=== PATIENT | female | born 1940 | race Caucasian/White ===

== ENCOUNTER 2016-12-25 12:00 | Inpatient (IN) ==
--- NOTE | 2016-12-25 12:47 | Emergency Department Note ---
Disposition Clinical Impression: Atrial flutter with rapid ventricular response, Pneumonitis Disposition: Admitted As Inpatient Condition: Good Referrals: Tisha Celeste MD [Primary Care Provider] - Forms: ED Satisfaction Letter Time of Disposition: 15:04 General Adult HPI - General Chief complaint: ED Dizziness Stated complaint: Tachycardia Sent by Kathy Time Seen by Provider: 12/25/16 12:12 Source: patient Limitations: no limitations Nursing Notes Reviewed: Yes Vital Signs Reviewed: Yes - History of Present Illness HPI Narrative: 76 year old female presnt to the ED from Dr. turner office and states that she was being fitted for a holter monitor due to incresed feeligns of lightheadedness. She has chronic atrial fibrillation and is rate controlled with cardizem and is currently on coumadin therapy for anticoagulation. Patient also states that she was most recenty treated for a UTI and is still having symptoms becase she stopped taking the mediation due to inerference with her coumadin and thinks that maybe this is the resason for her elevater HR. Patient denies fevers, but she has been nauseated PAtinet is currently in afib with a rate of 150s. Dnies chest pain at this time. Pain Scale: 0 - Related Data Home Medications Medication Instructions Recorded Confirmed Cholecalciferol (D-3) [Vitamin D] 1,000 unit PO DAILY 10/24/15 12/25/16 Cyanocobalamin (Vitamin B-12) 100 mcg PO DAILY 10/24/15 12/25/16 [Vitamin B12] Vitamin E Acid Succinate [Vitamin 100 unit PO DAILY 10/24/15 12/25/16 E] Vitamins A and D [Vitamin A and D] 1 cap PO DAILY 10/24/15 12/25/16 Potassium Chloride [K-Tab ER] 20 meq PO DAILY 11/12/16 12/25/16 Warfarin [Coumadin] 6 mg PO MOWEFR 11/12/16 12/25/16 Warfarin [Coumadin] 9 mg PO SUTUTHSA 11/12/16 12/25/16 Previous Rx's Medication Instructions Recorded Diltiazem CD (24hr) [Cardizem CD] 120 mg PO DAILY #60 cap.er.24h 10/25/15 Allergies Allergy/AdvReac Type Severity Reaction Status Date / Time codeine Allergy Shakiness Verified 11/24/16 09:50 Constitutional: Reports: weakness. Denies: fever, chills, weight change Eyes: Denies: eye pain, eye discharge, vision change ENT ED: Denies: ear pain, throat pain, dental pain, hearing loss, epistaxis, congestion, dysphagia Cardiovascular: Reports: palpitations. Denies: chest pain, dyspnea on exertion , edema, syncope Respiratory: Denies: cough, dyspnea, wheezes, hemoptysis, stridor Gastrointestinal: Denies: abdominal pain, nausea, vomiting, diarrhea, constipation, hematemesis, melena, hematochezia Genitourinary: Denies: dysuria, frequency, hematuria, discharge Musculoskeletal: Denies: back pain, neck pain, arthralgia, myalgia Integumentary: Denies: rash, abrasion, lesions Neurological: Reports: other (lightheaded). Denies: headache, weakness, numbness, paresthesias, confusion, abnormal gait, vertigo Psychiatric: Denies: anxiety, depression, suicidal thoughts, homicidal thoughts , auditory hallucinations, visual hallucinations Endocrine: Denies: fatigue Hematological/Lymphatic: Denies: easy bleeding, easy bruising Allergic/Immunologic: Denies: facial swelling, urticaria Past Medical History - Past Medical History Medical history: Reports: arthritis, atrial fibrillation, hyperlipidemia, hypertension Surgical history: Reports: appendectomy, cholecystectomy, orthopedic, other Psychiatric history: Reports: no psych history 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: bilateral tubal ligation - Social History Smoking Status: Current every day smoker Smokeless Tobacco Status: No Alcohol use: Reports: none Drug use: Reports: none Physical Exam - General Limitations: no limitations General appearance: alert - Head Head exam: atraumatic, normocephalic, normal inspection - Eye Eye exam: Present: normal appearance, PERRL, EOMI - Expanded Eye Exam Pupils: Left: reactive - ENT ENT exam: normal exam, normal oropharynx, mucous membranes moist - Expanded ENT Exam External ear exam: Present: normal external inspection Mouth exam: Present: normal external inspection Teeth exam: Present: normal inspection Throat exam: Present: normal inspection - Neck Neck exam: Present: normal inspection, full ROM, trachea midline - Chest Chest inspection: Present: normal inspection, symmetric chest wall rise - Respiratory Respiratory exam: Present: normal lung sounds bilaterally - Cardiovascular Cardiovascular exam: Present: tachycardia, irregular rhythm, normal heart sounds - Abdominal Exam Abdominal exam: Present: soft, Non-Tender. Absent: tenderness, distention, guarding, rebound, rigidity - Extremities Exam Extremities exam: Present: normal inspection, full ROM. Absent: tenderness, pedal edema - Expanded Upper Extremity Exam Shoulder exam: Present: normal inspection, full ROM Arm exam: Present: normal inspection, full ROM Elbow exam: Present: normal inspection, full ROM Forearm/Wrist exam: Present: normal inspection, full ROM Hand exam: Present: normal inspection, full ROM Vascular exam: Normal: capillary refill, radial pulse - Expanded Lower Extremity Exam Hip/Pelvis exam: Present: normal inspection, full ROM Upper leg exam: Present: normal inspection, full ROM Knee exam: Present: normal inspection, full ROM Lower leg exam: Present: normal inspection, full ROM Ankle exam: Present: normal inspection, full ROM Foot/toe exam: Present: normal inspection, full ROM Neurovascular/Tendon exam: Absent: motor deficit, sensory deficit, tendon deficit - Back Exam Back exam: Present: normal inspection, full ROM. Absent: tenderness - Neurological Exam Neurological exam: Present: alert, oriented X3 - Expanded Neurological Exam Patient oriented to: Present: person, place, time Coma Scale Eye Opening: Spontaneous Coma Scale Motor Response: Obeys Commands Coma Scale Verbal Response: Oriented Coma Scale Total: 15 - Psychiatric Psychiatric exam: Present: normal affect, normal mood - Skin Skin exam: Present: warm, dry, intact, normal color Course Course Narrative: we will stat cardizem with drip and cardiopulmonary workup with CTA to rule out infectious source. ADMIt to medicine after evaluation. - Consultations Consultation #1: discussed case with Dr Ray and he accepts iraj to his service. Ryan has been updated and is agreeable to plan Time: 15:03 Vital Signs Temperature 98.3 F 12/25/16 12:06 Pulse Rate 153 12/25/16 12:06 Respiratory Rate 22 12/25/16 12:06 Blood Pressure 124/85 12/25/16 12:06 O2 Sat by Pulse Oximetry 94 12/25/16 12:06 Temperature 98.3 F 12/25/16 12:06 Pulse Rate 76 12/25/16 14:32 Respiratory Rate 18 12/25/16 14:32 Blood Pressure 135/91 12/25/16 14:32 O2 Sat by Pulse Oximetry 94 12/25/16 14:32 Oxygen Delivery Oxygen Delivery Room Air Medical Decision Making - Medical Records Medical records reviewed: Yes I reviewed the patient's medical records. - Lab Data Lab results reviewed: Yes I reviewed the patient's lab results. Result diagrams: 12/25/16 12:47 12/25/16 12:47 Lab Results 12/25/16 12/25/16 12/25/16 Range/Units 12:47 12:47 12:47 WBC 9.3 (4.3-11.1) K/mcL RBC 5.10 H (3.82-4.97) M/mcL Hgb 13.1 (11.5-15.4) g/dL Hct 41.6 (35.3-44.9) % MCV 81.6 L (83.0-100.0) fL MCH 25.7 L (28.0-33.3) pg MCHC 31.5 L (31.6-35.5) g/dL RDW 15.9 H (11.5-14.5) % Plt Count 340 (140-400) K/mcL MPV 9.8 (9.4-12.4) fL Immature Gran % 0.6 (0-4) % Seg Neutrophils % 66.0 % Lymphocytes % 24.8 % Monocytes % 5.5 % Eosinophils % 2.5 % Basophils % 0.6 % Neutrophils # 6.1 (1.6-8.9) K/mcL Lymphocytes # 2.3 (0.6-4.6) K/mcL Monocytes # 0.5 (0.0-1.3) K/mcL Eosinophils # 0.2 (0.0-0.6) K/mcL Basophils # 0.1 (0.0-0.2) K/mcL PT (9.4-12.1) Seconds INR APTT (26.0-36.0) Seconds Sodium 138 (136-145) mEq/L Potassium 4.1 (3.5-4.5) mEq/L Chloride 107 (98-109) mEq/L Carbon Dioxide 22 (19-29) mEq/L BUN 13 (7-20) mg/dL Creatinine 0.73 (0.57-1.11) mg/dL Est GFR ( Amer) > 60 (> 60) Est GFR (Non-Af Amer) > 60 (> 60) BUN/Creatinine Ratio 18 (6-26) Glucose 137 H (70-99) mg/dL Calculated Osmolality 288 (280-300) Lactic Acid (0.5-2.2) mmol/L Calcium 8.7 (8.6-10.8) mg/dL Total Bilirubin 0.3 (0.2-1.2) mg/dL Direct Bilirubin 0.1 (0.0-0.5) mg/dL Indirect Bilirubin 0.2 (0.0-1.2) mg/dL AST 35 H (5-34) Units/L ALT 36 (0-55) Units/L Alkaline Phosphatase 101 (38-126) Units/L Troponin I (0-0.03) ng/mL B-Natriuretic Peptide 256 H (0-100) pg/mL Serum Total Protein 7.2 (6.0-8.3) g/dL Albumin 3.2 L (3.5-5.0) g/dL Globulin 4.0 H (2.4-3.5) g/dL Albumin/Globulin Ratio 0.8 L (1.1-2.2) Lipase 39 (8-78) Units/L Urine Color (Yellow) Urine Clarity (Clear) Urine pH (5.0-8.0) pH Units Ur Specific Bly (1.010-1.025) Urine Protein (Neg-Trace) mg/dL Urine Glucose (UA) (Normal) mg/dL Urine Ketones (Negative) mg/dL Urine Blood (Negative) Urine Nitrite (Negative) Urine Bilirubin (Negative) Urine Urobilinogen (Normal) mg/dL Ur Leukocyte Esterase (Negative) Urine Microscopic RBC (0-3) per hpf Urine Microscopic WBC (0-3) per hpf Ur Squamous Epith Cells (None-Few) per lpf Urine Bacteria (None-Few) per hpf Hyaline Casts (None-Few) per lpf Ur Culture Indicated? (NO) 12/25/16 12/25/16 12/25/16 Range/Units 12:47 12:47 13:20 WBC (4.3-11.1) K/mcL RBC (3.82-4.97) M/mcL Hgb (11.5-15.4) g/dL Hct (35.3-44.9) % MCV (83.0-100.0) fL MCH (28.0-33.3) pg MCHC (31.6-35.5) g/dL RDW (11.5-14.5) % Plt Count (140-400) K/mcL MPV (9.4-12.4) fL Immature Gran % (0-4) % Seg Neutrophils % % Lymphocytes % % Monocytes % % Eosinophils % % Basophils % % Neutrophils # (1.6-8.9) K/mcL Lymphocytes # (0.6-4.6) K/mcL Monocytes # (0.0-1.3) K/mcL Eosinophils # (0.0-0.6) K/mcL Basophils # (0.0-0.2) K/mcL PT 25.5 H (9.4-12.1) Seconds INR 2.3 APTT 42.9 H (26.0-36.0) Seconds Sodium (136-145) mEq/L Potassium (3.5-4.5) mEq/L Chloride (98-109) mEq/L Carbon Dioxide (19-29) mEq/L BUN (7-20) mg/dL Creatinine (0.57-1.11) mg/dL Est GFR ( Amer) (> 60) Est GFR (Non-Af Amer) (> 60) BUN/Creatinine Ratio (6-26) Glucose (70-99) mg/dL Calculated Osmolality (280-300) Lactic Acid 1.8 (0.5-2.2) mmol/L Calcium (8.6-10.8) mg/dL Total Bilirubin (0.2-1.2) mg/dL Direct Bilirubin (0.0-0.5) mg/dL Indirect Bilirubin (0.0-1.2) mg/dL AST (5-34) Units/L ALT (0-55) Units/L Alkaline Phosphatase (38-126) Units/L Troponin I 0.00 (0-0.03) ng/mL B-Natriuretic Peptide (0-100) pg/mL Serum Total Protein (6.0-8.3) g/dL Albumin (3.5-5.0) g/dL Globulin (2.4-3.5) g/dL Albumin/Globulin Ratio (1.1-2.2) Lipase (8-78) Units/L Urine Color (Yellow) Urine Clarity (Clear) Urine pH (5.0-8.0) pH Units Ur Specific Bly (1.010-1.025) Urine Protein (Neg-Trace) mg/dL Urine Glucose (UA) (Normal) mg/dL Urine Ketones (Negative) mg/dL Urine Blood (Negative) Urine Nitrite (Negative) Urine Bilirubin (Negative) Urine Urobilinogen (Normal) mg/dL Ur Leukocyte Esterase (Negative) Urine Microscopic RBC (0-3) per hpf Urine Microscopic WBC (0-3) per hpf Ur Squamous Epith Cells (None-Few) per lpf Urine Bacteria (None-Few) per hpf Hyaline Casts (None-Few) per lpf Ur Culture Indicated? (NO) 12/25/16 Range/Units 14:03 WBC (4.3-11.1) K/mcL RBC (3.82-4.97) M/mcL Hgb (11.5-15.4) g/dL Hct (35.3-44.9) % MCV (83.0-100.0) fL MCH (28.0-33.3) pg MCHC (31.6-35.5) g/dL RDW (11.5-14.5) % Plt Count (140-400) K/mcL MPV (9.4-12.4) fL Immature Gran % (0-4) % Seg Neutrophils % % Lymphocytes % % Monocytes % % Eosinophils % % Basophils % % Neutrophils # (1.6-8.9) K/mcL Lymphocytes # (0.6-4.6) K/mcL Monocytes # (0.0-1.3) K/mcL Eosinophils # (0.0-0.6) K/mcL Basophils # (0.0-0.2) K/mcL PT (9.4-12.1) Seconds INR APTT (26.0-36.0) Seconds Sodium (136-145) mEq/L Potassium (3.5-4.5) mEq/L Chloride (98-109) mEq/L Carbon Dioxide (19-29) mEq/L BUN (7-20) mg/dL Creatinine (0.57-1.11) mg/dL Est GFR ( Amer) (> 60) Est GFR (Non-Af Amer) (> 60) BUN/Creatinine Ratio (6-26) Glucose (70-99) mg/dL Calculated Osmolality (280-300) Lactic Acid (0.5-2.2) mmol/L Calcium (8.6-10.8) mg/dL Total Bilirubin (0.2-1.2) mg/dL Direct Bilirubin (0.0-0.5) mg/dL Indirect Bilirubin (0.0-1.2) mg/dL AST (5-34) Units/L ALT (0-55) Units/L Alkaline Phosphatase (38-126) Units/L Troponin I (0-0.03) ng/mL B-Natriuretic Peptide (0-100) pg/mL Serum Total Protein (6.0-8.3) g/dL Albumin (3.5-5.0) g/dL Globulin (2.4-3.5) g/dL Albumin/Globulin Ratio (1.1-2.2) Lipase (8-78) Units/L Urine Color Yellow (Yellow) Urine Clarity Clear (Clear) Urine pH 6.5 (5.0-8.0) pH Units Ur Specific Bly 1.012 (1.010-1.025) Urine Protein Negative (Neg-Trace) mg/dL Urine Glucose (UA) Normal (Normal) mg/dL Urine Ketones Negative (Negative) mg/dL Urine Blood Negative (Negative) Urine Nitrite Negative (Negative) Urine Bilirubin Negative (Negative) Urine Urobilinogen Normal (Normal) mg/dL Ur Leukocyte Esterase Small H (Negative) Urine Microscopic RBC 0-3 (0-3) per hpf Urine Microscopic WBC 15-30 H (0-3) per hpf Ur Squamous Epith Cells Moderate H (None-Few) per lpf Urine Bacteria Moderate H (None-Few) per hpf Hyaline Casts None Seen (None-Few) per lpf Ur Culture Indicated? YES A (NO) - Radiology Data Radiology results reviewed: Yes I reviewed the patient's radiology results. - EKG Data EKG #1 EKG attestation: Yes I reviewed and interpreted this EKG. EKG results narrative: atrial flutter with rate of 149. NO STEMI. change from 11/24/16 (afib rate controlled). LAD 1218
[2016-12-25 13:03] LABS: Basophils # 0.1 K/mcL (0.0-0.2); Basophils % 0.6 %; Eosinophils # 0.2 K/mcL (0.0-0.6); Eosinophils % 2.5 %; Hematocrit 41.6 % (35.3-44.9); Hemoglobin 13.1 g/dL (11.5-15.4); Immature Granulocytes % 0.6 % (0-4); Lymphocytes # 2.3 K/mcL (0.6-4.6); Lymphocytes % 24.8 %; Mean Corpuscular HGB Conc 31.5 g/dL (31.6-35.5); Mean Corpuscular Hemoglobin 25.7 pg (28.0-33.3); Mean Corpuscular Volume 81.6 fL (83.0-100.0); Mean Platelet Volume 9.8 fL (9.4-12.4); Monocytes # 0.5 K/mcL (0.0-1.3); Monocytes % 5.5 %; Neutrophils # 6.1 K/mcL (1.6-8.9); Platelet Count 340 K/mcL (140-400); Red Cell Distribution Width 15.9 % (11.5-14.5)
[2016-12-25 13:11] LABS: Alanine Aminotransferase 36 Units/L (0-55); Albumin 3.2 g/dL (3.5-5.0); Albumin/Globulin Ratio 0.8 (1.1-2.2); Alkaline Phosphatase 101 Units/L (38-126); Aspartate Amino Transferase 35 Units/L (5-34); BUN/Creatinine Ratio 18 (6-26); Bilirubin,Direct 0.1 mg/dL (0.0-0.5); Bilirubin,Indirect 0.2 mg/dL (0.0-1.2); Bilirubin,Total 0.3 mg/dL (0.2-1.2); Blood Urea Nitrogen 13 mg/dL (7-20); Calcium 8.7 mg/dL (8.6-10.8); Carbon Dioxide 22 mEq/L (19-29); Chloride 107 mEq/L (98-109); Glucose 137 mg/dL (70-99); Lipase 39 Units/L (8-78); Osmolality,Calculated 288 (280-300); Potassium 4.1 mEq/L (3.5-4.5); Sodium 138 mEq/L (136-145); Total Protein 7.2 g/dL (6.0-8.3); eGFR For African Americans > 60 (> 60); eGFR For Non-African Americans > 60 (> 60)
[2016-12-25 13:34] LABS: INR 2.3; Prothrombin Time 25.5 Seconds (9.4-12.1)
[2016-12-25 13:37] LABS: Activated Partial Thrombo Time 42.9 Seconds (26.0-36.0)
[2016-12-25 14:24] LABS: Bilirubin,Urine Negative (Negative); Blood,Urine Negative (Negative); Clarity,Urine Clear (Clear); Color,Urine Yellow (Yellow); Glucose,Urine (UA) Normal (Normal); Ketones,Urine Negative (Negative); Leukocyte Esterase,Urine Small (Negative); Nitrite,Urine Negative (Negative); PH,Urine 6.5 pH Units (5.0-8.0); Protein,Urine Negative (Neg-Trace); Specific Gravity,Urine 1.012 (1.010-1.025); Urobilinogen,Urine Normal (Normal)
[2016-12-25 14:28] LABS: Bacteria,Urine Moderate per hpf (None-Few); Hyaline Casts,Urine None Seen per lpf (None-Few); RBC,Urine 0-3 per hpf (0-3); Squamous Epithelial Cell,Urine Moderate per lpf (None-Few); WBC,Urine 15-30 per hpf (0-3)
[2016-12-25] MEDS ORDERED: Levofloxacin 750 MG/150 ML 750 MG/150 ML BAG IVPB ONE (14:43)
[2016-12-25] MEDS: dilTIAZem HCl 100 MG in D5% in Water 50 ML IVC SCH (14:55)
[2016-12-25] MEDS ORDERED: Acetaminophen 325 MG TABLET PO PRN (16:07)
[2016-12-25] MEDS ORDERED: Naloxone 0.4 MG/ML INJ IVP PRN (16:07)
[2016-12-25] MEDS ORDERED: *HR* Morphine 2 MG/ML SYRINGE IVP PRN (16:07)
[2016-12-25] MEDS ORDERED: *HR* Warfarin 3 MG TABLET PO SCH (16:15)
--- NOTE | 2016-12-25 16:25 | Internal Med History&Physical ---
Date of Encounter: 12/25/16 Time of Encounter: 14:30 Assessment and Plan (1) Atrial flutter with rapid ventricular response Current visit: Yes Status: Acute 1. Patient converted to NSR by the time I saw her in ER. 2. Will check Magnesium level, TSH, and trend troponins. 3. Will order ECHO. 4. Consult Cardiology for further guidance and/or medication adjustmetns. 5. Continue home meds for now. (2) Pneumonitis Current visit: Yes Status: Acute 1. Other than dyspnea, patient asymptomatic. 2. Blood cultures ordered per ER. 3. She received Levaquin in ER. 4. I ordered Rocephin and Zithromax to start tomorrow. 5. Monitor clinically. (3) DVT prophylaxis Current visit: No Status: Acute 1. Patient on Coumadin. 2. Continue home dose and monitor daily PT/INR. Internal Medicine - H&P: HPI Chief complaint: palpitations, dyspnea Admitted From: Emergency Dept Plans for Post Hospital Care: Home History of present illness: Ms. Frye is a 76 year old female who presents with a several hour history of feeling lightheaded, dizzy, and short of breath. She was in the urgent care off site today having a Holter monitor placed as ordered by cardiology. However , the field evidence technician noticed that her heart rate was elevated at the time with a heart rate of about 150 bpm. She was sent to the ER where she was found to have atrial flutter with rapid ventricular response. She received a dose of IV Cardizem with heart rate control. I was then contacted to admit patient. Upon my assessment of the patient, she feels much better and is symptom-free. I noticed that she appears to be in sinus rhythm on bus driver/monitor during my assessment. She and her daughter state that she did take her oral Cardizem this morning after she was having her monitoring manager placed at the urgent care. I suspect with her oral Cardizem and the IV Cardizem in the ER, she converted to sinus rhythm. She and her state she has a history of paroxysmal atrial fibrillation and her tool marker has been making some medication changes recently. Cardiology recommended patient be admitted with continued observation and possible further medication changes. In addition to her work-up, she underwent CT angiogram of the chest which showed some pneumonitis type findings. She denies any cough, fever, but she complains of increasing shortness of breath the last 3-4 days. She denies any myalgias, headache, nausea, or vomiting. Past Med Surg Social Fam HX - Past Medical History Attestation: Yes The following information was validated with the patient. Source: patient, old records reviewed Medical history: arthritis, atrial fibrillation, hyperlipidemia, hypertension Psychiatric history: no psych history - Past Surgical History Surgical History: appendectomy, cholecystectomy, orthopedic, other - Social History Smoking Status: Current every day smoker Smokeless Tobacco Status: No Alcohol use: none Drug use: none Current living situation: Home, With Family Activity Level: Independent ambulation Recent Out of Country Travel Within the Last 8 Weeks: No - Family History Mother Living Status: Hx Family Cardiac Disorders: No Father Living Status: Hx Family Cardiac Disorders: No Hx Family Respiratory Disorders: No Internal Medicine - H&P: Meds Cholecalciferol (D-3) [Vitamin D] 1,000 unit PO DAILY 10/24/15 [History] Cyanocobalamin (Vitamin B-12) [Vitamin B12] 100 mcg PO DAILY 10/24/15 [History] Vitamin E Acid Succinate [Vitamin E] 100 unit PO DAILY 10/24/15 [History] Vitamins A and D [Vitamin A and D] 1 cap PO DAILY 10/24/15 [History] Diltiazem CD (24hr) [Cardizem CD] 120 mg PO DAILY #60 cap.er.24h 10/25/15 [Rx] Potassium Chloride [K-Tab ER] 20 meq PO DAILY 11/12/16 [History] Warfarin [Coumadin] 6 mg PO MOWEFR 11/12/16 [History] Warfarin [Coumadin] 9 mg PO SUTUTHSA 11/12/16 [History] 3 Allergy/AdvReac Type Severity Reaction Status Date / Time codeine Allergy Shakiness Verified 11/24/16 09:50 - Constitutional Constitutional: no chills, no fever(s) - EENT Eyes: no blurry vision, no change in vision Ears: no ear pain, no tinnitus Nose, mouth and throat: no nasal congestion, no nasal discharge, no sinus pressure, no sore throat - Cardiovascular Cardiovascular ROS IM: diaphoresis, dyspnea, dyspnea on exertion, irregular heart rhythm, lightheadedness, palpitations, no chest pain, no edema, no orthopnea, no paroxysmal nocturnal dyspnea, no syncope - Respiratory Respiratory: dyspnea, dyspnea on exertion, no cough, no hemoptysis, no wheezing , no chest congestion, no excessive phlegm production, no change in phlegm color - Gastrointestinal Gastrointestinal: no abdominal pain, no diarrhea, no nausea, no vomiting - Genitourinary Genitourinary: no dysuria, no flank pain, no hematuria - Musculoskeletal Musculoskeletal ROS IM: no back pain, no joint swelling - Integumentary Integumentary IM: no rash, no jaundice - Neurological Neurological ROS: dizziness, no focal weakness, no frequent falls, no headache(s ), no vertigo - Psychiatric Psychiatric: no anxiety, no depression - Endocrine Endocrine IM: no cold intolerance, no heat intolerance, no polydipsia, no polyuria - Hematologic/Lymphatic Hematologic/Lymphatic: no easy bruising, no lymphadenopathy - Allergic/Immunologic Allergic/Immunologic: no GI upset with certain foods - Constitutional Vitals: Temp Pulse Resp BP Pulse Ox 98.3 F 80 16 131/72 93 12/25/16 12:06 12/25/16 16:17 12/25/16 16:17 12/25/16 16:17 12/25/16 16:17 General appearance: Present: cooperative, A&O X 3, pleasant, no acute distress - Head Head exam: Present: atraumatic, normal inspection - Eye Eye exam: Present: EOMI, normal appearance, PERRL. Absent: scleral icterus Pupils: Present: normal accommodation - ENT ENT exam: Present: mucous membranes dry, normal exam - Neck Neck exam general surgery: Present: full ROM, normal inspection, supple. Absent : tenderness, thyromegaly - Respiratory Respiratory exam: Present: rhonchi (rare/scattered). Absent: accessory muscle use, chest wall tenderness, prolonged expiratory phase, rales, respiratory distress, wheezes, tachypnea - Cardiovascular Cardiovascular exam: Present: RRR, +S1, +S2. Absent: diastolic murmur, irregular rhythm, JVD, systolic murmur - GI/Abdominal GI/Abdominal exam: Present: normal bowel sounds, soft. Absent: hepatomegaly, mass, splenomegaly, tenderness - Extremities Exam Extremities exam: Present: full ROM, normal capillary refill, warm, radial pulses palpable and symmetrical. Absent: calf tenderness, joint swelling, tenderness - Back Exam Back exam: Absent: CVA tenderness (L), CVA tenderness (R) - Neurological Exam Neurological exam: Present: alert, CN II-XII intact, oriented X3, no focal deficits - Psychiatric Psychiatric exam: Present: normal affect, normal mood - Skin Skin exam: Present: dry, warm. Absent: rash Internal Med - H&P Results - Labs CBC & Chem 7: 12/25/16 12:47 12/25/16 12:47 - EKG Data -: EKG Interpreted by Myself - EKG Data Prior EKG available for review: yes When compared to previous EKG: there are significant changes EKG comments: 12/25/16 16:37 atrial flutter with RVR - VTE Reasons for not Prescribing Prophylaxis: Not indicated-Anticoagulated or INR therapeutic
--- NOTE | 2016-12-25 18:57 | Electrocardiograph Report ---
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
[2016-12-25] MEDS ORDERED: Perflutren Lipid Microsphere 1.3 ML in 0.9 % Sodium Chloride 8.7 ML IVP ONE (22:25)
[2016-12-26 01:03] LABS: Basophils % 0.5 %; Eosinophils # 0.3 K/mcL (0.0-0.6); Eosinophils % 3.7 %; Hematocrit 35.8 % (35.3-44.9); Immature Platelets 2.6 % (1.1-6.1); Lymphocytes # 2.6 K/mcL (0.6-4.6); Lymphocytes % 29.6 %; Mean Corpuscular HGB Conc 31.3 g/dL (31.6-35.5); Mean Corpuscular Hemoglobin 25.8 pg (28.0-33.3); Mean Corpuscular Volume 82.5 fL (83.0-100.0); Mean Platelet Volume 9.5 fL (9.4-12.4); Monocytes # 0.7 K/mcL (0.0-1.3); Monocytes % 7.7 %; Platelet Count 310 K/mcL (140-400); Red Blood Count 4.34 M/mcL (3.82-4.97); Red Cell Distribution Width 15.9 % (11.5-14.5); Segmented Neutrophils % 57.5 %
[2016-12-26 01:08] LABS: INR 2.6; Prothrombin Time 28.8 Seconds (9.4-12.1)
[2016-12-26 01:12] LABS: Hemoglobin 11.2 g/dL (11.5-15.4)
[2016-12-26 01:21] LABS: Alanine Aminotransferase 30 Units/L (0-55); Albumin 2.8 g/dL (3.5-5.0); Albumin/Globulin Ratio 0.8 (1.1-2.2); Alkaline Phosphatase 89 Units/L (38-126); Aspartate Amino Transferase 29 Units/L (5-34); BUN/Creatinine Ratio 20 (6-26); Bilirubin,Total 0.3 mg/dL (0.2-1.2); Blood Urea Nitrogen 17 mg/dL (7-20); Calcium 8.3 mg/dL (8.6-10.8); Carbon Dioxide 22 mEq/L (19-29); Chloride 107 mEq/L (98-109); Cholesterol 154 mg/dL (< 200); Globulin 3.6 g/dL (2.4-3.5); Glucose 136 mg/dL (70-99); HDL Cholesterol 31 mg/dL (40-59); LDL Cholesterol,Calculated 78 mg/dL (0-99); Magnesium 1.9 mg/dL (1.6-2.6); Osmolality,Calculated 288 (280-300); Potassium 3.9 mEq/L (3.5-4.5); Sodium 137 mEq/L (136-145); Total Protein 6.4 g/dL (6.0-8.3); Triglycerides 223 mg/dL (< 150); eGFR For African Americans > 60 (> 60); eGFR For Non-African Americans > 60 (> 60)
[2016-12-26] MEDS: dilTIAZem HCl 100 MG in D5% in Water 50 ML IVC SCH (07:38)
[2016-12-26] MEDS: Cholecalciferol (D-3) 1,000 UNIT TABLET PO SCH (08:03)
[2016-12-26] MEDS: cefTRIAXone 1,000 MG in Water for inj. (sterile) 10 ML IVP SCH (08:04)
[2016-12-26] MEDS ORDERED: VITAMINS A AND D PO SCH (09:00)
[2016-12-26] MEDS ORDERED: Azithromycin 250 MG in D5% in Water 250 ML IVPB SCH (09:00)
[2016-12-26] MEDS ORDERED: Diltiazem CD (24hr) 120 MG CAPSULE PO SCH (09:00)
[2016-12-26] MEDS: Vitamin B Complex/Vit C/Vit E 1 EACH TABLET PO SCH (09:51)
--- NOTE | 2016-12-26 10:50 | Cardiology Consult Note ---
<Marixa Wagoner - Last Filed: 12/26/16 11:33> Date of Encounter: 12/26/16 Time of Encounter: 09:00 Assessment and Plan (1) Pneumonitis Current Visit: Yes Status: Acute Per cardiology: -Being treated for pneumonitis by primary service. -ON IV ATB. -Management per primary service. (2) Atrial flutter with rapid ventricular response Current Visit: Yes Status: Chronic Per cardiology: -Known atrial fibrillation. Symptomatic with lightheadedness/dizziness when in a.fib. -A.fib RVR on admission, HR 149. -ECG 12/2016 1534 with SR, HR 74. QRS 77ms. -takes cardizem CD 180mg BID at home. -Per review of primary auto wash buffer outpatient note, atniarrhythmic therapy was being considered. -Stress 11/2015 negative for ischemia. No previous history of CAD. -TTE this admission with LVEF 60-65%, mild diastolic dysfunction, no significant valvular dysfunction, all bonner with normal motion. -Discussed and reviewed with , will start rhythmol 150mg Q8 hours. -ECG daily. -Will stop cardizem. -Will check overnight trending pulse ox. -COntinue coumadin. Discussion w patient/family: The assessment and plan as outlined above was discussed with the patient who expressed understanding and agreement. All questions were answered. Thank you for involving us in the care of your patient. Please call with any questions. Discussed and reviewed with . History of Present Illness Consult date: 12/25/16 Requesting physician: Jeremie Ray Consult reason: a.fib RVR Chief complaint: lightheadedness History of present illness: Ms. Frye is a 76 year old female with a relevant past medical history of atrial fibrillation, HTN, stomach ulcers, and per patient has had recurrent UTIs. Patient states she was being fitted for holter monitor when she felt lightheaded, so she presented to ER. Patient has known history of PAF and states she feels lightheaded and dizzy while in a.fib. Patient denies chest pain or increased shortness of breath. Patient denies current dizziness or lightheadedness. Past Med Surg Social Fam HX - Past Medical History Attestation: Yes The following information was validated with the patient. Source: patient, old records reviewed Medical history: arthritis, atrial fibrillation, hypertension Psychiatric history: no psych history - Past Surgical History Surgical History: appendectomy, cholecystectomy, orthopedic, other - Social History Smoking Status: Current every day smoker Packs per day: 1 Smokeless Tobacco Status: No Alcohol use: none Drug use: none - Family History Mother Living Status: Hx Family Cardiac Disorders: No Father Living Status: Hx Family Cardiac Disorders: No Hx Family Respiratory Disorders: No Medications and Allergies Cholecalciferol (D-3) [Vitamin D] 1,000 unit PO DAILY 10/24/15 [History] Cyanocobalamin (Vitamin B-12) [Vitamin B12] 100 mcg PO DAILY 10/24/15 [History] Vitamin E Acid Succinate [Vitamin E] 100 unit PO DAILY 10/24/15 [History] Vitamins A and D [Vitamin A and D] 1 cap PO DAILY 10/24/15 [History] Diltiazem CD (24hr) [Cardizem CD] 120 mg PO DAILY #60 cap.er.24h 10/25/15 [Rx] Potassium Chloride [K-Tab ER] 20 meq PO DAILY 11/12/16 [History] Warfarin [Coumadin] 6 mg PO MOWEFR 11/12/16 [History] Warfarin [Coumadin] 9 mg PO SUTUTHSA 11/12/16 [History] 3 Allergy/AdvReac Type Severity Reaction Status Date / Time codeine Allergy Shakiness Verified 11/24/16 09:50 All Systems Review: A 10-system review of systems was performed and is negative for pertinent findings except as documented above in the HPI. - Cardiovascular Cardiovascular: as per HPI, lightheadedness - Neurological Neurological: dizziness Physical Examination Vital Signs Temperature 98.3 F 12/25/16 12:06 Pulse Rate 153 12/25/16 12:06 Respiratory Rate 22 12/25/16 12:06 Blood Pressure 124/85 12/25/16 12:06 O2 Sat by Pulse Oximetry 94 12/25/16 12:06 Temperature 98.2 F 12/26/16 07:00 Pulse Rate 75 12/26/16 07:00 Respiratory Rate 18 12/26/16 07:00 Blood Pressure 128/69 12/26/16 07:00 O2 Sat by Pulse Oximetry 92 12/26/16 08:17 Oxygen Delivery Oxygen Delivery Room Air General: Conversant, No Apparent Distress HEENT: Atraumatic, Normocephaly, Mucus Membranes Moist Neck: No JVD, Normal carotid pulses Cardiac: Reg Rate and Rhythm, Normal S1 and S2, No Murmur Lungs: Normal Breath Sounds, No Wheeze, Rales, Rhonchi Neuro: Alert and responsive, No focal deficits noted Abdomen: Soft, Non-Tender Skin: No rashes noted on visualized skin Musculoskeletal: No Chest Wall Tenderness Extremities: No Clubbing, No Cyanosis, No Edema, Normal Pulses Results 12/26/16 00:29 12/26/16 00:29 Impressions Chest X-Ray 12/25/16 12:12 IMPRESSION: No acute process. D/ / Roland Fernandes MD / Roland Fernandes MD Interpreting Provider: Roland Fernandes MD Chest CTA 12/25/16 12:13 IMPRESSION: No evidence of pulmonary embolism or acute pulmonary abnormality. Questionable subtle centrilobular ground-glass nodularity, upper lobe predominant. This may be seen with respiratory bronchiolitis (is this patient a smoker?) and hypersensitivity pneumonitis. D/ / 12/25/2016 14:41:48 Jerrod Hedrick / carson Interpreting Provider: Jerrod Hedrick Echocardiogram 12/25/16 16:07 Impressions: LVEF 60-65%. Normal LV chamber size, wall thickness and function. Mild left ventricular diastolic dysfunction. Right ventricle was not well visualized. Grossly, it is normal in function. No evidence of pulmonary hypertension. No obvious significant valvular dysfunction. Left Ventricular Wall Motion: Rest Echo Findings All wall segments showed normal motion. Findings: Study Quality * Technically sub-optimal due to poor echocardiographic windows. ECG Findings * Normal sinus rhythm. Left Ventricle * LVEF 60-65%. * Normal LV chamber size, wall thickness and function. * Mild left ventricular diastolic dysfunction. Right Ventricle * Right ventricle was not well visualized. Grossly, it is normal in function. Left Atrium * Mildly dilated left atrium. Right Atrium * Right atrium is not well visualized. Interatrial Septum * Interatrial septum not well evaluated. Aortic Valve * Aortic valve not well visualized. * No aortic regurgitation. * No aortic stenosis. Mitral Valve * Normal mitral valve structure and function. * No mitral regurgitation. * No mitral stenosis. Tricuspid Valve * Normal tricuspid valve structure and function. * Trace tricuspid regurgitation. * No evidence of pulmonary hypertension. Pulmonic Valve * Pulmonic valve not well visualized. Aorta * Normally sized aortic root. Pericardium * The pericardium appears normal. IVC * Normal IVC dimensions and inspiratory collapse. Pulmonary Artery * Pulmonary artery not well visualized. Active Medications Acetaminophen (Tylenol) 650 mg PO Q6HR PRN PRN Reason: Fever Stop: 06/26/17 16:08 Azithromycin (Zithromax) 250 mg PO Q24H [facility] Stop: 06/28/17 09:01 Diltiazem HCl (Cardizem Cd) 120 mg PO DAILY [facility] Stop: 06/27/17 09:01 Last Admin: 12/26/16 08:04 Dose: 120 mg Docusate Sodium (Colace) 100 mg PO BID PRN PRN Reason: Constipation Stop: 06/26/17 16:08 Diltiazem HCl 100 mg/ Dextrose 50 mls @ 2.5 mls/hr IVC .Q20H DARREN; 5 MG/HR PRN Reason: Protocol Stop: 06/26/17 12:31 Last Admin: 12/26/16 07:38 Dose: Not Given Azithromycin 250 mg/ Dextrose 250 mls @ 252 mls/hr IVPB Q24H [facility] Stop: 12/26/16 11:00 Last Admin: 12/26/16 09:52 Dose: 252 mls/hr Ceftriaxone Sodium 1,000 mg/ (Sterile Water) 10 mls @ 300 mls/hr IVP DAILY [facility] Stop: 06/27/17 09:01 Last Admin: 12/26/16 08:04 Dose: 300 mls/hr Morphine Sulfate (Morphine Sulfate) 2 mg IVP Q4HR PRN PRN Reason: Chest Pain Stop: 06/26/17 16:08 Naloxone HCl (Narcan) 0.4 mg IVP Q2MIN PRN PRN Reason: Opioid Reversal Stop: 06/26/17 16:08 Potassium Chloride (Potassium Chloride) 20 meq PO DAILY [facility] Stop: 06/27/17 09:01 Last Admin: 12/26/16 08:03 Dose: 20 meq Vitamin B Complex/Vit C/Vit E (Stresstab) 1 each PO DAILY [facility] Stop: 06/27/17 09:01 Last Admin: 12/26/16 09:51 Dose: 1 each Vitamin D (Vitamin D) 1,000 unit PO DAILY [facility] Stop: 06/27/17 09:01 Last Admin: 12/26/16 08:03 Dose: 1,000 unit Warfarin Sodium (Coumadin) 6 mg PO MOWEFR [facility] Stop: 06/26/17 16:16 Last Admin: 12/25/16 17:46 Dose: 6 mg Warfarin Sodium (Coumadin) 9 mg PO SUTUTHSA [facility] Stop: 06/27/17 16:13 Laboratory Tests 12/25/16 12/25/16 12/25/16 12:47 12:47 18:24 Hgb 13.1 INR Potassium Creatinine Magnesium Troponin I 0.00 TSH 3.669 12/25/16 12/26/16 12/26/16 18:24 00:29 00:29 Hgb 11.2 L D INR Potassium Creatinine Magnesium Troponin I 0.01 0.00 TSH 12/26/16 12/26/16 00:29 00:29 Hgb INR 2.6 Potassium 3.9 Creatinine 0.84 Magnesium 1.9 Troponin I TSH - Imaging and Cardiology Chest Xray: report reviewed Stress Test: report reviewed Echo: report reviewed - EKG Interpretation EKG results cardiology: personally reviewed (ECG on admission with atrial fibrillation with RVR, HR 149.), other (Telemetry reviewed with average HR previous 12 hours noted to be 78, sinus rhythm.) Consult Discharge Plan - Plan Referrals: Tisha Celeste MD [Primary Care Provider] - <Yovani Singh - Last Filed: 12/26/16 22:03> Date of Encounter: 12/26/16 - Attending Attestation I have personally performed a face to face evaluation on this patient. I have reviewed and agree with the care plan. History and Exam by me shows: PT presented to ER with complaint of two week history of productive cough, weakness and shortness of breath. She was found to have pnuemonitis and started on IV antibiotics with some improvement in shortness of breath since admission. She also complained of palpitations, feeling her heart race and skip , associated with dizziness and lightheadedness with activity. She has been more symptomatic over the last month, following with Dr. Shoemaker, with recent increase in diltalizem dose to Cardiozem CD 180 mg bid, and is currently undergoing outpatient heart rate/rhythm monitoring with holter monitoring. She reports palpitations and symptomatic dizziness with changes in position have improved, but not resolved. IMP/Plan: 1. Chronic A fib with rapid ventricular response, initial improvement with increased diltiazem, but still symptomatic with recorded heart rates into the low 150s. She experiences dizziness and lightheadedness at rapid heat rates, with recent fracture right shoulder from fall due to dizziness. Will dc cardiozem, start low dose propafenone at 150 mg q 8, monitor heart rate and blood pressure response. 2. Pneumonitis: Less SOB on IV ab and resp tx. 3. Fx right shoulder, post surgical repair, in shoulder immobilzer, in rehab 4. Hypertension, controlled on current meds. 5. Systemic anticoagulation with warfarin for primary stroke risk reduction Assessment and Plan Discussion w patient/family: The assessment and plan as outlined above was discussed with the patient and/or family members who expressed understanding and agreement. All questions were answered. Thank you for involving us in the care of your patient. Please call with any questions. History of Present Illness History of present illness: Ms. Frye is a 76 year old female All Systems Review: A 10-system review of systems was performed and is negative for pertinent findings except as documented above in the HPI. Physical Examination Vital Signs, Last 4 Hours Pulse Resp BP Pulse Ox 12/26/16 19:31 79 18 137/75 95 Results 12/26/16 00:29 12/26/16 00:29
--- NOTE | 2016-12-26 14:46 | Electrocardiograph Report ---
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
[2016-12-26] MEDS ORDERED: *HR* Warfarin 3 MG TABLET PO SCH (16:12)
[2016-12-26] MEDS ORDERED: *HR* Warfarin 3 MG TABLET PO ONE (18:00)
[2016-12-26] MEDS ORDERED: Warfarin perPT PO PRN (18:00)
--- NOTE | 2016-12-26 23:00 | Internal Med Progress Note ---
Date of Encounter: 12/26/16 Time of Encounter: 13:58 - Assessment and plan (1) Atrial flutter with rapid ventricular response Current Visit: Yes Status: Chronic Assessment and plan: Cardiology following, recommendations appreciated. Patient will be started on Rhythmol and monitored. Continue coumadin. Cardizem held. (2) Hypertension Current Visit: No Status: Chronic Qualifiers: Hypertension type: essential hypertension Qualified Code(s): I10 - Essential (primary) hypertension (3) DVT prophylaxis Current Visit: No Status: Acute (4) Pneumonitis Current Visit: Yes Status: Acute - Subjective Interval history: No acute events. Does note she has SOB but is chronic for her. Denies cp, fevers/chills, n/v. - Constitutional Vitals: Temp Pulse Resp BP Pulse Ox 98.2 F 79 18 137/75 95 12/26/16 15:15 12/26/16 19:31 12/26/16 19:31 12/26/16 19:31 12/26/16 19:31 General appearance: Present: cooperative, A&O X 3, pleasant, no acute distress Exam: - Head Head exam: Present: atraumatic, normal inspection - Eye Eye exam: Present: EOMI, normal appearance, PERRL. Absent: scleral icterus Pupils: Present: normal accommodation - ENT ENT exam: Present: mucous membranes dry, normal exam - Neck Neck exam general surgery: Present: full ROM, normal inspection, supple. Absent : tenderness, thyromegaly - Respiratory Respiratory exam: Present: rhonchi (rare/scattered). Absent: accessory muscle use, chest wall tenderness, prolonged expiratory phase, rales, respiratory distress, wheezes, tachypnea - Cardiovascular Cardiovascular exam: Present: RRR, +S1, +S2. Absent: diastolic murmur, irregular rhythm, JVD, systolic murmur - GI/Abdominal GI/Abdominal exam: Present: normal bowel sounds, soft. Absent: hepatomegaly, mass, splenomegaly, tenderness - Extremities Exam Extremities exam: Present: full ROM, normal capillary refill, warm, radial pulses palpable and symmetrical. Absent: calf tenderness, joint swelling, tenderness - Back Exam Back exam: Absent: CVA tenderness (L), CVA tenderness (R) - Neurological Exam Neurological exam: Present: alert, CN II-XII intact, oriented X3, no focal deficits - Psychiatric Psychiatric exam: Present: normal affect, normal mood - Skin Skin exam: Present: dry, warm. Absent: rash Internal Medicine: Result - Labs CBC & Chem 7: 12/26/16 00:29 12/26/16 00:29 - ABG Interpretation ABG results: PT/INR, D-dimer PT 28.8 Seconds (9.4-12.1) H 12/26/16 00:29 - VTE Reasons for not Prescribing Prophylaxis: Not indicated-Anticoagulated or INR therapeutic Consult Discharge Plan - Plan Referrals: Tisha Celeste MD [Primary Care Provider] -
[2016-12-27 05:15] LABS: INR 2.6; Prothrombin Time 28.3 Seconds (9.4-12.1)
[2016-12-27 05:16] LABS: Basophils # 0.1 K/mcL (0.0-0.2); Basophils % 0.8 %; Eosinophils # 0.4 K/mcL (0.0-0.6); Eosinophils % 4.4 %; Hematocrit 37.8 % (35.3-44.9); Hemoglobin 11.5 g/dL (11.5-15.4); Immature Granulocytes % 0.4 % (0-4); Lymphocytes # 2.6 K/mcL (0.6-4.6); Lymphocytes % 30.8 %; Mean Corpuscular HGB Conc 30.4 g/dL (31.6-35.5); Mean Corpuscular Hemoglobin 25.3 pg (28.0-33.3); Mean Corpuscular Volume 83.1 fL (83.0-100.0); Mean Platelet Volume 9.8 fL (9.4-12.4); Monocytes # 0.7 K/mcL (0.0-1.3); Monocytes % 7.7 %; Neutrophils # 4.7 K/mcL (1.6-8.9); Platelet Count 324 K/mcL (140-400); Red Blood Count 4.55 M/mcL (3.82-4.97); Red Cell Distribution Width 15.9 % (11.5-14.5); Segmented Neutrophils % 55.9 %
[2016-12-27 05:23] LABS: BUN/Creatinine Ratio 22 (6-26); Blood Urea Nitrogen 16 mg/dL (7-20); Calcium 8.6 mg/dL (8.6-10.8); Carbon Dioxide 22 mEq/L (19-29); Chloride 108 mEq/L (98-109); Glucose 113 mg/dL (70-99); Osmolality,Calculated 292 (280-300); Potassium 4.4 mEq/L (3.5-4.5); Sodium 140 mEq/L (136-145); eGFR For African Americans > 60 (> 60); eGFR For Non-African Americans > 60 (> 60)
--- NOTE | 2016-12-27 09:37 | Cardiology Progress Note ---
Date of Encounter: 12/27/16 Time of Encounter: 09:00 Assessment and Plan (1) Pneumonitis Current Visit: Yes Status: Acute Per cardiology: -Being treated for pneumonitis by primary service. -ON IV ATB. -Management per primary service. (2) Atrial flutter with rapid ventricular response Current Visit: Yes Status: Chronic Per cardiology: -Known atrial fibrillation. Symptomatic with lightheadedness/dizziness when in a.fib. -A.fib RVR on admission, HR 149. -ECG 12/25/2016 1534 with SR, HR 74. QRS 77ms. -ECG 12/27/2016 with SR, HR 71. QRS 77ms. -Started on rhythmol 150mg Q8 hours. S/p 3 total doses. -Stress 11/2015 negative for ischemia. No previous history of CAD. -TTE this admission with LVEF 60-65%, mild diastolic dysfunction, no significant valvular dysfunction, all bonner with normal motion. -On coumadin. INR therapeutic. -Discussed at length with patient, will need to stay for a total of 6 doses of rhythmol. Possible sign off tomorrow. Patient upset regarding staying another day inpatient. After lengthy discussion, patient agreeable to stay. -Continue rhythmol. -ECG daily. -Continue coumadin. Discussion w patient/family: The assessment and plan as outlined above was discussed with the patient who expressed understanding and agreement. All questions were answered. Thank you for involving us in the care of your patient. Please call with any questions. Discussed and reviewed with . Subjective Principal diagnosis: pneumonitis Interval history: Patient states she feels well this morning. Denies complaints. Objective Vital Signs, Last 4 Hours Temp Pulse Resp BP Pulse Ox 12/27/16 06:48 97.5 F L 72 18 146/47 90 General: Conversant, No Apparent Distress HEENT: Atraumatic, Normocephaly, Mucus Membranes Moist Neck: No JVD, Normal carotid pulses Cardiac: Reg Rate and Rhythm, Normal S1 and S2, No Murmur Lungs: Normal Breath Sounds, No Wheeze, Rales, Rhonchi Neuro: Alert and responsive, No focal deficits noted Abdomen: Soft, Non-Tender Skin: No rashes noted on visualized skin Musculoskeletal: No Chest Wall Tenderness Extremities: No Clubbing, No Cyanosis, No Edema, Normal Pulses Results 12/27/16 04:01 12/27/16 04:01 Lab Results Active Medications Acetaminophen (Tylenol) 650 mg PO Q6HR PRN PRN Reason: Fever Stop: 06/26/17 16:08 Azithromycin (Zithromax) 250 mg PO Q24H [facility] Stop: 06/28/17 09:01 Docusate Sodium (Colace) 100 mg PO BID PRN PRN Reason: Constipation Stop: 06/26/17 16:08 Ceftriaxone Sodium 1,000 mg/ (Sterile Water) 10 mls @ 300 mls/hr IVP DAILY [facility] Stop: 06/27/17 09:01 Last Admin: 12/26/16 08:04 Dose: 300 mls/hr Naloxone HCl (Narcan) 0.4 mg IVP Q2MIN PRN PRN Reason: Opioid Reversal Stop: 06/26/17 16:08 Potassium Chloride (Potassium Chloride) 20 meq PO DAILY [facility] Stop: 06/27/17 09:01 Last Admin: 12/26/16 08:03 Dose: 20 meq Propafenone HCl (Rhythmol) 150 mg PO Q8HR [facility] Stop: 06/27/17 16:01 Last Admin: 12/26/16 23:53 Dose: 150 mg Vitamin B Complex/Vit C/Vit E (Stresstab) 1 each PO DAILY [facility] Stop: 06/27/17 09:01 Last Admin: 12/26/16 09:51 Dose: 1 each Vitamin D (Vitamin D) 1,000 unit PO DAILY [facility] Stop: 06/27/17 09:01 Last Admin: 12/26/16 08:03 Dose: 1,000 unit Warfarin Sodium (Coumadin Perpt) 1 each PO DAILY@1800 PRN PRN Reason: SEE COMMENTS Stop: 06/27/17 18:01 Laboratory Tests 12/27/16 12/27/16 12/27/16 04:01 04:01 04:01 Hgb 11.5 INR 2.6 Potassium 4.4 Creatinine 0.74 - Imaging and Cardiology Chest Xray: report reviewed Stress Test: report reviewed Echo: report reviewed - EKG Interpretation EKG results cardiology: personally reviewed (ECG today with SR, HR 71. QRS 77ms. ), other (Telemetry reviewed with average HR previous 12 hours noted to be 79, sinus rhythm. PVCs and PACs noted.) - VTE Reasons for not Prescribing Prophylaxis: Not indicated-Anticoagulated or INR therapeutic Consult Discharge Plan - Plan Referrals: Tisha Celeste MD [Primary Care Provider] -
[2016-12-27] MEDS: cefTRIAXone 1,000 MG in Water for inj. (sterile) 10 ML IVP SCH (10:06)
[2016-12-27] MEDS: Azithromycin 250 MG TABLET PO SCH (10:09)
[2016-12-27] MEDS: Cholecalciferol (D-3) 1,000 UNIT TABLET PO SCH (10:09)
[2016-12-27] MEDS: Vitamin B Complex/Vit C/Vit E 1 EACH TABLET PO SCH (10:09)
[2016-12-27] MEDS ORDERED: *HR* Warfarin 3 MG TABLET PO ONE (18:00)
--- NOTE | 2016-12-27 20:19 | Electrocardiograph Report ---
[place] [id number] Test Date: 2016-12-27 Pat Name: Cathleen Frye Department: 112 Room: 2A Gender: F Marker Hand: [facility] [place] : 1940 Requested By: Marixa Wagoner Order Number: [id number] Reading MD: Gallito Morfin MD Measurements Intervals [place] Rate: 71 P: 73 MI: 156 QRS: -7 QRSD: 77 T: 30 QT: 391 QTc: 413 Interpretive Statements SINUS RHYTHM LOW QRS VOLTAGE IN PRECORDIAL LEADS Poor R wave progression Electronically Signed On 12-27-2016 20:17:39 EST by Gallito Morfin MD
--- NOTE | 2016-12-27 23:21 | Internal Med Progress Note ---
Date of Encounter: 12/27/16 Time of Encounter: 11:19 - Assessment and plan (1) Atrial flutter with rapid ventricular response Current Visit: Yes Status: Chronic Assessment and plan: Cardiology following, recommendations appreciated. 12/26: Started on Rhythmol and monitored. Cardizem held Continue coumadin. Home after 6th dose of Rhythmol if cleared by Cardiology. (2) Hypertension Current Visit: No Status: Chronic Qualifiers: Hypertension type: essential hypertension Qualified Code(s): I10 - Essential (primary) hypertension (3) DVT prophylaxis Current Visit: No Status: Acute (4) Pneumonitis Current Visit: Yes Status: Acute - Subjective Interval history: No acute events. No acute events. Denies cp/sob, fevers/chills, n/v. - Constitutional Vitals: Temp Pulse Resp BP Pulse Ox 98.4 F 79 18 145/70 92 12/27/16 20:26 12/27/16 20:26 12/27/16 20:26 12/27/16 20:26 12/27/16 20:26 General appearance: Present: cooperative, A&O X 3, pleasant, no acute distress Exam: - Head Head exam: Present: atraumatic, normal inspection - Eye Eye exam: Present: EOMI, normal appearance, PERRL. Absent: scleral icterus Pupils: Present: normal accommodation - ENT ENT exam: Present: mucous membranes dry, normal exam - Neck Neck exam general surgery: Present: full ROM, normal inspection, supple. Absent : tenderness, thyromegaly - Respiratory Respiratory exam: Present: rhonchi (rare/scattered). Absent: accessory muscle use, chest wall tenderness, prolonged expiratory phase, rales, respiratory distress, wheezes, tachypnea - Cardiovascular Cardiovascular exam: Present: RRR, +S1, +S2. Absent: diastolic murmur, irregular rhythm, JVD, systolic murmur - GI/Abdominal GI/Abdominal exam: Present: normal bowel sounds, soft. Absent: hepatomegaly, mass, splenomegaly, tenderness - Extremities Exam Extremities exam: Present: full ROM, normal capillary refill, warm, radial pulses palpable and symmetrical. Absent: calf tenderness, joint swelling, tenderness - Back Exam Back exam: Absent: CVA tenderness (L), CVA tenderness (R) - Neurological Exam Neurological exam: Present: alert, CN II-XII intact, oriented X3, no focal deficits - Psychiatric Psychiatric exam: Present: normal affect, normal mood - Skin Skin exam: Present: dry, warm. Absent: rash Internal Medicine: Result - Labs CBC & Chem 7: 12/27/16 04:01 12/27/16 04:01 Labs: Short CBC 12/27/16 Range/Units 04:01 WBC 8.5 (4.3-11.1) K/mcL Hgb 11.5 (11.5-15.4) g/dL Hct 37.8 (35.3-44.9) % Plt Count 324 (140-400) K/mcL Neutrophils # 4.7 (1.6-8.9) K/mcL BMP 12/27/16 04:01 Sodium 140 Potassium 4.4 Chloride 108 Carbon Dioxide 22 BUN 16 Creatinine 0.74 Glucose 113 H Calcium 8.6 - ABG Interpretation ABG results: PT/INR, D-dimer PT 28.3 Seconds (9.4-12.1) H 12/27/16 04:01 - VTE Reasons for not Prescribing Prophylaxis: Not indicated-Anticoagulated or INR therapeutic Consult Discharge Plan - Plan Referrals: Tisha Celeste MD [Primary Care Provider] -
[2016-12-28 04:38] LABS: INR 2.4
[2016-12-28 04:41] LABS: Basophils # 0.1 K/mcL (0.0-0.2); Basophils % 0.7 %; Eosinophils # 0.3 K/mcL (0.0-0.6); Eosinophils % 4.4 %; Hematocrit 36.6 % (35.3-44.9); Hemoglobin 11.5 g/dL (11.5-15.4); Immature Granulocytes % 0.4 % (0-4); Lymphocytes # 2.4 K/mcL (0.6-4.6); Lymphocytes % 31.7 %; Mean Corpuscular HGB Conc 31.4 g/dL (31.6-35.5); Mean Corpuscular Volume 82.8 fL (83.0-100.0); Mean Platelet Volume 9.8 fL (9.4-12.4); Monocytes # 0.6 K/mcL (0.0-1.3); Monocytes % 8.5 %; Neutrophils # 4.1 K/mcL (1.6-8.9); Platelet Count 284 K/mcL (140-400); Red Blood Count 4.42 M/mcL (3.82-4.97); Red Cell Distribution Width 15.8 % (11.5-14.5); Segmented Neutrophils % 54.3 %
[2016-12-28 04:47] LABS: BUN/Creatinine Ratio 24 (6-26); Blood Urea Nitrogen 18 mg/dL (7-20); Calcium 8.9 mg/dL (8.6-10.8); Carbon Dioxide 24 mEq/L (19-29); Chloride 108 mEq/L (98-109); Glucose 113 mg/dL (70-99); Osmolality,Calculated 293 (280-300); Potassium 4.2 mEq/L (3.5-4.5); Sodium 140 mEq/L (136-145); eGFR For African Americans > 60 (> 60); eGFR For Non-African Americans > 60 (> 60)
--- NOTE | 2016-12-28 08:48 | Cardiology Progress Note ---
Date of Encounter: 12/28/16 Time of Encounter: 07:30 Assessment and Plan (1) Pneumonitis Current Visit: Yes Status: Acute Per cardiology: -Being treated for pneumonitis by primary service. -ON ATB. -Management per primary service. (2) Atrial flutter with rapid ventricular response Current Visit: Yes Status: Chronic Per cardiology: -Known atrial fibrillation. Symptomatic with lightheadedness/dizziness when in a.fib. -A.fib RVR on admission, HR 149. -ECG 12/25/2016 1534 with SR, HR 74. QRS 77ms. -ECG 12/27/2016 with SR, HR 71. QRS 77ms. -ECG 12/28/2016 with Sr, HR 73. QRS 86ms. -Started on rhythmol 150mg Q8 hours. S/p 6 total doses. -Stress 11/2015 negative for ischemia. No previous history of CAD. -TTE this admission with LVEF 60-65%, mild diastolic dysfunction, no significant valvular dysfunction, all bonner with normal motion. -On coumadin. INR therapeutic. -Cardiology will sign off and will follow in outpatient setting. Follow up set. Discussion w patient/family: The assessment and plan as outlined above was discussed with the patient who expressed understanding and agreement. All questions were answered. Thank you for involving us in the care of your patient. Please call with any questions. Discussed and reviewed with . Subjective Principal diagnosis: pneumonitis Interval history: Patient states she feels well this morning. Denies complaints. Patient states she is ready to go home. Objective Vital Signs, Last 4 Hours Temp Pulse Resp BP Pulse Ox 12/28/16 07:09 97.7 F 79 15 129/57 93 General: Conversant, No Apparent Distress HEENT: Atraumatic, Normocephaly, Mucus Membranes Moist Neck: No JVD, Normal carotid pulses Cardiac: Reg Rate and Rhythm, Normal S1 and S2, No Murmur Lungs: Normal Breath Sounds, No Wheeze, Rales, Rhonchi Neuro: Alert and responsive, No focal deficits noted Abdomen: Soft, Non-Tender Skin: No rashes noted on visualized skin Musculoskeletal: No Chest Wall Tenderness Extremities: No Clubbing, No Cyanosis, No Edema, Normal Pulses Results 12/28/16 03:54 12/28/16 03:54 Lab Results Active Medications Acetaminophen (Tylenol) 650 mg PO Q6HR PRN PRN Reason: Fever Stop: 06/26/17 16:08 Azithromycin (Zithromax) 250 mg PO Q24H DARREN Stop: 06/28/17 09:01 Last Admin: 12/27/16 10:09 Dose: 250 mg Docusate Sodium (Colace) 100 mg PO BID PRN PRN Reason: Constipation Stop: 06/26/17 16:08 Ceftriaxone Sodium 1,000 mg/ (Sterile Water) 10 mls @ 300 mls/hr IVP DAILY DARREN Stop: 06/27/17 09:01 Last Admin: 12/27/16 10:06 Dose: 300 mls/hr Naloxone HCl (Narcan) 0.4 mg IVP Q2MIN PRN PRN Reason: Opioid Reversal Stop: 06/26/17 16:08 Propafenone HCl (Rhythmol) 150 mg PO Q8HR [facility] Stop: 06/27/17 16:01 Last Admin: 12/28/16 00:41 Dose: 150 mg Vitamin B Complex/Vit C/Vit E (Stresstab) 1 each PO DAILY [facility] Stop: 06/27/17 09:01 Last Admin: 12/27/16 10:09 Dose: 1 each Vitamin D (Vitamin D) 1,000 unit PO DAILY DARREN Stop: 06/27/17 09:01 Last Admin: 12/27/16 10:09 Dose: 1,000 unit Warfarin Sodium (Coumadin Perpt) 1 each PO DAILY@1800 PRN PRN Reason: SEE COMMENTS Stop: 06/27/17 18:01 Laboratory Tests 12/28/16 12/28/16 12/28/16 03:54 03:54 03:54 Hgb 11.5 INR 2.4 Potassium 4.2 Creatinine 0.75 - Imaging and Cardiology Chest Xray: report reviewed Stress Test: report reviewed Echo: report reviewed - EKG Interpretation EKG results cardiology: personally reviewed (ECG today with SR, HR 73. QRS 86ms. ), other (Telemetry reviewed with average HR previous 12 hours noted to be 78, SR. PVCs and PACs noted.) - VTE Reasons for not Prescribing Prophylaxis: Not indicated-Anticoagulated or INR therapeutic Consult Discharge Plan - Plan Referrals: Tisha Celeste MD [Primary Care Provider] -
[2016-12-28] MEDS: Vitamin B Complex/Vit C/Vit E 1 EACH TABLET PO SCH (09:41)
[2016-12-28] MEDS: cefTRIAXone 1,000 MG in Water for inj. (sterile) 10 ML IVP SCH (09:41)
[2016-12-28] MEDS: Azithromycin 250 MG TABLET PO SCH (09:41)
[2016-12-28] MEDS: Cholecalciferol (D-3) 1,000 UNIT TABLET PO SCH (09:42)
[2016-12-28 10:30] VITALS: BP 153/76
--- NOTE | 2016-12-28 10:31 | Discharge Summary ---
Date of Encounter: 12/28/16 Time of Encounter: 10:22 - Discharge Diagnosis (1) Atrial flutter with rapid ventricular response Priority: Primary Status: Chronic (2) Pneumonitis Priority: Secondary Status: Acute (3) Hypertension Priority: Secondary Status: Chronic Qualifiers: Hypertension type: essential hypertension Qualified Code(s): I10 - Essential (primary) hypertension (4) DVT prophylaxis Priority: Secondary Status: Acute - Discharge Medications Prescriptions: Propafenone [Rhythmol] 150 mg PO Q8HR #90 tablet Home Medications: Cholecalciferol (D-3) [Vitamin D] 1,000 unit PO DAILY 10/24/15 [History] Cyanocobalamin (Vitamin B-12) [Vitamin B12] 100 mcg PO DAILY 10/24/15 [History] Vitamin E Acid Succinate [Vitamin E] 100 unit PO DAILY 10/24/15 [History] Vitamins A and D [Vitamin A and D] 1 cap PO DAILY 10/24/15 [History] Potassium Chloride [K-Tab ER] 20 meq PO DAILY 11/12/16 [History] Warfarin [Coumadin] 6 mg PO MOWEFR 11/12/16 [History] Warfarin [Coumadin] 9 mg PO SUTUTHSA 11/12/16 [History] Propafenone [Rhythmol] 150 mg PO Q8HR #90 tablet 12/28/16 [Rx] Allergies/Adverse Reactions: 3 Allergy/AdvReac Type Severity Reaction Status Date / Time codeine Allergy Shakiness Verified 11/24/16 09:50 Procedures/tests Complete & Pending: Procedures Performed prior 72 hours Category Date Time Status ECG 12 lead ECG [ECG] AM 0600 Y 12/27/16 06:00 Completed ECG 12 lead ECG [ECG] AM 0600 Y 12/28/16 06:00 Ordered ECG 12 lead ECG [ECG] AM 0600 Y 12/29/16 06:00 Ordered Date of admission: 12/26/16 09:20 Primary care physician: Tisha Celeste Consults: 12/26/16 11:37 Consult to Respiratory Therapy [CONS] Routine Reason for Consult: overnight trending pulse ox. Call Completed: No Discharging clinician: Cata Bucio - Patient Status Disposition: Home, Self-Care Condition: Good Functional capacity at discharge: independent ambulation Overall status at discharge: patient is progressing back to baseline - Discharge Instructions Follow Up With: Tisha Celeste MD [Primary Care Provider] - - Diet and Activity Activity: increase activity as tolerated Diet: advance to your usual diet Hospital course: Ms. Frye is a 76 year old female with remote history of paroxysmal atrial fibrillation sent to a several hour history of feeling lightheaded, dizzy, and short of breath. She was seen in urgent care off site on day of admission having a Holter monitor placed as ordered by cardiology. However, the cable splicing technician noticed that her heart rate was elevated at the time at about 50 bpm. She was sent to the ER where she was found to have atrial flutter with rapid ventricular response. She received a dose of IV Cardizem with heart rate control. And so she was admitted for further monitoring. She was symptom-free after assessment. Place on IV Cardizem and converted to sinus rhythm. Had a CT angiogram of the chest that showed pneumonitis-type findings. She denied any cough fever but she did complain of increasing shortness of breath for the past month. Urology was consulted and patient had an echocardiogram done started on Rocephin and Zithromax. She had no signs of sepsis. He also noted that patient had a stress test on 11/2015 which was negative for ischemia and she has no previous history of coronary artery disease. A TTE was done that showed LVEF of 60-65% with mild diastolic dysfunction, no significant valvular dysfunction and all bonner with normal motion. Patient was started on Rythmol 150 mg every 8 hours. Cardizem was discontinued. And she was monitored after 6 doses. She tolerated without any issue during her observation. She was continued on warfarin with goal of 2-3 INR. The patient remained symptom-free she was discharged home in stable condition to continue Rythmol, Omnicef, and azithromycin to complete course. - Time Spent with Patient Total time spent providing and/or coordinating discharge services: - Constitutional Vitals: Temp Pulse Resp BP Pulse Ox 97.7 F 79 15 129/57 93 12/28/16 07:09 12/28/16 07:09 12/28/16 07:09 12/28/16 07:09 12/28/16 07:09 General appearance: Present: cooperative, A&O X 3, pleasant, no acute distress Exam: - Head Head exam: Present: atraumatic, normal inspection - Eye Eye exam: Present: EOMI, normal appearance, PERRL. Absent: scleral icterus Pupils: Present: normal accommodation - ENT ENT exam: Present: mucous membranes dry, normal exam - Neck Neck exam general surgery: Present: full ROM, normal inspection, supple. Absent : tenderness, thyromegaly - Respiratory Respiratory exam: Present: rhonchi (rare/scattered). Absent: accessory muscle use, chest wall tenderness, prolonged expiratory phase, rales, respiratory distress, wheezes, tachypnea - Cardiovascular Cardiovascular exam: Present: RRR, +S1, +S2. Absent: diastolic murmur, irregular rhythm, JVD, systolic murmur - GI/Abdominal GI/Abdominal exam: Present: normal bowel sounds, soft. Absent: hepatomegaly, mass, splenomegaly, tenderness - Extremities Exam Extremities exam: Present: full ROM, normal capillary refill, warm, radial pulses palpable and symmetrical. Absent: calf tenderness, joint swelling, tenderness - Back Exam Back exam: Absent: CVA tenderness (L), CVA tenderness (R) - Neurological Exam Neurological exam: Present: alert, CN II-XII intact, oriented X3, no focal deficits - Psychiatric Psychiatric exam: Present: normal affect, normal mood - Skin Skin exam: Present: dry, warm. Absent: rash - VTE Reasons for not Prescribing Prophylaxis: Not indicated-Anticoagulated or INR therapeutic
[2016-12-28] MEDS ORDERED: *HR* Warfarin 3 MG TABLET PO ONE (18:00)
--- NOTE | 2017-01-01 09:14 | Electrocardiograph Report ---
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
== END 2016-12-28 11:37 | disposition home or self-care (01) | DRG 194 ==
LOC: EMEROO 12:00 → 2ANU 12:00
PROVIDERS: ADMIT Pediatrics; ATTEND Family Medicine

== ENCOUNTER 2017-02-21 12:43 | Inpatient (IN) ==
[2017-02-21 14:21] LABS: Hematocrit 39.7 % (35.3-44.9); Hemoglobin 12.3 g/dL (11.5-15.4); Immature Granulocytes % 0.2 % (0-4); Mean Corpuscular Hemoglobin 24.4 pg (28.0-33.3); Mean Corpuscular Volume 78.8 fL (83.0-100.0); Platelet Count 300 K/mcL (140-400); Red Blood Count 5.04 M/mcL (3.82-4.97); Red Cell Distribution Width 15.4 % (11.5-14.5); Segmented Neutrophils % 62.9 %
[2017-02-21 14:22] LABS: Basophils % 0.4 %; Eosinophils # 0.1 K/mcL (0.0-0.6); Eosinophils % 1.1 %; Lymphocytes # 2.3 K/mcL (0.6-4.6); Lymphocytes % 27.5 %; Monocytes # 0.7 K/mcL (0.0-1.3); Monocytes % 7.9 %; Neutrophils # 5.2 K/mcL (1.6-8.9)
--- NOTE | 2017-02-21 14:23 | Emergency Department Note ---
Disposition Clinical Impression: Atrial flutter with rapid ventricular response Dyspnea Qualifiers: Dyspnea type: unspecified Qualified Code(s): R06.00 - Dyspnea, unspecified Disposition: Admitted As Inpatient Condition: Good Time of Disposition: 20:44 General Adult HPI - General Chief complaint: ED Shortness of Breath/Dyspnea Stated complaint: Shortness of breath Time Seen by Provider: 02/21/17 13:55 Source: patient Limitations: no limitations Nursing Notes Reviewed: Yes Vital Signs Reviewed: Yes - History of Present Illness HPI Narrative: Patient is 76-year-old female that since emergency Department for cough and shortness of breath. States this is been ongoing for the past month that has been significantly worse over the past couple of weeks. She states that it is worse when she lays flat and feels like she is smothering. States that is better when she sits up. States that she has never had anything like this before. States that she has had a heaviness to her chest and has been ongoing for the past month as well. Patient states that she has had a productive cough but denies coughing up any blood. Pain Scale: 8 - Related Data Home Medications Medication Instructions Recorded Confirmed Cholecalciferol (D-3) [Vitamin D] 1,000 unit PO DAILY 10/24/15 02/21/17 Vitamin E Acid Succinate [Vitamin 100 unit PO DAILY 10/24/15 02/21/17 E] Warfarin [Coumadin] 6 mg PO MOWEFR 11/12/16 02/21/17 Warfarin [Coumadin] 9 mg PO SUTUTHSA 11/12/16 02/21/17 Ascorbic Acid [Vitamin C] 500 mg PO DAILY 02/21/17 02/21/17 Diltiazem CD (24hr) [Cardizem CD] 120 mg PO BID 02/21/17 02/21/17 Echinacea 500 mg PO DAILY 02/21/17 02/21/17 Naproxen Sodium [Aleve] 220 mg PO HS PRN 02/21/17 02/21/17 Potassium 99 mg PO DAILY 02/21/17 02/21/17 Vitamin A 10,000 unit PO DAILY 02/21/17 02/21/17 Previous Rx's Medication Instructions Recorded Propafenone [Rhythmol] 150 mg PO Q8HR #90 tablet 12/28/16 Allergies Allergy/AdvReac Type Severity Reaction Status Date / Time codeine Allergy Shakiness Verified 02/21/17 12:49 All systems ED: reviewed and negative except as stated. Cardiovascular: Reports: dyspnea on exertion, other (Chest heaviness denies any chest pain) Respiratory: Reports: cough, dyspnea. 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 Absent: respiratory distress, wheezes - Cardiovascular Cardiovascular exam: Present: normal rhythm, tachycardia, normal heart sounds, + S1, +S2 - Abdominal Exam Abdominal exam: Present: soft, Non-Tender, normal bowel sounds - Neurological Exam Neurological exam: Present: alert, oriented X3 - Psychiatric Psychiatric exam: Present: normal affect, normal mood - Skin Skin exam: Present: warm, dry, intact Course Vital Signs Temperature 97.5 F L 02/21/17 12:46 Pulse Rate 114 02/21/17 12:46 Respiratory Rate 20 02/21/17 12:46 Blood Pressure 151/95 02/21/17 12:46 O2 Sat by Pulse Oximetry 92 02/21/17 12:46 Temperature 97.8 F 02/21/17 20:54 Pulse Rate 118 02/21/17 20:15 Respiratory Rate 18 02/21/17 20:54 Blood Pressure 138/94 02/21/17 20:54 O2 Sat by Pulse Oximetry 94 02/21/17 20:15 Oxygen Delivery Oxygen Delivery Nasal Cannula Medical Decision Making - [facility] Narrative Medical decision making narrative: The patient having shortness of breath and heaviness was ordered CBC, BMP, troponin, chest x-ray EKG, PT PTT and will give the patient a dose of metoprolol due to the patient being tachycardic. Her shortness of breath could be related to a rate control issue. Chest x-ray showed no acute cardiopulmonary process. Patient had an elevated BNP of 107 and a EKG that showed atrial flutter with rapid ventricular response. Due to patient having a history of atrial flutter and shortness of breath this is likely due to a rate control issue. The patient will need to be admitted to the hospital for further evaluation and management. Patient's troponin was negative. Patient has an INR of 2.5 which be therapeutic since she is on warfarin. I called spoke to the hospitalist and they have accepted the patient to the service patient will be admitted to the hospital for further evaluation and management. - Lab Data Lab results reviewed: Yes I reviewed the patient's lab results. Result diagrams: 02/21/17 14:10 02/21/17 14:10 Lab Results 02/21/17 02/21/17 02/21/17 Range/Units 14:10 14:10 14:10 WBC 8.2 (4.3-11.1) K/mcL RBC 5.04 H (3.82-4.97) M/mcL Hgb 12.3 (11.5-15.4) g/dL Hct 39.7 (35.3-44.9) % MCV 78.8 L (83.0-100.0) fL MCH 24.4 L (28.0-33.3) pg MCHC 31.0 L (31.6-35.5) g/dL RDW 15.4 H (11.5-14.5) % Plt Count 300 (140-400) K/mcL MPV 10.0 (9.4-12.4) fL Immature Gran % 0.2 (0-4) % Seg Neutrophils % 62.9 % Lymphocytes % 27.5 % Monocytes % 7.9 % Eosinophils % 1.1 % Basophils % 0.4 % Neutrophils # 5.2 (1.6-8.9) K/mcL Lymphocytes # 2.3 (0.6-4.6) K/mcL Monocytes # 0.7 (0.0-1.3) K/mcL Eosinophils # 0.1 (0.0-0.6) K/mcL Basophils # 0.0 (0.0-0.2) K/mcL PT (9.4-12.1) Seconds INR APTT (26.0-36.0) Seconds Sodium 137 (136-145) mEq/L Potassium 4.2 (3.5-5.1) mEq/L Chloride 105 (98-107) mEq/L Carbon Dioxide 27 (23-29) mEq/L BUN 12 (8-23) mg/dL Creatinine 0.66 (0.60-1.20) mg/dL Est GFR ( Amer) > 60 (> 60) Est GFR (Non-Af Amer) > 60 (> 60) BUN/Creatinine Ratio 18 (6-26) Glucose 102 (70-105) mg/dL Calculated Osmolality 284 (280-300) Lactic Acid 1.0 (0.5-2.2) mmol/L Calcium 8.8 (8.6-10.3) mg/dL Troponin I (< 0.04) ng/mL B-Natriuretic Peptide (Less than 100) pg/mL 02/21/17 02/21/17 02/21/17 Range/Units 14:10 14:10 14:10 WBC (4.3-11.1) K/mcL RBC (3.82-4.97) M/mcL Hgb (11.5-15.4) g/dL Hct (35.3-44.9) % MCV (83.0-100.0) fL MCH (28.0-33.3) pg MCHC (31.6-35.5) g/dL RDW (11.5-14.5) % Plt Count (140-400) K/mcL MPV (9.4-12.4) fL Immature Gran % (0-4) % Seg Neutrophils % % Lymphocytes % % Monocytes % % Eosinophils % % Basophils % % Neutrophils # (1.6-8.9) K/mcL Lymphocytes # (0.6-4.6) K/mcL Monocytes # (0.0-1.3) K/mcL Eosinophils # (0.0-0.6) K/mcL Basophils # (0.0-0.2) K/mcL PT 27.1 H (9.4-12.1) Seconds INR 2.5 APTT 43.8 H (26.0-36.0) Seconds Sodium (136-145) mEq/L Potassium (3.5-5.1) mEq/L Chloride (98-107) mEq/L Carbon Dioxide (23-29) mEq/L BUN (8-23) mg/dL Creatinine (0.60-1.20) mg/dL Est GFR ( Amer) (> 60) Est GFR (Non-Af Amer) (> 60) BUN/Creatinine Ratio (6-26) Glucose (70-105) mg/dL Calculated Osmolality (280-300) Lactic Acid (0.5-2.2) mmol/L Calcium (8.6-10.3) mg/dL Troponin I < 0.03 (< 0.04) ng/mL B-Natriuretic Peptide 107 H (Less than 100) pg/mL - Radiology Data Radiology results reviewed: Yes I reviewed the patient's radiology results. Chest X-Ray 02/21/17 12:55 IMPRESSION: No acute cardiopulmonary process. D/ / Marlo Ogden MD / Marlo Ogden MD Interpreting Provider: Marlo Ogden MD - EKG Data EKG #1 EKG attestation: Yes I reviewed and interpreted this EKG. EKG results narrative: EKG showed atrial flutter at a rate of 111 bpm, QS duration of 87, QTC of 384. There is no previous EKG for comparison. No STEMI is noted on this EKG. Attestation Statement - Attestation Attestation: I examined this patient and my medical decision-making was reviewed with the Resident Physician. I agree with the documented findings, disposition and treatment plan as described except to the extent set forth below. Findings consistent with orthopnea, dyspnea on exertion. She does have atrial fibrillation and is on Coumadin. She was sent in for further evaluation and for rate control. We did give some metoprolol with improvement of heart rate. I would plan on admission for further evaluation of Mj. fib in the setting of orthopnea and dyspnea on exertion as well as nonspecific chest pain. EKG shows atrial fibrillation with a variable rate of 120 bpm. There was some improvement of her rate with metoprolol. Discussed case with attending hospitalist. They have accepted the patient for admission.
[2017-02-21] MEDS ORDERED: *HR* Metoprolol 5 MG/5 ML VIAL IVP ONE (14:26)
[2017-02-21 14:30] LABS: Calcium 8.8 mg/dL (8.6-10.3); Carbon Dioxide 27 mEq/L (23-29); Chloride 105 mEq/L (98-107); Potassium 4.2 mEq/L (3.5-5.1); Sodium 137 mEq/L (136-145)
[2017-02-21 14:36] LABS: BUN/Creatinine Ratio 18 (6-26); Blood Urea Nitrogen 12 mg/dL (8-23); Glucose 102 mg/dL (70-105); Osmolality,Calculated 284 (280-300); eGFR For African Americans > 60 (> 60); eGFR For Non-African Americans > 60 (> 60)
[2017-02-21 14:46] LABS: INR 2.5; Prothrombin Time 27.1 Seconds (9.4-12.1)
[2017-02-21 14:48] LABS: Activated Partial Thrombo Time 43.8 Seconds (26.0-36.0)
[2017-02-21] MEDS ORDERED: Naloxone 0.4 MG/ML INJ IVP PRN (23:30)
[2017-02-21] MEDS ORDERED: Acetaminophen 325 MG TABLET PO PRN (23:30)
[2017-02-21] MEDS ORDERED: Ipratropium/Albuterol Neb 3 ML IH PRN (23:35)
--- NOTE | 2017-02-21 23:46 | Internal Med History&Physical ---
Date of Encounter: 02/21/17 Time of Encounter: 21:00 Assessment and Plan (1) CHF exacerbation Current visit: Yes Status: Acute Pt has increased SOB with increased swelling and BW. Consider CHF exacerbation clinically, considering pt has A Fib RVR. Echo on Dec 2016 reviewed, LVEF 60-65% . - Cardiac and fluid restriction diet. - Strict I/O - Lasix 20mg iv bid - Repeat Echo Qualifiers: Congestive heart failure type: diastolic Qualified Code(s): I50.33 - Acute on chronic diastolic (congestive) heart failure (2) Atrial flutter with rapid ventricular response Current visit: Yes Status: Chronic Place pt on cardizem drip, may switch to po when HR get down. Cont home med rhythmal and coumadin. (3) DVT prophylaxis Current visit: No Status: Acute Pt is on coumadin, INR is therapeutic (4) Hypertension Current visit: No Status: Chronic Closely monitor BP. BP is not high now. Qualifiers: Hypertension type: essential hypertension Qualified Code(s): I10 - Essential (primary) hypertension Internal Medicine - H&P: HPI Chief complaint: SOB Admitted From: Home Plans for Post Hospital Care: Home History of present illness: Ms. Frye is a 76 year old female with Hx of A Fib on coumadin present to ER for SOB x 3-4 days. Pt said symptoms progressively getting worse. She cannot tolerate exertion. She cannot lay flat for sleep. She has increased BW and leg swelling. Pt denies chest pain but feels congestion. Pt denies fever, has mild dry cough. She denies nausea. In ER, She was found A Fib RVR. Pt was admitted for further management. Past Med Surg Social Fam HX - Past Medical History Medical history: arthritis, atrial fibrillation, hypertension Psychiatric history: no psych history - Past Surgical History Surgical History: appendectomy, cholecystectomy, orthopedic, other - Social History Smoking Status: Current every day smoker Packs per day: 1/2 Smokeless Tobacco Status: No Alcohol use: none Drug use: none - Family History Mother Living Status: Hx Family Cardiac Disorders: No Father Living Status: Hx Family Cardiac Disorders: No Hx Family Respiratory Disorders: No Internal Medicine - H&P: Meds Cholecalciferol (D-3) [Vitamin D] 1,000 unit PO DAILY 10/24/15 [History] Vitamin E Acid Succinate [Vitamin E] 100 unit PO DAILY 10/24/15 [History] Warfarin [Coumadin] 6 mg PO MOWEFR 11/12/16 [History] Warfarin [Coumadin] 9 mg PO SUTUTHSA 11/12/16 [History] Propafenone [Rhythmol] 150 mg PO Q8HR #90 tablet 12/28/16 [Rx] Ascorbic Acid [Vitamin C] 500 mg PO DAILY 02/21/17 [History] Diltiazem CD (24hr) [Cardizem CD] 120 mg PO BID 02/21/17 [History] Echinacea 500 mg PO DAILY 02/21/17 [History] Naproxen Sodium [Aleve] 220 mg PO HS PRN 02/21/17 [History] Potassium 99 mg PO DAILY 02/21/17 [History] Vitamin A 10,000 unit PO DAILY 02/21/17 [History] 3 Allergy/AdvReac Type Severity Reaction Status Date / Time codeine Allergy Shakiness Verified 02/21/17 12:49 All Systems PM: A 10-system review of systems was performed and is negative for pertinent findings except as documented above in the HPI. - Constitutional Vitals: Temp Pulse Resp BP Pulse Ox 97.9 F 110 16 127/89 93 02/21/17 21:40 02/21/17 21:40 02/21/17 21:40 02/21/17 21:40 02/21/17 21:40 General appearance: Present: mild distress, A&O X 3, answers questions appropriately - Head Head exam: Present: atraumatic, normocephalic - Eye Eye exam: Present: PERRL, conjuntiva pink, sclera anicteric Pupils: Present: PERRL - Neck Neck exam general surgery: Present: supple, trachea midline. Absent: lymphadenopathy - Respiratory Respiratory exam: Present: CTAB, wheezes (scattered wheezes b/l). Absent: accessory muscle use, rales, rhonchi - Cardiovascular Cardiovascular exam: Present: irregular rhythm, +S1, +S2, tachycardia. Absent: diastolic murmur, gallop, rubs, systolic murmur Additional comments: HR 120-130 - GI/Abdominal GI/Abdominal exam: Present: normal bowel sounds, soft, no peritoneal signs. Absent: distended, tenderness - Extremities Exam Extremities exam: Present: pedal edema (B/L pitting pedal edema up to knees.), warm, radial pulses palpable and symmetrical. Absent: calf tenderness, cyanotic - Neurological Exam Neurological exam: Present: CN II-XII intact, oriented X3, no focal deficits. Absent: pronater drift, facial droop, speech deficit - Skin Skin exam: Present: dry, intact Internal Med - H&P Results - Labs CBC & Chem 7: 02/21/17 14:10 02/21/17 14:10 - EKG Data -: EKG Interpreted by Myself Rate: tachycardia (A Fib RVR)
[2017-02-22] MEDS: Furosemide 20 MG/2 ML VIAL IVP SCH ×3 (02:00→18:28)
[2017-02-22] MEDS: Ipratropium/Albuterol Neb 3 ML IH SCH ×4 (03:45→21:26)
[2017-02-22 04:45] LABS: Basophils % 0.5 %; Eosinophils # 0.2 K/mcL (0.0-0.6); Eosinophils % 1.9 %; Hematocrit 36.1 % (35.3-44.9); Immature Granulocytes % 0.4 % (0-4); Lymphocytes # 2.5 K/mcL (0.6-4.6); Lymphocytes % 29.6 %; Mean Corpuscular HGB Conc 30.5 g/dL (31.6-35.5); Mean Corpuscular Hemoglobin 24.2 pg (28.0-33.3); Mean Corpuscular Volume 79.3 fL (83.0-100.0); Mean Platelet Volume 9.8 fL (9.4-12.4); Monocytes # 0.8 K/mcL (0.0-1.3); Monocytes % 9.7 %; Neutrophils # 4.9 K/mcL (1.6-8.9); Platelet Count 269 K/mcL (140-400); Red Blood Count 4.55 M/mcL (3.82-4.97); Red Cell Distribution Width 15.4 % (11.5-14.5); Segmented Neutrophils % 57.9 %
[2017-02-22 04:59] LABS: INR 2.4
[2017-02-22 05:12] LABS: BUN/Creatinine Ratio 21 (6-26); Blood Urea Nitrogen 15 mg/dL (8-23); Calcium 8.3 mg/dL (8.6-10.3); Carbon Dioxide 27 mEq/L (23-29); Chloride 106 mEq/L (98-107); Glucose 123 mg/dL (70-105); Magnesium 1.9 mg/dL (1.6-2.6); Osmolality,Calculated 288 (280-300); Potassium 4.1 mEq/L (3.5-5.1); Sodium 138 mEq/L (136-145); eGFR For African Americans > 60 (> 60); eGFR For Non-African Americans > 60 (> 60)
[2017-02-22] MEDS: Ascorbic Acid 500 MG TABLET PO SCH (08:58)
[2017-02-22] MEDS: Cholecalciferol (D-3) 1,000 UNIT TABLET PO SCH (08:58)
[2017-02-22] MEDS ORDERED: Patient Taking Own Medication 1 EACH PO SCH (09:00)
[2017-02-22] MEDS ORDERED: (Potassium [Potassium] 99 MG) PO SCH (09:00)
[2017-02-22] MEDS ORDERED: VITAMIN E PO SCH (09:00)
--- NOTE | 2017-02-22 10:46 | Internal Med Progress Note ---
<Gonzalo Lawrence - Last Filed: 02/22/17 11:25> Date of Encounter: 02/22/17 Time of Encounter: 10:39 - Assessment and plan (1) Atrial flutter with rapid ventricular response Current Visit: Yes Status: Chronic Assessment and plan: Patient has known hx of paroxsymal A-fib/flutter. Home meds include rythmol 150 mg TID and coumadin. Patient missed 2 doses yesterday. INR 2.4 within therapeutic range. EKG in ED, and repeat EKG read by myself - Eyad w/ RVR. - continue cardizem gtt - cardiology consulted - continue Coumadin - closely monitor HR (2) CHF exacerbation Current Visit: Yes Status: Acute Assessment and plan: last echo 12/2016 LVEF 60-65%. last stress 11/20 negative for ischemia. 4 day hx of PND, Orthopnea, SOB on exertion and leg swelling. Was started on Lasix 20 mg IV BID and symptomatically has improved. - Continue Lasix 20 IV BID - serial evaluation of fluid overload/exam - strict I/O - low sodium diet/water restricted 2L - morning labs Qualifiers: Congestive heart failure type: diastolic Qualified Code(s): I50.33 - Acute on chronic diastolic (congestive) heart failure (3) Hypertension Current Visit: Yes Status: Chronic Assessment and plan: currently stable. Will continue to closely monitor BP. Qualifiers: Hypertension type: essential hypertension Qualified Code(s): I10 - Essential (primary) hypertension (4) DVT prophylaxis Current Visit: Yes Status: Acute Assessment and plan: Pt is on coumadin, INR is therapeutic - Subjective Interval history: Ms Frye is a 76 yo F w/ PMHx of Afib on coumadin, and possible history of CHF and COPD. Patient presented to [place] ED with 3-4 day hx of progressively worsening SOB, PND, orthopnea, and bilateral pedal edema. Upon admission patient was given lasix due to suspected CHF exacerbation. Patient today reports feeling much better than she did yesterday and that she continues to have slight amount of SOB, but her swelling in her legs has gone away. - Constitutional Vitals: Temp Pulse Resp BP Pulse Ox 97.9 F 128 18 121/89 94 02/22/17 07:05 02/22/17 07:05 02/22/17 07:05 02/22/17 07:05 02/22/17 09:21 General appearance: Present: mild distress, A&O X 3, answers questions appropriately - Respiratory Respiratory exam: Present: CTAB. Absent: accessory muscle use, rales, rhonchi, wheezes - Cardiovascular Cardiovascular exam: Present: irregular rhythm, +S1, +S2, tachycardia. Absent: diastolic murmur, gallop, rubs, systolic murmur - GI/Abdominal GI/Abdominal exam: Present: normal bowel sounds, soft, no peritoneal signs. Absent: distended, tenderness - Psychiatric Psychiatric exam: Present: normal affect, normal mood Internal Medicine: Result - Labs CBC & Chem 7: 02/22/17 04:22 02/22/17 04:22 Labs: Short CBC 02/22/17 Range/Units 04:22 WBC 8.5 (4.3-11.1) K/mcL Hgb 11.0 L (11.5-15.4) g/dL Hct 36.1 (35.3-44.9) % Plt Count 269 (140-400) K/mcL Neutrophils # 4.9 (1.6-8.9) K/mcL BMP 02/22/17 04:22 Sodium 138 Potassium 4.1 Chloride 106 Carbon Dioxide 27 BUN 15 Creatinine 0.71 Glucose 123 H Calcium 8.3 L - ABG Interpretation ABG results: PT/INR, D-dimer PT 26.0 Seconds (9.4-12.1) H 02/22/17 04:22 Consult Discharge Plan - Plan Referrals: Tisha Celeste MD [Primary Care Provider] - <Mc Cerna - Last Filed: 02/22/17 18:21> Date of Encounter: 02/22/17 - Assessment and plan (1) Respiratory failure Current Visit: Yes Status: Acute Assessment and plan: Related to CHF. Qualifiers: Chronicity: acute Respiratory failure complication: hypoxia Qualified Code(s): J96.01 - Acute respiratory failure with hypoxia (2) CHF exacerbation Current Visit: Yes Status: Acute Qualifiers: Congestive heart failure type: diastolic Qualified Code(s): I50.33 - Acute on chronic diastolic (congestive) heart failure (3) Atrial fibrillation Current Visit: Yes Status: Acute Assessment and plan: Currently on cardizem drip and Rhythmol. Anticipate cardioversion tomorrow. Qualifiers: Atrial fibrillation type: persistent Qualified Code(s): I48.1 - Persistent atrial fibrillation (4) Hypertension Current Visit: Yes Status: Chronic Qualifiers: Hypertension type: essential hypertension Qualified Code(s): I10 - Essential (primary) hypertension - Constitutional Vitals: Temp Pulse Resp BP Pulse Ox 98.1 F 127 18 121/81 95 02/22/17 16:00 02/22/17 16:00 02/22/17 16:00 02/22/17 16:00 02/22/17 16:00 Internal Medicine: Result - Labs CBC & Chem 7: 02/22/17 04:22 02/22/17 04:22 Labs: Short CBC 02/22/17 Range/Units 04:22 WBC 8.5 (4.3-11.1) K/mcL Hgb 11.0 L (11.5-15.4) g/dL Hct 36.1 (35.3-44.9) % Plt Count 269 (140-400) K/mcL Neutrophils # 4.9 (1.6-8.9) K/mcL BMP 02/22/17 04:22 Sodium 138 Potassium 4.1 Chloride 106 Carbon Dioxide 27 BUN 15 Creatinine 0.71 Glucose 123 H Calcium 8.3 L - ABG Interpretation ABG results: PT/INR, D-dimer PT 26.0 Seconds (9.4-12.1) H 02/22/17 04:22 - Attending Attestation I examined this patient and my medical decision-making was reviewed with the Resident Physician on 02/22/17. I agree with the documented findings, disposition and treatment plan as described except to the extent set forth below. Ms Frye is currently admitted for acute exac CHF and rapid atrial fib. She remains moderate to high risk due to potential for worsening clinical status. Ms Frye is resting comfortably at this time. Her heart rate is still elevated and she remains on card drip. Rhythmol has been increased today as well. No fever or chills. No cough. Exam Alert. Comfortable at this time. Mucus membranes dry Heart irreg and tachy Lungs with some rhonchi Abd soft I/P 1. Acute exac CHF 2. Atrial fib/flutter Further diagnoses and plan as above.
--- NOTE | 2017-02-22 11:01 | Cardiology Consult Note ---
Date of Encounter: 02/22/17 Time of Encounter: 10:58 Assessment and Plan Discussion w patient/family: The assessment and plan as outlined above was discussed with the patient and/or family members who expressed understanding and agreement. All questions were answered. Thank you for involving us in the care of your patient. Please call with any questions. History of Present Illness Consult date: 02/22/17 Requesting physician: Alexa Worley Consult reason: A-Flutter RVR Chief complaint: chest heaviness, dyspnea, LE edema History of present illness: Ms. Frye is a 76 year old female with PMH of paroxysmal A-Fib/Flutter on Rythmol and anticoagulated on coumadin that presented to ER for worsening dyspnea and LE edema over the past 3-4 days. Pt said symptoms have progressively gotten worse. She cannot tolerate exertion. She cannot lay flat for sleep. Pt denies fever, has mild dry cough. Reports chest heaviness intermittently over the past 3-4 days. In ER, She was found A Fib RVR. Pt was admitted for further management. Upon questioning, she admits to missing two Rythmol doses yesterday. Prior CV testing: Holter monitor 12/25/2016: Paroxysmal atrial flutter, sometimes with RVR (11%). Sinus rhythm with PACs. TTE102/25/2016: LVEF 60-65%. Mild diastolic dysfunction. RV grossly normal in function. No pHTN. No VHD. TTE 10/24/2015: EF 60%. Normal LV, RV size and function. No obvious significant valvular dysfunction. RVSP was not well obtained. Lexiscan nuclear stress test 11/30/2015: Negative for ischemia or prior infarct. Breast attenuation artifact noted. Gated EF 67%. Abdominal aortic ultrasound 10/29/2015: No aneurysm identified. Past Med Surg Social Fam HX - Past Medical History Medical history: arthritis, atrial fibrillation, hypertension Psychiatric history: no psych history - Past Surgical History Surgical History: appendectomy, cholecystectomy, orthopedic, other - Social History Smoking Status: Current every day smoker Packs per day: 1/2 Smokeless Tobacco Status: No Alcohol use: none Drug use: none - Family History Mother Living Status: Hx Family Cardiac Disorders: No Father Living Status: Hx Family Cardiac Disorders: No Hx Family Respiratory Disorders: No Medications and Allergies Cholecalciferol (D-3) [Vitamin D] 1,000 unit PO DAILY 10/24/15 [History] Vitamin E Acid Succinate [Vitamin E] 100 unit PO DAILY 10/24/15 [History] Warfarin [Coumadin] 6 mg PO MOWEFR 11/12/16 [History] Warfarin [Coumadin] 9 mg PO SUTUTHSA 11/12/16 [History] Propafenone [Rhythmol] 150 mg PO Q8HR #90 tablet 12/28/16 [Rx] Ascorbic Acid [Vitamin C] 500 mg PO DAILY 02/21/17 [History] Diltiazem CD (24hr) [Cardizem CD] 120 mg PO BID 02/21/17 [History] Echinacea 500 mg PO DAILY 02/21/17 [History] Naproxen Sodium [Aleve] 220 mg PO HS PRN 02/21/17 [History] Potassium 99 mg PO DAILY 02/21/17 [History] Vitamin A 10,000 unit PO DAILY 02/21/17 [History] 3 Allergy/AdvReac Type Severity Reaction Status Date / Time codeine Allergy Shakiness Verified 02/21/17 12:49 All Systems Review: A 10-system review of systems was performed and is negative for pertinent findings except as documented above in the HPI. Physical Examination Vital Signs, Last 4 Hours Temp Pulse Resp BP Pulse Ox 02/22/17 09:21 94 02/22/17 07:05 97.9 F 128 18 121/89 93 Results 02/22/17 04:22 02/22/17 04:22 Lab Results 02/22/17 02/22/17 02/22/17 04:22 04:22 04:22 WBC 8.5 Hgb 11.0 L Hct 36.1 Plt Count 269 INR 2.4 Sodium 138 Potassium 4.1 Chloride 106 Carbon Dioxide 27 BUN 15 Creatinine 0.71 Glucose 123 H Calcium 8.3 L Magnesium 1.9 Consult Discharge Plan - Plan Referrals: Tisha Celeste MD [Primary Care Provider] -
--- NOTE | 2017-02-22 11:04 | Electrophysiology Consult Note ---
<Chris Leach R - Last Filed: 02/22/17 13:09> Date of Encounter: 02/22/17 Time of Encounter: 11:02 Assessment and Plan (1) Atrial fib/flutter, transient Current Visit: Yes Status: Acute Known hx of paroxysmal A-Fib/Flutter. On rythmol 150mg TID. Reports 2 missed doses yesterday. Presented with progressive worsening of dyspnea and LE edema over the past 3-4 days with intermittent chest heaviness. Found to be in A-Flutter RVR, currently on Cardizem gtt for rate. K 4.1, Mag 1.9. Discussed with Dr. Carlos Alberto Diaz, recommends increasing Rythmol to 225mg [id number]. Will need monitored x 5 doses to monitor QRS. If does not convert to SR, will need DCCV. Would likely need BEN given that INRs are only checked every 6 weeks. Baseline EKG 02/22/17 A-Flutter RVR, rate 111, QRS 87ms. Echo 12/2016 EF preserved. Stress test 11/2015 negative for ischemia. Anticoagulated on Coumadin, INR 2.4--INRs managed [facility], checked every 6 weeks. Continue to follow. NPO after midnight for possible BEN/DCCV tomorrow. (2) CHF exacerbation Current Visit: Yes Status: Acute Symptoms of worsening dyspnea, LE edema, intermittent chest heaviness. Diastolic, echo 12/2016 EF preserved. Agree with IV Lasix 20mg BID. BNP 107, CXR without acute findings. Recommend daily weights, strict I/Os, Na and fluid restriction. Qualifiers: Congestive heart failure type: diastolic Qualified Code(s): I50.33 - Acute on chronic diastolic (congestive) heart failure Discussion w patient/family: The assessment and plan as outlined above was discussed with the patient and/or family members who expressed understanding and agreement. All questions were answered. Thank you for involving us in the care of your patient. Please call with any questions. I will discuss all the above with Dr. Carlos Alberto Diaz and make changes as necessary. History of Present Illness Consult date: 02/22/17 Requesting physician: Alexa Worley Consult reason: A-Flutter RVR Chief complaint: Dyspnea, LE edema, chest heaviness History of present illness: Ms. Frye is a 76 year old female with PMH of paroxysmal A-Fib/Flutter on Rythmol and anticoagulated on coumadin that presented to ER for worsening dyspnea and LE edema over the past 3-4 days. Pt said symptoms have progressively gotten worse. She cannot tolerate exertion. She cannot lay flat for sleep. Pt denies fever, has mild dry cough. Reports chest heaviness intermittently over the past 3-4 days. In ER, She was found A Fib RVR. Pt was admitted for further management. Upon questioning, she admits to missing two Rythmol doses yesterday. BNP 107, CXR negative. Prior CV testing: Holter monitor 12/25/2016: Paroxysmal atrial flutter, sometimes with RVR (11%). Sinus rhythm with PACs. TTE102/25/2016: LVEF 60-65%. Mild diastolic dysfunction. RV grossly normal in function. No pHTN. No VHD. TTE 10/24/2015: EF 60%. Normal LV, RV size and function. No obvious significant valvular dysfunction. RVSP was not well obtained. Lexiscan nuclear stress test 11/30/2015: Negative for ischemia or prior infarct. Breast attenuation artifact noted. Gated EF 67%. Abdominal aortic ultrasound 10/29/2015: No aneurysm identified. Past Med Surg Social Fam HX - Past Medical History Medical history: arthritis, atrial fibrillation, hypertension Psychiatric history: no psych history - Past Surgical History Surgical History: appendectomy, cholecystectomy, orthopedic, other - Social History Smoking Status: Current every day smoker Packs per day: 1/2 Smokeless Tobacco Status: No Alcohol use: none Drug use: none - Family History Mother Living Status: Hx Family Cardiac Disorders: No Father Living Status: Hx Family Cardiac Disorders: No Hx Family Respiratory Disorders: No Medications and Allergies Cholecalciferol (D-3) [Vitamin D] 1,000 unit PO DAILY 10/24/15 [History] Vitamin E Acid Succinate [Vitamin E] 100 unit PO DAILY 10/24/15 [History] Warfarin [Coumadin] 6 mg PO MOWEFR 11/12/16 [History] Warfarin [Coumadin] 9 mg PO SUTUTHSA 11/12/16 [History] Propafenone [Rhythmol] 150 mg PO Q8HR #90 tablet 12/28/16 [Rx] Ascorbic Acid [Vitamin C] 500 mg PO DAILY 02/21/17 [History] Diltiazem CD (24hr) [Cardizem CD] 120 mg PO BID 02/21/17 [History] Echinacea 500 mg PO DAILY 02/21/17 [History] Naproxen Sodium [Aleve] 220 mg PO HS PRN 02/21/17 [History] Potassium 99 mg PO DAILY 02/21/17 [History] Vitamin A 10,000 unit PO DAILY 02/21/17 [History] 3 Allergy/AdvReac Type Severity Reaction Status Date / Time codeine Allergy Shakiness Verified 02/21/17 12:49 All Systems Review: A 10-system review of systems was performed and is negative for pertinent findings except as documented above in the HPI. - Constitutional Constitutional: fatigue - Cardiovascular Cardiovascular: as per HPI, chest pain at rest, dyspnea at rest, dyspnea on exertion, orthopnea - Respiratory Respiratory: cough, dyspnea Physical Examination Vital Signs, Last 4 Hours Temp Pulse Resp BP Pulse Ox 02/22/17 10:59 97.7 F 134 18 120/71 94 02/22/17 09:21 94 02/22/17 07:05 97.9 F 128 18 121/89 93 Vital Signs Temp Pulse Resp BP Pulse Ox 02/22/17 10:59 97.7 F 134 18 120/71 94 02/22/17 09:21 94 02/22/17 07:05 97.9 F 128 18 121/89 93 02/22/17 04:00 97.7 F 139 17 96/65 94 02/22/17 03:46 20 92 02/21/17 21:40 97.9 F 110 16 127/89 93 02/21/17 20:54 97.8 F 18 138/94 02/21/17 20:15 118 18 140/96 94 02/21/17 18:07 122 18 100/76 92 02/21/17 15:42 124 18 137/90 93 02/21/17 14:27 119 18 139/91 93 02/21/17 12:46 97.5 F L 114 20 151/95 92 Intake and Output 02/21/17 02/22/17 02/22/17 23:59 07:59 15:59 Intake Total 0 / 0 120 / 120 393.3 / 393.3 Output Total 1300 / 1300 1150 / 1150 Balance 0 / 0 -1180 / -1180 -756.7 / -756.7 Intake: IV Fluids 33.3 / 33.3 Cardizem 125 MG In 0.9 % Sodium 33.3 / 33.3 Chloride 100 ML @ 5 MG/HR 5 mls/hr IVC .Q24H [facility] Rx#: [id number] Oral 0 / 0 120 / 120 360 / 360 Output: Urine 1300 / 1300 1150 / 1150 Other: Meal Breakfast Percent of Meal Consumed 100% # Voids 1 1 Weight 90.4 kg General: Conversant, No Apparent Distress HEENT: Atraumatic, Normocephaly, Mucus Membranes Moist Neck: Normal carotid pulses Cardiac: Other (irregularly irregular) Lungs: Other (diminished) Neuro: Alert and responsive, No focal deficits noted Abdomen: Soft, Non-Tender Skin: No rashes noted on visualized skin Musculoskeletal: No Chest Wall Tenderness Extremities: No Clubbing, No Cyanosis, No Edema, Normal Pulses Results 02/22/17 04:22 02/22/17 04:22 Lab Results 02/22/17 02/22/17 02/22/17 04:22 04:22 04:22 WBC 8.5 Hgb 11.0 L Hct 36.1 Plt Count 269 INR 2.4 Sodium 138 Potassium 4.1 Chloride 106 Carbon Dioxide 27 BUN 15 Creatinine 0.71 Glucose 123 H Calcium 8.3 L Magnesium 1.9 Short CBC 02/22/17 02/21/17 Range/Units 04:22 14:10 WBC 8.5 8.2 (4.3-11.1) K/mcL Hgb 11.0 L 12.3 (11.5-15.4) g/dL Hct 36.1 39.7 (35.3-44.9) % Plt Count 269 300 (140-400) K/mcL Neutrophils # 4.9 5.2 (1.6-8.9) K/mcL BMP 02/22/17 02/21/17 Range/Units 04:22 14:10 Sodium 138 137 (136-145) mEq/L Potassium 4.1 4.2 (3.5-5.1) mEq/L Chloride 106 105 (98-107) mEq/L Carbon Dioxide 27 27 (23-29) mEq/L BUN 15 12 (8-23) mg/dL Creatinine 0.71 0.66 (0.60-1.20) mg/dL Glucose 123 H 102 (70-105) mg/dL Calcium 8.3 L 8.8 (8.6-10.3) mg/dL Cardiac Enzymes 02/21/17 Range/Units 14:10 Troponin I < 0.03 (< 0.04) ng/mL Impressions Chest X-Ray 02/21/17 12:55 IMPRESSION: No acute cardiopulmonary process. D/ / Marlo Ogden MD / Marlo Ogden MD Interpreting Provider: Marlo Ogden MD Active Medications Acetaminophen (Tylenol) 650 mg PO Q6HR PRN PRN Reason: Mild Pain (1-3) Stop: 08/23/17 23:31 Albuterol/Ipratropium (Duoneb) 3 ml IH [id number] PRN PRN Reason: Shortness Of Breath/Wheezing Stop: 08/23/17 23:36 Albuterol/Ipratropium (Duoneb) 3 ml IH [id number] DARREN Stop: 08/24/17 04:01 Last Admin: 02/22/17 10:27 Dose: 3 ml Ascorbic Acid (Vitamin C) 500 mg PO DAILY DARREN Stop: 08/24/17 09:01 Last Admin: 02/22/17 08:58 Dose: 500 mg Furosemide (Lasix) 20 mg IVP BID DARREN Stop: 08/23/17 23:46 Last Admin: 02/22/17 08:58 Dose: 20 mg Diltiazem HCl 125 mg/ Sodium (Chloride) 125 mls @ 5 mls/hr IVC .Q24H DARREN; 5 MG/ HR PRN Reason: Protocol Stop: 08/23/17 23:31 Last Titration: 02/22/17 08:49 Dose: 7.5 mg/hr, 7.5 mls/hr Naloxone HCl (Narcan) 0.4 mg IVP Q2MIN PRN PRN Reason: Opioid Reversal Stop: 08/23/17 23:31 Naproxen (Naprosyn) 250 mg PO HS PRN PRN Reason: RLS/Sleep Pharmacy Profile Note (Patient Taking Own Medication) 0 each PO DAILY DARREN Stop: 08/24/17 09:01 Last Admin: 02/22/17 08:59 Dose: Not Given Pharmacy Profile Note (Patient Taking Own Medication) 0 each PO DAILY DARREN Stop: 08/24/17 09:01 Last Admin: 02/22/17 08:58 Dose: Not Given Pharmacy Profile Note (Patient Taking Own Medication) 0 each PO DAILY [facility] Stop: 08/24/17 09:01 Last Admin: 02/22/17 08:59 Dose: Not Given Propafenone HCl (Rhythmol) 150 mg PO Q8H [facility] Stop: 08/24/17 00:01 Vitamin D (Vitamin D) 1,000 unit PO DAILY DARREN Stop: 08/24/17 09:01 Last Admin: 02/22/17 08:58 Dose: 1,000 unit Warfarin Sodium (Coumadin Perpt) 1 each PO DAILY@1800 PRN PRN Reason: SEE COMMENTS Stop: 08/24/17 18:01 Warfarin Sodium (Coumadin) 9 mg PO ONCE ONE Stop: 02/22/17 18:01 - Imaging and Cardiology Stress Test: report reviewed Echo: report reviewed - EKG Interpretation EKG results cardiology: personally reviewed (A-Flutter RVR rate 111) Consult Discharge Plan - Plan Referrals: Tisha Celeste MD [Primary Care Provider] - <Carlos Alberto Diaz Nir - Last Filed: 02/22/17 14:00> Date of Encounter: 02/22/17 - Attending Attestation I have personally performed a face to face evaluation on this patient. I have reviewed and agree with the care plan. History and Exam by me shows: Recurrent AF/ AFL. Did miss some rythmol doses. Would recommend increasing rythmol and cardioversion if needed. Assessment and Plan Discussion w patient/family: The assessment and plan as outlined above was discussed with the patient and/or family members who expressed understanding and agreement. All questions were answered. Thank you for involving us in the care of your patient. Please call with any questions. History of Present Illness History of present illness: Ms. Frye is a 76 year old female All Systems Review: A 10-system review of systems was performed and is negative for pertinent findings except as documented above in the HPI. Physical Examination Vital Signs, Last 4 Hours Temp Pulse Resp BP Pulse Ox 02/22/17 12:10 132 108/74 02/22/17 12:08 136 141/83 02/22/17 10:59 97.7 F 134 18 120/71 94 02/22/17 10:58 128 120/71 02/22/17 10:27 18 97 Results 02/22/17 04:22 02/22/17 04:22 Lab Results 02/22/17 02/22/17 02/22/17 04:22 04:22 04:22 WBC 8.5 Hgb 11.0 L Hct 36.1 Plt Count 269 INR 2.4 Sodium 138 Potassium 4.1 Chloride 106 Carbon Dioxide 27 BUN 15 Creatinine 0.71 Glucose 123 H Calcium 8.3 L Magnesium 1.9
[2017-02-22] MEDS ORDERED: Warfarin perPT PO PRN (18:00)
[2017-02-22] MEDS ORDERED: *HR* Warfarin 3 MG TABLET PO ONE (18:00)
[2017-02-23] MEDS: Ipratropium/Albuterol Neb 3 ML IH SCH ×4 (03:11→22:25)
[2017-02-23 03:48] LABS: Basophils % 0.4 %; Eosinophils # 0.1 K/mcL (0.0-0.6); Eosinophils % 1.7 %; Hematocrit 36.6 % (35.3-44.9); Hemoglobin 10.9 g/dL (11.5-15.4); Immature Granulocytes % 0.4 % (0-4); Lymphocytes # 2.4 K/mcL (0.6-4.6); Lymphocytes % 30.4 %; Mean Corpuscular HGB Conc 29.8 g/dL (31.6-35.5); Mean Corpuscular Hemoglobin 23.8 pg (28.0-33.3); Mean Corpuscular Volume 79.9 fL (83.0-100.0); Mean Platelet Volume 9.8 fL (9.4-12.4); Monocytes # 0.8 K/mcL (0.0-1.3); Monocytes % 9.8 %; Neutrophils # 4.5 K/mcL (1.6-8.9); Platelet Count 274 K/mcL (140-400); Red Blood Count 4.58 M/mcL (3.82-4.97); Red Cell Distribution Width 15.4 % (11.5-14.5); Segmented Neutrophils % 57.3 %
[2017-02-23 03:53] LABS: INR 1.8; Prothrombin Time 20.1 Seconds (9.4-12.1)
[2017-02-23 04:06] LABS: Alanine Aminotransferase 24 Units/L (7-52); Albumin 3.7 g/dL (3.5-5.7); Albumin/Globulin Ratio 1.3 (1.1-2.2); Alkaline Phosphatase 82 Units/L (34-104); Aspartate Amino Transferase 23 Units/L (13-39); BUN/Creatinine Ratio 26 (6-26); Bilirubin,Total 0.6 mg/dL (0.3-1.0); Blood Urea Nitrogen 21 mg/dL (8-23); Calcium 8.5 mg/dL (8.6-10.3); Carbon Dioxide 29 mEq/L (23-29); Chloride 103 mEq/L (98-107); Globulin 2.9 g/dL (2.4-3.5); Glucose 116 mg/dL (70-105); Osmolality,Calculated 290 (280-300); Sodium 138 mEq/L (136-145); Total Protein 6.6 g/dL (6.4-8.9); eGFR For African Americans > 60 (> 60); eGFR For Non-African Americans > 60 (> 60)
[2017-02-23] MEDS: Cholecalciferol (D-3) 1,000 UNIT TABLET PO SCH (08:47)
[2017-02-23] MEDS: Ascorbic Acid 500 MG TABLET PO SCH (08:47)
[2017-02-23] MEDS: Furosemide 20 MG/2 ML VIAL IVP SCH (08:48)
--- NOTE | 2017-02-23 08:51 | Internal Med Progress Note ---
<Gonzalo Lawrence - Last Filed: 02/23/17 14:34> Date of Encounter: 02/23/17 Time of Encounter: 08:43 - Assessment and plan (1) Atrial flutter with rapid ventricular response Current Visit: Yes Status: Chronic Assessment and plan: Patient has known hx of paroxsymal A-fib/flutter. Home meds include rythmol 150 mg TID and coumadin. Patient missed 2 doses prior to admission. INR 2.4 within therapeutic range. EKG in ED, and repeat EKG read by myself - Aflutter w / RVR. Patient received an increased dose of rhythmol to 225 Q8hr. Patient remains irregular and tachycardic. per recommendations of cardiology. - cardiology cardioverted today, converted after 1st attempt. currently in sinus rhythm. - per cards d/c cardizem - per card, patient will need to stay until receives all rhythmol doses ( received dose 3/5); expected discharge tomorrow with new prescription for rhythmol - closely monitor HR (2) CHF exacerbation Current Visit: Yes Status: Acute Assessment and plan: last echo 12/2016 LVEF 60-65%. last stress 11/20 negative for ischemia. 4 day hx of PND, Orthopnea, SOB on exertion and leg swelling. Was started on Lasix 20 mg IV BID and symptomatically has improved. - Continue Lasix 20 IV BID - serial evaluation of fluid overload/exam - strict I/O - low sodium diet/water restricted 2L - morning labs - patient does not have signs of fluid overload; D/C lasix Qualifiers: Congestive heart failure type: diastolic Qualified Code(s): I50.33 - Acute on chronic diastolic (congestive) heart failure (3) Hypertension Current Visit: Yes Status: Chronic Assessment and plan: currently stable. Will continue to closely monitor BP. Qualifiers: Hypertension type: essential hypertension Qualified Code(s): I10 - Essential (primary) hypertension (4) DVT prophylaxis Current Visit: Yes Status: Acute Assessment and plan: Pt is on coumadin, INR is therapeutic - Subjective Interval history: Ms Frye is a 76 yo F w/ PMHx of Afib on coumadin, and possible history of CHF and COPD. Patient presented to [facility] ED with 3-4 day hx of progressively worsening SOB, PND, orthopnea, and bilateral pedal edema. patient reports feeling fine today. she does not feel when she's in aflutter, but occassionally will have heavy feeling in her chest. She does not report having that feeling today - Constitutional Vitals: Temp Pulse Resp BP Pulse Ox 98 F 113 14 109/94 91 02/23/17 06:25 02/23/17 06:25 02/23/17 06:25 02/23/17 06:25 02/23/17 06:25 General appearance: Present: mild distress, A&O X 3, answers questions appropriately - Respiratory Respiratory exam: Present: CTAB. Absent: accessory muscle use, rales, rhonchi, wheezes - Cardiovascular Cardiovascular exam: Present: irregular rhythm, tachycardia. Absent: JVD, RRR - GI/Abdominal GI/Abdominal exam: Present: normal bowel sounds, soft, no peritoneal signs. Absent: distended, tenderness - Extremities Exam Extremities exam: Present: warm. Absent: calf tenderness, cyanotic, pedal edema Additional comments: radial pulses irregular bilaterally - Psychiatric Psychiatric exam: Present: normal affect, normal mood Internal Medicine: Result - Labs CBC & Chem 7: 02/23/17 03:27 02/23/17 03:27 Labs: Short CBC 02/23/17 Range/Units 03:27 WBC 7.9 (4.3-11.1) K/mcL Hgb 10.9 L (11.5-15.4) g/dL Hct 36.6 (35.3-44.9) % Plt Count 274 (140-400) K/mcL Neutrophils # 4.5 (1.6-8.9) K/mcL BMP 02/23/17 03:27 Sodium 138 Potassium 4.0 Chloride 103 Carbon Dioxide 29 BUN 21 Creatinine 0.81 Glucose 116 H Calcium 8.5 L Liver Function 02/23/17 Range/Units 03:27 Total Bilirubin 0.6 (0.3-1.0) mg/dL AST 23 (13-39) Units/L ALT 24 (7-52) Units/L Alkaline Phosphatase 82 (34-104) Units/L Albumin 3.7 (3.5-5.7) g/dL - ABG Interpretation ABG results: PT/INR, D-dimer PT 20.1 Seconds (9.4-12.1) H 02/23/17 03:27 Consult Discharge Plan - Plan Referrals: Tisha Celeste MD [Primary Care Provider] - <Mc Cerna - Last Filed: 02/23/17 16:53> Date of Encounter: 02/23/17 - Assessment and plan (1) Respiratory failure Current Visit: Yes Status: Acute Qualifiers: Chronicity: acute Respiratory failure complication: hypoxia Qualified Code(s): J96.01 - Acute respiratory failure with hypoxia (2) CHF exacerbation Current Visit: Yes Status: Acute Qualifiers: Congestive heart failure type: diastolic Qualified Code(s): I50.33 - Acute on chronic diastolic (congestive) heart failure (3) Atrial fibrillation Current Visit: Yes Status: Acute Qualifiers: Atrial fibrillation type: persistent Qualified Code(s): I48.1 - Persistent atrial fibrillation (4) Hypertension Current Visit: Yes Status: Chronic Qualifiers: Hypertension type: essential hypertension Qualified Code(s): I10 - Essential (primary) hypertension - Constitutional Vitals: Temp Pulse Resp BP Pulse Ox 97.8 F 77 16 122/68 98 02/23/17 15:45 02/23/17 15:45 02/23/17 15:45 02/23/17 15:45 02/23/17 15:45 Internal Medicine: Result - Labs CBC & Chem 7: 02/23/17 03:27 02/23/17 03:27 Labs: Short CBC 02/23/17 Range/Units 03:27 WBC 7.9 (4.3-11.1) K/mcL Hgb 10.9 L (11.5-15.4) g/dL Hct 36.6 (35.3-44.9) % Plt Count 274 (140-400) K/mcL Neutrophils # 4.5 (1.6-8.9) K/mcL BMP 02/23/17 03:27 Sodium 138 Potassium 4.0 Chloride 103 Carbon Dioxide 29 BUN 21 Creatinine 0.81 Glucose 116 H Calcium 8.5 L Liver Function 02/23/17 Range/Units 03:27 Total Bilirubin 0.6 (0.3-1.0) mg/dL AST 23 (13-39) Units/L ALT 24 (7-52) Units/L Alkaline Phosphatase 82 (34-104) Units/L Albumin 3.7 (3.5-5.7) g/dL - ABG Interpretation ABG results: PT/INR, D-dimer PT 20.1 Seconds (9.4-12.1) H 02/23/17 03:27 - Impressions Impressions Transesophageal w/Cardioversion 02/23/17 09:02 Impressions: LVEF 55%. Normal LV size and function. The right ventricle was normal in size and systolic function. LA appendage is normal in appearance. No thrombus. No pulmonary hypertension identified. Successful cardioversion to NSR using 250 Joules. No neurological deficits after the procedure. Patient did exhibit signs of obstructive sleep apnea. Recommend an outpatient sleep study. Left Ventricular Wall Motion: Transesophageal Echo Findings All wall segments showed normal motion. Medication Given: Time Medication Dose Units Route 10:25 Versed 2 mg IV 10:25 Fentanyl 25 mcg IV 10:40 Versed 1 mg IV 10:40 Fentanyl 25 mcg IV Findings: Study Quality * Technically adequate exam. ECG Findings * Atrial flutter. Left Ventricle * LVEF 55%. * Normal LV size and function. Right Ventricle * The right ventricle was normal in size and systolic function. Left Atrium * Mildly dilated. * LA appendage is normal in appearance. No thrombus. Right Atrium * RA is Mildly dilated. Interatrial Septum * No evidence of patent foramen ovale. Aortic Valve * The aortic valve is tricuspid. * Normal structure and function. * No aortic regurgitation. * No aortic stenosis. Mitral Valve * Normal structure and function * Trace/trivial mitral regurgitation. * No mitral stenosis. Tricuspid Valve * Normal structure and function. * trivial/trace tricuspid regurgitation. * No pulmonary hypertension identified. Pulmonic Valve * Normal structure. Aorta * The aortic root is not dilated. Mild plaque formation in the descending thoracic aorta. Pericardium * No pericardial effusion. Pulmonary Artery * Normal pulmonary artery. IVC * Normal size and inspiratory collapse. - Attending Attestation I examined this patient and my medical decision-making was reviewed with the Resident Physician on 02/23/17. I agree with the documented findings, disposition and treatment plan as described except to the extent set forth below. Ms Frye is currently admitted for acute CHF and rapid a fib. She is to have BEN/cardioversion today. She remains moderate to high risk due to potential for worsening cardiac status. Ms Frye is anxious about procedure. No CP or worsening dyspnea. No fever or chills. Had successful cardioversion this AM. Exam Alert. Comfortable Mucus membranes dry Heart irreg. Not tachy Lungs diminished Abd soft I/P 1. Parox afib- successfully cardioverted today 2. CHF Further diagnoses and plan as above EKG in AM. If QT is OK anticipate d/c home on increased Rhythmol dose.
--- NOTE | 2017-02-23 08:51 | Event Note ---
Date of Encounter: 02/23/17 Time of Encounter: 08:47 - Cardiology Event Note Pt remains in A-Flutter RVR. Has received 4 doses of increased Rythmol 225mg. QRS remains stable. EKG 02/21/17 QRS 87, EKG 02/23/17 s/p 4 increased doses QRS 85ms. BEN/DCCV today in attempt to restore SR. R/B/A discussed. Pt agrees to proceed.
[2017-02-23] MEDS ORDERED: Lidocaine Viscous Oral Soln 15 ML SOLUTION MM PRN (09:20)
[2017-02-23] MEDS ORDERED: 0.9 % Sodium Chloride 500 ML IVC ONE (09:21)
[2017-02-23] MEDS ORDERED: Tetracaine/Benzocaine/Butamben 200MG/SPRAY (100SPY/BOT) MM ONE (09:21)
[2017-02-23] MEDS: *HR* Midazolam HCl 5 MG/5 ML VIAL IVP PRN ×2 (10:25→10:40)
[2017-02-23] MEDS: *HR* FentaNYL (PF) 100 MCG/2 ML VIAL IVP PRN ×2 (10:25→10:40)
[2017-02-23] MEDS: Diltiazem CD (24hr) 120 MG CAPSULE PO SCH ×2 (14:30→19:59)
--- NOTE | 2017-02-23 15:08 | Event Note ---
Date of Encounter: 02/23/17 Time of Encounter: 15:06 - Cardiology Event Note Underwent successful BEN/DCCV today. Now in SR. EKG reviewed--SR, rate 72, QRS 87ms. 5th dose of Rythmol will be this afternoon. As long as QRS tomorrow AM remains stable, okay to be discharged from cardiac standpoint. Please make sure pt has Rx for increased Rythmol dose 225mg Q8Hrs. Cardizem gtt stopped--resumed home dose of Cardizem CD 120mg BID. Follow-up in 2 weeks as outpt with cardiology as planned. Cardiology signing off. Reconsult PRN.
[2017-02-23] MEDS: *HR* Warfarin 3 MG TABLET PO SCH (17:43)
[2017-02-24] MEDS: Ipratropium/Albuterol Neb 3 ML IH SCH ×4 (04:47→22:40)
[2017-02-24 05:10] LABS: Basophils % 0.3 %; Eosinophils # 0.1 K/mcL (0.0-0.6); Eosinophils % 1.6 %; Hemoglobin 10.5 g/dL (11.5-15.4); Immature Granulocytes % 0.3 % (0-4); Lymphocytes # 2.1 K/mcL (0.6-4.6); Lymphocytes % 24.4 %; Mean Corpuscular Hemoglobin 23.9 pg (28.0-33.3); Mean Corpuscular Volume 79.7 fL (83.0-100.0); Mean Platelet Volume 9.9 fL (9.4-12.4); Monocytes # 0.7 K/mcL (0.0-1.3); Monocytes % 8.3 %; Neutrophils # 5.7 K/mcL (1.6-8.9); Platelet Count 256 K/mcL (140-400); Red Blood Count 4.39 M/mcL (3.82-4.97); Red Cell Distribution Width 15.4 % (11.5-14.5); Segmented Neutrophils % 65.1 %
[2017-02-24 05:12] LABS: Prothrombin Time 21.4 Seconds (9.4-12.1)
--- NOTE | 2017-02-24 06:38 | Electrocardiograph Report ---
[address] [place], [place] [address] Test Date: 2017-02-21 Pat Name: Cathleen Frye Department: 104 Room: 2NE17 Gender: F Field Contractor: LAURIE : 1940 Requested By: Carissa See Order Number: [id number] Reading MD: Gallito Morfin MD Measurements Intervals [place] Rate: 111 P: [place]: 0 QRS: -36 QRSD: 87 T: 46 QT: 319 QTc: 384 Interpretive Statements POSSIBLE ATRIAL FIBRILLATION WITH RVR MARKED LEFT AXIS DEVIATION LOW QRS VOLTAGE IN PRECORDIAL LEADS Poor R wave progression BASELINE ARTIFACT COMPLICATES ACCURATE INTERPRETATION BASELINE ARTIFACT, REPEAT EKG Electronically Signed On 02-24-2017 6:37:08 EST by Gallito Morfin MD
--- NOTE | 2017-02-24 07:22 | Electrocardiograph Report ---
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
[2017-02-24] MEDS: Diltiazem CD (24hr) 120 MG CAPSULE PO SCH ×2 (08:57→21:04)
[2017-02-24] MEDS: Ascorbic Acid 500 MG TABLET PO SCH (08:58)
[2017-02-24] MEDS: Cholecalciferol (D-3) 1,000 UNIT TABLET PO SCH (08:59)
[2017-02-24] MEDS ORDERED: Furosemide 40 MG/4 ML VIAL IVP ONE (09:48)
--- NOTE | 2017-02-24 09:55 | Internal Med Progress Note ---
Date of Encounter: 02/24/17 Time of Encounter: 09:55 - Assessment and plan (1) Respiratory failure Current Visit: Yes Status: Acute Assessment and plan: Having more respiratory distress and increased oxygen requirements this AM Will give Lasix IV this AM Chest CXR Wean oxygen as able. Qualifiers: Chronicity: acute Respiratory failure complication: hypoxia Qualified Code(s): J96.01 - Acute respiratory failure with hypoxia (2) CHF exacerbation Current Visit: Yes Status: Acute Assessment and plan: last echo 12/2016 LVEF 60-65%. last stress 11/20 negative for ischemia. 4 day hx of PND, Orthopnea, SOB on exertion and leg swelling. More dyspneic today. Lasix stopped yesterday Given additional dose today and will restart lower dose. Supportive care for now. Qualifiers: Congestive heart failure type: diastolic Qualified Code(s): I50.33 - Acute on chronic diastolic (congestive) heart failure (3) Atrial fibrillation Current Visit: Yes Status: Acute Assessment and plan: Successful BEN/cardioversion yesterday. On Rhythmol. Qualifiers: Atrial fibrillation type: paroxysmal Qualified Code(s): I48.0 - Paroxysmal atrial fibrillation (4) Hypertension Current Visit: Yes Status: Chronic Assessment and plan: Controlled at this time. Qualifiers: Hypertension type: essential hypertension Qualified Code(s): I10 - Essential (primary) hypertension - Subjective Interval history: Ms Frye is currently admitted for rapid atrial fibrillation and acute respiratory failure. She is s/p BEN/cardioversion. She remains moderate to high risk due to potential for worsening clinical status. Ms Frye is having a lot more dyspnea today. She says she can't seem to take a deep breath. No fever or chills. No cough of significance. No GI issues. Heart rate has been controlled in NSR and EKG looks OK today (QTc is 419). - Constitutional Vitals: Temp Pulse Resp BP Pulse Ox 98.1 F 83 24 133/70 91 02/24/17 06:48 02/24/17 09:04 02/24/17 09:51 02/24/17 09:04 02/24/17 09:51 General appearance: Present: mild distress, A&O X 3, answers questions appropriately - Head Head exam: Present: normocephalic - Eye Eye exam: Present: EOMI, conjuntiva pink - ENT ENT exam: Present: mucous membranes moist - Respiratory Respiratory exam: Present: decreased breath sounds, CTAB. Absent: rales, rhonchi, wheezes - Cardiovascular Cardiovascular exam: Present: RRR. Absent: tachycardia - GI/Abdominal GI/Abdominal exam: Present: soft. Absent: tenderness - Extremities Exam Extremities exam: Present: warm. Absent: tenderness - Neurological Exam Neurological exam: Present: alert, oriented X3, no focal deficits - Skin Skin exam: Present: dry, warm. Absent: rash Internal Medicine: Result - Labs CBC & Chem 7: 02/24/17 04:46 02/23/17 03:27 Labs: Short CBC 02/24/17 Range/Units 04:46 WBC 8.7 (4.3-11.1) K/mcL Hgb 10.5 L (11.5-15.4) g/dL Hct 35.0 L (35.3-44.9) % Plt Count 256 (140-400) K/mcL Neutrophils # 5.7 (1.6-8.9) K/mcL - ABG Interpretation ABG results: PT/INR, D-dimer PT 21.4 Seconds (9.4-12.1) H 02/24/17 04:46 - Impressions Impressions Transesophageal w/Cardioversion 02/23/17 09:02 Impressions: LVEF 55%. Normal LV size and function. The right ventricle was normal in size and systolic function. LA appendage is normal in appearance. No thrombus. No pulmonary hypertension identified. Successful cardioversion to NSR using 250 Joules. No neurological deficits after the procedure. Patient did exhibit signs of obstructive sleep apnea. Recommend an outpatient sleep study. Left Ventricular Wall Motion: Transesophageal Echo Findings All wall segments showed normal motion. Medication Given: Time Medication Dose Units Route 10:25 Versed 2 mg IV 10:25 Fentanyl 25 mcg IV 10:40 Versed 1 mg IV 10:40 Fentanyl 25 mcg IV Findings: Study Quality * Technically adequate exam. ECG Findings * Atrial flutter. Left Ventricle * LVEF 55%. * Normal LV size and function. Right Ventricle * The right ventricle was normal in size and systolic function. Left Atrium * Mildly dilated. * LA appendage is normal in appearance. No thrombus. Right Atrium * RA is Mildly dilated. Interatrial Septum * No evidence of patent foramen ovale. Aortic Valve * The aortic valve is tricuspid. * Normal structure and function. * No aortic regurgitation. * No aortic stenosis. Mitral Valve * Normal structure and function * Trace/trivial mitral regurgitation. * No mitral stenosis. Tricuspid Valve * Normal structure and function. * trivial/trace tricuspid regurgitation. * No pulmonary hypertension identified. Pulmonic Valve * Normal structure. Aorta * The aortic root is not dilated. Mild plaque formation in the descending thoracic aorta. Pericardium * No pericardial effusion. Pulmonary Artery * Normal pulmonary artery. IVC * Normal size and inspiratory collapse. Consult Discharge Plan - Plan Referrals: Tisha Celeste MD [Primary Care Provider] -
--- NOTE | 2017-02-24 10:23 | Electrocardiograph Report ---
[place] [address] Test Date: 2017-02-23 Pat Name: Cathleen Frye Department: 101 Room: 2NE17 Gender: F Diet Supervisor: RICK : 1940 Requested By: Papito Chavez Order Number: [id number] Reading MD: Papito Chavez DO Measurements Intervals [place] Rate: 72 P: 66 [place]: 182 QRS: -11 QRSD: 87 T: 35 QT: 394 QTc: 419 Interpretive Statements SINUS RHYTHM LOW QRS VOLTAGE IN PRECORDIAL LEADS Electronically Signed On 02-24-2017 10:22:01 EST by Papito Chavez DO
--- NOTE | 2017-02-24 10:23 | Electrocardiograph Report ---
[place] [address] Test Date: 2017-02-23 Pat Name: Cathleen Frye Department: 111 Room: 2NE17 Gender: F Batchmaker: ELIAS : 1940 Requested By: Chris Leach Order Number: [id number] Reading MD: Papito Cahvez DO Measurements Intervals [place] Rate: 114 P: [place]: 0 QRS: -19 QRSD: 85 T: 66 QT: 309 QTc: 377 Interpretive Statements ATRIAL FLUTTER/TACHYCARDIA WITH RAPID VENTRICULAR RESPONSE LOW QRS VOLTAGE Electronically Signed On 02-24-2017 10:21:10 EST by Papito Chavez DO
[2017-02-24] MEDS ORDERED: Furosemide 20 MG/2 ML VIAL IVP SCH (17:00)
[2017-02-24] MEDS: *HR* Warfarin 3 MG TABLET PO SCH (17:20)
[2017-02-25] MEDS: Ipratropium/Albuterol Neb 3 ML IH SCH ×4 (03:51→22:32)
[2017-02-25 06:28] LABS: INR 2.4
[2017-02-25 06:49] LABS: BUN/Creatinine Ratio 28 (6-26); Blood Urea Nitrogen 22 mg/dL (8-23); Calcium 8.3 mg/dL (8.6-10.3); Carbon Dioxide 30 mEq/L (23-29); Chloride 101 mEq/L (98-107); Glucose 121 mg/dL (70-105); Osmolality,Calculated 287 (280-300); Potassium 3.7 mEq/L (3.5-5.1); Sodium 136 mEq/L (136-145); eGFR For African Americans > 60 (> 60); eGFR For Non-African Americans > 60 (> 60)
[2017-02-25 06:59] LABS: Basophils % 0.5 %; Eosinophils # 0.1 K/mcL (0.0-0.6); Eosinophils % 1.4 %; Hematocrit 34.6 % (35.3-44.9); Hemoglobin 10.2 g/dL (11.5-15.4); Immature Granulocytes % 0.3 % (0-4); Lymphocytes # 2.1 K/mcL (0.6-4.6); Lymphocytes % 23.5 %; Mean Corpuscular HGB Conc 29.5 g/dL (31.6-35.5); Mean Corpuscular Hemoglobin 23.7 pg (28.0-33.3); Mean Corpuscular Volume 80.3 fL (83.0-100.0); Mean Platelet Volume 10.1 fL (9.4-12.4); Monocytes # 0.8 K/mcL (0.0-1.3); Monocytes % 9.3 %; Neutrophils # 5.7 K/mcL (1.6-8.9); Platelet Count 263 K/mcL (140-400); Red Blood Count 4.31 M/mcL (3.82-4.97); Red Cell Distribution Width 15.2 % (11.5-14.5)
[2017-02-25] MEDS: Diltiazem CD (24hr) 120 MG CAPSULE PO SCH ×2 (08:32→21:22)
[2017-02-25] MEDS: Cholecalciferol (D-3) 1,000 UNIT TABLET PO SCH (08:32)
[2017-02-25] MEDS: Ascorbic Acid 500 MG TABLET PO SCH (08:32)
--- NOTE | 2017-02-25 14:45 | Internal Med Progress Note ---
Date of Encounter: 02/25/17 Time of Encounter: 10:00 - Assessment and plan (1) Respiratory failure Current Visit: Yes Status: Acute Assessment and plan: Responded to Lasix yesterday but had recurrent issue during the night. Now is back in a fib Continue diuresis and weaning oxygen as able. Qualifiers: Chronicity: acute Respiratory failure complication: hypoxia Qualified Code(s): J96.01 - Acute respiratory failure with hypoxia (2) CHF exacerbation Current Visit: Yes Status: Acute Assessment and plan: last echo 12/2016 LVEF 60-65%. last stress 11/20 negative for ischemia. 4 day hx of PND, Orthopnea, SOB on exertion and leg swelling. Had recurrent dyspnea during the night. Receiving furosemide. Back in a fib this AM. Rate varying 90-120 Continue supportive care and diuresis tonight. Qualifiers: Congestive heart failure type: diastolic Qualified Code(s): I50.33 - Acute on chronic diastolic (congestive) heart failure (3) Atrial fibrillation Current Visit: Yes Status: Acute Assessment and plan: Continues on Rhythmol. Back in a fib this AM Will make NPO at midnight and have cardiology reassess in AM. Qualifiers: Atrial fibrillation type: paroxysmal Qualified Code(s): I48.0 - Paroxysmal atrial fibrillation (4) Hypertension Current Visit: Yes Status: Chronic Assessment and plan: Controlled at this time. Qualifiers: Hypertension type: essential hypertension Qualified Code(s): I10 - Essential (primary) hypertension - Subjective Interval history: Ms Frye is currently admitted for rapid atrial fibrillation and acute respiratory failure. She is s/p BEN/cardioversion. She remains moderate to high risk due to potential for worsening clinical status. Ms Frye had dyspnea last night. She remains on oxygen. She is back in atrial fibrillation this AM. No CP. Breathing soewhat better at this time. Family at bedside. - Constitutional Vitals: Temp Pulse Resp BP Pulse Ox 98.1 F 109 16 127/62 91 02/25/17 11:19 02/25/17 11:19 02/25/17 11:19 02/25/17 11:19 02/25/17 11:19 General appearance: Present: A&O X 3, answers questions appropriately - Head Head exam: Present: atraumatic, normocephalic - Eye Eye exam: Present: EOMI, conjuntiva pink - ENT ENT exam: Present: mucous membranes dry - Respiratory Respiratory exam: Present: decreased breath sounds, rales - Cardiovascular Cardiovascular exam: Present: irregular rhythm, tachycardia - GI/Abdominal GI/Abdominal exam: Present: soft. Absent: tenderness - Extremities Exam Extremities exam: Present: warm. Absent: tenderness - Neurological Exam Neurological exam: Present: alert, oriented X3, no focal deficits - Skin Skin exam: Present: dry, warm. Absent: rash Internal Medicine: Result - Labs CBC & Chem 7: 02/25/17 06:04 02/25/17 06:04 Labs: Short CBC 02/25/17 Range/Units 06:04 WBC 8.7 (4.3-11.1) K/mcL Hgb 10.2 L (11.5-15.4) g/dL Hct 34.6 L (35.3-44.9) % Plt Count 263 (140-400) K/mcL Neutrophils # 5.7 (1.6-8.9) K/mcL BMP 02/25/17 06:04 Sodium 136 Potassium 3.7 Chloride 101 Carbon Dioxide 30 H BUN 22 Creatinine 0.80 Glucose 121 H Calcium 8.3 L - ABG Interpretation ABG results: PT/INR, D-dimer PT 26.0 Seconds (9.4-12.1) H 02/25/17 06:04 Consult Discharge Plan - Plan Referrals: Tisha Celeste MD [Primary Care Provider] -
[2017-02-25] MEDS: Furosemide 20 MG TABLET PO SCH (17:44)
[2017-02-25] MEDS: *HR* Warfarin 3 MG TABLET PO SCH (17:44)
[2017-02-26] MEDS: Ipratropium/Albuterol Neb 3 ML IH SCH ×4 (03:52→21:57)
[2017-02-26 04:43] LABS: Basophils % 0.5 %; Eosinophils # 0.1 K/mcL (0.0-0.6); Eosinophils % 1.3 %; Hematocrit 35.1 % (35.3-44.9); Hemoglobin 10.7 g/dL (11.5-15.4); Immature Granulocytes % 0.4 % (0-4); Lymphocytes # 2.3 K/mcL (0.6-4.6); Lymphocytes % 28.4 %; Mean Corpuscular HGB Conc 30.5 g/dL (31.6-35.5); Mean Corpuscular Hemoglobin 24.2 pg (28.0-33.3); Mean Corpuscular Volume 79.4 fL (83.0-100.0); Mean Platelet Volume 10.2 fL (9.4-12.4); Monocytes # 0.8 K/mcL (0.0-1.3); Neutrophils # 4.9 K/mcL (1.6-8.9); Platelet Count 269 K/mcL (140-400); Red Blood Count 4.42 M/mcL (3.82-4.97); Red Cell Distribution Width 15.4 % (11.5-14.5); Segmented Neutrophils % 59.4 %
[2017-02-26 04:46] LABS: INR 2.3; Prothrombin Time 25.7 Seconds (9.4-12.1)
[2017-02-26 05:02] LABS: BUN/Creatinine Ratio 29 (6-26); Blood Urea Nitrogen 21 mg/dL (8-23); Calcium 8.6 mg/dL (8.6-10.3); Carbon Dioxide 28 mEq/L (23-29); Chloride 103 mEq/L (98-107); Glucose 122 mg/dL (70-105); Osmolality,Calculated 290 (280-300); Sodium 138 mEq/L (136-145); eGFR For African Americans > 60 (> 60); eGFR For Non-African Americans > 60 (> 60)
[2017-02-26] MEDS: Diltiazem CD (24hr) 120 MG CAPSULE PO SCH ×2 (10:33→21:15)
[2017-02-26] MEDS: Cholecalciferol (D-3) 1,000 UNIT TABLET PO SCH (10:33)
[2017-02-26] MEDS: Furosemide 20 MG TABLET PO SCH ×2 (10:33→16:10)
[2017-02-26] MEDS: Ascorbic Acid 500 MG TABLET PO SCH (10:33)
--- NOTE | 2017-02-26 11:56 | Electrophysiology ProgressNote ---
Date of Encounter: 02/26/17 Time of Encounter: 11:00 Assessment and Plan (1) Atrial fib/flutter, transient Current Visit: Yes Status: Acute Per EP: -Known hx of paroxysmal A-Fib/Flutter. -On rythmol 225mg TID and cardizem CD 120 BID. S/p BEN and DCCV on 02/23/17. -Patient was SR post cardioversion, however is now back in atrial fibrillation with RVR. -K, MG within normal limits. TSH 12/2016 within normal limits. -Echo 12/2016 EF preserved. -Stress test 11/2015 negative for ischemia. -Anticoagulated on Coumadin, INR 2.3--INRs managed by [facility], checked every 6 weeks. of note, has been subtherapeutic during this admission. -ECG today with atrial fibrillation, RVR, HR 114. QT 346/QTc 413ms. -Disucussed and reviewed with Dr.John Diaz, will stop rhythmol. Will plan to started sotalol on Sunday. -Patient educated on need to be inpatient possibly until Sunday/Sunday. Patient states understanding and agreeable to proceed with sotalol. -Will continue to monitor. Can consider cardizem drip for rate control. (2) CHF exacerbation Current Visit: Yes Status: Acute Per EP: -Symptoms of worsening dyspnea, LE edema, intermittent chest heaviness. -Diastolic, echo 12/2016 EF preserved. -Agree with po Lasix 20mg BID. -BNP 107, CXR without acute findings. -Recommend daily weights, strict I/Os, Na and fluid restriction. -CHF education reinforced with patient and daughter. Qualifiers: Congestive heart failure type: diastolic Qualified Code(s): I50.33 - Acute on chronic diastolic (congestive) heart failure Discussion w patient/family: The assessment and plan as outlined above was discussed with the patient and/or family members who expressed understanding and agreement. All questions were answered. Thank you for involving us in the care of your patient. Please call with any questions. Discussed and reviewed with Dr.John Diaz. Subjective Principal diagnosis: CHF, atrial fibrillation Interval history: Patient states she feels "ok" today. States breathing has improved. Objective Vital Signs, Last 4 Hours Temp Pulse Resp BP Pulse Ox 02/26/17 11:16 18 93 02/26/17 11:03 97.9 F 106 18 173/80 93 General: Conversant, No Apparent Distress HEENT: Atraumatic, Normocephaly, Mucus Membranes Moist Neck: No JVD, Normal carotid pulses Cardiac: Other (Irregularly irregular) Lungs: Other (Lung sounds diminished throughout) Neuro: Alert and responsive, No focal deficits noted Abdomen: Soft, Non-Tender Skin: No rashes noted on visualized skin Musculoskeletal: No Chest Wall Tenderness Extremities: No Clubbing, No Cyanosis, No Edema, Normal Pulses Results 02/26/17 03:44 02/26/17 03:44 Lab Results Active Medications Acetaminophen (Tylenol) 650 mg PO Q6HR PRN PRN Reason: Mild Pain (1-3) Stop: 08/23/17 23:31 Albuterol/Ipratropium (Duoneb) 3 ml IH [id number] PRN PRN Reason: Shortness Of Breath/Wheezing Stop: 08/23/17 23:36 Albuterol/Ipratropium (Duoneb) 3 ml IH [id number] [facility] Stop: 08/24/17 04:01 Last Admin: 02/26/17 11:14 Dose: 3 ml Ascorbic Acid (Vitamin C) 500 mg PO DAILY [facility] Stop: 08/24/17 09:01 Last Admin: 02/26/17 10:33 Dose: 500 mg Diltiazem HCl (Cardizem Cd) 120 mg PO BID [facility] Stop: 08/25/17 13:01 Last Admin: 02/26/17 10:33 Dose: 120 mg Furosemide (Lasix) 20 mg PO BIDDIURETIC DARREN Stop: 08/27/17 17:01 Last Admin: 02/26/17 10:33 Dose: 20 mg Naloxone HCl (Narcan) 0.4 mg IVP Q2MIN PRN PRN Reason: Opioid Reversal Stop: 08/23/17 23:31 Vitamin D (Vitamin D) 1,000 unit PO DAILY [facility] Stop: 08/24/17 09:01 Last Admin: 02/26/17 10:33 Dose: 1,000 unit Warfarin Sodium (Coumadin Perpt) 1 each PO DAILY@1800 PRN PRN Reason: SEE COMMENTS Stop: 08/24/17 18:01 Warfarin Sodium (Coumadin) 6 mg PO MoWeFr@1800 [facility] Stop: 08/25/17 18:01 Last Admin: 02/23/17 17:43 Dose: 6 mg Warfarin Sodium (Coumadin) 9 mg PO Shirley@1800 [facility] Stop: 08/26/17 18:01 Last Admin: 02/25/17 17:44 Dose: 9 mg Laboratory Tests 12/25/16 02/25/17 02/26/17 18:24 06:04 03:44 Hgb 10.7 L INR Potassium Creatinine Magnesium 2.0 TSH 3.669 02/26/17 02/26/17 03:44 03:44 Hgb INR 2.3 Potassium 4.0 Creatinine 0.72 Magnesium TSH - Imaging and Cardiology Chest Xray: report reviewed Echo: report reviewed - EKG Interpretation EKG results cardiology: personally reviewed (ECG today with atrial fibrillation with RVR, HR 114. QT 346, QTc 413ms.), other (Telemetry reviewed with average HR previous 12 hours noted to be 108, atrial fibrillation. PVCs noted.) Consult Discharge Plan - Plan Referrals: Tisha Celeste MD [Primary Care Provider] -
--- NOTE | 2017-02-26 15:31 | Internal Med Progress Note ---
<Gonzalo Lawrence - Last Filed: 02/26/17 15:29> Date of Encounter: 02/26/17 Time of Encounter: 15:29 - Assessment and plan (1) Atrial flutter with rapid ventricular response Current Visit: Yes Status: Chronic Assessment and plan: Patient has known hx of paroxsymal A-fib/flutter. Home meds include rythmol 150 mg TID and coumadin. Patient missed 2 doses prior to admission. INR 2.4 within therapeutic range. EKG in ED, and repeat EKG read by myself - [place] w / RVR. Patient received an increased dose of rhythmol to 225 Q8hr. Patient was then cardioverted on 02/23/17. Patient went back into afib/aflutter on . per cardiology, patient's rythmol will be DC/ed, and washed out prior to starting Sotalol BID. Will need 5 doses prior to discharge. Earliest DC sunday. - DC rythmol - closely monitor HR - cardizem drip for rate control - appreciate cardiology's recommendations (2) CHF exacerbation Current Visit: Yes Status: Acute Assessment and plan: last echo 12/2016 LVEF 60-65%. last stress 11/20 negative for ischemia. 4 day hx of PND, Orthopnea, SOB on exertion and leg swelling. BNP 107, CXR without acute findings. - Receiving furosemide 20 mg BID. - Back in a fib this AM. Rate varying 90-120 - Continue supportive care and diuresis tonight. - strict I/O - Na and 1.5L fluid restriction - daily weights Qualifiers: Congestive heart failure type: diastolic Qualified Code(s): I50.33 - Acute on chronic diastolic (congestive) heart failure (3) Hypertension Current Visit: Yes Status: Chronic Assessment and plan: Controlled at this time. Qualifiers: Hypertension type: essential hypertension Qualified Code(s): I10 - Essential (primary) hypertension (4) DVT prophylaxis Current Visit: Yes Status: Acute Assessment and plan: Pt is on coumadin, INR is therapeutic - Subjective Interval history: Ms Frye is a 76 yo F w/ PMHx of Afib on coumadin, and possible history of CHF and COPD. Patient presented to [facility] with 3-4 day hx of progressively worsening SOB, PND, orthopnea, and bilateral pedal edema. Patient went back into afib/aflutter last night. Patient continues to report asymptomatic besides the occassional chest "heaviness". Patient denies fluttering in her chest, nausea, vomiting, lightheadness, dizziness. - Constitutional Vitals: Temp Pulse Resp BP Pulse Ox 97.9 F 112 16 113/89 94 02/26/17 15:00 02/26/17 15:00 02/26/17 15:00 02/26/17 15:00 02/26/17 15:00 General appearance: Present: A&O X 3, answers questions appropriately - Respiratory Respiratory exam: Present: CTAB. Absent: accessory muscle use, rales, rhonchi, wheezes - Cardiovascular Cardiovascular exam: Present: irregular rhythm. Absent: JVD - Expanded Cardiovascular Exam Peripheral pulses: 2+: Carotid (L) PM (irregular), Carotid (R) PM (irregular), Radial (L) (irregular), Radial (R) (irregular), Femoral (L) PM (irregular), Femoral (R) PM (irregular) - GI/Abdominal GI/Abdominal exam: Present: normal bowel sounds, soft, no peritoneal signs. Absent: distended, tenderness - Extremities Exam Extremities exam: Present: warm. Absent: calf tenderness, cyanotic, pedal edema - Psychiatric Psychiatric exam: Present: normal affect, normal mood Internal Medicine: Result - Labs CBC & Chem 7: 02/26/17 03:44 02/26/17 03:44 Labs: Short CBC 02/26/17 Range/Units 03:44 WBC 8.2 (4.3-11.1) K/mcL Hgb 10.7 L (11.5-15.4) g/dL Hct 35.1 L (35.3-44.9) % Plt Count 269 (140-400) K/mcL Neutrophils # 4.9 (1.6-8.9) K/mcL BMP 02/26/17 03:44 Sodium 138 Potassium 4.0 Chloride 103 Carbon Dioxide 28 BUN 21 Creatinine 0.72 Glucose 122 H Calcium 8.6 - ABG Interpretation ABG results: PT/INR, D-dimer PT 25.7 Seconds (9.4-12.1) H 02/26/17 03:44 Consult Discharge Plan - Plan Referrals: Tisha Celeste MD [Primary Care Provider] - <Nehemiah,Mc A - Last Filed: 02/26/17 17:58> Date of Encounter: 02/26/17 - Assessment and plan (1) Respiratory failure Current Visit: Yes Status: Acute Qualifiers: Chronicity: acute Respiratory failure complication: hypoxia Qualified Code(s): J96.01 - Acute respiratory failure with hypoxia (2) CHF exacerbation Current Visit: Yes Status: Acute Qualifiers: Congestive heart failure type: diastolic Qualified Code(s): I50.33 - Acute on chronic diastolic (congestive) heart failure (3) Atrial fibrillation Current Visit: Yes Status: Acute Qualifiers: Atrial fibrillation type: paroxysmal Qualified Code(s): I48.0 - Paroxysmal atrial fibrillation (4) Hypertension Current Visit: Yes Status: Chronic Qualifiers: Hypertension type: essential hypertension Qualified Code(s): I10 - Essential (primary) hypertension - Constitutional Vitals: Temp Pulse Resp BP Pulse Ox 97.9 F 112 20 113/89 95 02/26/17 15:00 02/26/17 15:00 02/26/17 15:59 02/26/17 15:00 02/26/17 15:59 Internal Medicine: Result - Labs CBC & Chem 7: 02/26/17 03:44 02/26/17 03:44 Labs: Short CBC 02/26/17 Range/Units 03:44 WBC 8.2 (4.3-11.1) K/mcL Hgb 10.7 L (11.5-15.4) g/dL Hct 35.1 L (35.3-44.9) % Plt Count 269 (140-400) K/mcL Neutrophils # 4.9 (1.6-8.9) K/mcL BMP 02/26/17 03:44 Sodium 138 Potassium 4.0 Chloride 103 Carbon Dioxide 28 BUN 21 Creatinine 0.72 Glucose 122 H Calcium 8.6 - ABG Interpretation ABG results: PT/INR, D-dimer PT 25.7 Seconds (9.4-12.1) H 02/26/17 03:44 - Attending Attestation I examined this patient and my medical decision-making was reviewed with the Resident Physician on 02/26/17. I agree with the documented findings, disposition and treatment plan as described except to the extent set forth below. Ms Frye is currently admitted for rapid a fib and CHF. She had BEN/ cardioversion but is back in a fib. She remains moderate to high risk due to potential for worsening clinical status. Ms Frye feels OK. Breathing doing better today. Still in a fib - tachy at times. No CP. Exam Alert. Comfortable Mucus membranes dry Heart irreg and tachy No wheeze I/P 1. A fib with RVR - stopping Rhythmol and starting Sotalol on Sunday 2. CHF Further diagnoses and plan as above
[2017-02-26] MEDS: *HR* Warfarin 3 MG TABLET PO SCH (16:10)
[2017-02-27] MEDS: Ipratropium/Albuterol Neb 3 ML IH SCH ×2 (03:37→10:48)
--- NOTE | 2017-02-27 07:10 | Electrocardiograph Report ---
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
[2017-02-27 07:40] LABS: INR 2.4; Prothrombin Time 26.6 Seconds (9.4-12.1)
[2017-02-27 08:05] LABS: Basophils # 0.1 K/mcL (0.0-0.2); Basophils % 0.8 %; Eosinophils # 0.1 K/mcL (0.0-0.6); Eosinophils % 1.9 %; Hematocrit 38.1 % (35.3-44.9); Hemoglobin 11.7 g/dL (11.5-15.4); Immature Granulocytes % 0.3 % (0-4); Lymphocytes # 1.8 K/mcL (0.6-4.6); Lymphocytes % 23.2 %; Mean Corpuscular HGB Conc 30.7 g/dL (31.6-35.5); Mean Corpuscular Hemoglobin 24.3 pg (28.0-33.3); Mean Platelet Volume 10.4 fL (9.4-12.4); Monocytes # 0.7 K/mcL (0.0-1.3); Monocytes % 9.7 %; Neutrophils # 4.8 K/mcL (1.6-8.9); Platelet Count 274 K/mcL (140-400); Red Blood Count 4.82 M/mcL (3.82-4.97); Red Cell Distribution Width 15.4 % (11.5-14.5); Segmented Neutrophils % 64.1 %
[2017-02-27] MEDS: Cholecalciferol (D-3) 1,000 UNIT TABLET PO SCH (09:05)
[2017-02-27] MEDS: Diltiazem CD (24hr) 120 MG CAPSULE PO SCH (09:05)
[2017-02-27] MEDS: Ascorbic Acid 500 MG TABLET PO SCH (09:05)
[2017-02-27] MEDS: Furosemide 20 MG TABLET PO SCH ×2 (09:05→17:46)
--- NOTE | 2017-02-27 09:23 | Internal Med Progress Note ---
<Gonzalo Lawrence - Last Filed: 02/27/17 09:20> Date of Encounter: 02/27/17 Time of Encounter: 09:21 - Assessment and plan (1) Atrial flutter with rapid ventricular response Current Visit: Yes Status: Chronic Assessment and plan: Patient has known hx of paroxsymal A-fib/flutter. Home meds include rythmol 150 mg TID and coumadin. Patient missed 2 doses prior to admission. INR 2.4 within therapeutic range. EKG in ED, and repeat EKG read by myself - [place] w / RVR. Patient received an increased dose of rhythmol to 225 Q8hr. Patient was then cardioverted on 02/23/17. Patient went back into afib/aflutter on . per cardiology, patient's rythmol will be DC/ed, and washed out prior to starting Sotalol BID. Will need 5 doses prior to discharge. Earliest DC sunday. - rythmol washout today, will start sotalol tomorrow per cards - closely monitor HR - cardizem drip for rate control - appreciate cardiology's recommendations (2) CHF exacerbation Current Visit: Yes Status: Acute Assessment and plan: last echo 12/2016 LVEF 60-65%. last stress 11/20 negative for ischemia. 4 day hx of PND, Orthopnea, SOB on exertion and leg swelling. BNP 107, CXR without acute findings. - Receiving furosemide 20 mg BID. - Back in a fib this AM. Rate varying 90-120 - Continue supportive care and diuresis tonight. - strict I/O - Na and 1.5L fluid restriction - daily weights - educated patient on na and fluid restrictions at home Qualifiers: Congestive heart failure type: diastolic Qualified Code(s): I50.33 - Acute on chronic diastolic (congestive) heart failure (3) Hypertension Current Visit: Yes Status: Chronic Assessment and plan: Controlled at this time. Qualifiers: Hypertension type: essential hypertension Qualified Code(s): I10 - Essential (primary) hypertension (4) DVT prophylaxis Current Visit: Yes Status: Acute Assessment and plan: Pt is on coumadin, INR is therapeutic - Subjective Interval history: Ms Frye is a 76 yo F w/ PMHx of Afib on coumadin, and possible history of CHF and COPD. Patient presented to [place] ED with 3-4 day hx of progressively worsening SOB, PND, orthopnea, and bilateral pedal edema. Patient went back into afib/aflutter two nights ago. Patient denies any new complaints or events overnight. Patient has not had chest pressure today. Patient denies fluttering in her chest, nausea, vomiting, lightheadness, dizziness. - Constitutional Vitals: Temp Pulse Resp BP Pulse Ox 97.7 F 121 18 126/86 94 02/27/17 07:02 02/27/17 07:02 02/27/17 07:02 02/27/17 07:02 02/27/17 07:02 General appearance: Present: A&O X 3, answers questions appropriately - Respiratory Respiratory exam: Present: CTAB. Absent: accessory muscle use, rales, rhonchi, wheezes - Cardiovascular Cardiovascular exam: Present: irregular rhythm. Absent: diastolic murmur, gallop, rubs, systolic murmur - GI/Abdominal GI/Abdominal exam: Present: normal bowel sounds, soft, no peritoneal signs. Absent: distended, tenderness - Psychiatric Psychiatric exam: Present: normal affect, normal mood Internal Medicine: Result - Labs CBC & Chem 7: 02/27/17 06:48 02/26/17 03:44 Labs: Short CBC 02/27/17 Range/Units 06:48 WBC 7.5 (4.3-11.1) K/mcL Hgb 11.7 (11.5-15.4) g/dL Hct 38.1 (35.3-44.9) % Plt Count 274 (140-400) K/mcL Neutrophils # 4.8 (1.6-8.9) K/mcL - ABG Interpretation ABG results: PT/INR, D-dimer PT 26.6 Seconds (9.4-12.1) H 02/27/17 06:48 Consult Discharge Plan - Plan Referrals: Tisha Celeste MD [Primary Care Provider] - <Mc Cerna - Last Filed: 02/27/17 12:39> Date of Encounter: 02/27/17 - Assessment and plan (1) Respiratory failure Current Visit: Yes Status: Acute Qualifiers: Chronicity: acute Respiratory failure complication: hypoxia Qualified Code(s): J96.01 - Acute respiratory failure with hypoxia (2) CHF exacerbation Current Visit: Yes Status: Resolved Qualifiers: Congestive heart failure type: diastolic Qualified Code(s): I50.33 - Acute on chronic diastolic (congestive) heart failure (3) Atrial fibrillation Current Visit: Yes Status: Acute Qualifiers: Atrial fibrillation type: paroxysmal Qualified Code(s): I48.0 - Paroxysmal atrial fibrillation (4) Hypertension Current Visit: Yes Status: Chronic Qualifiers: Hypertension type: essential hypertension Qualified Code(s): I10 - Essential (primary) hypertension (5) Tobacco abuse Current Visit: Yes Status: Chronic - Constitutional Vitals: Temp Pulse Resp BP Pulse Ox 97.7 F 115 26 123/73 93 02/27/17 11:10 02/27/17 11:10 02/27/17 11:10 02/27/17 11:10 02/27/17 11:10 Internal Medicine: Result - Labs CBC & Chem 7: 02/27/17 06:48 02/26/17 03:44 Labs: Short CBC 02/27/17 Range/Units 06:48 WBC 7.5 (4.3-11.1) K/mcL Hgb 11.7 (11.5-15.4) g/dL Hct 38.1 (35.3-44.9) % Plt Count 274 (140-400) K/mcL Neutrophils # 4.8 (1.6-8.9) K/mcL - ABG Interpretation ABG results: PT/INR, D-dimer PT 26.6 Seconds (9.4-12.1) H 02/27/17 06:48 - Attending Attestation I examined this patient and my medical decision-making was reviewed with the Resident Physician on 02/27/17. I agree with the documented findings, disposition and treatment plan as described except to the extent set forth below. Ms Frye is currently admitted for acute rapid atrial fib. She remains moderate to high risk due to potential for worsening clinical status. Ms Frye is up and about in room. She feels OK at this time. No fever. Heart rate has increased some - cardiology following. Plan start Sotalol tomorrow. Exam Alert. Comfortable Mucus membranes dry Heart irreg and tachy Lungs with scattered rales I/P 1. Rapid a fib 2. CHF Starting Sotalol tomorrow Further diagnoses and plan as above
[2017-02-27] MEDS ORDERED: Diltiazem SR (12hr) 60 MG CAPSULE PO ONE (11:36)
--- NOTE | 2017-02-27 11:40 | Cardiology Progress Note ---
Date of Encounter: 02/27/17 Time of Encounter: 09:30 Assessment and Plan (1) Atrial fib/flutter, transient Current Visit: Yes Status: Acute Per EP: -Known hx of paroxysmal A-Fib/Flutter. -previously on rythmol 225mg TID and cardizem CD 120 BID. S/p BEN and DCCV on . -Patient was SR post cardioversion, however is now back in atrial fibrillation with RVR. -K, MG within normal limits. TSH 12/2016 within normal limits. -Echo 12/2016 EF preserved. -Stress test 11/2015 negative for ischemia. -Anticoagulated on Coumadin, INR 2.3--INRs managed by [facility], checked every 6 weeks. of note, has been subtherapeutic during this admission. -ECG yesterday with atrial fibrillation, RVR, HR 114. QT 346/QTc 413ms. -Disucussed and reviewed with Dr.John Diaz, plan for sotalol tomorrow. Discussed with , will increase cardizem CD to 180mg BID. Will give 60mg now. -Will continue to monitor. Can consider cardizem drip for rate control, if remains tachycardic after increase cardizem po. -Will check ECG in am. (2) CHF exacerbation Current Visit: Yes Status: Acute Per EP: -Symptoms of worsening dyspnea, LE edema, intermittent chest heaviness. -Diastolic, echo 12/2016 EF preserved. -Agree with po Lasix 20mg BID. -BNP 107, CXR without acute findings. -Euvolemic on exam. -Recommend daily weights, strict I/Os, Na and fluid restriction. -CHF education reinforced with patient. Qualifiers: Congestive heart failure type: diastolic Qualified Code(s): I50.33 - Acute on chronic diastolic (congestive) heart failure Discussion w patient/family: The assessment and plan as outlined above was discussed with the patient who expressed understanding and agreement. All questions were answered. Thank you for involving us in the care of your patient. Please call with any questions. Discussed and reviewed with Dr.John Diaz. Subjective Principal diagnosis: CHF, atrial fibrillation Interval history: Patient states she feels better today. States breathing has improved. Objective Vital Signs, Last 4 Hours Temp Pulse Resp BP Pulse Ox 02/27/17 11:10 97.7 F 115 26 123/73 93 02/27/17 10:48 96 General: Conversant, No Apparent Distress HEENT: Atraumatic, Normocephaly, Mucus Membranes Moist Neck: No JVD, Normal carotid pulses Cardiac: Other (Irregularly irregular, Tachycardic. ) Lungs: Other (Lung sounds diminished throughout) Neuro: Alert and responsive, No focal deficits noted Abdomen: Soft, Non-Tender Skin: No rashes noted on visualized skin Musculoskeletal: No Chest Wall Tenderness Extremities: No Clubbing, No Cyanosis, No Edema, Normal Pulses Results 02/27/17 06:48 02/26/17 03:44 Lab Results Active Medications Acetaminophen (Tylenol) 650 mg PO Q6HR PRN PRN Reason: Mild Pain (1-3) Stop: 08/23/17 23:31 Albuterol/Ipratropium (Duoneb) 3 ml IH [id number] PRN PRN Reason: Shortness Of Breath/Wheezing Stop: 08/23/17 23:36 Albuterol/Ipratropium (Duoneb) 3 ml IH [id number] [facility] Stop: 08/24/17 04:01 Last Admin: 02/27/17 10:48 Dose: 3 ml Ascorbic Acid (Vitamin C) 500 mg PO DAILY [facility] Stop: 08/24/17 09:01 Last Admin: 02/27/17 09:05 Dose: 500 mg Diltiazem HCl (Cardizem Cd) 180 mg PO BID [facility] Stop: 08/29/17 21:01 Diltiazem HCl (Cardizem Sr) 60 mg PO ONCE ONE Stop: 02/27/17 11:37 Furosemide (Lasix) 20 mg PO BIDDIURETIC [facility]ARREN Stop: 08/27/17 17:01 Last Admin: 02/27/17 09:05 Dose: 20 mg Naloxone HCl (Narcan) 0.4 mg IVP Q2MIN PRN PRN Reason: Opioid Reversal Stop: 08/23/17 23:31 Vitamin D (Vitamin D) 1,000 unit PO DAILY [facility] Stop: 08/24/17 09:01 Last Admin: 02/27/17 09:05 Dose: 1,000 unit Warfarin Sodium (Coumadin Perpt) 1 each PO DAILY@1800 PRN PRN Reason: SEE COMMENTS Stop: 08/24/17 18:01 Warfarin Sodium (Coumadin) 6 mg PO MoWeFr@1800 [facility] Stop: 08/25/17 18:01 Last Admin: 02/26/17 16:10 Dose: 6 mg Warfarin Sodium (Coumadin) 9 mg PO SuTuThSa@1800 [facility] Stop: 08/26/17 18:01 Last Admin: 02/25/17 17:44 Dose: 9 mg Laboratory Tests 02/27/17 02/27/17 06:48 06:48 Hgb 11.7 INR 2.4 - Imaging and Cardiology Chest Xray: report reviewed Echo: report reviewed - EKG Interpretation EKG results cardiology: other (Telemetry reviewed with average HR previous 12 hours noted to be 129, atrial fibrillation. PVCs noted.) Consult Discharge Plan - Plan Referrals: Tisha Celeste MD [Primary Care Provider] -
[2017-02-27] MEDS: *HR* Warfarin 3 MG TABLET PO SCH (17:46)
[2017-02-27] MEDS ORDERED: Diltiazem CD (24hr) 180 MG CAPSULE PO SCH (21:00)
[2017-02-28 05:17] LABS: Basophils # 0.1 K/mcL (0.0-0.2); Basophils % 0.7 %; Eosinophils # 0.1 K/mcL (0.0-0.6); Eosinophils % 1.8 %; Hematocrit 35.8 % (35.3-44.9); Hemoglobin 10.9 g/dL (11.5-15.4); Immature Granulocytes % 0.3 % (0-4); Lymphocytes % 28.3 %; Mean Corpuscular HGB Conc 30.4 g/dL (31.6-35.5); Mean Corpuscular Hemoglobin 24.1 pg (28.0-33.3); Mean Platelet Volume 10.1 fL (9.4-12.4); Monocytes # 0.7 K/mcL (0.0-1.3); Monocytes % 9.4 %; Neutrophils # 4.3 K/mcL (1.6-8.9); Platelet Count 273 K/mcL (140-400); Red Blood Count 4.53 M/mcL (3.82-4.97); Red Cell Distribution Width 15.6 % (11.5-14.5); Segmented Neutrophils % 59.5 %
[2017-02-28 05:21] LABS: INR 2.2; Prothrombin Time 24.3 Seconds (9.4-12.1)
[2017-02-28] MEDS: Furosemide 20 MG TABLET PO SCH ×2 (07:36→17:15)
[2017-02-28] MEDS: Ascorbic Acid 500 MG TABLET PO SCH (07:36)
[2017-02-28] MEDS: Cholecalciferol (D-3) 1,000 UNIT TABLET PO SCH (07:36)
--- NOTE | 2017-02-28 07:53 | Electrocardiograph Report ---
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
--- NOTE | 2017-02-28 07:53 | Electrocardiograph Report ---
[address] [place], [place] [address] Test Date: 2017-02-25 Pat Name: Cathleen Frye Department: 111 Room: 2NE17 Gender: F Printer'S Devil: EILEEN : 1940 Requested By: Mc Cerna Order Number: [id number] Reading MD: Gallito Morfin MD Measurements Intervals [place] Rate: 103 P: IN: 0 QRS: -42 QRSD: 101 T: 66 QT: 348 QTc: 408 Interpretive Statements ATRIAL FIBRILLATION WITH RAPID VENTRICULAR RESPONSE MARKED LEFT AXIS DEVIATION LOW QRS VOLTAGE IN PRECORDIAL LEADS Poor R wave progression Electronically Signed On 02-28-2017 6:16:35 EST by Gallito Morfin MD
--- NOTE | 2017-02-28 07:56 | Electrocardiograph Report ---
[address] [place] [address] Test Date: 2017-02-26 Pat Name: Cathleen Frye Department: 111 Room: 2NE17 Gender: F Neuropsychiatrist: EILEEN : 1940 Requested By: Mc Cerna Order Number: [id number] Reading MD: Gallito Morfin MD Measurements Intervals [place] Rate: 114 P: [place]: 0 QRS: -47 QRSD: 100 T: 67 QT: 346 QTc: 413 Interpretive Statements ATRIAL FIBRILLATION WITH RAPID VENTRICULAR RESPONSE LOW QRS VOLTAGE IN PRECORDIAL LEADS LEFT ANTERIOR FASCICULAR BLOCK Poor R wave progression Electronically Signed On 02-28-2017 7:06:17 EST by Gallito Morfin MD
--- NOTE | 2017-02-28 08:18 | Electrocardiograph Report ---
[place] [address] Test Date: 2017-02-28 Pat Name: Cathleen Frye Department: 111 Room: 2NE17 Gender: F Senior Director Marketing: [id number] : 1940 Requested By: Marixa Wagoner Order Number: [id number] Reading MD: Olivia Koenig Measurements Intervals [place] Rate: 72 P: 68 DC: 158 QRS: 3 QRSD: 82 T: 33 QT: 403 QTc: 427 Interpretive Statements SINUS RHYTHM LOW QRS VOLTAGE IN PRECORDIAL LEADS Electronically Signed On 02-28-2017 8:16:10 EST by Olivia Koenig
[2017-02-28 09:01] LABS: BUN/Creatinine Ratio 24 (6-26); Blood Urea Nitrogen 17 mg/dL (8-23); Calcium 8.4 mg/dL (8.6-10.3); Carbon Dioxide 29 mEq/L (23-29); Chloride 103 mEq/L (98-107); Glucose 108 mg/dL (70-105); Osmolality,Calculated 288 (280-300); Potassium 3.9 mEq/L (3.5-5.1); Sodium 138 mEq/L (136-145); eGFR For African Americans > 60 (> 60); eGFR For Non-African Americans > 60 (> 60)
--- NOTE | 2017-02-28 10:54 | Internal Med Progress Note ---
<Gonzalo Lawrence - Last Filed: 02/28/17 10:52> Date of Encounter: 02/28/17 Time of Encounter: 10:52 - Assessment and plan (1) Atrial flutter with rapid ventricular response Current Visit: Yes Status: Chronic Assessment and plan: Patient has known hx of paroxsymal A-fib/flutter. Home meds include rythmol 150 mg TID and coumadin. Patient missed 2 doses prior to admission. INR 2.4 within therapeutic range. EKG in ED, and repeat EKG read by myself - Aflutter w / RVR. Patient received an increased dose of rhythmol to 225 Q8hr. Patient was then cardioverted on 02/23/17. Patient went back into afib/aflutter on . per cardiology, patient's rythmol will be DC/ed, and washed out prior to starting Sotalol BID. Will need 5 doses prior to discharge. Earliest DC Sunday. - expected to start sotalol today - closely monitor HR - cardizem drip for rate control - appreciate cardiology's recommendations (2) CHF exacerbation Current Visit: Yes Status: Resolved Assessment and plan: last echo 12/2016 LVEF 60-65%. last stress 11/20 negative for ischemia. 4 day hx of PND, Orthopnea, SOB on exertion and leg swelling. BNP 107, CXR without acute findings. - Receiving furosemide 20 mg BID. - Back in a fib this AM. Rate varying 90-120 - Continue supportive care and diuresis tonight. - strict I/O - Na and 1.5L fluid restriction - daily weights - educated patient on na and fluid restrictions at home Qualifiers: Congestive heart failure type: diastolic Qualified Code(s): I50.33 - Acute on chronic diastolic (congestive) heart failure (3) Hypertension Current Visit: Yes Status: Chronic Assessment and plan: Controlled at this time. Qualifiers: Hypertension type: essential hypertension Qualified Code(s): I10 - Essential (primary) hypertension (4) DVT prophylaxis Current Visit: Yes Status: Acute Assessment and plan: Pt is on coumadin, INR is therapeutic - Subjective Interval history: Ms Frye is a 76 yo F w/ PMHx of Afib on coumadin, and possible history of CHF and COPD. Patient presented to [place] ED with 3-4 day hx of progressively worsening SOB, PND, orthopnea, and bilateral pedal edema. Patient went back into afib/aflutter two nights ago. Patient denies any new complaints or events overnight. Patient continues to have no chest pressure today. Patient denies fluttering in her chest, nausea, vomiting, lightheadness, dizziness. - Constitutional Vitals: Temp Pulse Resp BP Pulse Ox 98.1 F 74 16 130/65 98 02/28/17 06:26 02/28/17 06:26 02/28/17 06:26 02/28/17 06:26 02/28/17 06:26 General appearance: Present: A&O X 3, answers questions appropriately - Head Head exam: Present: atraumatic, normocephalic - Respiratory Respiratory exam: Present: CTAB. Absent: accessory muscle use, rales, rhonchi, wheezes - Cardiovascular Cardiovascular exam: Present: irregular rhythm. Absent: diastolic murmur, gallop, rubs, systolic murmur - Psychiatric Psychiatric exam: Present: normal affect, normal mood Internal Medicine: Result - Labs CBC & Chem 7: 02/28/17 03:46 02/28/17 08:24 Labs: Short CBC 02/28/17 Range/Units 03:46 WBC 7.2 (4.3-11.1) K/mcL Hgb 10.9 L (11.5-15.4) g/dL Hct 35.8 (35.3-44.9) % Plt Count 273 (140-400) K/mcL Neutrophils # 4.3 (1.6-8.9) K/mcL BMP 02/28/17 08:24 Sodium 138 Potassium 3.9 Chloride 103 Carbon Dioxide 29 BUN 17 Creatinine 0.70 Glucose 108 H Calcium 8.4 L - ABG Interpretation ABG results: PT/INR, D-dimer PT 24.3 Seconds (9.4-12.1) H 02/28/17 03:46 Consult Discharge Plan - Plan Referrals: Tisha Celeste MD [Primary Care Provider] - <Mc Cerna - Last Filed: 02/28/17 17:34> Date of Encounter: 02/28/17 - Assessment and plan (1) Respiratory failure Current Visit: Yes Status: Acute Qualifiers: Chronicity: acute Respiratory failure complication: hypoxia Qualified Code(s): J96.01 - Acute respiratory failure with hypoxia (2) CHF exacerbation Current Visit: Yes Status: Resolved Qualifiers: Congestive heart failure type: diastolic Qualified Code(s): I50.33 - Acute on chronic diastolic (congestive) heart failure (3) Atrial fibrillation Current Visit: Yes Status: Acute Qualifiers: Atrial fibrillation type: paroxysmal Qualified Code(s): I48.0 - Paroxysmal atrial fibrillation (4) Hypertension Current Visit: Yes Status: Chronic Qualifiers: Hypertension type: essential hypertension Qualified Code(s): I10 - Essential (primary) hypertension (5) Tobacco abuse Current Visit: Yes Status: Chronic - Constitutional Vitals: Temp Pulse Resp BP Pulse Ox 98.2 F 75 16 107/63 97 02/28/17 15:25 02/28/17 15:25 02/28/17 15:25 02/28/17 15:25 02/28/17 15:25 Internal Medicine: Result - Labs CBC & Chem 7: 02/28/17 03:46 02/28/17 08:24 Labs: Short CBC 02/28/17 Range/Units 03:46 WBC 7.2 (4.3-11.1) K/mcL Hgb 10.9 L (11.5-15.4) g/dL Hct 35.8 (35.3-44.9) % Plt Count 273 (140-400) K/mcL Neutrophils # 4.3 (1.6-8.9) K/mcL BMP 02/28/17 08:24 Sodium 138 Potassium 3.9 Chloride 103 Carbon Dioxide 29 BUN 17 Creatinine 0.70 Glucose 108 H Calcium 8.4 L - ABG Interpretation ABG results: PT/INR, D-dimer PT 24.3 Seconds (9.4-12.1) H 02/28/17 03:46 - Attending Attestation I examined this patient and my medical decision-making was reviewed with the Resident Physician on 02/28/17. I agree with the documented findings, disposition and treatment plan as described except to the extent set forth below. Ms Frye is currently admitted for rapid a fib and CHF. She is being started on Sotalol today. She remains moderate to high risk due to potential for worsening cardiac status. Ms Frye is up in chair. She is currently in sinus rhythm. No CP. Dyspnea stable. No fever. To start Sotalol today. Exam Alert. Comfortable Mucus membranes dry Heart reg No wheeze I/P 1. Rapid a fib- NSR now. To start Sotalol today. 2. CHF Further diagnoses and plan as above.
--- NOTE | 2017-02-28 11:06 | Electrophysiology ProgressNote ---
Date of Encounter: 02/28/17 Time of Encounter: 08:30 Assessment and Plan (1) Atrial fib/flutter, transient Current Visit: Yes Status: Acute Per EP: -Known hx of paroxysmal A-Fib/Flutter. -previously on rythmol 225mg TID and cardizem CD 120 BID. S/p BEN and DCCV on . -Patient was SR post cardioversion, however was back in atrial fibrillation with RVR. -ON cardizem drip at 5mg/hour. -K, MG within normal limits. TSH 12/2016 within normal limits. -Echo 12/2016 EF preserved. -Stress test 11/2015 negative for ischemia. -Anticoagulated on Coumadin, INR 2.3--INRs [facility] by [facility], checked every 6 weeks. of note, has been subtherapeutic during this admission. -ECG 02/26/17 with atrial fibrillation, RVR, HR 114. QT 346/QTc 413ms. -ECG today with SR, HR 72. QT 403, QTc 427ms. -Discussed and reviewed with Dr.John Diaz, will stop cardizem drip. Will start sotalol 80mg q12 hours. No oral cardizem at this time. -Will check ECG daily. -Will continue to monitor. (2) CHF exacerbation Current Visit: Yes Status: Resolved Per EP: -Symptoms of worsening dyspnea, LE edema, intermittent chest heaviness. -Diastolic, echo 12/2016 EF preserved. -Agree with po Lasix 20mg BID. -BNP 107, CXR without acute findings. -Euvolemic on exam. -Recommend daily weights, strict I/Os, Na and fluid restriction. -CHF education reinforced with patient. Qualifiers: Congestive heart failure type: diastolic Qualified Code(s): I50.33 - Acute on chronic diastolic (congestive) heart failure Discussion w patient/family: The assessment and plan as outlined above was discussed with the patient who expressed understanding and agreement. All questions were answered. Thank you for involving us in the care of your patient. Please call with any questions. Discussed and reviewed with Dr.John Diaz. Subjective Principal diagnosis: CHF, atrial fibrillation Interval history: Patient is now back in SR, however states she has noticed no change in her shortness of breath. Objective Vital Signs Temperature 97.5 F L 02/21/17 12:46 Pulse Rate 114 02/21/17 12:46 Respiratory Rate 20 02/21/17 12:46 Blood Pressure 151/95 02/21/17 12:46 O2 Sat by Pulse Oximetry 92 02/21/17 12:46 Temperature 98.1 F 02/28/17 06:26 Pulse Rate 74 02/28/17 06:26 Respiratory Rate 16 02/28/17 06:26 Blood Pressure 130/65 02/28/17 06:26 O2 Sat by Pulse Oximetry 98 02/28/17 06:26 Oxygen Delivery Oxygen Delivery Nasal Cannula General: Conversant, No Apparent Distress HEENT: Atraumatic, Normocephaly, Mucus Membranes Moist Neck: No JVD, Normal carotid pulses Cardiac: Reg Rate and Rhythm, Normal S1 and S2, No Murmur Lungs: Normal Breath Sounds, No Wheeze, Rales, Rhonchi Neuro: Alert and responsive, No focal deficits noted Abdomen: Soft, Non-Tender Skin: No rashes noted on visualized skin Musculoskeletal: No Chest Wall Tenderness Extremities: No Clubbing, No Cyanosis, No Edema, Normal Pulses Results 02/28/17 03:46 02/28/17 08:24 Lab Results Active Medications Acetaminophen (Tylenol) 650 mg PO Q6HR PRN PRN Reason: Mild Pain (1-3) Stop: 08/23/17 23:31 Albuterol/Ipratropium (Duoneb) 3 ml IH [id number] PRN PRN Reason: Shortness Of Breath/Wheezing Stop: 08/23/17 23:36 Ascorbic Acid (Vitamin C) 500 mg PO DAILY [facility] Stop: 08/24/17 09:01 Last Admin: 02/28/17 07:36 Dose: 500 mg Furosemide (Lasix) 20 mg PO BIDDIURETIC [facility] Stop: 08/27/17 17:01 Last Admin: 02/28/17 07:36 Dose: 20 mg Naloxone HCl (Narcan) 0.4 mg IVP Q2MIN PRN PRN Reason: Opioid Reversal Stop: 08/23/17 23:31 Sotalol HCl (Betapace) 80 mg PO Q12H [facility] Stop: 08/30/17 11:01 Vitamin D (Vitamin D) 1,000 unit PO DAILY [facility] Stop: 08/24/17 09:01 Last Admin: 02/28/17 07:36 Dose: 1,000 unit Warfarin Sodium (Coumadin Perpt) 1 each PO DAILY@1800 PRN PRN Reason: SEE COMMENTS Stop: 08/24/17 18:01 Warfarin Sodium (Coumadin) 6 mg PO MoWeFr@1800 [facility] Stop: 08/25/17 18:01 Last Admin: 02/26/17 16:10 Dose: 6 mg Warfarin Sodium (Coumadin) 9 mg PO SuTuThSa@1800 [facility] Stop: 08/26/17 18:01 Last Admin: 02/27/17 17:46 Dose: 9 mg Laboratory Tests 02/28/17 02/28/17 02/28/17 03:46 03:46 08:24 Hgb 10.9 L INR 2.2 Creatinine 0.70 - Imaging and Cardiology Chest Xray: report reviewed Echo: report reviewed - EKG Interpretation EKG results cardiology: personally reviewed (ECG today with SR, HR 72, QT 403, QTc 427ms.), other (Telemetry reviewed with average HR previous 12 hours noted to be 95. Patient was atrial fibrillation and converted to SR around 0139.) Consult Discharge Plan - Plan Referrals: Tisha Celeste MD [Primary Care Provider] -
[2017-02-28] MEDS: *HR* Warfarin 3 MG TABLET PO SCH (17:16)
[2017-03-01 05:21] LABS: INR 2.4; Prothrombin Time 25.9 Seconds (9.4-12.1)
[2017-03-01] MEDS: Furosemide 20 MG TABLET PO SCH ×2 (07:48→18:12)
[2017-03-01] MEDS: Cholecalciferol (D-3) 1,000 UNIT TABLET PO SCH (07:48)
[2017-03-01] MEDS: Ascorbic Acid 500 MG TABLET PO SCH (07:48)
--- NOTE | 2017-03-01 08:10 | Internal Med Progress Note ---
<Gonzalo Lawrence - Last Filed: 03/01/17 10:50> Date of Encounter: 03/01/17 Time of Encounter: 08:08 - Assessment and plan (1) Atrial flutter with rapid ventricular response Current Visit: Yes Status: Chronic Assessment and plan: Patient has known hx of paroxsymal A-fib/flutter. Home meds include rythmol 150 mg TID and coumadin. Patient missed 2 doses prior to admission. INR 2.4 within therapeutic range. EKG in ED, and repeat EKG read by myself - Aflutter w / RVR. Patient received an increased dose of rhythmol to 225 Q8hr. Patient was then cardioverted on 02/23/17. Patient went back into afib/aflutter on . per cardiology, patient's rythmol will be DC/ed, and washed out prior to starting Sotalol BID. Will need 5 doses prior to discharge. Earliest DC Sunday. - sotalol day 2, per management of cardiology - closely monitor HR - Ordered CTA to r/o PE: SOB, tachy, lower extremity edema - appreciate cardiology's recommendations (2) CHF exacerbation Current Visit: Yes Status: Resolved Assessment and plan: last echo 12/2016 LVEF 60-65%. last stress 11/20 negative for ischemia. 4 day hx of PND, Orthopnea, SOB on exertion and leg swelling. BNP 107, CXR without acute findings. - Receiving furosemide 20 mg BID. - Back in a fib this AM. Rate varying 90-120 - Continue supportive care and diuresis tonight. - strict I/O - Na and 1.5L fluid restriction - daily weights - educated patient on na and fluid restrictions at home Qualifiers: Congestive heart failure type: diastolic Qualified Code(s): I50.33 - Acute on chronic diastolic (congestive) heart failure (3) Hypertension Current Visit: Yes Status: Chronic Assessment and plan: Controlled at this time. Qualifiers: Hypertension type: essential hypertension Qualified Code(s): I10 - Essential (primary) hypertension (4) DVT prophylaxis Current Visit: Yes Status: Acute Assessment and plan: Pt is on coumadin, INR is therapeutic - Subjective Interval history: Ms Frye is a 76 yo F w/ PMHx of Afib on coumadin, and possible history of CHF and COPD. Patient presented to [facility] ED with 3-4 day hx of progressively worsening SOB, PND, orthopnea, and bilateral pedal edema. Patient went back into afib/aflutter three nights ago. Patient denies any new complaints or events overnight. Patient continues to have no chest pressure today. Patient denies fluttering in her chest, nausea, vomiting, lightheadness, dizziness. - Constitutional Vitals: Temp Pulse Resp BP Pulse Ox 98.2 F 67 17 115/44 96 03/01/17 07:00 03/01/17 07:00 03/01/17 07:00 03/01/17 07:00 03/01/17 07:00 General appearance: Present: A&O X 3, answers questions appropriately - Respiratory Respiratory exam: Present: CTAB. Absent: accessory muscle use, rales, rhonchi, wheezes - Cardiovascular Cardiovascular exam: Present: irregular rhythm, +S1, +S2. Absent: diastolic murmur, gallop, rubs, systolic murmur - Psychiatric Psychiatric exam: Present: normal affect, normal mood Internal Medicine: Result - Labs CBC & Chem 7: 02/28/17 03:46 02/28/17 08:24 Labs: BMP 02/28/17 08:24 Sodium 138 Potassium 3.9 Chloride 103 Carbon Dioxide 29 BUN 17 Creatinine 0.70 Glucose 108 H Calcium 8.4 L - ABG Interpretation ABG results: PT/INR, D-dimer PT 25.9 Seconds (9.4-12.1) H 03/01/17 04:48 Consult Discharge Plan - Plan Referrals: Tisha Celeste MD [Primary Care Provider] - <Mc Cerna - Last Filed: 03/01/17 14:43> Date of Encounter: 03/01/17 - Assessment and plan (1) Respiratory failure Current Visit: Yes Status: Acute Qualifiers: Chronicity: acute Respiratory failure complication: hypoxia Qualified Code(s): J96.01 - Acute respiratory failure with hypoxia (2) CHF exacerbation Current Visit: Yes Status: Resolved Qualifiers: Congestive heart failure type: diastolic Qualified Code(s): I50.33 - Acute on chronic diastolic (congestive) heart failure (3) Atrial fibrillation Current Visit: Yes Status: Acute Qualifiers: Atrial fibrillation type: paroxysmal Qualified Code(s): I48.0 - Paroxysmal atrial fibrillation (4) Hypertension Current Visit: Yes Status: Chronic Qualifiers: Hypertension type: essential hypertension Qualified Code(s): I10 - Essential (primary) hypertension (5) Tobacco abuse Current Visit: Yes Status: Chronic - Constitutional Vitals: Temp Pulse Resp BP Pulse Ox 98.2 F 80 17 126/78 98 03/01/17 11:00 03/01/17 11:00 03/01/17 11:00 03/01/17 11:00 03/01/17 11:00 Internal Medicine: Result - Labs CBC & Chem 7: 02/28/17 03:46 03/01/17 08:23 Labs: BMP 03/01/17 08:23 Sodium 139 Potassium 4.2 Chloride 104 Carbon Dioxide 30 H BUN 18 Creatinine 0.61 Glucose 94 Calcium 8.6 - ABG Interpretation ABG results: PT/INR, D-dimer PT 25.9 Seconds (9.4-12.1) H 03/01/17 04:48 - Impressions Impressions Chest CTA 03/01/17 13:30 IMPRESSION: No evidence of pulmonary embolism or acute pulmonary abnormality. D/ / James Beck MD / James Beck MD Interpreting Provider: James Beck MD - Attending Attestation I examined this patient and my medical decision-making was reviewed with the Resident Physician on 03/01/17. I agree with the documented findings, disposition and treatment plan as described except to the extent set forth below. Ms Frye is currently admitted for rapid a fib and hypoxia. She remains moderate to high risk due to potential for worsening clinical status. Ms Frye feels OK. She is still quite hypoxic (70s) without oxygen. No fever or chills. Exam Alert. Comfortable Mucus membranes dry Heart reg Lungs with few crackles Abd soft I/P 1. A fib - per card. On Sotalol 2. Hypoxia - CTA today. May need home oxygen set up. Further diagnoses and plan as above.
--- NOTE | 2017-03-01 10:13 | Electrophysiology ProgressNote ---
Date of Encounter: 03/01/17 Time of Encounter: 10:00 Assessment and Plan (1) Atrial fib/flutter, transient Current Visit: Yes Status: Acute Per EP: -Known hx of paroxysmal A-Fib/Flutter. -Anticoagulated on Coumadin, INR 2.4 -INRs [facility] by [facility], checked every 6 weeks. of note, has been subtherapeutic during this admission. -ECG 02/26/17 with atrial fibrillation, RVR, HR 114. QT 346/QTc 413ms. -ECG 02/28/17 with SR, HR 72. QT 403, QTc 427ms. -Patient started on sotalol 80mg Q12 hours. S/p 2 total doses -ECG today with SR, HR 71. QT 408, QTc 431ms. -Discussed and reviewed with Dr.John Diaz, continue current regimen. -Will check ECG daily. -Will continue to monitor. (2) CHF exacerbation Current Visit: Yes Status: Resolved Per EP: -Symptoms of worsening dyspnea, LE edema, intermittent chest heaviness. -Diastolic, echo 12/2016 EF preserved. -Agree with po Lasix 20mg BID. -BNP 107, CXR without acute findings. -Euvolemic on exam. -Recommend daily weights, strict I/Os, Na and fluid restriction. -CHF education reinforced with patient. Qualifiers: Congestive heart failure type: diastolic Qualified Code(s): I50.33 - Acute on chronic diastolic (congestive) heart failure Discussion w patient/family: The assessment and plan as outlined above was discussed with the patient who expressed understanding and agreement. All questions were answered. Thank you for involving us in the care of your patient. Please call with any questions. Discussed and reviewed with Dr.John Diaz. Subjective Principal diagnosis: CHF, atrial fibrillation Interval history: Patient reports she feels much better today. Denies complaints. Objective Vital Signs, Last 4 Hours Temp Pulse Resp BP Pulse Ox 03/01/17 07:00 98.2 F 67 17 115/44 96 General: Conversant, No Apparent Distress HEENT: Atraumatic, Normocephaly, Mucus Membranes Moist Neck: No JVD, Normal carotid pulses Cardiac: Reg Rate and Rhythm, Normal S1 and S2, No Murmur Lungs: Normal Breath Sounds, No Wheeze, Rales, Rhonchi Neuro: Alert and responsive, No focal deficits noted Abdomen: Soft, Non-Tender Skin: No rashes noted on visualized skin Musculoskeletal: No Chest Wall Tenderness Extremities: No Clubbing, No Cyanosis, No Edema, Normal Pulses Results 02/28/17 03:46 02/28/17 08:24 Lab Results Active Medications Acetaminophen (Tylenol) 650 mg PO Q6HR PRN PRN Reason: Mild Pain (1-3) Stop: 08/23/17 23:31 Albuterol/Ipratropium (Duoneb) 3 ml IH [id number] PRN PRN Reason: Shortness Of Breath/Wheezing Stop: 08/23/17 23:36 Ascorbic Acid (Vitamin C) 500 mg PO DAILY [facility] Stop: 08/24/17 09:01 Last Admin: 03/01/17 07:48 Dose: 500 mg Furosemide (Lasix) 20 mg PO BIDDIURETIC [facility] Stop: 08/27/17 17:01 Last Admin: 03/01/17 07:48 Dose: 20 mg Naloxone HCl (Narcan) 0.4 mg IVP Q2MIN PRN PRN Reason: Opioid Reversal Stop: 08/23/17 23:31 Sotalol HCl (Betapace) 80 mg PO Q12H [facility] Stop: 08/30/17 11:01 Last Admin: 02/28/17 22:28 Dose: 80 mg Vitamin D (Vitamin D) 1,000 unit PO DAILY [facility] Stop: 08/24/17 09:01 Last Admin: 03/01/17 07:48 Dose: 1,000 unit Warfarin Sodium (Coumadin Perpt) 1 each PO DAILY@1800 PRN PRN Reason: SEE COMMENTS Stop: 08/24/17 18:01 Warfarin Sodium (Coumadin) 6 mg PO MoWeFr@1800 [facility] Stop: 08/25/17 18:01 Last Admin: 02/28/17 17:16 Dose: 6 mg Warfarin Sodium (Coumadin) 9 mg PO SuTuThSa@1800 [facility] Stop: 08/26/17 18:01 Last Admin: 02/27/17 17:46 Dose: 9 mg Laboratory Tests 03/01/17 04:48 INR 2.4 - Imaging and Cardiology Chest Xray: report reviewed Echo: report reviewed - EKG Interpretation EKG results cardiology: personally reviewed (ECG today with SR, PACs, HR 71. QT 408, QTc 431ms.), other (Telemetry reviewed with average HR previous 12 hours noted to be 73, sinus rhythm. PACs noted.) Consult Discharge Plan - Plan Referrals: Tisha Celeste MD [Primary Care Provider] -
[2017-03-01 11:23] LABS: BUN/Creatinine Ratio 30 (6-26); Blood Urea Nitrogen 18 mg/dL (8-23); Calcium 8.6 mg/dL (8.6-10.3); Carbon Dioxide 30 mEq/L (23-29); Chloride 104 mEq/L (98-107); Glucose 94 mg/dL (70-105); Osmolality,Calculated 290 (280-300); Potassium 4.2 mEq/L (3.5-5.1); Sodium 139 mEq/L (136-145); eGFR For African Americans > 60 (> 60); eGFR For Non-African Americans > 60 (> 60)
[2017-03-01] MEDS ORDERED: 0.9 % Sodium Chloride 250 ML ONE (11:28)
[2017-03-01] MEDS: 0.9 % Sodium Chloride 250 ML ONE ×2 (12:18→12:20)
[2017-03-01] MEDS: *HR* Warfarin 3 MG TABLET PO SCH (18:12)
[2017-03-02 05:32] LABS: INR 2.1; Prothrombin Time 22.8 Seconds (9.4-12.1)
[2017-03-02] MEDS: Ascorbic Acid 500 MG TABLET PO SCH (07:48)
[2017-03-02] MEDS: Furosemide 20 MG TABLET PO SCH (07:48)
[2017-03-02] MEDS: Cholecalciferol (D-3) 1,000 UNIT TABLET PO SCH (07:48)
--- NOTE | 2017-03-02 10:13 | Electrophysiology ProgressNote ---
Date of Encounter: 03/02/17 Time of Encounter: 10:11 Assessment and Plan (1) Atrial fib/flutter, transient Current Visit: Yes Status: Acute Per EP: -Known hx of paroxysmal A-Fib/Flutter. -Anticoagulated on Coumadin, INR 2.1 -INRs managed by [facility], checked every 6 weeks. of note, has been subtherapeutic during this admission. -ECG 02/26/17 with atrial fibrillation, RVR, HR 114. QT 346/QTc 413ms. -ECG 02/28/17 with SR, HR 72. QT 403, QTc 427ms. -Patient started on sotalol 80mg Q12 hours. S/p 4 total doses -ECG 03/02/17with SR, HR 71. QT 408, QTc 431ms. -ECG today 0911 with SR, HR 70, QT 418, QTc 438ms. -ECG today at 1400, after 5th dose of sotalol with SR, HR 66, QT 418, QTc 432ms. -Discussed and reviewed with Dr.John Diaz, continue current regimen. Cardiology will sign off. -WIll set up follow up with [facility]. (2) CHF exacerbation Current Visit: Yes Status: Resolved Per EP: -Symptoms of worsening dyspnea, LE edema, intermittent chest heaviness. -Diastolic, echo 12/2016 EF preserved. -Agree with po Lasix 20mg BID. -BNP 107, CXR without acute findings. -Euvolemic on exam. -Recommend daily weights, strict I/Os, Na and fluid restriction. -CHF education reinforced with patient. Qualifiers: Congestive heart failure type: diastolic Qualified Code(s): I50.33 - Acute on chronic diastolic (congestive) heart failure Discussion w patient/family: The assessment and plan as outlined above was discussed with the patient who expressed understanding and agreement. All questions were answered. Thank you for involving us in the care of your patient. Please call with any questions. Discussed and reviewed with Dr.John Diaz. Subjective Principal diagnosis: CHF, atrial fibrillation Interval history: Patient reports she feels much better today. Denies complaints. Is currently off O2 and states breathing is much improved today. Objective Vital Signs, Last 4 Hours Temp Pulse Resp BP Pulse Ox 03/02/17 06:23 97.9 F 60 16 127/79 96 General: Conversant, No Apparent Distress HEENT: Atraumatic, Normocephaly, Mucus Membranes Moist Neck: No JVD, Normal carotid pulses Cardiac: Reg Rate and Rhythm, Normal S1 and S2, No Murmur Lungs: Normal Breath Sounds, No Wheeze, Rales, Rhonchi Neuro: Alert and responsive, No focal deficits noted Abdomen: Soft, Non-Tender Skin: No rashes noted on visualized skin Musculoskeletal: No Chest Wall Tenderness Extremities: No Clubbing, No Cyanosis, No Edema, Normal Pulses Results 02/28/17 03:46 03/01/17 08:23 Lab Results Impressions Chest CTA 03/01/17 13:30 IMPRESSION: No evidence of pulmonary embolism or acute pulmonary abnormality. D/ / James Beck MD / James Beck MD Interpreting Provider: James Beck MD Active Medications Acetaminophen (Tylenol) 650 mg PO Q6HR PRN PRN Reason: Mild Pain (1-3) Stop: 08/23/17 23:31 Albuterol/Ipratropium (Duoneb) 3 ml IH G0IRISM PRN PRN Reason: Shortness Of Breath/Wheezing Stop: 08/23/17 23:36 Ascorbic Acid (Vitamin C) 500 mg PO DAILY [facility] Stop: 08/24/17 09:01 Last Admin: 03/02/17 07:48 Dose: 500 mg Furosemide (Lasix) 20 mg PO BIDDIURETIC DARREN Stop: 08/27/17 17:01 Last Admin: 03/02/17 07:48 Dose: 20 mg Naloxone HCl (Narcan) 0.4 mg IVP Q2MIN PRN PRN Reason: Opioid Reversal Stop: 08/23/17 23:31 Sotalol HCl (Betapace) 80 mg PO Q12H DARREN Stop: 08/30/17 11:01 Last Admin: 03/01/17 23:52 Dose: 80 mg Vitamin D (Vitamin D) 1,000 unit PO DAILY [facility] Stop: 08/24/17 09:01 Last Admin: 03/02/17 07:48 Dose: 1,000 unit Warfarin Sodium (Coumadin Perpt) 1 each PO DAILY@1800 PRN PRN Reason: SEE COMMENTS Stop: 08/24/17 18:01 Warfarin Sodium (Coumadin) 6 mg PO MoWeFr@1800 [facility] Stop: 08/25/17 18:01 Last Admin: 02/28/17 17:16 Dose: 6 mg Warfarin Sodium (Coumadin) 9 mg PO SuTuThSa@1800 [facility] Stop: 08/26/17 18:01 Last Admin: 03/01/17 18:12 Dose: 9 mg Laboratory Tests 03/01/17 03/02/17 08:23 03:10 INR 2.1 Creatinine 0.61 - Imaging and Cardiology Chest Xray: report reviewed Stress Test: report reviewed Echo: report reviewed - EKG Interpretation EKG results cardiology: personally reviewed (ECG today 0911 with SR, HR 70. QT 418, QTc 438ms.), other (Telemetry reviewed with average HR previous 12 hours noted to be 70, SR. One 4 beat run of atrial tachycardia noted.) Consult Discharge Plan - Plan Additional Instructions: Patient to discontinue rythmol at home. Per cardiology, will continue sotalol. Referrals: Tisha Celeste MD [Primary Care Provider] - 03/09/17 8:30 am
[2017-03-02 11:28] VITALS: BP 127/55
--- NOTE | 2017-03-02 13:39 | Electrocardiograph Report ---
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
--- NOTE | 2017-03-02 14:08 | Event Note ---
Date of Encounter: 03/02/17 Time of Encounter: 14:08 Pt is in a chronic stable state in regards to CHF.
--- NOTE | 2017-03-02 14:08 | Discharge Summary ---
<Vikram Lawrenceson - Last Filed: 03/02/17 14:05> Date of Encounter: 03/02/17 Time of Encounter: 14:05 - Discharge Diagnosis (1) Atrial flutter with rapid ventricular response Priority: Primary Status: Chronic (2) CHF exacerbation Priority: Secondary Status: Resolved Qualifiers: Congestive heart failure type: diastolic Qualified Code(s): I50.33 - Acute on chronic diastolic (congestive) heart failure (3) Hypertension Priority: Secondary Status: Chronic Qualifiers: Hypertension type: essential hypertension Qualified Code(s): I10 - Essential (primary) hypertension (4) DVT prophylaxis Priority: Secondary Status: Acute - Discharge Medications Prescriptions: Sotalol [Betapace] 80 mg PO Q12HR #60 tablet Home Medications: Cholecalciferol (D-3) [Vitamin D] 1,000 unit PO DAILY 10/24/15 [History] Vitamin E Acid Succinate [Vitamin E] 100 unit PO DAILY 10/24/15 [History] Warfarin [Coumadin] 6 mg PO MOWEFR 11/12/16 [History] Warfarin [Coumadin] 9 mg PO SUTUTHSA 11/12/16 [History] Ascorbic Acid [Vitamin C] 500 mg PO DAILY 02/21/17 [History] Diltiazem CD (24hr) [Cardizem CD] 120 mg PO BID 02/21/17 [History] Echinacea 500 mg PO DAILY 02/21/17 [History] Naproxen Sodium [Aleve] 220 mg PO HS PRN 02/21/17 [History] Potassium 99 mg PO DAILY 02/21/17 [History] Vitamin A 10,000 unit PO DAILY 02/21/17 [History] Sotalol [Betapace] 80 mg PO Q12HR #60 tablet 03/02/17 [Rx] Allergies/Adverse Reactions: 3 Allergy/AdvReac Type Severity Reaction Status Date / Time codeine Allergy Shakiness Verified 02/21/17 12:49 Procedures/tests Complete & Pending: Procedures Performed prior 72 hours Category Date Time Status CTA chest [CT angio chest] [CT] Routine Cat Scan 03/01/17 13:30 Completed ECG 12 lead ECG [ECG] AM 0600 Y 02/28/17 06:00 Completed ECG 12 lead ECG [ECG] AM 0600 Y 03/01/17 06:00 Completed ECG 12 lead ECG [ECG] AM 0600 Y 03/02/17 06:00 Completed ECG 12 lead ECG [ECG] AM 0600 Y 03/03/17 06:00 Ordered ECG 12 lead ECG [ECG] Routine Y 03/02/17 13:00 Ordered Date of admission: 02/21/17 23:30 Primary care physician: Tisha Celeste Consults: 02/22/17 09:59 Consult to Cardiology [CONS] Routine Comment: Consulting Provider: [facility] Reason for Consult: aflutter Call Completed: Yes 02/22/17 11:07 Consult to Electrophysiology (EP) [CONS] Routine Consulting Provider: [facility] Reason for Consult: atrial flutter Call Completed: Yes 03/01/17 14:25 Consult to Respiratory Therapy [CONS] Routine Reason for Consult: no home O2, requiring 02 here. Call Completed: Yes - Patient Status Disposition: Home, Self-Care Condition: Good Functional capacity at discharge: independent ambulation Overall status at discharge: patient is progressing back to baseline - Discharge Instructions Instructions: Sotalol (By mouth), Heart Failure (DC), Atrial Flutter (DC), Using Oxygen at Home (DC), Using Oxygen at Home (GEN), Chronic Hypertension (DC) , Cigarette Smoking and Your Health, Community Service Representative (GEN) Follow Up With: Tisha Celeste MD [Primary Care Provider] - 03/09/17 8:30 am Additional Instructions: Patient to discontinue rythmol at home. Per cardiology, will continue sotalol. - Diet and Activity Activity: increase activity as tolerated Diet: low salt diet Hospital course: Ms. Frye is a 76 year old female w/ Hx of afib on rythmol, diltiazem, coumadin presented to [facility] ED with 3-4 day hx of worsening shortness of breath. Patient was SOB on exertion, bilteral leg swelling, orthopnea, and PND. Patient was initially worked up for CHF exacerbation. CXR showed no acute cardiopulmonary processes. By the next morning patient was no longer SOB , but would become hypoxic when taken off of O2. In the ED patient was found to be in Afib/Aflutter. Cardiology was consulted. Initially patient was placed on cardizem drip and rythmol dosing was increased to 225. Patient remained in Afib. Patient was then cardioverted on 02/23/17 with BEN that showed no thrombus. Two days later patient returned into Afib. At this time, patient was additionally worked up for concerns of PE as a possible precipitating factor. CTA was taken which was negative for PE. Appropriate washout of rythmol was allowed prior to starting Sotalol based off of recommedation from cardiology. PAtient was given 5 doses of Sotalol while hospitalized. Patient remained in sinus rhythm on Sotalol. Patient to discontinue rythmol, and to continue Sotalol, per cardiology. To have follow up with PCP, cardiology, and coumadin clinic within 1 week of discharge. Time spent discussing smoking cessation with patient: more than 10 minutes - Time Spent with Patient Total time spent providing and/or coordinating discharge services: Greater than 30 minutes - Constitutional Vitals: Temp Pulse Resp BP Pulse Ox 98.1 F 62 16 127/55 88 03/02/17 11:25 03/02/17 11:25 03/02/17 11:25 03/02/17 11:25 03/02/17 13:00 General appearance: Present: cooperative, A&O X 3, morbidly obese, pleasant ( Patient was very polite and friendly during hospitalization.), no acute distress , answers questions appropriately - Head Head exam: Present: atraumatic, normocephalic - Respiratory Respiratory exam: Present: CTAB. Absent: accessory muscle use, rales, rhonchi, wheezes - Cardiovascular Cardiovascular exam: Present: RRR, +S1, +S2. Absent: diastolic murmur, gallop, rubs, systolic murmur - GI/Abdominal GI/Abdominal exam: Present: normal bowel sounds, soft, no peritoneal signs. Absent: distended, tenderness - Extremities Exam Extremities exam: Present: warm, radial pulses palpable and symmetrical. Absent : calf tenderness, cyanotic, pedal edema - Psychiatric Psychiatric exam: Present: normal affect, normal mood <Mc Cerna - Last Filed: 03/02/17 17:21> Date of Encounter: 03/02/17 - Discharge Diagnosis (1) Respiratory failure Priority: Primary Status: Acute Qualifiers: Chronicity: acute Respiratory failure complication: hypoxia Qualified Code(s): J96.01 - Acute respiratory failure with hypoxia (2) CHF exacerbation Status: Resolved Qualifiers: Congestive heart failure type: diastolic Qualified Code(s): I50.33 - Acute on chronic diastolic (congestive) heart failure (3) Atrial fibrillation Priority: Primary Status: Acute Qualifiers: Atrial fibrillation type: paroxysmal Qualified Code(s): I48.0 - Paroxysmal atrial fibrillation (4) Hypertension Status: Chronic Qualifiers: Hypertension type: essential hypertension Qualified Code(s): I10 - Essential (primary) hypertension (5) Tobacco abuse Priority: Secondary Status: Chronic Procedures/tests Complete & Pending: Procedures Performed prior 72 hours Category Date Time Status CTA chest [CT angio chest] [CT] Routine Cat Scan 03/01/17 13:30 Completed ECG 12 lead ECG [ECG] AM 0600 Y 02/28/17 06:00 Completed ECG 12 lead ECG [ECG] AM 0600 Y 03/01/17 06:00 Completed ECG 12 lead ECG [ECG] AM 0600 Y 03/02/17 06:00 Completed ECG 12 lead ECG [ECG] AM 0600 Y 03/03/17 06:00 Ordered ECG 12 lead ECG [ECG] Routine Y 03/02/17 13:00 Completed Date of admission: 02/21/17 23:30 Primary care physician: Tisha Celeste Consults: 02/22/17 09:59 Consult to Cardiology [CONS] Routine Comment: Consulting Provider: [facility] Reason for Consult: aflutter Call Completed: Yes 02/22/17 11:07 Consult to Electrophysiology (EP) [CONS] Routine Consulting Provider: [facility] Reason for Consult: atrial flutter Call Completed: Yes 03/01/17 14:25 Consult to Respiratory Therapy [CONS] Routine Reason for Consult: no home O2, requiring 02 here. Call Completed: Yes Hospital course: Ms. Frye is a 76 year old female - Time Spent with Patient Total time spent providing and/or coordinating discharge services: 38min - Constitutional Vitals: Temp Pulse Resp BP Pulse Ox 98.1 F 62 16 127/55 88 03/02/17 11:25 03/02/17 11:25 03/02/17 11:25 03/02/17 11:25 03/02/17 13:00 - Attending Attestation I examined this patient and my medical decision-making was reviewed with the Resident Physician on 03/02/17. I agree with the documented findings, disposition and treatment plan as described except to the extent set forth below. Ms Frye has been admitted for a fib with RVR and CHF. She remains hypoxic and further inpatient work up has been negative. She is now afebrile with controlled heart rate. She has qualified for oxygen at this time. She will have pulmonary appointment for follow up. She is ready for discharge home when OK with cardiology. Exam alert. Comfortable Heart reg Lungs diminished but no wheeze Abd soft Plan D/C home later today Follow up with PCP, card and pulm
--- NOTE | 2017-03-03 10:03 | Electrocardiograph Report ---
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
--- NOTE | 2017-03-03 10:11 | Electrocardiograph Report ---
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
== END 2017-03-02 17:15 | disposition home or self-care (01) | DRG 291 ==
LOC: 2NENU 12:43 → EMEROO 12:43 → 2NENU 20:58
PROVIDERS: ADMIT Pediatrics; ATTEND Internal Medicine

== ENCOUNTER 2017-03-27 16:08 | Observation (INO) ==
[2017-03-27 17:01] LABS: Basophils # 0.1 K/mcL (0.0-0.2); Basophils % 0.7 %; Eosinophils # 0.2 K/mcL (0.0-0.6); Eosinophils % 2.5 %; Hematocrit 37.3 % (35.3-44.9); Hemoglobin 11.3 g/dL (11.5-15.4); Immature Granulocytes % 0.5 % (0-4); Lymphocytes # 2.7 K/mcL (0.6-4.6); Lymphocytes % 31.8 %; Mean Corpuscular HGB Conc 30.3 g/dL (31.6-35.5); Mean Corpuscular Hemoglobin 23.9 pg (28.0-33.3); Mean Platelet Volume 10.2 fL (9.4-12.4); Monocytes # 0.8 K/mcL (0.0-1.3); Monocytes % 9.3 %; Neutrophils # 4.7 K/mcL (1.6-8.9); Platelet Count 233 K/mcL (140-400); Red Blood Count 4.72 M/mcL (3.82-4.97); Red Cell Distribution Width 15.7 % (11.5-14.5); Segmented Neutrophils % 55.2 %
[2017-03-27 17:13] LABS: Calcium 8.7 mg/dL (8.6-10.3); Carbon Dioxide 27 mEq/L (23-29); Chloride 102 mEq/L (98-107); Sodium 135 mEq/L (136-145)
[2017-03-27 17:18] LABS: BUN/Creatinine Ratio 30 (6-26); Blood Urea Nitrogen 20 mg/dL (8-23); Glucose 197 mg/dL (70-105); Osmolality,Calculated 288 (280-300); eGFR For African Americans > 60 (> 60); eGFR For Non-African Americans > 60 (> 60)
--- NOTE | 2017-03-27 17:36 | Emergency Department Note ---
Disposition Clinical Impression: Ataxia Congestive heart failure Qualifiers: Heart failure type: unspecified Heart failure chronicity: unspecified Qualified Code(s): I50.9 - Heart failure, unspecified Disposition: Admitted As Inpatient Condition: Good Time of Disposition: 19:08 SOB HPI - General Chief Complaint: ED Shortness of Breath/Dyspnea Stated Complaint: JOIE, Dizziness Time Seen by Provider: 03/27/17 16:19 Source: patient Limitations: no limitations Nursing Notes Reviewed: Yes Vital Signs Reviewed: Yes - History of Present Illness 76-year-old female history of CHF, COPD, she does have oxygen atomizer at home 2 L at baseline, she presents with worsening leg swelling bilateral, more shortness of breath, states that her legs are getting equals 1. She is required her oxygen more often throughout the day. She is having shortness of breath, she is not having productive cough or fevers. Patient has no history of DVT, she is anticoagulated on Coumadin currently for A. fib. Her on sotalol and has been rate controlled since then after she had a cardioversion 1 month ago. Patient denies chest pain, she denies abdominal pain. Denies hematochezia , melena. Pt Subjective Complaint: shortness of breath Onset (ago): week(s) Severity: moderate Consistency/Duration: intermittent Improves with: oxygen Known history of: congestive heart failure Associated symptoms: Denies: chest pain, pain with inspiration, orthopnea, lower extremity pain, polydipsia, parasthesias Treatment prior to arrival: oxygen Cough present: Yes - Related Data Home Medications Medication Instructions Recorded Confirmed Cholecalciferol (D-3) [Vitamin D] 1,000 unit PO DAILY 10/24/15 03/27/17 Vitamin E Acid Succinate [Vitamin 100 unit PO DAILY 10/24/15 03/27/17 E] Warfarin [Coumadin] 6 mg PO MOWEFR 11/12/16 03/27/17 Warfarin [Coumadin] 9 mg PO SUTUTHSA 11/12/16 03/27/17 Ascorbic Acid [Vitamin C] 500 mg PO AD 02/21/17 03/27/17 Diltiazem CD (24hr) [Cardizem CD] 120 mg PO BID 02/21/17 03/27/17 Naproxen Sodium [Aleve] 220 mg PO HS PRN 02/21/17 03/27/17 Potassium 99 mg PO DAILY 02/21/17 03/27/17 Vitamin A 10,000 unit PO Q48H 02/21/17 03/27/17 Cyanocobalamin (Vitamin B-12) 100 mcg PO AD 03/27/17 03/27/17 [Vitamin B-12] FLUoxetine HCl [Fluoxetine HCl] 10 g PO DAILY 03/27/17 03/27/17 Gabapentin [Neurontin] 100 mg PO HS 03/27/17 03/27/17 Oxygen 2 l NS AD 03/27/17 03/27/17 Previous Rx's Medication Instructions Recorded Sotalol [Betapace] 80 mg PO Q12HR #60 tablet 03/02/17 Furosemide [Lasix] 20 mg PO BID 30 Days #60 tablet 03/03/17 Allergies Allergy/AdvReac Type Severity Reaction Status Date / Time codeine Allergy Shakiness Verified 02/21/17 12:49 All systems ED: reviewed and negative except as stated. Review of Systems: As Per HPI Constitutional: Denies: fever, chills Eyes: Denies: eye pain ENT ED: Denies: ear pain Cardiovascular: Denies: chest pain, palpitations Respiratory: Reports: as per HPI, dyspnea Gastrointestinal: Denies: abdominal pain, nausea Genitourinary: Denies: urgency Musculoskeletal: Denies: back pain, neck pain Integumentary: Denies: rash Neurological: Denies: headache, weakness, abnormal gait Psychiatric: Reports: as per HPI, auditory hallucinations. Denies: anxiety Endocrine: Denies: fatigue Hematological/Lymphatic: Denies: easy bleeding Past Medical History - Past Medical History Attestation: Yes The following information was validated with the patient. Source: patient, unable to obtain, old records reviewed Medical history: Reports: arthritis, atrial fibrillation, CHF, COPD, hypertension Surgical history: Reports: appendectomy, cataract, cholecystectomy, orthopedic, other, other Psychiatric history: Reports: no psych history [employer]ENT history: Reports: bilateral tubal ligation - Social History Smoking Status: Current every day smoker Smokeless Tobacco Status: No Alcohol use: Reports: none Drug use: Reports: none Physical Exam Constitutional: NAD, vital signs reviewed and wnl Eyes: PERRLA, sclera anicteric ENT & Mouth: MMM Neck: normal inspection, neck is supple Resp: Breath sounds at the bases are diminished CV: RRR, no m/g/r +2 pitting edema bilaterally GI: normal inspection, soft, no guarding or rigidity Neuro: A&O3, CNII-XII grossly intact, moves all extremities equally, positive Romberg test, mild gait disequilibrium Skin: on limited exam, skin intact with no rashes or lesions - General Limitations: no limitations General appearance: alert Course Course Narrative: 76-year-old female presents after a episode of shortness of breath, she has had also some gait trouble and has been falling to left for a few weeks, the patient has a positive Romberg test on her exam, otherwise her neurologic exam is within normal limits. She has diminished breath sounds at the bases and bilateral. Edema, CBC BMP, troponin d-dimer chest x-ray CT head were ordered. - Reevaluation(s) Reevaluation #1: The patient was evaluated in the emergency department, her d-dimer is negative troponin was negative EKG showed no ischemic changes, head CT and chest x-ray were negative, the plan was for admission, given that she has indeed disequilibrium concern for possible cerebellar stroke. The patient is admitted to the hospitalist service Time: 19:07 Vital Signs Temperature 98.8 F 03/27/17 16:12 Pulse Rate 67 03/27/17 16:12 Respiratory Rate 22 03/27/17 16:12 Blood Pressure 144/89 03/27/17 16:12 O2 Sat by Pulse Oximetry 91 03/27/17 16:12 Temperature 98.8 F 03/27/17 16:12 Pulse Rate 63 03/27/17 18:13 Respiratory Rate 18 03/27/17 18:13 Blood Pressure 127/57 03/27/17 18:13 O2 Sat by Pulse Oximetry 97 03/27/17 18:13 Oxygen Delivery Oxygen Delivery Nasal Cannula Shortness of Breath/Dyspnea - Differential Diagnosis Likely: acute exacerbation of chronic obstructive airways disease, congestive heart failure, pulmonary embolism - Medical Records Medical records reviewed: Yes I reviewed the patient's medical records. - Lab Data Lab results reviewed: Yes I reviewed the patient's lab results. Result diagrams: 03/27/17 16:54 03/27/17 16:51 Lab Results 03/27/17 03/27/17 03/27/17 Range/Units 16:51 16:51 16:51 WBC (4.3-11.1) K/mcL RBC (3.82-4.97) M/mcL Hgb (11.5-15.4) g/dL Hct (35.3-44.9) % MCV (83.0-100.0) fL MCH (28.0-33.3) pg MCHC (31.6-35.5) g/dL RDW (11.5-14.5) % Plt Count (140-400) K/mcL MPV (9.4-12.4) fL Immature Gran % (0-4) % Seg Neutrophils % % Lymphocytes % % Monocytes % % Eosinophils % % Basophils % % Neutrophils # (1.6-8.9) K/mcL Lymphocytes # (0.6-4.6) K/mcL Monocytes # (0.0-1.3) K/mcL Eosinophils # (0.0-0.6) K/mcL Basophils # (0.0-0.2) K/mcL PT (9.4-12.1) Seconds INR D-Dimer (0-500) ng/mLFEU Sodium 135 L (136-145) mEq/L Potassium 4.0 (3.5-5.1) mEq/L Chloride 102 (98-107) mEq/L Carbon Dioxide 27 (23-29) mEq/L BUN 20 (8-23) mg/dL Creatinine 0.67 (0.60-1.20) mg/dL Est GFR ( Amer) > 60 (> 60) Est GFR (Non-Af Amer) > 60 (> 60) BUN/Creatinine Ratio 30 H (6-26) Glucose 197 H (70-105) mg/dL Calculated Osmolality 288 (280-300) Lactic Acid 1.3 (0.5-2.2) mmol/L Calcium 8.7 (8.6-10.3) mg/dL Troponin I < 0.03 (< 0.04) ng/mL B-Natriuretic Peptide (Less than 100) pg/mL 03/27/17 03/27/17 03/27/17 Range/Units 16:51 16:54 16:54 WBC 8.5 (4.3-11.1) K/mcL RBC 4.72 (3.82-4.97) M/mcL Hgb 11.3 L (11.5-15.4) g/dL Hct 37.3 (35.3-44.9) % MCV 79.0 L (83.0-100.0) fL MCH 23.9 L (28.0-33.3) pg MCHC 30.3 L (31.6-35.5) g/dL RDW 15.7 H (11.5-14.5) % Plt Count 233 (140-400) K/mcL MPV 10.2 (9.4-12.4) fL Immature Gran % 0.5 (0-4) % Seg Neutrophils % 55.2 % Lymphocytes % 31.8 % Monocytes % 9.3 % Eosinophils % 2.5 % Basophils % 0.7 % Neutrophils # 4.7 (1.6-8.9) K/mcL Lymphocytes # 2.7 (0.6-4.6) K/mcL Monocytes # 0.8 (0.0-1.3) K/mcL Eosinophils # 0.2 (0.0-0.6) K/mcL Basophils # 0.1 (0.0-0.2) K/mcL PT 22.1 H (9.4-12.1) Seconds INR 2.0 D-Dimer < 215 (0-500) ng/mLFEU Sodium (136-145) mEq/L Potassium (3.5-5.1) mEq/L Chloride (98-107) mEq/L Carbon Dioxide (23-29) mEq/L BUN (8-23) mg/dL Creatinine (0.60-1.20) mg/dL Est GFR ( Amer) (> 60) Est GFR (Non-Af Amer) (> 60) BUN/Creatinine Ratio (6-26) Glucose (70-105) mg/dL Calculated Osmolality (280-300) Lactic Acid (0.5-2.2) mmol/L Calcium (8.6-10.3) mg/dL Troponin I (< 0.04) ng/mL B-Natriuretic Peptide 85 (Less than 100) pg/mL - Radiology Data Radiology results reviewed: Yes I reviewed the patient's radiology results. Chest X-Ray 03/27/17 16:26 IMPRESSION: Cardiomegaly with mild pulmonary vascular congestion. Improved aeration from prior exam. D/ / Nehemiah Rowe MD / Nehemiah Rowe MD Interpreting Provider: Nehemiah Rowe MD Head CT 03/27/17 16:40 IMPRESSION: No acute intracranial abnormality. D/ / Wyatt Marvin / Wyatt Marvin Interpreting Provider: Wyatt Marvin - EKG Data EKG attestation: Yes I reviewed and interpreted this EKG. EKG shows normal: Reports: sinus rhythm Rate: Reports: normal (63 bpm WI 153 QRS [address] segment elevations or depressions) Attestation Statement - Attestation Attestation: I, Colten Mandujano DO, examined this patient [id number] and my medical decision-making was reviewed with Dr. German Avila, Resident Physician. I agree with the documented findings, disposition and treatment plan as described except to the extent set forth below. Please see my progress notes for details. 76-year-old female presents to emergency room complaining of shortness of breath and fluid overload. Patient's had this happen several times in the past. Of note she is also describing some dizziness. Over the last 2-3 weeks she has had dizziness that is been persistent. Sometimes positions make it worse. She denies any recent illness infection or other etiology. She also describes it when she assisted dizziness she feels that she is unsteady while walking and feels that she is drifting to the left. Patient constantly distal left now after 2 weeks of his symptoms at this time. She is otherwise denying chest pain fevers chills nausea vomiting or diarrhea. Denies any headache or vision change. Her main complaint of shortness of breath and this dizziness causing ataxia. Patient has no specific history of stroke. Her vital signs on presentation were stable. Neurologic evaluation does not show any acute signs of nystagmus. Patient does have mildly reproducible symptoms with constant at this time. She has no signs of extraocular muscle deficit. Pupils are equal round and reactive. Lungs are clear heart is regular abdomen is soft nontender nondistended with no guarding no rigidity and no peritoneal symptoms. Lengthy discussion at the bedside patient will have cardiac evaluation along with evaluation for fluid overload and CHF. She will also CT imaging of the head to address any potential for acute strokelike symptoms. Patient deny discussed at length the possibility of this being a stroke secondary to persistence of the leftward drift during ambulation. She understands this and appreciates our concern. She also will accommodate admission we do not have any other acute pathology. Recommended admission to the patient who appears to be fluid overloaded and neurologic deficits or changes. Patient understands this and appreciates admission process will be completed. Otherwise she has no acute neurologic deficits or symptoms. Her symptoms at this time appear to be chronic over the last week to 2 weeks. Patient has remained stable throughout the entire treatment course. No critical care applied. Patient will be admitted for definitive management. See detailed documentation of the physical exam, medical intervention, medical decision-making and disposition in the resident physician's note. 1900 Patient admitted to the hospital this time for definitive management of CHF exacerbation versus neurologic deficits. Neurologic deficits are chronic in this time. No other concerns or issues noted. Patient will be admitted for definitive management.
[2017-03-27] MEDS ORDERED: Warfarin perPT PO PRN (18:00)
[2017-03-27 18:19] LABS: Prothrombin Time 22.1 Seconds (9.4-12.1)
[2017-03-27 18:22] LABS: D-Dimer < 215 ng/mLFEU (0-500)
[2017-03-27] MEDS ORDERED: Naloxone 0.4 MG/ML INJ IVP PRN (20:18)
--- NOTE | 2017-03-27 20:25 | Internal Med History&Physical ---
Date of Encounter: 03/27/17 Time of Encounter: 20:24 Assessment and Plan (1) Acute diastolic CHF (congestive heart failure) Current visit: Yes Status: Acute Presents today with worsening dyspnea x5-days, and increased swelling in BLE with 1-2+ pitting edema and weight gain -last TTE in 12/22 shows a preserved EF -CXR 03/27/17 concerning for mild pulmonary vascular congestive -Vital signs stable -start Lasix 40 mg IV push BID first dose now -Strict intake and output monitoring -Daily weights -fluid restriction -Continuous telemetry, continuous SPO2 monitoring -O2 per nasal cannula titrate to maintain SPO2 greater than 92% -CBC, BMP in am -CHF education reinforced with patient. (2) Ataxia Current visit: Yes Status: Resolved Some concerns upon presentation to the ED due to ataxia. Likely has BPV Patient states she feels dizzy with movement, and feels like she is swaying to the right with walking but notes that she does not have balance difficulty Patient has a history of vertigo, no signs symptoms of ataxia on exam, Rombergs negative. Dizzy with activity, but dizziness ceases with focused gaze CT head negative -Consider MRI head if dizziness worsens or true ataxia developes -b12 -TSH -orthostatic vitals (3) Benign positional vertigo Current visit: Yes Status: Acute Dizziness with position change and a feeling that she is swaying to the left when walking. Has a h/o vertigo Denies any ataxia, but reports alterations in proprioception. Rombergs negative. Dizziness worsens with position change, improves with focused gaze appears to be BPV, CT Head negative. No focal neurological deficits -Consider MRI if symptoms persist or worsen -meclizine 25mg PRN TID for dizziness -orthostatic vital signs Qualifiers: Laterality: unspecified laterality Qualified Code(s): H81.10 - Benign paroxysmal vertigo, unspecified ear (4) Dyspnea Current visit: Yes Status: Acute secondary to congestive heart failure. CXR shows mild pulmonary vascular congestion see plan abve Qualifiers: Dyspnea type: unspecified Qualified Code(s): R06.00 - Dyspnea, unspecified (5) Atrial fibrillation Current visit: Yes Status: Acute Stable. Continue diltiazem, Betapace and warfarin Qualifiers: Atrial fibrillation type: paroxysmal Qualified Code(s): I48.0 - Paroxysmal atrial fibrillation (6) Hypertension Current visit: Yes Status: Chronic Stable continue anti-HTN meds Qualifiers: Hypertension type: essential hypertension Qualified Code(s): I10 - Essential (primary) hypertension (7) DVT prophylaxis Current visit: Yes Status: Acute Warfarin Internal Medicine - H&P: HPI Chief complaint: dyspnea x2 weeks, B/L extremity swelling, weight gain Admitted From: Home Plans for Post Hospital Care: Home History of present illness: Ms. Frye is a 76 year old female with a past medical history of CHF, COPD, A. fib, and hypertension. Patient is on 2 L oxygen at home. She presents to [facility] today with ongoing dyspnea and worsening over the last 2 weeks. She notes the dyspnea is worse with activity and better with rest Additionally, she notes that she is having bilateral lower extremity swelling. She reports that she has been using her oxygen more frequently and having to increase the amount she uses due to shortness of breath. She denies any fever, chills, chest pain, cough, palpitations, tachycardia, or N/V/D. Chest x-ray in the emergency department shows mild pulmonary vascular congestion. Past Med Surg Social Fam HX - Past Medical History Medical history: arthritis, atrial fibrillation, CHF, COPD, hypertension Psychiatric history: no psych history - Past Surgical History Surgical History: appendectomy, cataract, cholecystectomy, orthopedic, other, other - Social History Smoking Status: Current every day smoker Smokeless Tobacco Status: No Alcohol use: none Drug use: none - Family History Mother Living Status: Hx Family Cardiac Disorders: No Father Living Status: Hx Family Cardiac Disorders: No Hx Family Respiratory Disorders: No Internal Medicine - H&P: Meds Cholecalciferol (D-3) [Vitamin D] 1,000 unit PO DAILY 10/24/15 [History] Vitamin E Acid Succinate [Vitamin E] 100 unit PO DAILY 10/24/15 [History] Warfarin [Coumadin] 6 mg PO MOWEFR 11/12/16 [History] Warfarin [Coumadin] 9 mg PO SUTUTHSA 11/12/16 [History] Ascorbic Acid [Vitamin C] 500 mg PO AD 02/21/17 [History] Diltiazem CD (24hr) [Cardizem CD] 120 mg PO BID 02/21/17 [History] Naproxen Sodium [Aleve] 220 mg PO HS PRN 02/21/17 [History] Potassium 99 mg PO DAILY 02/21/17 [History] Vitamin A 10,000 unit PO Q48H 02/21/17 [History] Sotalol [Betapace] 80 mg PO Q12HR #60 tablet 03/02/17 [Rx] Furosemide [Lasix] 20 mg PO BID 30 Days #60 tablet 03/03/17 [Rx] Cyanocobalamin (Vitamin B-12) [Vitamin B-12] 100 mcg PO AD 03/27/17 [History] FLUoxetine HCl [Fluoxetine HCl] 10 g PO DAILY 03/27/17 [History] Gabapentin [Neurontin] 100 mg PO HS 03/27/17 [History] Oxygen 2 l NS AD 03/27/17 [History] 3 Allergy/AdvReac Type Severity Reaction Status Date / Time codeine Allergy Shakiness Verified 02/21/17 12:49 All Systems PM: A 10-system review of systems was performed and is negative for pertinent findings except as documented above in the HPI. - Constitutional Constitutional: fatigue, no chills, no fever(s), no falls, no weakness - EENT Eyes: no change in vision, no discharge, no pain, no photophobia Ears: no ear discharge, no ear pain, no tinnitus Nose, mouth and throat: no dysphagia, no nasal discharge, no neck pain, no sore throat - Cardiovascular Cardiovascular ROS IM: dyspnea, dyspnea on exertion, edema, no chest pain, no irregular heart rhythm, no lightheadedness, no palpitations, no syncope - Respiratory Respiratory: dyspnea, dyspnea on exertion, no cough, no hemoptysis, no wheezing , no pain on inspiration, no chest congestion, no excessive phlegm production - Gastrointestinal Gastrointestinal: no abdominal pain, no diarrhea, no hematemesis, no hematochezia, no melena, no nausea, no vomiting - Genitourinary Genitourinary: no change in urinary stream, no dysuria, no flank pain, no hematuria - Musculoskeletal Musculoskeletal ROS IM: no numbness, no tingling - Integumentary Integumentary IM: no rash, no unusual bruising - Neurological Neurological ROS: no confusion, no convulsions, no focal weakness, no numbness, no tingling, no tremor(s) - Constitutional Vitals: Temp Pulse Resp BP Pulse Ox 97.8 F 58 16 127/57 98 03/27/17 19:15 03/27/17 19:15 03/27/17 19:16 03/27/17 19:16 03/27/17 19:15 General appearance: Present: cooperative, A&O X 3, no acute distress, answers questions appropriately - Head Head exam: Present: atraumatic, normocephalic - Eye Eye exam: Present: PERRL, conjuntiva pink, sclera anicteric Pupils: Present: PERRL - Neck Neck exam general surgery: Present: supple, trachea midline. Absent: lymphadenopathy - Respiratory Respiratory exam: Present: decreased breath sounds, rales. Absent: chest wall tenderness, respiratory distress, rhonchi, wheezes, tachypnea - Cardiovascular Cardiovascular exam: Present: RRR, +S1, +S2. Absent: diastolic murmur, gallop, rubs, systolic murmur - GI/Abdominal GI/Abdominal exam: Present: normal bowel sounds, soft, no peritoneal signs. Absent: distended, tenderness - Extremities Exam Extremities exam: Present: pedal edema - Neurological Exam Neurological exam: Present: alert, normal gait, oriented X3, no focal deficits, strengths equal and symetr throughout. Absent: facial droop, speech deficit - Skin Skin exam: Present: dry, intact Internal Med - H&P Results - Labs CBC & Chem 7: 03/27/17 16:54 03/27/17 16:51 - EKG Data -: EKG Interpreted by Myself EKG shows normal: sinus rhythm - EKG Data Prior EKG available for review: yes When compared to previous EKG: there is no significant change - Impressions Impressions Chest X-Ray 03/27/17 16:26 IMPRESSION: Cardiomegaly with mild pulmonary vascular congestion. Improved aeration from prior exam. D/ / Nehemiah Rowe MD / Nehemiah Rowe MD Interpreting Provider: Nehemiah Rowe MD Head CT 03/27/17 16:40 IMPRESSION: No acute intracranial abnormality. D/ / Wyatt Marvin / Wyatt Marvin Interpreting Provider: Wyatt Marvin
[2017-03-27] MEDS ORDERED: *HR* Warfarin 3 MG TABLET PO ONE (20:45)
--- NOTE | 2017-03-27 21:00 | Event Note ---
Date of Encounter: 03/27/17 Time of Encounter: 20:55 Patient seen and examined. Agree with the H&P as written by Frank Kong NP. Will admit the patient and diurese for CHF exacerbation. Last echo with EF 60-65 % with diastolic dysfunction. Has LE edema about 1+ with bibasilar crackles and CHF findings on CXR. Sats in the low 90s on 2L and is up to 4L with sats in 95-98% range. Had DCCV for afib last month and remains sinus. Anticoagulated with coumadin. patient also complains of some dizziness on standing and describes spinning sensation. Reportedly + Romberg in ED but not on my exam. Has history of vertigo. Possible BPPV. Will give a trial of Meclizine. check orthstatics, TSH , Vit B12 levels. CT head unremarkable. If symptoms persist, consider MRI brain.
[2017-03-27] MEDS: Gabapentin 100 MG CAPSULE PO SCH (21:14)
[2017-03-27] MEDS: Diltiazem SR (12hr) 60 MG CAPSULE PO SCH (21:14)
[2017-03-27] MEDS: Furosemide 40 MG/4 ML VIAL IVP SCH ×2 (21:15)
[2017-03-27] MEDS: Ascorbic Acid 500 MG TABLET PO SCH (21:18)
[2017-03-28 06:43] LABS: Hematocrit 38.8 % (35.3-44.9); Hemoglobin 11.7 g/dL (11.5-15.4); Mean Corpuscular HGB Conc 30.2 g/dL (31.6-35.5); Mean Corpuscular Hemoglobin 23.9 pg (28.0-33.3); Mean Corpuscular Volume 79.2 fL (83.0-100.0); Mean Platelet Volume 11.1 fL (9.4-12.4); Platelet Count 171 K/mcL (140-400); Red Cell Distribution Width 15.8 % (11.5-14.5)
[2017-03-28 06:51] LABS: INR 2.2; Prothrombin Time 24.2 Seconds (9.4-12.1)
[2017-03-28 07:25] LABS: BUN/Creatinine Ratio 24 (6-26); Blood Urea Nitrogen 15 mg/dL (8-23); Calcium 8.6 mg/dL (8.6-10.3); Carbon Dioxide 28 mEq/L (23-29); Chloride 103 mEq/L (98-107); Glucose 121 mg/dL (70-105); Osmolality,Calculated 288 (280-300); Sodium 138 mEq/L (136-145); eGFR For African Americans > 60 (> 60); eGFR For Non-African Americans > 60 (> 60)
[2017-03-28] MEDS ORDERED: FLUoxetine HCl 10 MG CAPSULE PO SCH (09:00)
[2017-03-28] MEDS ORDERED: (Potassium [Potassium] 99 MG) PO SCH (09:00)
[2017-03-28] MEDS ORDERED: (Cyanocobalamin (Vitamin B-12) [Vitamin B-12] 100 MCG PO SCH (09:00)
[2017-03-28] MEDS: Furosemide 40 MG/4 ML VIAL IVP SCH ×3 (10:13→17:50)
[2017-03-28] MEDS: Ascorbic Acid 500 MG TABLET PO SCH (10:14)
[2017-03-28] MEDS: FLUoxetine HCl 10 MG CAPSULE PO SCH (10:14)
[2017-03-28] MEDS: Cholecalciferol (D-3) 1,000 UNIT TABLET PO SCH (10:14)
[2017-03-28] MEDS: Diltiazem SR (12hr) 60 MG CAPSULE PO SCH (10:14)
--- NOTE | 2017-03-28 14:21 | Cardiology Consult Note ---
<Chris Leach R - Last Filed: 03/28/17 14:47> Date of Encounter: 03/28/17 Time of Encounter: 14:12 Assessment and Plan (1) PAF (paroxysmal atrial fibrillation) Current Visit: Yes Status: Acute Known hx of paroxysmal A-Fib/Flutter. Failed Rythmol last month, subsequently started on Sotalol 80mg BID for rhythm control and seems to be maintaining SR. 12 hr tele AVG HR 61, lowest HR 53, SR. Also on Cardizem CD 120mg BID. Given that she presented with dizziness and has had bradycardia with HR in 50s, will decrease Cardizem to 120mg daily. Continue to monitor telemetry overnight. If continues to have bradycardia and dizziness, will consider stopping Cardizem. Anticoagulated on Coumadin, INR 2.2. Discussed with Dr. Perry, who recommends 48 hr Holter at d/c. (2) Dizziness Current Visit: Yes Status: Acute Pt reports dizziness over the past couple weeks, worse with position change. Lowest HR since admission 53bpm, SR. Orthostatic vitals were positive when going from sitting to standing. Decrease Cardizem CD to 120mg daily (was taking BID at home). Continue Sotalol. Primary team also suspects BPV may be a differential. Prior TTE 12/2016 EF preserved, mild LVDD, no significant valvular dysfunction. Recheck limited TTE. 48 hr Holter at d/c. (3) Dyspnea Current Visit: Yes Status: Acute Pt reports worsening dyspnea over recent weeks that progressively worsened in recent days. Hx of diastolic CHF. Pt is being diuresed per primary team with IV Lasix 40mg BID. On exam, no overt fluid volume overload. BNP normal 86. CXR with mild vascular congestion, noted to be improved from prior CXR. Only mild nonpitting edema on exam, which pt states has improved. Negative ddimer. Troponin negative x 1. No ischemic EKG changes. Will check limited TTE. TTE 12/2016 EF preserved with mild diastolic dysfunction. Pt does admit to occasional chest tightness/squeezing during times of anxiety/ stress, not associated with exertion. No known CAD hx. Last ischemic evaluation was negative stress test 11/2015. Discussed with Dr. Perry. Consider repeat ischemic evaluation as outpt. Qualifiers: Dyspnea type: unspecified Qualified Code(s): R06.00 - Dyspnea, unspecified Discussion w patient/family: The assessment and plan as outlined above was discussed with the patient and/or family members who expressed understanding and agreement. All questions were answered. Thank you for involving us in the care of your patient. Please call with any questions. I will discuss all the above with Dr. Perry and make changes as necessary. History of Present Illness Consult date: 03/28/17 Requesting physician: Alex Cheney Consult reason: dizziness, bradycardia Chief complaint: dyspnea, bradycardia, dizziness History of present illness: Ms. Frye is a 76 year old female with PMH of diastolic CHF, COPD, PAF recently started on Sotalol for rhythm control and anticoagulated on Coumadin, HTN. Patient is on 2 L oxygen at home. She presents to [facility] with ongoing dyspnea and worsening dizziness and LE edema over recent days--initially started 2 weeks ago, but symptoms continue to worsen. She notes the dyspnea is worse with activity and better with rest. She does state that her LE edema seems better today. Reports dizziness is worse with position change. Positive orthostatics when going from sitting to standing. She reports that she has been using her oxygen more frequently and having to increase the amount she uses due to shortness of breath. CXR shows mild pulmonary vascular congestion, improved from prior. Pt reports chest squeezing/tightness during times of stress/anxiety , not associated with exertion. No known hx of CAD. HR noted to be in the 50s during one point after admission. Cardiology consulted for further recommendations. Prior CV testing: Holter monitor 12/25/2016: Paroxysmal atrial flutter, sometimes with RVR (11%). Sinus rhythm with PACs. TTE 12/25/2016: LVEF 60-65%. Mild diastolic dysfunction. RV grossly normal in function. No pHTN. No VHD. TTE 10/24/2015: EF 60%. Normal LV, RV size and function. No obvious significant valvular dysfunction. RVSP was not well obtained. Lexiscan nuclear stress test 11/30/2015: Negative for ischemia or prior infarct. Breast attenuation artifact noted. Gated EF 67%. Abdominal aortic ultrasound 10/29/2015: No aneurysm identified. Past Med Surg Social Fam HX - Past Medical History Medical history: arthritis, atrial fibrillation, CHF, COPD, hypertension Psychiatric history: no psych history - Past Surgical History Surgical History: appendectomy, cataract, cholecystectomy, orthopedic, other, other - Social History Smoking Status: Current every day smoker Smokeless Tobacco Status: No Alcohol use: none Drug use: none - Family History Mother Living Status: Hx Family Cardiac Disorders: No Father Living Status: Hx Family Cardiac Disorders: No Hx Family Respiratory Disorders: No Medications and Allergies Cholecalciferol (D-3) [Vitamin D] 1,000 unit PO DAILY 10/24/15 [History] Vitamin E Acid Succinate [Vitamin E] 100 unit PO DAILY 10/24/15 [History] Warfarin [Coumadin] 6 mg PO MOWEFR 11/12/16 [History] Warfarin [Coumadin] 9 mg PO SUTUTHSA 11/12/16 [History] Ascorbic Acid [Vitamin C] 500 mg PO AD 02/21/17 [History] Diltiazem CD (24hr) [Cardizem CD] 120 mg PO BID 02/21/17 [History] Naproxen Sodium [Aleve] 220 mg PO HS PRN 02/21/17 [History] Potassium 99 mg PO DAILY 02/21/17 [History] Vitamin A 10,000 unit PO Q48H 02/21/17 [History] Sotalol [Betapace] 80 mg PO Q12HR #60 tablet 03/02/17 [Rx] Furosemide [Lasix] 20 mg PO BID 30 Days #60 tablet 03/03/17 [Rx] Cyanocobalamin (Vitamin B-12) [Vitamin B-12] 100 mcg PO AD 03/27/17 [History] FLUoxetine HCl [Fluoxetine HCl] 10 mg PO DAILY 03/27/17 [History] Gabapentin [Neurontin] 100 mg PO HS 03/27/17 [History] Oxygen 2 l NS AD 03/27/17 [History] 3 Allergy/AdvReac Type Severity Reaction Status Date / Time codeine Allergy Shakiness Verified 02/21/17 12:49 All Systems Review: The remainder of the systems were reviewed and are negative - Cardiovascular Cardiovascular: as per HPI, chest pain at rest, dyspnea on exertion, lightheadedness - Respiratory Respiratory: dyspnea - Neurological Neurological: dizziness Physical Examination Vital Signs, Last 4 Hours Temp Pulse Resp BP BP BP BP 03/28/17 13:15 140/55 144/50 124/55 03/28/17 12:00 03/28/17 11:39 97.9 F 55 16 124/73 Pulse Ox 03/28/17 13:15 03/28/17 12:00 93 03/28/17 11:39 93 Vital Signs Temp Pulse Resp BP BP BP BP 03/28/17 13:15 140/55 144/50 124/55 03/28/17 12:00 03/28/17 11:39 97.9 F 55 16 124/73 03/28/17 07:11 97.9 F 57 14 115/52 03/28/17 03:09 97.7 F 66 16 128/51 03/28/17 01:18 97.9 F 63 18 132/71 03/27/17 19:16 16 127/57 03/27/17 19:15 97.8 F 58 18 155/71 03/27/17 18:13 63 18 127/57 03/27/17 16:31 67 18 150/104 03/27/17 16:12 98.8 F 67 22 144/89 Pulse Ox 03/28/17 13:15 03/28/17 12:00 93 03/28/17 11:39 93 03/28/17 07:11 97 03/28/17 03:09 93 03/28/17 01:18 94 03/27/17 19:16 03/27/17 19:15 98 03/27/17 18:13 97 03/27/17 16:31 96 03/27/17 16:12 91 Intake and Output 03/27/17 03/28/17 03/28/17 23:59 07:59 15:59 Intake Total 480 / 480 Output Total 1500 / 1500 600 / 600 Balance -1500 / -1500 -120 / -120 Intake: Oral 480 / 480 Output: Urine 1500 / 1500 600 / 600 Other: Meal Lunch Percent of Meal Consumed 100% Weight 87.543 kg 89.2 kg Patient Weight 03/28/17 23:59 Weight 89.2 kg General: Conversant, No Apparent Distress HEENT: Atraumatic, Normocephaly, Mucus Membranes Moist Neck: No JVD, Normal carotid pulses Cardiac: Reg Rate and Rhythm, Normal S1 and S2, No Murmur Lungs: Other (diminished) Neuro: Alert and responsive, No focal deficits noted Abdomen: Soft, Non-Tender Skin: No rashes noted on visualized skin Musculoskeletal: No Chest Wall Tenderness Extremities: Other (mild BLE edema, nonpitting) Results 03/28/17 06:21 03/28/17 06:21 Lab Results 03/27/17 03/28/17 03/28/17 20:47 06:21 06:21 WBC 8.2 Hgb 11.7 Hct 38.8 Plt Count 171 INR Sodium 138 Potassium 4.0 Chloride 103 Carbon Dioxide 28 BUN 15 Creatinine 0.63 Glucose 121 H Calcium 8.6 TSH 4.252 03/28/17 06:21 WBC Hgb Hct Plt Count INR 2.2 Sodium Potassium Chloride Carbon Dioxide BUN Creatinine Glucose Calcium TSH Impressions Chest X-Ray 03/27/17 16:26 IMPRESSION: Cardiomegaly with mild pulmonary vascular congestion. Improved aeration from prior exam. D/ / Nehemiah Rowe MD / Nehemiah Rowe MD Interpreting Provider: Nehemiah Rowe MD Head CT 03/27/17 16:40 IMPRESSION: No acute intracranial abnormality. D/ / Wyatt Marvin / Wyatt Marvin Interpreting Provider: Wyatt Marvin Active Medications Ascorbic Acid (Vitamin C) 500 mg PO DAILY DARREN Stop: 09/26/17 20:31 Last Admin: 03/28/17 10:14 Dose: 500 mg Diltiazem HCl (Cardizem Sr) 120 mg PO BID DARREN Stop: 09/26/17 21:01 Last Admin: 03/28/17 10:14 Dose: 120 mg Fluoxetine HCl (Prozac) 10 mg PO DAILY DARREN Stop: 09/27/17 09:01 Last Admin: 03/28/17 10:14 Dose: 10 mg Furosemide (Lasix) 40 mg IVP BIDDIURETIC DARREN Stop: 09/27/17 09:13 Last Admin: 03/28/17 10:13 Dose: 40 mg Gabapentin (Neurontin) 100 mg PO HS DARREN Stop: 09/26/17 21:01 Last Admin: 03/27/17 21:14 Dose: 100 mg Meclizine HCl (Antivert) 25 mg PO TID PRN PRN Reason: DIZZINESS Stop: 09/26/17 20:16 Naloxone HCl (Narcan) 0.4 mg IVP Q2MIN PRN PRN Reason: SEE COMMENTS Stop: 09/26/17 20:19 Sotalol HCl (Betapace) 80 mg PO Q12HR DARREN Stop: 09/27/17 06:01 Last Admin: 03/28/17 05:42 Dose: 80 mg Vitamin D (Vitamin D) 1,000 unit PO DAILY DARREN Stop: 09/27/17 09:01 Last Admin: 03/28/17 10:14 Dose: 1,000 unit Warfarin Sodium (Coumadin Perpt) 1 each PO DAILY@1800 PRN PRN Reason: SEE COMMENTS Stop: 09/26/17 18:01 Warfarin Sodium (Coumadin) 6 mg PO ONCE ONE Stop: 03/28/17 18:01 - Imaging and Cardiology Stress Test: report reviewed Echo: report reviewed - EKG Interpretation EKG results cardiology: personally reviewed (SR, rate 63, QTc 427/434ms), other (12 hr tele AVG HR 61, SR. Lowest HR noted 53. No significant pauses.) Consult Discharge Plan - Plan Referrals: Tisha Celeste MD [Primary Care Provider] - <OrlandoKaminimolly - Last Filed: 03/29/17 07:38> Date of Encounter: 03/29/17 - Attending Attestation 76 YOF with Afib recently placed on sotalol along with cardiazem 120 mg BID presents with possible bradycardia and atypical chest pain. Lowest HR 53 on tele with no evidence of TLOC. Complains of dizziness however states at that time stable BP and HR at 70. She denies palpitations with her episodes of dizziness. Dizziness and atypical chest pain Currently in NSR Last stress test many years ago Plan Decrease Cardiazem to 120 mg daily Continue Sotalol Holter 48 hours on DC OP stress test for atypical chest pain Assessment and Plan Discussion w patient/family: The assessment and plan as outlined above was discussed with the patient and/or family members who expressed understanding and agreement. All questions were answered. Thank you for involving us in the care of your patient. Please call with any questions. History of Present Illness History of present illness: Ms. Frye is a 76 year old female All Systems Review: The remainder of the systems were reviewed and are negative Physical Examination Vital Signs, Last 4 Hours Temp Pulse Resp BP Pulse Ox 03/29/17 06:51 97.6 F 60 18 110/68 96 03/29/17 04:11 97.5 F L 57 20 122/60 96 Results 03/28/17 06:21 03/28/17 06:21 Lab Results 03/29/17 03:37 INR 2.3
--- NOTE | 2017-03-28 15:39 | Internal Med Progress Note ---
Date of Encounter: 03/28/17 Time of Encounter: 15:36 - Assessment and plan (1) Acute diastolic CHF (congestive heart failure) Current Visit: Yes Status: Acute Assessment and plan: Good response to IV Lasix. We will transition to oral Lasix from tomorrow. Moderate risk for complications. (2) Atrial fibrillation Current Visit: Yes Status: Acute Assessment and plan: patient having episodes of bradycardia. Not clearly associated with symptoms of dizziness as patient reports dizziness all the time. Consult cardiology. Will follow recommendations. Continue monitoring with telemetry. Qualifiers: Atrial fibrillation type: paroxysmal Qualified Code(s): I48.0 - Paroxysmal atrial fibrillation (3) Benign positional vertigo Current Visit: Yes Status: Suspected Assessment and plan: Patient having symptoms of vertigo and dizziness. Not clearly positional. Advised MRI. However patient reports she is very claustrophobic and would not be able to undergo regular MRI. Wishes to undergo open MRI. MRI reported that the patient would need to wear a helmet and patient concerned about her anxiety and claustrophobia. We will hold off on MRI for now. May be pursued as outpatient at a later date if her symptoms do not improve. Qualifiers: Laterality: unspecified laterality Qualified Code(s): H81.10 - Benign paroxysmal vertigo, unspecified ear (4) Dizziness Current Visit: Yes Status: Acute Assessment and plan: Orthostatics negative. Will consult physical therapy for evaluation. (5) Hypertension Current Visit: Yes Status: Chronic Assessment and plan: Well controlled. Continue home medications. Qualifiers: Hypertension type: essential hypertension Qualified Code(s): I10 - Essential (primary) hypertension (6) DVT prophylaxis Current Visit: No Status: Acute Assessment and plan: On Coumadin - Subjective Interval history: Patient is awake and alert. Feels her breathing is much improved. Swelling in her lower extremities is also improved. Denies any chest pain. Continues to report dizziness intermittently even while lying in bed. No nausea or vomiting. No focal deficits. - Constitutional Vitals: Temp Pulse Resp BP Pulse Ox 97.9 F 55 16 140/55 93 03/28/17 11:39 03/28/17 11:39 03/28/17 11:39 03/28/17 13:15 03/28/17 12:00 General appearance: Present: cooperative, A&O X 3, no acute distress, answers questions appropriately - Neck Neck exam general surgery: Present: supple, trachea midline. Absent: lymphadenopathy - Respiratory Respiratory exam: Present: CTAB. Absent: accessory muscle use, rales, rhonchi, wheezes - Cardiovascular Cardiovascular exam: Present: RRR, +S1, +S2. Absent: diastolic murmur, gallop, rubs, systolic murmur - GI/Abdominal GI/Abdominal exam: Present: normal bowel sounds, soft, no peritoneal signs. Absent: distended, tenderness - Extremities Exam Extremities exam: Present: warm, radial pulses palpable and symmetrical. Absent : calf tenderness, cyanotic, pedal edema - Neurological Exam Neurological exam: Present: CN II-XII intact, oriented X3, no focal deficits, strengths equal and symetr throughout. Absent: facial droop, speech deficit Internal Medicine: Result - Labs CBC & Chem 7: 03/28/17 06:21 03/28/17 06:21 Labs: Short CBC 03/28/17 Range/Units 06:21 WBC 8.2 (4.3-11.1) K/mcL Hgb 11.7 (11.5-15.4) g/dL Hct 38.8 (35.3-44.9) % Plt Count 171 (140-400) K/mcL BMP 03/28/17 06:21 Sodium 138 Potassium 4.0 Chloride 103 Carbon Dioxide 28 BUN 15 Creatinine 0.63 Glucose 121 H Calcium 8.6 - ABG Interpretation ABG results: PT/INR, D-dimer PT 24.2 Seconds (9.4-12.1) H 03/28/17 06:21 D-Dimer < 215 ng/mLFEU (0-500) 03/27/17 16:54 Consult Discharge Plan - Plan Referrals: Tisha Celeste MD [Primary Care Provider] -
[2017-03-28] MEDS ORDERED: *HR* Warfarin 3 MG TABLET PO ONE (18:00)
[2017-03-28] MEDS ORDERED: Perflutren Lipid Microsphere 1.3 ML in 0.9 % Sodium Chloride 8.7 ML IVP ONE (19:57)
[2017-03-28] MEDS: Gabapentin 100 MG CAPSULE PO SCH (20:32)
[2017-03-29 04:33] LABS: INR 2.3; Prothrombin Time 24.9 Seconds (9.4-12.1)
[2017-03-29] MEDS: Cholecalciferol (D-3) 1,000 UNIT TABLET PO SCH (07:51)
[2017-03-29] MEDS: Furosemide 40 MG/4 ML VIAL IVP SCH (07:51)
[2017-03-29] MEDS: FLUoxetine HCl 10 MG CAPSULE PO SCH (07:51)
[2017-03-29] MEDS: Ascorbic Acid 500 MG TABLET PO SCH (07:51)
[2017-03-29] MEDS ORDERED: Perflutren Lipid Microsphere 1.3 ML in 0.9 % Sodium Chloride 8.7 ML IVP ONE (08:04)
[2017-03-29] MEDS ORDERED: Diltiazem SR (12hr) 60 MG CAPSULE PO SCH (09:00)
--- NOTE | 2017-03-29 09:09 | Cardiology Progress Note ---
Date of Encounter: 03/29/17 Time of Encounter: 08:45 Assessment and Plan (1) PAF (paroxysmal atrial fibrillation) Current Visit: Yes Status: Acute Known hx of paroxysmal A-Fib/Flutter. Failed Rythmol last month, subsequently started on Sotalol 80mg BID for rhythm control and seems to be maintaining SR. 12 hr tele AVG HR 60, lowest HR 45, SR. No significant pause or PAF noted. Cardizem decreased yesterday, continues to have symptoms this AM, will stop cardizem now and observe HR/symptoms for an additional 24 hours. Anticoagulated on Coumadin, INR 2.3. Discussed with Dr. Perry, who recommends 48 hr Holter at d/c. (2) Dizziness Current Visit: Yes Status: Acute Pt reports dizziness over the past couple weeks, worse with position change. Lowest HR since admission 45 bpm, SR. Orthostatic vitals were positive when going from sitting to standing. Given continued symptoms despite decrease cardizem, will stop. Continue Sotalol. Primary team also suspects BPV may be a differential. Prior TTE 12/2016 EF preserved, mild LVDD, no significant valvular dysfunction. Limited TTE pending. 48 hr Holter at d/c. (3) Dyspnea Current Visit: Yes Status: Acute Pt reports worsening dyspnea over recent weeks that progressively worsened in recent days. Hx of diastolic CHF. Pt is being diuresed per primary team with IV Lasix 40mg BID. On exam, no overt fluid volume overload. BNP normal 86. CXR with mild vascular congestion, noted to be improved from prior CXR. Only mild nonpitting edema on exam, which pt states has improved. Negative ddimer. Troponin negative x 1. No ischemic EKG changes. Limited TTE pending. TTE 12/2016 EF preserved with mild diastolic dysfunction. Pt does admit to occasional chest tightness/squeezing during times of anxiety/ stress, not associated with exertion. No known CAD hx. Last ischemic evaluation was negative stress test 11/2015. Discussed with Dr. Perry. Consider repeat ischemic evaluation as outpt. Qualifiers: Dyspnea type: unspecified Qualified Code(s): R06.00 - Dyspnea, unspecified Discussion w patient/family: The assessment and plan as outlined above was discussed with the patient and/or family members who expressed understanding and agreement. All questions were answered. Thank you for involving us in the care of your patient. Please call with any questions. The patient will be discussed and reviewed with Dr. Koenig, changes to be made accordingly. Subjective Principal diagnosis: Dizziness, shortness of breath Interval history: Seen and examined. Patient continues to complain of dizziness this AM, exacerbated by any movement. Positive orthostatic BPs. Shortness of breath not yet at baseline, otherwise denies any new symptoms. Objective Vital Signs, Last 4 Hours Temp Pulse Resp BP Pulse Ox 03/29/17 08:03 96 03/29/17 06:51 97.6 F 60 18 110/68 96 General: Conversant, No Apparent Distress HEENT: Atraumatic, Normocephaly, Mucus Membranes Moist Neck: No JVD, Normal carotid pulses Cardiac: Reg Rate and Rhythm, Normal S1 and S2, No Murmur Lungs: Other (Decreased throughout, remains on O2 via n/c) Neuro: Alert and responsive, No focal deficits noted Abdomen: Soft, Non-Tender Skin: No rashes noted on visualized skin Musculoskeletal: No Chest Wall Tenderness Extremities: No Clubbing, No Cyanosis, No Edema, Normal Pulses Results 03/28/17 06:21 03/28/17 06:21 Lab Results 03/29/17 03:37 INR 2.3 Active Medications Ascorbic Acid (Vitamin C) 500 mg PO DAILY DARREN Stop: 09/26/17 20:31 Last Admin: 03/29/17 07:51 Dose: 500 mg Fluoxetine HCl (Prozac) 10 mg PO DAILY DARREN Stop: 09/27/17 09:01 Last Admin: 03/29/17 07:51 Dose: 10 mg Furosemide (Lasix) 40 mg IVP BIDDIURETIC DARREN Stop: 09/27/17 09:13 Last Admin: 03/29/17 07:51 Dose: 40 mg Gabapentin (Neurontin) 100 mg PO HS DARREN Stop: 09/26/17 21:01 Last Admin: 03/28/17 20:32 Dose: 100 mg Meclizine HCl (Antivert) 25 mg PO TID PRN PRN Reason: DIZZINESS Stop: 09/26/17 20:16 Naloxone HCl (Narcan) 0.4 mg IVP Q2MIN PRN PRN Reason: SEE COMMENTS Stop: 09/26/17 20:19 Sotalol HCl (Betapace) 80 mg PO Q12HR DARREN Stop: 09/27/17 06:01 Last Admin: 03/29/17 05:40 Dose: 80 mg Vitamin D (Vitamin D) 1,000 unit PO DAILY DARREN Stop: 09/27/17 09:01 Last Admin: 03/29/17 07:51 Dose: 1,000 unit Warfarin Sodium (Coumadin Perpt) 1 each PO DAILY@1800 PRN PRN Reason: SEE COMMENTS Stop: 09/26/17 18:01 - Imaging and Cardiology Echo: pending, report reviewed Cardiac cath: report reviewed Other Results: 12 hour tele: avg HR=60 SR, min=45. No pause/PAF - EKG Interpretation EKG results cardiology: personally reviewed Consult Discharge Plan - Plan Referrals: Tisha Celeste MD [Primary Care Provider] -
--- NOTE | 2017-03-29 13:42 | Internal Med Progress Note ---
Date of Encounter: 03/29/17 Time of Encounter: 10:15 - Assessment and plan (1) Acute diastolic CHF (congestive heart failure) Current Visit: Yes Status: Acute Assessment and plan: Acute heart failure has mostly resolved. Transition to oral Lasix. (2) Atrial fibrillation Current Visit: Yes Status: Acute Assessment and plan: Sinus rhythm on sotalol. Having episodes of bradycardia. Cardiology following. On Coumadin for anticoagulation. Qualifiers: Atrial fibrillation type: paroxysmal Qualified Code(s): I48.0 - Paroxysmal atrial fibrillation (3) Benign positional vertigo Current Visit: Yes Status: Ruled-out Assessment and plan: Symptoms of dizziness do not appear to be related to position. Qualifiers: Laterality: unspecified laterality Qualified Code(s): H81.10 - Benign paroxysmal vertigo, unspecified ear (4) Dizziness Current Visit: Yes Status: Acute Assessment and plan: Could be related to episodes of bradycardia. Cardiology following. Recommend stopping Cardizem today. We will continue to monitor with telemetry to look for any abnormalities. Cardiology recommends Holter monitor for 48 hours after discharge. (5) Hypertension Current Visit: Yes Status: Chronic Assessment and plan: Uncontrolled. Most likely due to stopping Cardizem completely. Will place patient on CLAUDIO inhibitor. Qualifiers: Hypertension type: essential hypertension Qualified Code(s): I10 - Essential (primary) hypertension (6) DVT prophylaxis Current Visit: Yes Status: Acute Assessment and plan: Continue Coumadin. INR is therapeutic - Subjective Interval history: Patient is feeling somewhat better today. Does continue to have intermittent dizziness but not as prevalent as yesterday. She has continued to have episodes of bradycardia . Denies any blurred vision or palpitations. No shortness of breath at this time. - Constitutional Vitals: Temp Pulse Resp BP Pulse Ox 98.1 F 58 17 154/68 93 03/29/17 10:28 03/29/17 10:28 03/29/17 10:28 03/29/17 10:28 03/29/17 10:28 General appearance: Present: cooperative, A&O X 3, no acute distress, answers questions appropriately - Respiratory Respiratory exam: Present: CTAB. Absent: accessory muscle use, rales, rhonchi, wheezes - Cardiovascular Cardiovascular exam: Present: bradycardia, RRR, +S1, +S2. Absent: diastolic murmur, gallop, rubs, systolic murmur - GI/Abdominal GI/Abdominal exam: Present: normal bowel sounds, soft, no peritoneal signs. Absent: distended, tenderness - Extremities Exam Extremities exam: Present: warm, radial pulses palpable and symmetrical. Absent : calf tenderness, cyanotic, pedal edema - Neurological Exam Neurological exam: Present: CN II-XII intact, oriented X3, no focal deficits. Absent: facial droop, speech deficit Internal Medicine: Result - Labs CBC & Chem 7: 03/28/17 06:21 03/28/17 06:21 - ABG Interpretation ABG results: PT/INR, D-dimer PT 24.9 Seconds (9.4-12.1) H 03/29/17 03:37 D-Dimer < 215 ng/mLFEU (0-500) 03/27/17 16:54 Consult Discharge Plan - Plan Referrals: Tisha Celeste MD [Primary Care Provider] -
[2017-03-29] MEDS: Furosemide 40 MG TABLET PO SCH (15:45)
[2017-03-29] MEDS ORDERED: *HR* Warfarin 3 MG TABLET PO ONE (18:00)
--- NOTE | 2017-03-29 20:14 | Electrocardiograph Report ---
[address] [address] Test Date: 2017-03-27 Pat Name: Cathleen Frye Department: 103 Room: 2A31 Gender: F Bench Technician: : 1940 Requested By: German Avila Order Number: [id number] Reading MD: Olivia Koenig Measurements Intervals [place] Rate: 63 P: 67 [place]: 153 QRS: -12 QRSD: 82 T: 30 QT: 427 QTc: 434 Interpretive Statements SINUS RHYTHM LOW QRS VOLTAGE IN PRECORDIAL LEADS [QRS DEFLECTION < 1.0 mV IN CHEST LEADS] Electronically Signed On 03-29-2017 20:12:45 EST by Oliiva Koenig
[2017-03-29] MEDS: Gabapentin 100 MG CAPSULE PO SCH (21:06)
[2017-03-30 04:29] LABS: Prothrombin Time 21.9 Seconds (9.4-12.1)
[2017-03-30 04:38] LABS: BUN/Creatinine Ratio 31 (6-26); Blood Urea Nitrogen 19 mg/dL (8-23); Calcium 8.7 mg/dL (8.6-10.3); Carbon Dioxide 31 mEq/L (23-29); Chloride 100 mEq/L (98-107); Glucose 120 mg/dL (70-105); Osmolality,Calculated 289 (280-300); Potassium 3.7 mEq/L (3.5-5.1); Sodium 138 mEq/L (136-145); eGFR For African Americans > 60 (> 60); eGFR For Non-African Americans > 60 (> 60)
[2017-03-30] MEDS: Furosemide 40 MG TABLET PO SCH (08:11)
[2017-03-30] MEDS: FLUoxetine HCl 10 MG CAPSULE PO SCH (08:12)
[2017-03-30] MEDS: Cholecalciferol (D-3) 1,000 UNIT TABLET PO SCH (08:14)
[2017-03-30] MEDS: Ascorbic Acid 500 MG TABLET PO SCH (08:14)
--- NOTE | 2017-03-30 09:14 | Cardiology Progress Note ---
Date of Encounter: 03/30/17 Time of Encounter: 09:11 Assessment and Plan (1) PAF (paroxysmal atrial fibrillation) Current Visit: Yes Status: Acute Known hx of paroxysmal A-Fib/Flutter. Failed Rythmol last month, subsequently started on Sotalol 80mg BID for rhythm control and seems to be maintaining SR. 24 hr tele AVG HR 64, lowest HR 52, SR. No significant pause or PAF noted. HR continues to improve since Cardizem was stopped yesterday. Dizziness and dyspnea improved/resolved. Anticoagulated on Coumadin, INR 2.0. Discussed with Dr. Perry on presentation, who recommended 48 hr Holter at d/c. Will order. Cardiology signing off. Reconsult PRN. Will coordinate outpt follow-up in 2-3 weeks. (2) Dizziness Current Visit: Yes Status: Acute Pt reports dizziness over the past couple weeks, worse with position change. Lowest HR since admission 45 bpm, SR. HR has continued to improve since stopping Cardizem--home dose was 120mg BID. Lowest HR in past 24 hours 52bpm. Orthostatic vitals were positive when going from sitting to standing. Symptoms have improved since stopping Cardizem. Continue Sotalol. Primary team also suspects BPV may be a differential. Prior TTE 12/2016 EF preserved, mild LVDD, no significant valvular dysfunction. Limited TTE resulted--EF preserved, normal wall motion. 48 hr Holter at d/c. (3) Dyspnea Current Visit: Yes Status: Acute Pt reports worsening dyspnea over recent weeks that progressively worsened in recent days. Hx of diastolic CHF. Pt was diuresed per primary team with IV Lasix 40mg BID, now on PO. On exam, no overt fluid volume overload. BNP normal 86. CXR with mild vascular congestion, noted to be improved from prior CXR. Only mild nonpitting edema on exam, which pt states has improved. Negative ddimer. Troponin negative x 1. No ischemic EKG changes. Limited TTE EF preserved with normal wall motion. TTE 12/2016 EF preserved with mild diastolic dysfunction. Pt does admit to occasional chest tightness/squeezing during times of anxiety/ stress, not associated with exertion. No known CAD hx. Last ischemic evaluation was negative stress test 11/2015. Discussed with Dr. Perry. Consider repeat ischemic evaluation as outpt. Qualifiers: Dyspnea type: unspecified Qualified Code(s): R06.00 - Dyspnea, unspecified Discussion w patient/family: The assessment and plan as outlined above was discussed with the patient and/or family members who expressed understanding and agreement. All questions were answered. Thank you for involving us in the care of your patient. Please call with any questions. I will discuss all the above with Dr. Koenig and make changes as necessary. Subjective Principal diagnosis: Dizziness, shortness of breath Interval history: Pt reports dizziness is much improved since stopping Cardizem. She was able to ambulate to the bathroom and back to her bed in the night with no dizziness. Reports dyspnea is much improved. Denies chest pain. 24 hr tele AVG HR 64, lowest HR noted was 52bpm yesterday AM. No significant pauses or arrhythmias. Limited TTE resulted--EF 55-60%, normal wall motion. Objective Vital Signs, Last 4 Hours Temp Pulse Resp BP Pulse Ox 03/30/17 06:42 97.5 F L 58 16 119/64 95 Vital Signs Temp Pulse Resp BP Pulse Ox 03/30/17 06:42 97.5 F L 58 16 119/64 95 03/30/17 02:58 98.1 F 63 16 149/80 96 03/29/17 22:49 98 F 67 16 144/62 94 03/29/17 19:14 98.1 F 75 18 146/78 96 03/29/17 14:48 98.2 F 63 18 123/72 96 03/29/17 10:28 98.1 F 58 17 154/68 93 Intake and Output 03/29/17 03/30/17 03/30/17 23:59 07:59 15:59 Intake Total 150 / 150 450 / 450 50 / 50 Output Total 0 / 0 Balance 150 / 150 450 / 450 50 / 50 Intake: Oral 150 / 150 450 / 450 50 / 50 Output: Urine 0 / 0 Other: # Voids 1 2 Weight 86.999 kg Patient Weight 03/30/17 23:59 Weight 86.999 kg General: Conversant, No Apparent Distress HEENT: Atraumatic, Normocephaly, Mucus Membranes Moist Neck: No JVD, Normal carotid pulses Cardiac: Reg Rate and Rhythm, Normal S1 and S2, No Murmur Lungs: Normal Breath Sounds, No Wheeze, Rales, Rhonchi Neuro: Alert and responsive, No focal deficits noted Abdomen: Soft, Non-Tender Skin: No rashes noted on visualized skin Musculoskeletal: No Chest Wall Tenderness Extremities: No Clubbing, No Cyanosis, No Edema, Normal Pulses Results 03/28/17 06:21 03/30/17 03:50 Lab Results 03/30/17 03/30/17 03:50 03:50 INR 2.0 Sodium 138 Potassium 3.7 Chloride 100 Carbon Dioxide 31 H BUN 19 Creatinine 0.61 Glucose 120 H Calcium 8.7 BMP 03/30/17 Range/Units 03:50 Sodium 138 (136-145) mEq/L Potassium 3.7 (3.5-5.1) mEq/L Chloride 100 (98-107) mEq/L Carbon Dioxide 31 H (23-29) mEq/L BUN 19 (8-23) mg/dL Creatinine 0.61 (0.60-1.20) mg/dL Glucose 120 H (70-105) mg/dL Calcium 8.7 (8.6-10.3) mg/dL Impressions Echocardiogram Limited Views 03/29/17 15:06 Impressions: LVEF 55-60%. Normal LV chamber size and function. This was a limited study for LV function. Left Ventricular Wall Motion: Rest Echo Findings All wall segments showed normal motion. Findings: Study Quality * Technically adequate exam. ECG Findings * Sinus bradycardia. Left Ventricle * LVEF 55-60%. * Normal LV chamber size and function. Active Medications Ascorbic Acid (Vitamin C) 500 mg PO DAILY DARREN Stop: 09/26/17 20:31 Last Admin: 03/30/17 08:14 Dose: 500 mg Fluoxetine HCl (Prozac) 10 mg PO DAILY DARREN Stop: 09/27/17 09:01 Last Admin: 03/30/17 08:12 Dose: 10 mg Furosemide (Lasix) 40 mg PO BIDDIURETIC DARREN Stop: 09/28/17 17:01 Last Admin: 03/30/17 08:11 Dose: 40 mg Gabapentin (Neurontin) 100 mg PO HS DARREN Stop: 09/26/17 21:01 Last Admin: 03/29/17 21:06 Dose: 100 mg Lisinopril (Zestril) 10 mg PO DAILY [facility] PRN Reason: Protocol Stop: 09/28/17 13:46 Last Admin: 03/30/17 08:12 Dose: 10 mg Meclizine HCl (Antivert) 25 mg PO TID PRN PRN Reason: DIZZINESS Stop: 09/26/17 20:16 Naloxone HCl (Narcan) 0.4 mg IVP Q2MIN PRN PRN Reason: SEE COMMENTS Stop: 09/26/17 20:19 Sotalol HCl (Betapace) 80 mg PO Q12HR DARREN Stop: 09/27/17 06:01 Last Admin: 03/30/17 05:39 Dose: 80 mg Vitamin D (Vitamin D) 1,000 unit PO DAILY DARREN Stop: 09/27/17 09:01 Last Admin: 03/30/17 08:14 Dose: 1,000 unit Warfarin Sodium (Coumadin Perpt) 1 each PO DAILY@1800 PRN PRN Reason: SEE COMMENTS Stop: 09/26/17 18:01 - Imaging and Cardiology Echo: report reviewed - EKG Interpretation EKG results cardiology: other (24 hr tele AVG HR 64, SR, no significant pauses or arrhythmias. Lowest HR 52bpm yesterday AM.) Consult Discharge Plan - Plan Referrals: Tisha Celeste MD [Primary Care Provider] - 04/05/17 1:00 pm (Please follow up as schedule...)
--- NOTE | 2017-03-30 10:20 | Discharge Summary ---
- NOTES TO OUTPATIENT PROVIDER Notes to Outpatient Provider: Patient being discharged with a Holter monitor per cardiology recommendations. Cardiology to follow results of this. Orders not resulted at time of discharge: Pending orders 03/30/17 09:32 ECG 48 holter monitor setup [ECG] Routine 03/31/17 04:00 INR/PT [Prothrombin Time INR] [COAG] AM 0400 04/01/17 04:00 INR/PT [Prothrombin Time INR] [COAG] AM 0400 Date of Encounter: 03/30/17 Time of Encounter: 09:20 - Discharge Diagnosis (1) Acute diastolic CHF (congestive heart failure) Priority: Primary Status: Acute (2) Atrial fibrillation Priority: Secondary Status: Acute Qualifiers: Atrial fibrillation type: paroxysmal Qualified Code(s): I48.0 - Paroxysmal atrial fibrillation (3) Benign positional vertigo Priority: Secondary Status: Ruled-out Qualifiers: Laterality: unspecified laterality Qualified Code(s): H81.10 - Benign paroxysmal vertigo, unspecified ear (4) Dizziness Priority: Secondary Status: Acute (5) Hypertension Priority: Secondary Status: Chronic Qualifiers: Hypertension type: essential hypertension Qualified Code(s): I10 - Essential (primary) hypertension (6) DVT prophylaxis Priority: Secondary Status: Acute Hospital course: Ms. Frye is a 76 year old female patient with a history of atrial fibrillation, diastolic dysfunction, central hypertension was hospitalized here after presenting with complaints of increased dyspnea and worsening bilateral lower extremity swelling along with dizziness and lightheadedness. She had recently been transitioned to sotalol and was also on Cardizem for her atrial fibrillation. Initially she was suspected of having vertigo and was placed on meclizine for this. However while being worked up in the hospital, telemetry showed that she has been having episodes of bradycardia. I switched her Cardizem was stopped per cardiology recommendations. Since then her symptoms have improved. She today she is feeling much better and is stable to be discharged home. She was also treated for acute heart failure with IV Lasix. She has had good negative fluid balance with Lasix use. She will be discharged today and will follow up with cardiology as outpatient. Per cardiology recommendations, patient will be provided with Holter monitor for 48 hours. She will follow on the results with cardiology. Discharge discussed with: patient - Time Spent with Patient Total time spent providing and/or coordinating discharge services: Greater than 30 minutes (32 min) - Discharge Medications Prescriptions: Losartan [Cozaar] 25 mg PO DAILY #30 tablet Home Medications: Cholecalciferol (D-3) [Vitamin D] 1,000 unit PO DAILY 10/24/15 [History] Vitamin E Acid Succinate [Vitamin E] 100 unit PO DAILY 10/24/15 [History] Warfarin [Coumadin] 6 mg PO MOWEFR 11/12/16 [History] Warfarin [Coumadin] 9 mg PO SUTUTHSA 11/12/16 [History] Ascorbic Acid [Vitamin C] 500 mg PO AD 02/21/17 [History] Naproxen Sodium [Aleve] 220 mg PO HS PRN 02/21/17 [History] Potassium 99 mg PO DAILY 02/21/17 [History] Vitamin A 10,000 unit PO Q48H 02/21/17 [History] Sotalol [Betapace] 80 mg PO Q12HR #60 tablet 03/02/17 [Rx] Furosemide [Lasix] 20 mg PO BID 30 Days #60 tablet 03/03/17 [Rx] Cyanocobalamin (Vitamin B-12) [Vitamin B-12] 100 mcg PO AD 03/27/17 [History] FLUoxetine HCl [Fluoxetine HCl] 10 mg PO DAILY 03/27/17 [History] Gabapentin [Neurontin] 100 mg PO HS 03/27/17 [History] Oxygen 2 l NS AD 03/27/17 [History] Losartan [Cozaar] 25 mg PO DAILY #30 tablet 03/30/17 [Rx] Allergies/Adverse Reactions: 3 Allergy/AdvReac Type Severity Reaction Status Date / Time codeine Allergy Shakiness Verified 02/21/17 12:49 Date of admission: 03/27/17 18:45 Primary care physician: Tisha Celeste Consults: 03/28/17 12:20 Consult to Cardiology [CONS] Routine Comment: Consulting Provider: Celeste Haynes Reason for Consult: Dizziness/ bradycardia Time Notified: 12:21 Call Completed: Yes Discharging clinician: Ana Catalan Anticipated date of discharge: 03/30/17 - Constitutional Vitals: Temp Pulse Resp BP Pulse Ox 97.5 F L 58 16 119/64 95 03/30/17 06:42 03/30/17 06:42 03/30/17 06:42 03/30/17 06:42 03/30/17 06:42 General appearance: Present: cooperative, A&O X 3, no acute distress, answers questions appropriately - Respiratory Respiratory exam: Present: CTAB. Absent: accessory muscle use, rales, rhonchi, wheezes - Cardiovascular Cardiovascular exam: Present: RRR, +S1, +S2. Absent: diastolic murmur, gallop, rubs, systolic murmur - GI/Abdominal GI/Abdominal exam: Present: normal bowel sounds, soft, no peritoneal signs. Absent: distended, tenderness - Extremities Exam Extremities exam: Present: warm, radial pulses palpable and symmetrical. Absent : calf tenderness, cyanotic, pedal edema - Patient Status Disposition: Home, Self-Care Condition: Good Functional capacity at discharge: independent ambulation Overall status at discharge: patient is back to baseline - Discharge Instructions Instructions: Losartan (By mouth), Heart Failure (DC), Atrial Fibrillation (DC) , Chronic Obstructive Pulmonary Disease (DC), Chronic Hypertension (DC) Follow Up With: Tisha Celeste MD [Primary Care Provider] - 04/05/17 1:00 pm (Please follow up as schedule...) Papito Chavez DO [Partnered Physician] - (in 2-3 weeks-office will call you with and appointment date and time) - Diet and Activity Activity: increase activity as tolerated Diet: low fat, low cholesterol, low salt diet
[2017-03-30 11:17] VITALS: BP 127/58
[2017-03-30] MEDS ORDERED: *HR* Warfarin 3 MG TABLET PO ONE (18:00)
== END 2017-03-30 11:48 | disposition home or self-care (01) ==
LOC: EMEROO 16:08 → 2ANU 16:08 → SUATTDRO 18:45 → 2ANU 19:18
PROVIDERS: ADMIT Internal Medicine; ATTEND Internal Medicine

== ENCOUNTER 2017-10-21 00:13 | Observation (INO) ==
--- NOTE | 2017-10-21 00:31 | Emergency Department Note ---
Disposition Clinical Impression: Acute diastolic CHF (congestive heart failure) Dyspnea Qualifiers: Dyspnea type: acute respiratory distress Qualified Code(s): R06.03 - Acute respiratory distress Disposition: Admitted As Inpatient Condition: Fair Time of Disposition: 04:48 SOB HPI - General Chief Complaint: ED Shortness of Breath/Dyspnea Stated Complaint: difficulty in breathing Time Seen by Provider: 10/21/17 00:20 Source: patient, family Nursing Notes Reviewed: Yes Vital Signs Reviewed: Yes - History of Present Illness 77yo female presents from home for evaluation of a 1 week history of progressive dyspnea and worsening swelling of her legs. Patient notes slowly progressive dyspnea at rest. She does have CPAP at night which does seem to help however, during the day, her dyspnea seems worse. She has been drinking approximately 3 bottles of water per day which slightly more than normal and she notes worsening lower extremity edema. PMH: A flutter with RVR, history of A. fib, hypertension, COPD, diastolic congestive heart failure, history of COPD. Anticoagulant: Coumadin ROS: Positive: As above Negative: Fever, chills, cough, nausea, vomiting, chest pains, palpitations, diaphoresis, abdominal pain, changes in bowel or bladder habits. - Related Data Home Medications Medication Instructions Recorded Confirmed Cholecalciferol (D-3) [Vitamin D] 1,000 unit PO DAILY 10/24/15 03/27/17 Vitamin E Acid Succinate [Vitamin 100 unit PO DAILY 10/24/15 03/27/17 E] Warfarin [Coumadin] 6 mg PO MOWEFR 11/12/16 03/27/17 Warfarin [Coumadin] 9 mg PO SUTUTHSA 11/12/16 03/27/17 Ascorbic Acid [Vitamin C] 500 mg PO AD 02/21/17 03/27/17 Naproxen Sodium [Aleve] 220 mg PO HS PRN 02/21/17 03/27/17 Potassium 99 mg PO DAILY 02/21/17 03/27/17 Vitamin A 10,000 unit PO Q48H 02/21/17 03/27/17 Cyanocobalamin (Vitamin B-12) 100 mcg PO AD 03/27/17 03/27/17 [Vitamin B-12] FLUoxetine HCl [Fluoxetine HCl] 10 mg PO DAILY 03/27/17 03/28/17 Gabapentin [Neurontin] 100 mg PO HS 03/27/17 03/27/17 Oxygen 2 l NS AD 03/27/17 03/27/17 Previous Rx's Medication Instructions Recorded Sotalol [Betapace] 80 mg PO Q12HR #60 tablet 03/02/17 Furosemide [Lasix] 20 mg PO BID 30 Days #60 tablet 03/03/17 Losartan [Cozaar] 25 mg PO DAILY #30 tablet 03/30/17 Allergies Allergy/AdvReac Type Severity Reaction Status Date / Time codeine Allergy Shakiness Verified 02/21/17 12:49 All systems ED: reviewed and negative except as stated. Review of Systems: As Per HPI Past Medical History - Past Medical History Medical history: Reports: arthritis, atrial fibrillation, CHF, COPD, hypertension Surgical history: Reports: appendectomy, cataract, cholecystectomy, orthopedic, other, other Psychiatric history: Reports: no psych history HOME ECONOMIST history: Reports: bilateral tubal ligation - Social History Smoking Status: Current every day smoker Smokeless Tobacco Status: No Alcohol use: Reports: none Drug use: Reports: none Physical Exam Vital Signs Reviewed General: Patient is alert, oriented, and in acute respiratory distress-patient has to work conversational dyspnea, is exhaling through pursed lips, accessory muscle usage. Head: atraumatic, normocephalic Eye: normal appearance, no scleral icterus, no conjunctival injection ENT: mucous membranes moist, normal external ear exam Neck: normal inspection, trachea midline, full ROM Chest: normal inspection, symmetric chest rise Respiratory: Poor respiratory effort. Bilateral breath sounds have scant end expiratory wheeze with bibasilar crackles. Cardiovascular: Regular rate and rhythm. No clicks, rubs, gallops, or murmors. Normal heart sounds. Bilateral pedal edema 1+ pitting. Abdomen: Bowel sounds present normoactive x-4 quadrants. Abdomen is soft, nondistended, and nontender. No guarding or rebound. Musculoskeletal: Spontaneously moving all extremities. Skin: warm, dry, intact. Neuro: Alert and oriented x4. Sensation light touch intact. Psych: Patient's affect is appropriate for situation. - General General appearance: alert Course Course Narrative: Echocardiogram 03/29/17: Sinus bradycardia. LVEF 55%. Patient clinically appears to have acute exacerbation of congestive heart failure. She is agreeable to BiPAP. Chest x-ray is unremarkable on my evaluation as well as by radiology read. BNP is not markedly elevated however, patient is obese. Given the patient's noncompliance drink and increased water, increased pedal edema, pulmonary auscultation, and her subjective feeling this feels similar to prior episodes of congestive heart failure-will empirically treat his congestive heart failure. 13:50 Patient became frustrated by BiPAP seen she was breathing too quickly. She removed the mask herself. I discussed the above with the admitting hospitalist, Dr. Brown, who agrees to accept the patient for empiric management of acute exacerbation of congestive heart failure. EKG dated 10/21/17 at 00:42 interpreted as sinus rhythm with a rate of 65. NJ 138, QTc 440. Normal axis. Nonspecific ST-T changes. Compared to previous dated 06/28/2017 showing no acute ischemic changes or comparison. Vital Signs Temperature 98.6 F 10/21/17 00:17 Pulse Rate 70 10/21/17 00:17 Respiratory Rate 20 10/21/17 00:17 Blood Pressure 182/83 10/21/17 00:17 O2 Sat by Pulse Oximetry 94 10/21/17 00:17 Temperature 98.6 F 10/21/17 00:17 Pulse Rate 69 10/21/17 04:11 Respiratory Rate 20 10/21/17 04:11 Blood Pressure 145/62 10/21/17 04:11 O2 Sat by Pulse Oximetry 98 10/21/17 04:11 Oxygen Delivery Oxygen Delivery Nasal Cannula Shortness of Breath/Dyspnea - Lab Data Result diagrams: 10/21/17 00:43 10/21/17 00:43 Lab Results 10/21/17 10/21/17 10/21/17 Range/Units 00:43 00:43 00:43 WBC 8.7 (4.3-11.1) K/mcL RBC 4.65 (3.82-4.97) M/mcL Hgb 10.8 L (11.5-15.4) g/dL Hct 35.3 (35.3-44.9) % MCV 75.9 L (83.0-100.0) fL MCH 23.2 L (28.0-33.3) pg MCHC 30.6 L (31.6-35.5) g/dL RDW 15.6 H (11.5-14.5) % Plt Count 276 (140-400) K/mcL MPV 9.6 (9.4-12.4) fL Immature Gran % 0.5 (0-4) % Seg Neutrophils % 57.0 % Lymphocytes % 29.6 % Monocytes % 8.8 % Eosinophils % 3.4 % Basophils % 0.7 % Neutrophils # 4.9 (1.6-8.9) K/mcL Lymphocytes # 2.6 (0.6-4.6) K/mcL Monocytes # 0.8 (0.0-1.3) K/mcL Eosinophils # 0.3 (0.0-0.6) K/mcL Basophils # 0.1 (0.0-0.2) K/mcL Sodium 138 (136-145) mEq/L Potassium 4.3 (3.5-5.1) mEq/L Chloride 103 (98-107) mEq/L Carbon Dioxide 26 (23-29) mEq/L BUN 17 (8-23) mg/dL Creatinine 0.89 (0.60-1.20) mg/dL Est GFR ( Amer) > 60 (> 60) Est GFR (Non-Af Amer) > 60 (> 60) BUN/Creatinine Ratio 19 (6-26) Glucose 154 H (70-105) mg/dL Calculated Osmolality 291 (280-300) Calcium 8.8 (8.6-10.3) mg/dL Troponin I < 0.03 (< 0.04) ng/mL B-Natriuretic Peptide 103 H (Less than 100) pg/mL
[2017-10-21 01:00] LABS: Basophils # 0.1 K/mcL (0.0-0.2); Basophils % 0.7 %; Eosinophils # 0.3 K/mcL (0.0-0.6); Eosinophils % 3.4 %; Hematocrit 35.3 % (35.3-44.9); Hemoglobin 10.8 g/dL (11.5-15.4); Immature Granulocytes % 0.5 % (0-4); Lymphocytes # 2.6 K/mcL (0.6-4.6); Lymphocytes % 29.6 %; Mean Corpuscular HGB Conc 30.6 g/dL (31.6-35.5); Mean Corpuscular Hemoglobin 23.2 pg (28.0-33.3); Mean Corpuscular Volume 75.9 fL (83.0-100.0); Mean Platelet Volume 9.6 fL (9.4-12.4); Monocytes # 0.8 K/mcL (0.0-1.3); Monocytes % 8.8 %; Neutrophils # 4.9 K/mcL (1.6-8.9); Platelet Count 276 K/mcL (140-400); Red Blood Count 4.65 M/mcL (3.82-4.97); Red Cell Distribution Width 15.6 % (11.5-14.5)
[2017-10-21 01:16] LABS: BUN/Creatinine Ratio 19 (6-26); Blood Urea Nitrogen 17 mg/dL (8-23); Calcium 8.8 mg/dL (8.6-10.3); Carbon Dioxide 26 mEq/L (23-29); Chloride 103 mEq/L (98-107); Glucose 154 mg/dL (70-105); Osmolality,Calculated 291 (280-300); Potassium 4.3 mEq/L (3.5-5.1); Sodium 138 mEq/L (136-145); Troponin I < 0.03 ng/mL (< 0.04); eGFR For Non-African Americans > 60 (> 60)
[2017-10-21] MEDS ORDERED: Furosemide 40 MG/4 ML VIAL IVP ONE (02:11)
--- NOTE | 2017-10-21 04:29 | Internal Med History&Physical ---
Date of Encounter: 10/21/17 Time of Encounter: 04:21 Internal Medicine - H&P: HPI Chief complaint: Shortness of breath Admitted From: Home Plans for Post Hospital Care: Home History of present illness: 77 year old woman with a history of paroxysmal a.fib on rhythm control agents, diastolic heart failure and sleep apnea on CPAP who presents with the complaint of shortness of breath. She states that it has been present and progressive over the past week with some swelling in her legs however her reports that tonight what tipped her over was feeling anxious after receiving bad news about her sons health. She then became more short of breath than usual and for which reason decided to seek medical attention. On arrival here she was hemodynamically stable, she received 1 dose of Lasix and was put on BiPAP with subsequent relief in her symptoms. My evaluation shows lying comfortably in bed in no acute distress stating that she is not yet back to baseline but she has improved. She reports adherence to harm her home warfarin and states that she took it yesterday evening. She was a reports nightly adherence to her CPAP machine. Review of old records show that during her last admission diltiazem was discontinued due to bradycardia. She admits to smoking half a pack daily despite being on supplemental oxygen therapy. Past Med Surg Social Fam HX - Past Medical History Medical history: arthritis, atrial fibrillation, CHF, COPD, hypertension Additional medical history: BACK PAIN Psychiatric history: no psych history - Past Surgical History Surgical History: appendectomy, cataract, cholecystectomy, orthopedic, other, other Additional surgical history: Tubal Ligation - Social History Smoking Status: Current every day smoker Smokeless Tobacco Status: No Alcohol use: none Drug use: none - Family History Mother Living Status: Hx Family Cardiac Disorders: No Father Living Status: Hx Family Cardiac Disorders: No Hx Family Respiratory Disorders: No Internal Medicine - H&P: Meds Cholecalciferol (D-3) [Vitamin D] 1,000 unit PO DAILY 10/24/15 [History] Vitamin E Acid Succinate [Vitamin E] 100 unit PO DAILY 10/24/15 [History] Warfarin [Coumadin] 6 mg PO MOWEFR 11/12/16 [History] Warfarin [Coumadin] 9 mg PO SUTUTHSA 11/12/16 [History] Ascorbic Acid [Vitamin C] 500 mg PO AD 02/21/17 [History] Naproxen Sodium [Aleve] 220 mg PO HS PRN 02/21/17 [History] Potassium 99 mg PO DAILY 02/21/17 [History] Vitamin A 10,000 unit PO Q48H 02/21/17 [History] Sotalol [Betapace] 80 mg PO Q12HR #60 tablet 03/02/17 [Rx] Furosemide [Lasix] 20 mg PO BID 30 Days #60 tablet 03/03/17 [Rx] Cyanocobalamin (Vitamin B-12) [Vitamin B-12] 100 mcg PO AD 03/27/17 [History] FLUoxetine HCl [Fluoxetine HCl] 10 mg PO DAILY 03/27/17 [History] Gabapentin [Neurontin] 100 mg PO HS 03/27/17 [History] Oxygen 2 l NS AD 03/27/17 [History] Losartan [Cozaar] 25 mg PO DAILY #30 tablet 03/30/17 [Rx] 3 Allergy/AdvReac Type Severity Reaction Status Date / Time codeine Allergy Shakiness Verified 02/21/17 12:49 All Systems PM: A 10-system review of systems was performed and is negative for pertinent findings except as documented above in the HPI. - Constitutional Vitals: Temp Pulse Resp BP Pulse Ox 98.6 F 69 20 145/62 98 10/21/17 00:17 10/21/17 04:11 10/21/17 04:11 10/21/17 04:11 10/21/17 04:11 Exam: Vitals: Reviewed General: Obese white female sitting up in bed in no acute distress Skin: Warm and supple HEENT: Moist mucous membranes. No conjunctivae pallor. Neck: No lymphadenopathy. No JVD. No carotid bruits. No palpable thyroid. Chest: Diminished thoracic expansion with reduced breath sounds in both lung knight. Heart: Normal S1 & S2; rhythmic. Abdomen: Non-distended, soft and non-tender to palpation. No peritoneal reaction. Extremities: Trace pedal edema. Neurological: Awake, alert and oriented to person, place and time. No focal deficits. Psych: Affect appropriate. Internal Med - H&P Results - Labs CBC & Chem 7: 10/21/17 00:43 10/21/17 00:43 - Assessment and plan (1) Dyspnea Current Visit: Yes Status: Acute Assessment and plan: Likely related to diastolic heart failure and compounded by her own anxiety. She has minimal signs of pulmonary vascular congestion and only trace pedal edema. She obtained relief with Bipap and lasix however. Will check another TTE as it has been 7 months since her last and she is now symptomatic. Will administer 40mg lasix BID for today after which she can resume her regular home dose of 20mg BID. Supplemental oxygen as needed. Qualifiers: Dyspnea type: acute respiratory distress Qualified Code(s): R06.03 - Acute respiratory distress (2) Atrial fibrillation Current Visit: Yes Status: Acute Assessment and plan: Rhythm controlled. Will continue sotalol and check INR to resume warfarin. Qualifiers: Atrial fibrillation type: paroxysmal Qualified Code(s): I48.0 - Paroxysmal atrial fibrillation (3) Hypertension Current Visit: Yes Status: Chronic Assessment and plan: Well controlled. Continue home meds. Qualifiers: Hypertension type: essential hypertension Qualified Code(s): I10 - Essential (primary) hypertension (4) Tobacco abuse Current Visit: No Status: Chronic Assessment and plan: Counseled extensively and resources made available. Also instructed not to smoke with oxygen tanks nearby. (5) KEVIN (obstructive sleep apnea) Current Visit: Yes Status: Acute Assessment and plan: Will order CPAP qhs. (6) DVT prophylaxis Current Visit: Yes Status: Acute Assessment and plan: Will place on AES while on warfarin. - Time Spent With Patient Total time spent is greater than 50% in coordination of care (as documented) at patient's floor/unit and/or counseling patient: Greater than 35 minutes
[2017-10-21 04:58] LABS: INR 2.8; Prothrombin Time 31.2 Seconds (9.4-12.1)
--- NOTE | 2017-10-21 04:58 | Emergency Department Note ---
Disposition Clinical Impression: Acute diastolic CHF (congestive heart failure) Dyspnea Qualifiers: Dyspnea type: acute respiratory distress Qualified Code(s): R06.03 - Acute respiratory distress Disposition: Admitted As Inpatient Condition: Fair General Adult HPI - General Chief complaint: ED Shortness of Breath/Dyspnea Stated complaint: difficulty in breathing Time Seen by Provider: 10/21/17 00:20 Source: patient, family Nursing Notes Reviewed: Yes Vital Signs Reviewed: Yes - History of Present Illness Pain Scale: 0 - Related Data Home Medications Medication Instructions Recorded Confirmed Cholecalciferol (D-3) [Vitamin D] 1,000 unit PO DAILY 10/24/15 03/27/17 Vitamin E Acid Succinate [Vitamin 100 unit PO DAILY 10/24/15 03/27/17 E] Warfarin [Coumadin] 6 mg PO MOWEFR 11/12/16 03/27/17 Warfarin [Coumadin] 9 mg PO SUTUTHSA 11/12/16 03/27/17 Ascorbic Acid [Vitamin C] 500 mg PO AD 02/21/17 03/27/17 Naproxen Sodium [Aleve] 220 mg PO HS PRN 02/21/17 03/27/17 Potassium 99 mg PO DAILY 02/21/17 03/27/17 Vitamin A 10,000 unit PO Q48H 02/21/17 03/27/17 Cyanocobalamin (Vitamin B-12) 100 mcg PO AD 03/27/17 03/27/17 [Vitamin B-12] FLUoxetine HCl [Fluoxetine HCl] 10 mg PO DAILY 03/27/17 03/28/17 Gabapentin [Neurontin] 100 mg PO HS 03/27/17 03/27/17 Oxygen 2 l NS AD 03/27/17 03/27/17 Previous Rx's Medication Instructions Recorded Sotalol [Betapace] 80 mg PO Q12HR #60 tablet 03/02/17 Furosemide [Lasix] 20 mg PO BID 30 Days #60 tablet 03/03/17 Losartan [Cozaar] 25 mg PO DAILY #30 tablet 03/30/17 Allergies Allergy/AdvReac Type Severity Reaction Status Date / Time codeine Allergy Shakiness Verified 02/21/17 12:49 Past Medical History - Past Medical History Medical history: Reports: arthritis, atrial fibrillation, CHF, COPD, hypertension Surgical history: Reports: appendectomy, cataract, cholecystectomy, orthopedic, other, other Psychiatric history: Reports: no psych history [employer] history: Reports: bilateral tubal ligation - Social History Smoking Status: Current every day smoker Smokeless Tobacco Status: No Alcohol use: Reports: none Drug use: Reports: none Physical Exam - General General appearance: alert Course Vital Signs Temperature 98.6 F 10/21/17 00:17 Pulse Rate 70 10/21/17 00:17 Respiratory Rate 20 10/21/17 00:17 Blood Pressure 182/83 10/21/17 00:17 O2 Sat by Pulse Oximetry 94 10/21/17 00:17 Temperature 98.6 F 10/21/17 00:17 Pulse Rate 69 10/21/17 04:11 Respiratory Rate 20 10/21/17 04:11 Blood Pressure 145/62 10/21/17 04:11 O2 Sat by Pulse Oximetry 98 10/21/17 04:11 Oxygen Delivery Oxygen Delivery Nasal Cannula Medical Decision Making - Medical Records Medical records reviewed: Yes I reviewed the patient's medical records. - Lab Data Lab results reviewed: Yes I reviewed the patient's lab results. Result diagrams: 10/21/17 00:43 10/21/17 00:43 Lab Results 10/21/17 10/21/17 10/21/17 Range/Units 00:43 00:43 00:43 WBC 8.7 (4.3-11.1) K/mcL RBC 4.65 (3.82-4.97) M/mcL Hgb 10.8 L (11.5-15.4) g/dL Hct 35.3 (35.3-44.9) % MCV 75.9 L (83.0-100.0) fL MCH 23.2 L (28.0-33.3) pg MCHC 30.6 L (31.6-35.5) g/dL RDW 15.6 H (11.5-14.5) % Plt Count 276 (140-400) K/mcL MPV 9.6 (9.4-12.4) fL Immature Gran % 0.5 (0-4) % Seg Neutrophils % 57.0 % Lymphocytes % 29.6 % Monocytes % 8.8 % Eosinophils % 3.4 % Basophils % 0.7 % Neutrophils # 4.9 (1.6-8.9) K/mcL Lymphocytes # 2.6 (0.6-4.6) K/mcL Monocytes # 0.8 (0.0-1.3) K/mcL Eosinophils # 0.3 (0.0-0.6) K/mcL Basophils # 0.1 (0.0-0.2) K/mcL Sodium 138 (136-145) mEq/L Potassium 4.3 (3.5-5.1) mEq/L Chloride 103 (98-107) mEq/L Carbon Dioxide 26 (23-29) mEq/L BUN 17 (8-23) mg/dL Creatinine 0.89 (0.60-1.20) mg/dL Est GFR ( Amer) > 60 (> 60) Est GFR (Non-Af Amer) > 60 (> 60) BUN/Creatinine Ratio 19 (6-26) Glucose 154 H (70-105) mg/dL Calculated Osmolality 291 (280-300) Calcium 8.8 (8.6-10.3) mg/dL Troponin I < 0.03 (< 0.04) ng/mL B-Natriuretic Peptide 103 H (Less than 100) pg/mL - Radiology Data Radiology results reviewed: Yes I reviewed the patient's radiology results. Chest X-Ray 10/21/17 00:21 IMPRESSION: Cardiomegaly and clear lungs. D/ / Teodoro Stevens MD / Teodoro Stevens MD Interpreting Provider: Teodoro Stevens MD - EKG Data EKG #1 EKG attestation: Yes I reviewed and interpreted this EKG. EKG results narrative: EKG shows a normal sinus rhythm with ventricular rate is 65. PAC. We will voltage precordial leads. No acute ST segment elevation or depression. MO interval 138. QRS duration 83. Critical Care Time Critical Care Time: Yes Total Critical Care Time: 35 Attestation: Critical care performed: Time is exclusive of separately billable procedures. Time includes: direct patient care, patient reassessment, coordination of patient care, interpretation of data (laboratory data, radiology data, and respiratory data), review of patient's medical records, medical consultation and documentation of patient care. Procedures included in critical care time: Procedures excluded from critical care time: Attestation Statement - Attestation Attestation: I, Oleg Rosario MD, personally evaluated this patient and discussed their management with the resident physician. I reviewed the resident's note and agree with the documented findings, medical decision making, and plan of care. 77-year-old female presents to the emergency department complaining of increased shortness of breath for about one week prior to arrival. Patient does have oxygen at home through a oxygen concentrator and she wears 2 L by nasal cannula as needed. Over the past week she has had to wear her oxygen more often than usual. She also wears CPAP at night. She denies any increased cough or fever. No chest pain. Just more short of breath. On examination patient is a well-developed well-nourished elderly female in no acute distress. She is alert and oriented 3. There is no cyanosis or diaphoresis. Patient on BiPAP at time of my examination. Breath sounds are decreased bilaterally. No wheezes noted. There are a few faint bibasilar rales. Heart regular rate and rhythm. Abdomen soft and nontender with normal bowel sounds. Labs, x-ray, and EKG reviewed. The hospitalist, Dr. Ness, was consulted and accepted admission of the patient.
[2017-10-21] MEDS ORDERED: (Potassium [Potassium] 99 MG) PO SCH (09:00)
[2017-10-21] MEDS: Furosemide 40 MG/4 ML VIAL IVP SCH ×2 (09:55→20:36)
[2017-10-21] MEDS: FLUoxetine HCl 10 MG CAPSULE PO SCH (09:55)
[2017-10-21] MEDS: Cholecalciferol (D-3) 1,000 UNIT TABLET PO SCH (09:55)
[2017-10-21] MEDS ORDERED: Perflutren Lipid Microsphere 1.3 ML in 0.9 % Sodium Chloride 8.7 ML IVP ONE (10:15)
--- NOTE | 2017-10-21 10:45 | Internal Med Progress Note ---
Hospitalist Progress Note - Encounter Date of Encounter: 10/21/17 Time of Encounter: 08:00 - Subjective Interval History: pt has less SOB and decreased swelling after lasix treatment. - Exam Vitals: Temp Pulse Resp BP Pulse Ox 97.7 F 66 16 158/61 98 10/21/17 06:53 10/21/17 06:53 10/21/17 06:53 10/21/17 06:53 10/21/17 06:53 Exam: Vitals: Reviewed General: Obese white female sitting up in bed in no acute distress Skin: Warm and supple HEENT: Moist mucous membranes. No conjunctivae pallor. Neck: No lymphadenopathy. No JVD. No carotid bruits. No palpable thyroid. Chest: Diminished thoracic expansion with reduced breath sounds in both lung knight. Heart: Normal S1 & S2; rhythmic. Abdomen: Non-distended, soft and non-tender to palpation. No peritoneal reaction. Extremities: No pedal edema. Neurological: Awake, alert and oriented to person, place and time. No focal deficits. Psych: Affect appropriate. - Assessment and Plan (1) Hypertension Current Visit: Yes Status: Chronic Assessment and Plan: Well controlled. Continue home meds. (2) DVT prophylaxis Current Visit: Yes Status: Acute Assessment and Plan: Will place on AES while on warfarin. (3) Dyspnea Current Visit: Yes Status: Acute Assessment and Plan: Likely related to diastolic heart failure and compounded by her own anxiety. - Improved after lasix iv. - Will cont lasix iv daily from tomorrow - Strict I/O - Fluid restriction - F/U echo result. (4) Atrial fibrillation Current Visit: Yes Status: Acute Assessment and Plan: Rhythm controlled. Will continue sotalol and check INR to resume warfarin. (5) Tobacco abuse Current Visit: No Status: Chronic Assessment and Plan: Counseled extensively and resources made available. Also instructed not to smoke with oxygen tanks nearby. (6) KEVIN (obstructive sleep apnea) Current Visit: Yes Status: Acute Assessment and Plan: Will order CPAP qhs. DVT Prophylaxis: On coumadin - Time Spent with Patient Total time spent is greater than 50% in coordination of care (as documented) at patient's floor/unit and/or counseling patient: 25 - 35 minutes Plan of Care Discussed with: patient Internal Medicine: Result - Labs CBC & Chem 7: 10/21/17 00:43 10/21/17 00:43 - ABG Interpretation ABG results: PT/INR, D-dimer PT 31.2 Seconds (9.4-12.1) H 10/21/17 04:01 Consult Discharge Plan - Plan Referrals: Tisha Celeste MD [Primary Care Provider] - (1) Hypertension Qualifiers: Hypertension type: essential hypertension Qualified Code(s): I10 - Essential (primary) hypertension (3) Dyspnea Qualifiers: Dyspnea type: acute respiratory distress Qualified Code(s): R06.03 - Acute respiratory distress (4) Atrial fibrillation Qualifiers: Atrial fibrillation type: paroxysmal Qualified Code(s): I48.0 - Paroxysmal atrial fibrillation
[2017-10-21] MEDS ORDERED: *HR* Warfarin 3 MG TABLET PO ONE (18:00)
[2017-10-21] MEDS ORDERED: Warfarin perPT PO PRN (18:00)
[2017-10-21] MEDS: Gabapentin 100 MG CAPSULE PO SCH (20:35)
[2017-10-22 06:03] LABS: Basophils # 0.1 K/mcL (0.0-0.2); Basophils % 0.5 %; Eosinophils # 0.3 K/mcL (0.0-0.6); Eosinophils % 2.9 %; Hematocrit 38.2 % (35.3-44.9); Hemoglobin 11.5 g/dL (11.5-15.4); Immature Granulocytes % 0.3 % (0-4); Lymphocytes # 2.9 K/mcL (0.6-4.6); Lymphocytes % 30.5 %; Mean Corpuscular HGB Conc 30.1 g/dL (31.6-35.5); Mean Corpuscular Volume 76.6 fL (83.0-100.0); Mean Platelet Volume 10.3 fL (9.4-12.4); Monocytes % 10.5 %; Neutrophils # 5.2 K/mcL (1.6-8.9); Platelet Count 288 K/mcL (140-400); Red Blood Count 4.99 M/mcL (3.82-4.97); Red Cell Distribution Width 15.5 % (11.5-14.5); Segmented Neutrophils % 55.3 %
[2017-10-22 06:10] LABS: INR 2.9; Prothrombin Time 32.8 Seconds (9.4-12.1)
[2017-10-22 06:16] LABS: BUN/Creatinine Ratio 29 (6-26); Blood Urea Nitrogen 21 mg/dL (8-23); Calcium 8.9 mg/dL (8.6-10.3); Carbon Dioxide 32 mEq/L (23-29); Chloride 98 mEq/L (98-107); Glucose 115 mg/dL (70-105); Osmolality,Calculated 288 (280-300); Sodium 137 mEq/L (136-145); eGFR For Non-African Americans > 60 (> 60)
[2017-10-22] MEDS: Cholecalciferol (D-3) 1,000 UNIT TABLET PO SCH (09:37)
[2017-10-22] MEDS: Furosemide 40 MG/4 ML VIAL IVP SCH (09:37)
[2017-10-22] MEDS: FLUoxetine HCl 10 MG CAPSULE PO SCH (09:38)
--- NOTE | 2017-10-22 12:59 | Internal Med Progress Note ---
Hospitalist Progress Note - Encounter Date of Encounter: 10/22/17 Time of Encounter: 08:00 - Subjective Interval History: pt has less SOB and decreased swelling after lasix treatment. Encourage her for mobilization. - Exam Vitals: Temp Pulse Resp BP Pulse Ox 98 F 64 19 125/71 93 10/22/17 07:32 10/22/17 07:32 10/22/17 07:32 10/22/17 07:32 10/22/17 07:32 Exam: Vitals: Reviewed General: Obese white female sitting up in bed in no acute distress Skin: Warm and supple HEENT: Moist mucous membranes. No conjunctivae pallor. Neck: No lymphadenopathy. No JVD. No carotid bruits. No palpable thyroid. Chest: Diminished thoracic expansion with reduced breath sounds in both lung knight. Heart: Normal S1 & S2; rhythmic. Abdomen: Non-distended, soft and non-tender to palpation. No peritoneal reaction. Extremities: No pedal edema. Neurological: Awake, alert and oriented to person, place and time. No focal deficits. Psych: Affect appropriate. - Assessment and Plan (1) Hypertension Current Visit: Yes Status: Chronic Assessment and Plan: Well controlled. Continue home meds. (2) DVT prophylaxis Current Visit: Yes Status: Acute Assessment and Plan: Will place on AES while on warfarin. (3) Dyspnea Current Visit: Yes Status: Acute Assessment and Plan: Likely related to diastolic heart failure and compounded by her own anxiety. - Improved after lasix iv. - Will cont lasix iv daily. - Strict I/O - Fluid restriction - Echo shows LVEF 70% - Fluid balance negative 2L so far. - Pt has three hospitalizations this year for CHF exacerbation, will give her one or two more days iv lasix. (4) Atrial fibrillation Current Visit: Yes Status: Acute Assessment and Plan: Rhythm controlled. Will continue sotalol and warfarin. INR therapeutic (5) Tobacco abuse Current Visit: No Status: Chronic Assessment and Plan: Counseled extensively and resources made available. Also instructed not to smoke with oxygen tanks nearby. (6) KEVIN (obstructive sleep apnea) Current Visit: Yes Status: Acute Assessment and Plan: Will order CPAP qhs. DVT Prophylaxis: On coumadin - Time Spent with Patient Total time spent is greater than 50% in coordination of care (as documented) at patient's floor/unit and/or counseling patient: 30 min 25 - 35 minutes Plan of Care Discussed with: patient Internal Medicine: Result - Labs CBC & Chem 7: 10/22/17 05:01 10/22/17 05:01 Labs: Short CBC 10/22/17 Range/Units 05:01 WBC 9.4 (4.3-11.1) K/mcL Hgb 11.5 (11.5-15.4) g/dL Hct 38.2 (35.3-44.9) % Plt Count 288 (140-400) K/mcL Neutrophils # 5.2 (1.6-8.9) K/mcL BMP 10/22/17 05:01 Sodium 137 Potassium 4.0 Chloride 98 Carbon Dioxide 32 H BUN 21 Creatinine 0.72 Glucose 115 H Calcium 8.9 - ABG Interpretation ABG results: PT/INR, D-dimer PT 32.8 Seconds (9.4-12.1) H 10/22/17 05:01 - Impressions Impressions Echocardiogram 10/21/17 04:00 Impressions: LVEF 70%. Normal LV chamber size, wall thickness and function. Normal right ventricular structure and function. No significant valvular dysfunction. Unable to estimate pulmonary artery pressure due to lack of TR jet. Left Ventricular Wall Motion: Rest Echo Findings All wall segments showed normal motion. Findings: Study Quality * Technically adequate exam. ECG Findings * Normal sinus rhythm. Left Ventricle * LVEF 70%. * Normal LV chamber size, wall thickness and function. * Normal left ventricular diastolic function. Right Ventricle * Normal right ventricular structure and function. Left Atrium * Normal left atrial size. Right Atrium * Normal right atrial size. Interatrial Septum * Interatrial septum not well evaluated. Aortic Valve * No aortic regurgitation. * No aortic stenosis. Mitral Valve * Mild mitral annular calcification * No mitral regurgitation. * No mitral stenosis. Tricuspid Valve * Normal tricuspid valve structure and function. * No tricuspid regurgitation. * Unable to estimate RVSP due to lack of TR jet. Pulmonic Valve * No pulmonic regurgitation. * Pulmonic valve not well visualized. Aorta * Normally sized aortic root. Pericardium * The pericardium appears normal. IVC * The IVC is not well evaluated. - VTE Documentation of Mechanical Device: Graduated compression elastic hosiery Consult Discharge Plan - Plan Referrals: Tisha Celeste MD [Primary Care Provider] - (1) Hypertension Qualifiers: Hypertension type: essential hypertension Qualified Code(s): I10 - Essential (primary) hypertension (3) Dyspnea Qualifiers: Dyspnea type: acute respiratory distress Qualified Code(s): R06.03 - Acute respiratory distress (4) Atrial fibrillation Qualifiers: Atrial fibrillation type: paroxysmal Qualified Code(s): I48.0 - Paroxysmal atrial fibrillation
[2017-10-22] MEDS ORDERED: *HR* Warfarin 3 MG TABLET PO ONE (18:00)
[2017-10-22] MEDS: Gabapentin 100 MG CAPSULE PO SCH ×2 (20:59→21:05)
[2017-10-22] MEDS ORDERED: rOPINIRole 1 MG TABLET PO ONE (21:35)
[2017-10-22] MEDS ORDERED: *HR* LORazepam 2 MG/ML VIAL IVP ONE (22:45)
[2017-10-23 06:19] LABS: Basophils # 0.1 K/mcL (0.0-0.2); Basophils % 0.8 %; Eosinophils # 0.2 K/mcL (0.0-0.6); Eosinophils % 2.8 %; Hematocrit 34.4 % (35.3-44.9); Hemoglobin 10.3 g/dL (11.5-15.4); Immature Granulocytes % 0.3 % (0-4); Lymphocytes # 2.7 K/mcL (0.6-4.6); Lymphocytes % 30.5 %; Mean Corpuscular HGB Conc 29.9 g/dL (31.6-35.5); Mean Corpuscular Hemoglobin 22.5 pg (28.0-33.3); Mean Corpuscular Volume 75.1 fL (83.0-100.0); Mean Platelet Volume 9.9 fL (9.4-12.4); Monocytes # 0.9 K/mcL (0.0-1.3); Neutrophils # 4.8 K/mcL (1.6-8.9); Platelet Count 246 K/mcL (140-400); Red Blood Count 4.58 M/mcL (3.82-4.97); Red Cell Distribution Width 15.6 % (11.5-14.5); Segmented Neutrophils % 55.6 %
[2017-10-23 06:24] LABS: INR 4.1
[2017-10-23 06:31] LABS: Prothrombin Time 46.1 Seconds (9.4-12.1)
[2017-10-23 06:36] LABS: BUN/Creatinine Ratio 29 (6-26); Blood Urea Nitrogen 19 mg/dL (8-23); Calcium 8.7 mg/dL (8.6-10.3); Carbon Dioxide 32 mEq/L (23-29); Chloride 100 mEq/L (98-107); Glucose 137 mg/dL (70-105); Osmolality,Calculated 286 (280-300); Potassium 4.1 mEq/L (3.5-5.1); Sodium 136 mEq/L (136-145); eGFR For Non-African Americans > 60 (> 60)
[2017-10-23] MEDS: Furosemide 40 MG/4 ML VIAL IVP SCH ×2 (09:24→18:18)
[2017-10-23] MEDS: FLUoxetine HCl 10 MG CAPSULE PO SCH (09:25)
[2017-10-23] MEDS: Cholecalciferol (D-3) 1,000 UNIT TABLET PO SCH (09:25)
[2017-10-23] MEDS ORDERED: Levalbuterol Neb 0.63 MG/3 ML IH PRN (13:09)
--- NOTE | 2017-10-23 13:10 | Internal Med Progress Note ---
Hospitalist Progress Note - Encounter Date of Encounter: 10/23/17 Time of Encounter: 13:08 - Subjective Interval History: 7 year old woman with a history of paroxysmal a.fib on rhythm control agents, diastolic heart failure and sleep apnea on CPAP. Today patient denies shortness of breath, reports that her shortness of breath has significantly improved. And that she is close to her baseline. Denies chest pain, nausea, vomiting. - Exam Vitals: Temp Pulse Resp BP Pulse Ox 97.7 F 62 16 126/62 95 10/23/17 11:07 10/23/17 11:07 10/23/17 11:07 10/23/17 11:07 10/23/17 11:07 Exam: General: Alert and oriented 3. No acute distress. Cardiovascular: Normal S1 & S2, no rubs, murmurs or gallops. JVD about 6cm. Lungs: Mild crackles at the left lower base, no wheezing. Abdomen: Obese, Soft, non-tender, no rigidity. Extremities: 1+ edema in the lower extremities b/l. Neurological: CN II-XII intact. Rest of the physical exam is non contributory - Assessment and Plan (1) Congestive heart failure Current Visit: No Status: Acute Assessment and Plan: crackles heard on auscultations in the left lower lobe. -ve 2.8 litters of fluids. Plan : Increase furosemide to 40mg/IV BID strict intake and output water restriction to 1.5 litters a day. daily weight 2 gram sodium diet On losartan 25mg PO daily (2) Hypertension Current Visit: Yes Status: Chronic Assessment and Plan: BP well controlled Plan: Continue current antihypertensive medications On soltalol, furosemide and Losartan. (3) Atrial fibrillation Current Visit: Yes Status: Acute Assessment and Plan: Rate controlled. Plan Continue Soltalol 80mg/PO On warfarin due to high CHADSVASC score hold today dose of warfarin INR of 4.1 INR as per pharmacy protocol (4) KEVIN (obstructive sleep apnea) Current Visit: Yes Status: Acute Assessment and Plan: Continue nocturnal CPAP (5) COPD (chronic obstructive pulmonary disease) Current Visit: No Status: Acute Assessment and Plan: No wheezing. crackles at the left lower lobe. Plan: Nebs PRN Q6RT incentive spirometry (6) Chronic hypoxemic respiratory failure Current Visit: Yes Status: Acute Assessment and Plan: On 2 litters of home O2. Plan: continue O2 by nasal canula, titrate for O2Sat >92% Nocturnal CPAP DVT Prophylaxis: Anticoagulated with warfarin due to A.Fib with high CHADSVASC score. - Summary of Assessment and Plan Summary of Assessment and Plan: Will keep patient in the hospital for 24 more hours for IV diuresis. Furosemide increased to 40mg/IV BID. - Time Spent with Patient Total time spent is greater than 50% in coordination of care (as documented) at patient's floor/unit and/or counseling patient: Greater than 35 minutes Plan of Care Discussed with: patient (and the nurse.) Internal Medicine: Result - Labs CBC & Chem 7: 10/23/17 05:52 10/23/17 05:52 Labs: Short CBC 10/23/17 Range/Units 05:52 WBC 8.7 (4.3-11.1) K/mcL Hgb 10.3 L (11.5-15.4) g/dL Hct 34.4 L (35.3-44.9) % Plt Count 246 (140-400) K/mcL Neutrophils # 4.8 (1.6-8.9) K/mcL BMP 10/23/17 05:52 Sodium 136 Potassium 4.1 Chloride 100 Carbon Dioxide 32 H BUN 19 Creatinine 0.65 Glucose 137 H Calcium 8.7 - ABG Interpretation ABG results: PT/INR, D-dimer PT 46.1 Seconds (9.4-12.1) H* 10/23/17 05:52 - VTE Documentation of Mechanical Device: Graduated compression elastic hosiery Consult Discharge Plan - Plan Referrals: Tisha Celeste MD [Primary Care Provider] - (1) Congestive heart failure Qualifiers: Heart failure type: diastolic Heart failure chronicity: acute on chronic Qualified Code(s): I50.33 - Acute on chronic diastolic (congestive) heart failure (2) Hypertension Qualifiers: Hypertension type: essential hypertension Qualified Code(s): I10 - Essential (primary) hypertension (3) Atrial fibrillation Qualifiers: Atrial fibrillation type: paroxysmal Qualified Code(s): I48.0 - Paroxysmal atrial fibrillation (5) COPD (chronic obstructive pulmonary disease) Qualifiers: COPD type: unspecified COPD Qualified Code(s): J44.9 - Chronic obstructive pulmonary disease, unspecified
--- NOTE | 2017-10-23 17:46 | Electrocardiograph Report ---
[address] [place] [address] Test Date: 2017-10-21 Pat Name: Cathleen Frye Department: EXAM3 Room: 2NE25 Gender: F Netezza Developer: : [id number] Requested By: Tae Rothman Order Number: [id number] Reading MD: Olivia Koenig Measurements Intervals [place] Rate: 65 P: 39 DE: 138 QRS: 5 QRSD: 83 T: 45 QT: 430 QTc: 448 Interpretive Statements Sinus rhythm Atrial premature complex Low voltage, precordial leads Electronically Signed On 10-23-2017 17:44:36 EDT by Olivia Koenig
[2017-10-23] MEDS ORDERED: rOPINIRole 0.25 MG TABLET PO SCH (21:00)
[2017-10-24 07:02] VITALS: BP 146/79
[2017-10-24 07:28] LABS: Basophils # 0.1 K/mcL (0.0-0.2); Basophils % 0.8 %; Eosinophils # 0.2 K/mcL (0.0-0.6); Eosinophils % 2.8 %; Hematocrit 36.3 % (35.3-44.9); Hemoglobin 10.7 g/dL (11.5-15.4); Immature Granulocytes % 0.4 % (0-4); Lymphocytes # 2.8 K/mcL (0.6-4.6); Lymphocytes % 32.6 %; Mean Corpuscular HGB Conc 29.5 g/dL (31.6-35.5); Mean Corpuscular Hemoglobin 22.8 pg (28.0-33.3); Mean Corpuscular Volume 77.2 fL (83.0-100.0); Mean Platelet Volume 10.1 fL (9.4-12.4); Monocytes # 0.9 K/mcL (0.0-1.3); Monocytes % 11.1 %; Neutrophils # 4.4 K/mcL (1.6-8.9); Platelet Count 256 K/mcL (140-400); Red Cell Distribution Width 15.4 % (11.5-14.5); Segmented Neutrophils % 52.3 %
[2017-10-24 07:36] LABS: INR 2.8
[2017-10-24 07:48] LABS: BUN/Creatinine Ratio 33 (6-26); Blood Urea Nitrogen 21 mg/dL (8-23); Calcium 8.6 mg/dL (8.6-10.3); Carbon Dioxide 32 mEq/L (23-29); Chloride 98 mEq/L (98-107); Glucose 143 mg/dL (70-105); Osmolality,Calculated 287 (280-300); Potassium 4.1 mEq/L (3.5-5.1); Sodium 136 mEq/L (136-145); eGFR For Non-African Americans > 60 (> 60)
[2017-10-24] MEDS: Cholecalciferol (D-3) 1,000 UNIT TABLET PO SCH (08:29)
[2017-10-24] MEDS: FLUoxetine HCl 10 MG CAPSULE PO SCH (08:29)
[2017-10-24] MEDS: Furosemide 40 MG/4 ML VIAL IVP SCH (08:29)
--- NOTE | 2017-10-24 09:49 | Discharge Summary ---
- NOTES TO OUTPATIENT PROVIDER Notes to Outpatient Provider: Routine follow-up with primary care Date of Encounter: 10/24/17 Time of Encounter: 09:46 - Discharge Diagnosis (1) Congestive heart failure Priority: Primary Status: Acute Qualifiers: Heart failure type: diastolic Heart failure chronicity: acute on chronic Qualified Code(s): I50.33 - Acute on chronic diastolic (congestive) heart failure (2) Hypertension Priority: Secondary Status: Chronic Qualifiers: Hypertension type: essential hypertension Qualified Code(s): I10 - Essential (primary) hypertension (3) Atrial fibrillation Priority: Secondary Status: Chronic Qualifiers: Atrial fibrillation type: paroxysmal Qualified Code(s): I48.0 - Paroxysmal atrial fibrillation (4) KEVIN (obstructive sleep apnea) Priority: Secondary Status: Chronic (5) COPD (chronic obstructive pulmonary disease) Priority: Secondary Status: Chronic Qualifiers: COPD type: unspecified COPD Qualified Code(s): J44.9 - Chronic obstructive pulmonary disease, unspecified (6) Chronic hypoxemic respiratory failure Priority: Secondary Status: Chronic Hospital course: Ms. Frye is a 77 year old female past medical history of paroxysmal a.fib on rhythm control agents, diastolic heart failure and sleep apnea on CPAP. Patient presented to the emergency room complaining of shortness of breath following a Anxiety attack. Patient managed for acute diastolic CHF exacerbation with IV diuretics, 4 L of fluids were removed. Patient respiratory status is back to her baseline. And patient is hemodynamically stable to be discharged home. - Time Spent with Patient Total time spent providing and/or coordinating discharge services: Greater than 30 minutes - Discharge Medications Prescriptions: Hydrocortisone 1% CREAM [Cortaid] 1 appl TP BID PRN 30 Days #1 bottle PRN Reason: Itching Home Medications: Vitamin E Acid Succinate [Vitamin E] 100 unit PO DAILY 10/24/15 [History] Warfarin [Coumadin] 6 mg PO MOWETHFRSA 11/12/16 [History] Warfarin [Coumadin] 9 mg PO SUTU 11/12/16 [History] Naproxen Sodium [Aleve] 220 mg PO HS PRN 02/21/17 [History] Potassium 99 mg PO DAILY 02/21/17 [History] Sotalol [Betapace] 80 mg PO Q12HR #60 tablet 03/02/17 [Rx] Furosemide [Lasix] 20 mg PO BID 30 Days #60 tablet 03/03/17 [Rx] FLUoxetine HCl [Fluoxetine HCl] 10 mg PO DAILY 03/27/17 [History] Oxygen 2 l NS AD 03/27/17 [History] Losartan [Cozaar] 25 mg PO DAILY #30 tablet 03/30/17 [Rx] Cholecalciferol (D-3) [Vitamin D] 5,000 unit PO DAILY 10/21/17 [History] Cyanocobalamin (Vitamin B-12) [Vitamin B12] 1,000 mcg PO DAILY 10/21/17 [History ] rOPINIRole [Requip] 0.25 mg PO HS 10/23/17 [History] Hydrocortisone 1% CREAM [Cortaid] 1 appl TP BID PRN 30 Days #1 bottle 10/24/17 [ Rx] Allergies/Adverse Reactions: 3 Allergy/AdvReac Type Severity Reaction Status Date / Time codeine Allergy Shakiness Verified 10/21/17 17:12 Date of admission: 10/21/17 03:43 Primary care physician: Tisha Celeste - Constitutional Vitals: Temp Pulse Resp BP Pulse Ox 97.9 F 63 15 146/79 96 10/24/17 07:02 10/24/17 07:02 10/24/17 07:02 10/24/17 07:02 10/24/17 07:02 Exam: General: Alert and oriented 3. No acute distress. Cardiovascular: Normal S1 & S2, no rubs, murmurs or gallops. JVD about 6cm. Lungs: Mild crackles at the left lower base, no wheezing. Abdomen: Obese, Soft, non-tender, no rigidity. Extremities: 1+ edema in the lower extremities b/l. Neurological: CN II-XII intact. Rest of the physical exam is non contributory - Patient Status Disposition: Home, Self-Care Condition: Good Functional capacity at discharge: independent ambulation Overall status at discharge: patient is progressing back to baseline - Discharge Instructions Follow Up With: Tisha Celeste MD [Primary Care Provider] - - Diet and Activity Activity: resume usual activities as tolerated Diet: advance to your usual diet - VTE Documentation of Mechanical Device: Graduated compression elastic hosiery
== END 2017-10-24 13:10 | disposition home or self-care (01) ==
LOC: EMEROOARM 00:13 → 2NENU 00:13 → SUATTDRO 03:43 → 2NENU 04:44
PROVIDERS: ADMIT Internal Medicine; ATTEND Internal Medicine

== ENCOUNTER 2018-07-19 15:39 | Inpatient (IN) ==
--- NOTE | 2018-07-19 16:36 | Emergency Department Note ---
Disposition Clinical Impression: Atrial fibrillation with rapid ventricular response Disposition: Admitted As Inpatient Time of Disposition: 20:26 Arrhythmia/Palpitations HPI - General Chief Complaint: ED Arrhythmia/Palpitations Stated Complaint: A-Fib,JOIE Time Seen by Provider: 07/19/18 16:06 Source: patient Limitations: no limitations - History of Present Illness HPI Narrative: This 78-year-old female that presents to the emergency department with chief complaint of palpitations. Patient reports she has prior history of atrial fibrillation and takes sotalol for her A. fib. The patient reports over the last week she has been having increasing palpitations and increasing shortness of breath. Patient states she still tended to taking an additional dose of sotalol as well as her Lasix at home. Patient states that she feels as though her heart is beating fast and is having increasing shortness of breath. The patient denies chest pain - Related Data Home Medications Medication Instructions Recorded Confirmed Warfarin [Coumadin] 6 mg PO MOWETHFRSA 11/12/16 07/19/18 Warfarin [Coumadin] 9 mg PO SUTU 11/12/16 07/19/18 Potassium 99 mg PO DAILY 02/21/17 07/19/18 Oxygen 2 l NS CONT 03/27/17 07/19/18 Cholecalciferol (D-3) [Vitamin D] 1,000 unit PO DAILY 10/21/17 07/19/18 Cyanocobalamin (Vitamin B-12) 1,000 mcg PO DAILY 10/21/17 07/19/18 [Vitamin B12] rOPINIRole [Requip] 0.25 mg PO HS 10/23/17 07/19/18 Escitalopram [Lexapro] 10 mg PO QPM 03/26/18 07/19/18 Vitamin A 10,000 unit PO DAILY 05/21/18 07/19/18 Previous Rx's Medication Instructions Recorded Furosemide [Lasix] 20 mg PO BID 30 Days #60 tablet 03/03/17 Losartan [Cozaar] 25 mg PO DAILY #30 tablet 03/30/17 Sotalol [Betapace] 120 mg PO Q12HR #180 tablet 03/28/18 Levalbuterol Tartrate [Xopenex Hfa] 15 gm IH Q4-6H PRN #1 hfa.[email or web address] 07/17/18 Allergies Allergy/AdvReac Type Severity Reaction Status Date / Time albuterol AdvReac See Verified 07/19/18 15:47 Comments codeine AdvReac "Shakiness Verified 07/19/18 15:47 on the inside" gabapentin AdvReac "weird Verified 07/19/18 15:47 dreams/ on edge" All systems ED: reviewed and negative except as stated. Past Medical History - Past Medical History Attestation: Yes The following information was validated with the patient. 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 Head: Normocephalic/atraumatic Eyes:PERRLA, EOMI, no conjunctivitis Nares: Without d/c. Ears: No erythema or d/c noted. Oralpharnyx: P&MMM noted, Neck: Supple, no JVD or REPAIRER PUMP noted. Cardovascular: Tachycardic irregularly irregular rhythm without murmur, brisk capillary refill, no peripheral edema. Lungs: Clear to ascultation bilaterally, non-labored Abd: Soft nontender, Non Distended, no guarding, no rebound. : Defered Extremities: moves all extremities equally Neuro: AOx3, no obvious gross neuro deficit Psych: Normal Affect Derm: No rash noted - General Limitations: no limitations General appearance: alert, in no apparent distress Course Course Narrative: The patient was started on IV Cardizem in the emergency department the case will be discussed with the hospitalist and the plan is to admit the patient for rate control Vital Signs Temperature 98.2 F 07/19/18 15:43 Pulse Rate 144 07/19/18 15:43 Respiratory Rate 20 07/19/18 15:43 Blood Pressure 120/74 07/19/18 15:43 O2 Sat by Pulse Oximetry 93 07/19/18 15:43 Temperature 98.2 F 07/19/18 15:43 Pulse Rate 105 07/19/18 19:54 Respiratory Rate 19 07/19/18 19:54 Blood Pressure 111/56 07/19/18 19:54 O2 Sat by Pulse Oximetry 95 07/19/18 19:54 Oxygen Delivery Oxygen Delivery Nasal Cannula Arrhythmia/Palpitations - Lab Data Result diagrams: 07/19/18 16:28 07/19/18 16:28 Lab Results 07/19/18 07/19/18 07/19/18 Range/Units 16:28 16:28 16:28 WBC 9.0 (4.3-11.1) K/mcL RBC 5.59 H (3.82-4.97) M/mcL Hgb 14.2 (11.5-15.4) g/dL Hct 46.7 H (35.3-44.9) % MCV 83.5 (83.0-100.0) fL MCH 25.4 L (28.0-33.3) pg MCHC 30.4 L (31.6-35.5) g/dL RDW 25.8 H (11.5-14.5) % Plt Count 219 (140-400) K/mcL MPV 10.3 (9.4-12.4) fL Immature Gran % 0.3 (0-4) % Seg Neutrophils % 58.7 % Lymphocytes % 27.6 % Monocytes % 8.0 % Eosinophils % 4.8 % Basophils % 0.6 % Neutrophils # 5.3 (1.6-8.9) K/mcL Lymphocytes # 2.5 (0.6-4.6) K/mcL Monocytes # 0.7 (0.0-1.3) K/mcL Eosinophils # 0.4 (0.0-0.6) K/mcL Basophils # 0.1 (0.0-0.2) K/mcL Platelet Estimate Normal (Normal) Anisocytosis 2+ A (Not Present) PT 27.7 H (9.4-12.1) Seconds INR 2.5 APTT 51.8 H (26.0-36.0) Seconds Sodium 139 (136-145) mEq/L Potassium 3.8 (3.5-5.1) mEq/L Chloride 99 (98-107) mEq/L Carbon Dioxide 32 H (23-29) mEq/L BUN 12 (8-23) mg/dL Creatinine 0.48 L (0.60-1.20) mg/dL Est GFR ( Amer) > 60 (> 60) Est GFR (Non-Af Amer) > 60 (> 60) BUN/Creatinine Ratio 25 (6-26) Glucose 162 H (70-105) mg/dL Calculated Osmolality 291 (280-300) Calcium 8.7 (8.6-10.3) mg/dL Magnesium 1.8 (1.6-2.6) mg/dL Troponin I < 0.03 (< 0.04) ng/mL TSH 2.808 (0.340-5.600) mcIU/mL Urine Color (Yellow) Urine Clarity (Clear) Urine pH (5.0-8.0) pH Units Ur Specific [place] (1.010-1.025) Urine Protein (Neg-Trace) mg/dL Urine Glucose (UA) (Normal) mg/dL Urine Ketones (Negative) mg/dL Urine Blood (Negative) Urine Nitrite (Negative) Urine Bilirubin (Negative) Urine Urobilinogen (Normal) mg/dL Ur Leukocyte Esterase (Negative) Urine Microscopic RBC (0-3) per hpf Urine Microscopic WBC (0-3) per hpf Ur Squamous Epith Cells (None-Few) per lpf Urine Bacteria (None-Few) per hpf Hyaline Casts (None-Few) per lpf Ur Culture Indicated? (NO) Urine Opiates Screen (Barmld=066) ng/mL Ur Barbiturates Screen (Uxmczd=405) ng/mL Ur Phencyclidine Scrn (Cutoff=25) ng/mL Ur Amphetamines Screen (Dmsiog=3743) ng/mL U Benzodiazepines Scrn (Wrmkjm=187) ng/mL Urine Cocaine Screen (Cutoff= 300) ng/mL U Marijuana (THC) Screen (Cutoff = 50) ng/mL Ur Drug Screen Interp 07/19/18 07/19/18 Range/Units 16:28 16:28 WBC (4.3-11.1) K/mcL RBC (3.82-4.97) M/mcL Hgb (11.5-15.4) g/dL Hct (35.3-44.9) % MCV (83.0-100.0) fL MCH (28.0-33.3) pg MCHC (31.6-35.5) g/dL RDW (11.5-14.5) % Plt Count (140-400) K/mcL MPV (9.4-12.4) fL Immature Gran % (0-4) % Seg Neutrophils % % Lymphocytes % % Monocytes % % Eosinophils % % Basophils % % Neutrophils # (1.6-8.9) K/mcL Lymphocytes # (0.6-4.6) K/mcL Monocytes # (0.0-1.3) K/mcL Eosinophils # (0.0-0.6) K/mcL Basophils # (0.0-0.2) K/mcL Platelet Estimate (Normal) Anisocytosis (Not Present) PT (9.4-12.1) Seconds INR APTT (26.0-36.0) Seconds Sodium (136-145) mEq/L Potassium (3.5-5.1) mEq/L Chloride (98-107) mEq/L Carbon Dioxide (23-29) mEq/L BUN (8-23) mg/dL Creatinine (0.60-1.20) mg/dL Est GFR ( Amer) (> 60) Est GFR (Non-Af Amer) (> 60) BUN/Creatinine Ratio (6-26) Glucose (70-105) mg/dL Calculated Osmolality (280-300) Calcium (8.6-10.3) mg/dL Magnesium (1.6-2.6) mg/dL Troponin I (< 0.04) ng/mL TSH (0.340-5.600) mcIU/mL Urine Color Yellow (Yellow) Urine Clarity Clear (Clear) Urine pH 6.0 (5.0-8.0) pH Units Ur Specific [place] 1.014 (1.010-1.025) Urine Protein 30 H (Neg-Trace) mg/dL Urine Glucose (UA) Normal (Normal) mg/dL Urine Ketones Negative (Negative) mg/dL Urine Blood Negative (Negative) Urine Nitrite Negative (Negative) Urine Bilirubin Negative (Negative) Urine Urobilinogen Normal (Normal) mg/dL Ur Leukocyte Esterase Small H (Negative) Urine Microscopic RBC 0-3 (0-3) per hpf Urine Microscopic WBC 5-15 H (0-3) per hpf Ur Squamous Epith Cells Many H (None-Few) per lpf Urine Bacteria None Seen (None-Few) per hpf Hyaline Casts None Seen (None-Few) per lpf Ur Culture Indicated? YES A (NO) Urine Opiates Screen Negative (Ywvvvt=569) ng/mL Ur Barbiturates Screen Negative (Xppqph=146) ng/mL Ur Phencyclidine Scrn Negative (Cutoff=25) ng/mL Ur Amphetamines Screen Negative (Ntfgir=1112) ng/mL U Benzodiazepines Scrn Negative (Nhdorq=481) ng/mL Urine Cocaine Screen Negative (Cutoff= 300) ng/mL U Marijuana (THC) Screen Negative (Cutoff = 50) ng/mL Ur Drug Screen Interp See Below
[2018-07-19 16:55] LABS: Bilirubin,Urine Negative (Negative); Blood,Urine Negative (Negative); Clarity,Urine Clear (Clear); Color,Urine Yellow (Yellow); Glucose,Urine (UA) Normal (Normal); Ketones,Urine Negative (Negative); Leukocyte Esterase,Urine Small (Negative); Nitrite,Urine Negative (Negative); Protein,Urine 30 mg/dL (Neg-Trace); Specific Gravity,Urine 1.014 (1.010-1.025); Urobilinogen,Urine Normal (Normal)
[2018-07-19 16:57] LABS: Bacteria,Urine None Seen per hpf (None-Few); Basophils # 0.1 K/mcL (0.0-0.2); Basophils % 0.6 %; Eosinophils # 0.4 K/mcL (0.0-0.6); Eosinophils % 4.8 %; Hematocrit 46.7 % (35.3-44.9); Hemoglobin 14.2 g/dL (11.5-15.4); Hyaline Casts,Urine None Seen per lpf (None-Few); Immature Granulocytes % 0.3 % (0-4); Lymphocytes # 2.5 K/mcL (0.6-4.6); Lymphocytes % 27.6 %; Mean Corpuscular HGB Conc 30.4 g/dL (31.6-35.5); Mean Corpuscular Hemoglobin 25.4 pg (28.0-33.3); Mean Corpuscular Volume 83.5 fL (83.0-100.0); Mean Platelet Volume 10.3 fL (9.4-12.4); Monocytes # 0.7 K/mcL (0.0-1.3); Neutrophils # 5.3 K/mcL (1.6-8.9); Platelet Count 219 K/mcL (140-400); RBC,Urine 0-3 per hpf (0-3); Red Blood Count 5.59 M/mcL (3.82-4.97); Red Cell Distribution Width 25.8 % (11.5-14.5); Segmented Neutrophils % 58.7 %; Squamous Epithelial Cell,Urine Many per lpf (None-Few)
[2018-07-19 17:09] LABS: Amphetamine Screen,Urine Negative ng/mL (Cutoff=1000); Barbiturate Screen,Urine Negative ng/mL (Cutoff=200); Benzodiazepines Screen,Urine Negative ng/mL (Cutoff=200); Cannabinoid Screen,Urine Negative ng/mL (Cutoff = 50); Cocaine Screen,Urine Negative ng/mL (Cutoff= 300); Opiate Screen,Urine Negative ng/mL (Cutoff=300); Phencyclidine Screen,Urine Negative ng/mL (Cutoff=25)
[2018-07-19 17:10] LABS: INR 2.5; Prothrombin Time 27.7 Seconds (9.4-12.1)
[2018-07-19 17:12] LABS: Activated Partial Thrombo Time 51.8 Seconds (26.0-36.0)
[2018-07-19 17:19] LABS: BUN/Creatinine Ratio 25 (6-26); Blood Urea Nitrogen 12 mg/dL (8-23); Calcium 8.7 mg/dL (8.6-10.3); Carbon Dioxide 32 mEq/L (23-29); Chloride 99 mEq/L (98-107); Glucose 162 mg/dL (70-105); Magnesium 1.8 mg/dL (1.6-2.6); Osmolality,Calculated 291 (280-300); Potassium 3.8 mEq/L (3.5-5.1); Sodium 139 mEq/L (136-145); Troponin I < 0.03 ng/mL (< 0.04); eGFR For African Americans > 60 (> 60); eGFR For Non-African Americans > 60 (> 60)
[2018-07-19 17:32] LABS: Anisocytosis 2+ (Not Present); Platelet Estimate Normal (Normal)
[2018-07-19 17:33] LABS: Thyroid Stimulating Hormone 2.808 mcIU/mL (0.340-5.600)
[2018-07-19] MEDS ORDERED: *HR* OxyCODONE Immed Rel 5 MG TABLET PO PRN (19:32)
[2018-07-19] MEDS ORDERED: Ondansetron 4 MG/2 ML VIAL IVP PRN (19:32)
[2018-07-19] MEDS ORDERED: Acetaminophen 325 MG TABLET PO PRN (19:32)
[2018-07-19] MEDS ORDERED: Naloxone 0.4 MG/ML INJ IVP PRN (19:32)
[2018-07-19] MEDS ORDERED: *HR* HYDROcodone/Acet 5/325 mg TABLET PO PRN (19:32)
[2018-07-19] MEDS ORDERED: Levalbuterol 1 PUFF INHALER IH PRN (19:34)
--- NOTE | 2018-07-19 19:39 | Internal Med History&Physical ---
Date of Encounter: 07/19/18 Time of Encounter: 19:37 Internal Medicine - H&P: HPI Chief complaint: Shortness of breath, palpitations Admitted From: Emergency Dept Plans for Post Hospital Care: Home History of present illness: Ms. Frye is a 78 year old female with history of atrial fibrillation, COPD presents with palpitations. Patient states that over the last week she has felt generally lousy and has complained of palpitations and shortness of breath. She states she feels like her heart is racing. She states this feels similar to her previous episodes of A. fib with elevated heart rate. She states this is making her feel worn out and tired. She states it is worse with activity and better with rest. She states she has been previously admitted for her A. fib. She denies any chest pain, fever, chills, abdominal pain, nausea, vomiting. Discussed with patient who wishes to be full code. Past Med Surg Social Fam HX - Past Medical History Medical history: arthritis, atrial fibrillation, CHF, COPD, hypertension Additional medical history: Claustrophobia Psychiatric history: no psych history - Past Surgical History Surgical History: appendectomy, cataract, cholecystectomy, orthopedic, other, other Additional surgical history: Carpal tunnel, Right shoulder repair, Vein stripping - Social History Smoking Status: Current every day smoker Smokeless Tobacco Status: No Alcohol use: none Drug use: none - Family History Mother Living Status: Hx Family Cardiac Disorders: Yes Hx Family Endocrine Disorder: Yes Father Living Status: Hx Family Cardiac Disorders: No Hx Family Respiratory Disorders: No Internal Medicine - H&P: Meds Warfarin [Coumadin] 6 mg PO MOWETHFRSA 11/12/16 [History] Warfarin [Coumadin] 9 mg PO SUTU 11/12/16 [History] Potassium 99 mg PO DAILY 02/21/17 [History] Furosemide [Lasix] 20 mg PO BID 30 Days #60 tablet 03/03/17 [Rx] Oxygen 2 l NS CONT 03/27/17 [History] Losartan [Cozaar] 25 mg PO DAILY #30 tablet 03/30/17 [Rx] Cholecalciferol (D-3) [Vitamin D] 1,000 unit PO DAILY 10/21/17 [History] Cyanocobalamin (Vitamin B-12) [Vitamin B12] 1,000 mcg PO DAILY 10/21/17 [History] rOPINIRole [Requip] 0.25 mg PO HS 10/23/17 [History] Escitalopram [Lexapro] 10 mg PO QPM 03/26/18 [History] Sotalol [Betapace] 120 mg PO Q12HR #180 tablet 03/28/18 [Rx] Vitamin A 10,000 unit PO DAILY 05/21/18 [History] Levalbuterol Tartrate [Xopenex Hfa] 15 gm IH Q4-6H PRN #1 hfa.[email or web address] 07/17/18 [Rx] Allergy/AdvReac Type Severity Reaction Status Date / Time albuterol AdvReac See Verified 07/19/18 15:47 Comments codeine AdvReac "Shakiness Verified 07/19/18 15:47 on the inside" gabapentin AdvReac "weird Verified 07/19/18 15:47 dreams/ on edge" All Systems PM: A 10-system review of systems was performed and is negative for pertinent findings except as documented above in the HPI. Review of systems: 10 point review of systems was obtained and negative other than stated below: - Constitutional Constitutional: no chills, no fever(s) - Cardiovascular Cardiovascular ROS IM: dyspnea, irregular heart rhythm, lightheadedness, palpitations, no chest pain, no edema, no syncope - Respiratory Respiratory: dyspnea, no cough - Gastrointestinal Gastrointestinal: no abdominal pain, no nausea, no vomiting - Constitutional Vitals: Temp Pulse Resp BP Pulse Ox 98.2 F 97 27 100/58 94 07/19/18 15:43 07/19/18 19:35 07/19/18 19:35 07/19/18 19:35 07/19/18 19:35 General appearance: Present: A&O X 3, pleasant, no acute distress Exam: . - Head Head exam: Present: atraumatic, normal inspection, normocephalic - Eye Eye exam: Present: EOMI, PERRL - ENT ENT exam: Present: mucous membranes moist, normal oropharynx - Neck Neck exam general surgery: Present: full ROM. Absent: tenderness - Respiratory Respiratory exam: Present: CTAB. Absent: rales, respiratory distress, rhonchi, wheezes, tachypnea - Cardiovascular Cardiovascular exam: Present: irregular rhythm, tachycardia. Absent: gallop, rubs, systolic murmur - GI/Abdominal GI/Abdominal exam: Present: soft. Absent: distended, tenderness - Extremities Exam Extremities exam: Present: pedal edema (Trace), warm. Absent: tenderness - Neurological Exam Neurological exam: Present: alert, CN II-XII intact, oriented X3, no focal deficits, strengths equal and symetr throughout - Psychiatric Psychiatric exam: Present: normal affect, normal mood - Skin Skin exam: Present: dry, intact, warm Internal Med - H&P Results - Labs CBC & Chem 7: 07/19/18 16:28 07/19/18 16:28 Labs: Short CBC 07/19/18 Range/Units 16:28 WBC 9.0 (4.3-11.1) K/mcL Hgb 14.2 (11.5-15.4) g/dL Hct 46.7 H (35.3-44.9) % Plt Count 219 (140-400) K/mcL Neutrophils # 5.3 (1.6-8.9) K/mcL BMP 07/19/18 16:28 Sodium 139 Potassium 3.8 Chloride 99 Carbon Dioxide 32 H BUN 12 Creatinine 0.48 L Glucose 162 H Calcium 8.7 Cardiac Enzymes 07/19/18 Range/Units 16:28 Troponin I < 0.03 (< 0.04) ng/mL Urine 07/19/18 Range/Units 16:28 Urine Color Yellow (Yellow) Urine Clarity Clear (Clear) Urine pH 6.0 (5.0-8.0) pH Units Ur Specific [place] 1.014 (1.010-1.025) Urine Protein 30 H (Neg-Trace) mg/dL Urine Glucose (UA) Normal (Normal) mg/dL - Impressions ITS Impressions Chest X-Ray 07/19/18 15:47 IMPRESSION: Mild pulmonary vascular congestion without evidence of overt edema. D/ / 07/19/2018 16:39:34 Nicki Zepeda MD / [employer]old Interpreting Provider: Nicki Zepeda MD - Assessment and Plan (1) Atrial fibrillation with rapid ventricular response Current Visit: Yes Status: Acute Assessment and plan: Patient presents with palpitations and shortness of breath. Heart rate on presentation was 145. EKG reviewed and shows atrial fibrillation with rapid ventricular response. Patient has known underlying A. fib and is currently on sotalol therapy. Cardizem drip has been initiated in the ER which is controlled her heart rate down to around 100. Continue sotalol. Consult cardiology for further recommendations regarding medical management or possible cardioversion. Continue warfarin for anticoagulation (2) COPD (chronic obstructive pulmonary disease) Current Visit: No Status: Chronic Assessment and plan: No evidence of acute exacerbation. Continue supplemental oxygen at home dose and when necessary bronchodilators. Qualifiers: COPD type: unspecified COPD Qualified Code(s): J44.9 - Chronic obstructive pulmonary disease, unspecified (3) Chronic hypoxemic respiratory failure Current Visit: No Status: Chronic Assessment and plan: Currently on her home O2 dose of 2 L and satting in the 90s. Continue 2 L of oxygen to maintain saturation greater than 88%. (4) Type 2 diabetes mellitus without complications Current Visit: No Status: Acute Assessment and plan: Blood sugar mildly elevated on presentation. Most recent hemoglobin A1c noted to be 7.1. Start Accu-Cheks before meals and at bedtime with low-dose sliding so coverage. Continue to monitor blood sugars and adjust insulin regimen as necessary. 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 fib and therapeutic with her INR. No indication for further DVT prophylaxis. - Time Spent With Patient Total time spent is greater than 50% in coordination of care (as documented) at patient's floor/unit and/or counseling patient:
[2018-07-19] MEDS ORDERED: *HR* Dextrose 50 % in Water (Syg) 50 ML SYRINGE IVP PRN (19:46)
[2018-07-19] MEDS ORDERED: Dextrose Gel 15 GM/37.5 ML TUBE PO PRN ×2 (19:46)
[2018-07-19] MEDS ORDERED: D5% in Water 1,000 ML IVC PRN (19:46)
[2018-07-19] MEDS ORDERED: *HR* Warfarin 3 MG TABLET PO ONE (21:30)
[2018-07-19] MEDS: Furosemide 20 MG TABLET PO SCH (23:10)
[2018-07-19] MEDS: rOPINIRole 0.25 MG TABLET PO SCH (23:10)
[2018-07-19] MEDS: Insulin LISPRO 300 UNITS/3 ML VIAL SQ SCH (23:11)
[2018-07-20 03:10] LABS: Basophils # 0.1 K/mcL (0.0-0.2); Basophils % 0.6 %; Eosinophils # 0.3 K/mcL (0.0-0.6); Eosinophils % 3.3 %; Hematocrit 43.5 % (35.3-44.9); Hemoglobin 13.4 g/dL (11.5-15.4); Immature Granulocytes % 0.3 % (0-4); Lymphocytes # 2.6 K/mcL (0.6-4.6); Lymphocytes % 25.2 %; Mean Corpuscular HGB Conc 30.8 g/dL (31.6-35.5); Mean Corpuscular Hemoglobin 26.1 pg (28.0-33.3); Mean Corpuscular Volume 84.6 fL (83.0-100.0); Monocytes # 0.9 K/mcL (0.0-1.3); Monocytes % 8.7 %; Platelet Count 189 K/mcL (140-400); Red Blood Count 5.14 M/mcL (3.82-4.97); Red Cell Distribution Width 25.4 % (11.5-14.5); Segmented Neutrophils % 61.9 %; White Blood Count 10.4 K/mcL (4.3-11.1)
[2018-07-20 03:21] LABS: INR 2.3; Prothrombin Time 26.3 Seconds (9.4-12.1)
[2018-07-20 03:27] LABS: Neutrophils # 6.4 K/mcL (1.6-8.9)
[2018-07-20 03:30] LABS: BUN/Creatinine Ratio 20 (6-26); Blood Urea Nitrogen 17 mg/dL (8-23); Calcium 8.5 mg/dL (8.6-10.3); Carbon Dioxide 32 mEq/L (23-29); Chloride 99 mEq/L (98-107); Glucose 164 mg/dL (70-105); Magnesium 1.8 mg/dL (1.6-2.6); Osmolality,Calculated 293 (280-300); Potassium 3.7 mEq/L (3.5-5.1); Sodium 139 mEq/L (136-145); eGFR For African Americans > 60 (> 60); eGFR For Non-African Americans > 60 (> 60)
[2018-07-20 04:02] LABS: Anisocytosis 1+ (Not Present); Microcytosis Present (Not Present); Poikilocytosis 1+ (Not Present)
[2018-07-20 04:03] LABS: Ovalocytes 1+ (Not Present); Platelet Estimate Normal (Normal)
[2018-07-20 04:04] LABS: Hypochromasia Present (Not Present)
[2018-07-20] MEDS: Insulin LISPRO 300 UNITS/3 ML VIAL SQ SCH ×4 (07:40→22:20)
--- NOTE | 2018-07-20 08:31 | Cardiology Consult Note ---
<Chris Leach R - Last Filed: 07/20/18 09:58> Date of Encounter: 07/20/18 Time of Encounter: 08:29 Assessment and Plan (1) PAF (paroxysmal atrial fibrillation) Current Visit: Yes Status: Chronic Known PAF on Sotalol 120mg BID and anticoagulated on Coumadin, INR 2.3. Presented A-Flutte RVR and was started on cardizem gtt. Coverted to SR, then became bradycardic. Lowest HR noted 42 SR. No significant pauses. ECG this AM SB rate 42, QT/QTc 467/410ms. Anticipate HR will improve as Cardizem washes out. Will plan to continue Sotalol 120mg BID given normal renal function and normal QTc. Continue to monitor telemetry. Pt reports increased dyspnea. TTE 10/21/17: LVEF 70%. No significant valvular dysfunction. Will repeat limited TTE. Continue to follow. Discussion w patient/family: The assessment and plan as outlined above was discussed with the patient and/or family members who expressed understanding and agreement. All questions were answered. Thank you for involving us in the care of your patient. Please call with any questions. I will discuss all the above with Dr. Herrera and make changes as necessary. History of Present Illness Consult date: 07/20/18 Requesting physician: Roland Martinez Consult reason: PAF Chief complaint: palpitations History of present illness: Ms. Frye is a 78 year old female with PMH of PAF on Sotalol and Coumadin, COPD that presents with palpitations. Patient states that over the last week she has felt generally lousy and has complained of palpitations and shortness of breath. She states she feels like her heart is racing, feels similar to her previous episodes of A. fib with elevated heart rate. Reports chest tightness. She states this is making her feel worn out and tired. She is on Sotalol 120mg BID. Noted to be in A-Flutter RVR on admission. Cardiology consulted for further recs. Pt was started on Cardizem gtt, converted to SR then became bradycardic. Cardizem gtt turned off. Prior CV testing: TTE 10/21/17: LVEF 70%. Normal LV chamber size, wall thickness and function. Normal right ventricular structure and function. No significant valvular dysfunction. Unable to estimate pulmonary artery pressure due to lack of TR jet. Holter 03/30/17: 1. Baseline rhythm normal sinus. 2. Occasional PVCs. 3. Frequent PACs. 4. Two short runs PAT. 5. Symptoms correlate with sinus rhythm. Past Med Surg Social Fam HX - Past Medical History Medical history: arthritis, atrial fibrillation, CHF, COPD, hypertension Additional medical history: Claustrophobia Psychiatric history: no psych history - Past Surgical History Surgical History: appendectomy, cataract, cholecystectomy, orthopedic, other, other Additional surgical history: Carpal tunnel, Right shoulder repair, Vein stripping - Social History Smoking Status: Current every day smoker Smokeless Tobacco Status: No Alcohol use: none Drug use: none - Family History Mother Living Status: Age at : 50 Hx Family Cardiac Disorders: Yes Hx Family Endocrine Disorder: Yes Father Living Status: Hx Family Cardiac Disorders: No Hx Family Respiratory Disorders: No Medications and Allergies Warfarin [Coumadin] 3 mg PO SUTH 11/12/16 [History] Warfarin [Coumadin] 6 mg PO MOWETHFRSA 11/12/16 [History] Potassium 99 mg PO DAILY 02/21/17 [History] Furosemide [Lasix] 20 mg PO BID 30 Days #60 tablet 03/03/17 [Rx] Losartan [Cozaar] 25 mg PO DAILY #30 tablet 03/30/17 [Rx] Cholecalciferol (D-3) [Vitamin D] 1,000 unit PO DAILY 10/21/17 [History] Cyanocobalamin (Vitamin B-12) [Vitamin B12] 1,000 mcg PO DAILY 10/21/17 [History] rOPINIRole [Requip] 0.25 mg PO HS 10/23/17 [History] Escitalopram [Lexapro] 10 mg PO QPM 03/26/18 [History] Sotalol [Betapace] 120 mg PO Q12HR #180 tablet 03/28/18 [Rx] Vitamin A 10,000 unit PO DAILY 05/21/18 [History] Levalbuterol Tartrate [Xopenex Hfa] 15 gm IH Q4-6H PRN #1 hfa.[email or web address].[email or web address] 07/17/18 [Rx] Allergy/AdvReac Type Severity Reaction Status Date / Time albuterol AdvReac See Verified 07/20/18 12:53 Comments codeine AdvReac "Shakiness Verified 07/20/18 12:53 on the inside" gabapentin AdvReac "weird Verified 07/20/18 12:53 dreams/ on edge" All Systems Review: The remainder of the systems were reviewed and are negative - Cardiovascular Cardiovascular: as per HPI, chest pain at rest, dyspnea at rest, dyspnea on exertion, palpitations - Respiratory Respiratory: dyspnea Physical Examination Vital Signs, Last 4 Hours Temp Pulse Resp BP Pulse Ox 07/20/18 06:58 60 133/74 07/20/18 06:38 97.9 F 55 16 121/56 93 07/20/18 05:45 52 118/62 07/20/18 04:45 52 112/56 Vital Signs Temp Pulse Resp BP Pulse Ox 07/20/18 06:58 60 133/74 07/20/18 06:38 97.9 F 55 16 121/56 93 07/20/18 05:45 52 118/62 07/20/18 04:45 52 112/56 07/20/18 04:11 53 115/64 07/20/18 03:35 58 111/59 07/20/18 03:20 56 116/54 07/20/18 03:05 98 F 54 20 118/58 94 07/20/18 02:50 54 115/59 07/20/18 02:22 54 102/58 07/20/18 02:03 56 107/62 07/20/18 01:45 55 16 108/66 94 07/20/18 01:20 59 16 107/66 93 07/20/18 01:04 98.5 F 61 20 107/63 92 07/20/18 00:50 57 16 115/62 95 07/20/18 00:23 62 138/63 94 07/19/18 23:55 68 108/62 07/19/18 23:40 60 118/60 07/19/18 23:35 20 94 07/19/18 23:25 57 16 116/60 07/19/18 21:47 97.9 F 64 19 121/68 91 07/19/18 19:54 105 19 111/56 95 07/19/18 19:35 97 27 100/58 94 07/19/18 18:46 108 37 113/63 95 07/19/18 18:14 108 25 121/100 94 07/19/18 17:29 136 29 146/104 95 07/19/18 17:01 145 14 132/96 90 07/19/18 16:29 95 07/19/18 15:43 98.2 F 144 20 120/74 93 Intake and Output 07/19/18 07/20/18 07/20/18 23:59 07:59 15:59 Intake Total 114.9 / 114.9 13.1 / 253.1 240 / 253.1 Balance 114.9 / 114.9 13.1 / 253.1 240 / 253.1 Intake: IV Fluids 114.9 / 114.9 13.1 / 13.1 Cardizem 125 MG In 0.9 % Sodium 114.9 / 114.9 13.1 / 13.1 Chloride 100 ML @ 5 MG/HR 5 mls/hr IVC CONT DARREN Rx#: [id number] Oral 240 / 240 Other: Meal Breakfast Percent of Meal Consumed 25% Weight 86.6 kg Blood Glucose* 130 Patient Weight 07/20/18 23:59 Weight 86.6 kg General: Conversant, No Apparent Distress HEENT: Atraumatic, Normocephaly, Mucus Membranes Moist Neck: No JVD, Normal carotid pulses Cardiac: Reg Rate and Rhythm, Normal S1 and S2, No Murmur Lungs: Normal Breath Sounds, No Wheeze, Rales, Rhonchi Neuro: Alert and responsive, No focal deficits noted Abdomen: Soft, Non-Tender Skin: No rashes noted on visualized skin Musculoskeletal: No Chest Wall Tenderness Extremities: No Clubbing, No Cyanosis, No Edema, Normal Pulses Results 07/20/18 02:47 07/20/18 02:47 Lab Results 07/19/18 07/19/18 07/19/18 16:28 16:28 16:28 WBC 9.0 Hgb 14.2 Hct 46.7 H Plt Count 219 INR 2.5 APTT 51.8 H Sodium 139 Potassium 3.8 Chloride 99 Carbon Dioxide 32 H BUN 12 Creatinine 0.48 L Glucose 162 H Calcium 8.7 Magnesium 1.8 Troponin I < 0.03 TSH 2.808 07/20/18 07/20/18 07/20/18 02:47 02:47 02:47 WBC 10.4 Hgb 13.4 Hct 43.5 Plt Count 189 INR 2.3 APTT Sodium 139 Potassium 3.7 Chloride 99 Carbon Dioxide 32 H BUN 17 Creatinine 0.83 Glucose 164 H Calcium 8.5 L Magnesium 1.8 Troponin I TSH Short CBC 07/20/18 07/19/18 Range/Units 02:47 16:28 WBC 10.4 9.0 (4.3-11.1) K/mcL Hgb 13.4 14.2 (11.5-15.4) g/dL Hct 43.5 46.7 H (35.3-44.9) % Plt Count 189 219 (140-400) K/mcL Neutrophils # 6.4 5.3 (1.6-8.9) K/mcL BMP 07/20/18 07/19/18 Range/Units 02:47 16:28 Sodium 139 139 (136-145) mEq/L Potassium 3.7 3.8 (3.5-5.1) mEq/L Chloride 99 99 (98-107) mEq/L Carbon Dioxide 32 H 32 H (23-29) mEq/L BUN 17 12 (8-23) mg/dL Creatinine 0.83 0.48 L (0.60-1.20) mg/dL Glucose 164 H 162 H (70-105) mg/dL Calcium 8.5 L 8.7 (8.6-10.3) mg/dL Cardiac Enzymes 07/19/18 Range/Units 16:28 Troponin I < 0.03 (< 0.04) ng/mL Urine 07/19/18 Range/Units 16:28 Urine Color Yellow (Yellow) Urine Clarity Clear (Clear) Urine pH 6.0 (5.0-8.0) pH Units Ur Specific [place] 1.014 (1.010-1.025) Urine Protein 30 H (Neg-Trace) mg/dL Urine Glucose (UA) Normal (Normal) mg/dL Impressions Chest X-Ray 07/19/18 15:47 IMPRESSION: Mild pulmonary vascular congestion without evidence of overt edema. D/ / 07/19/2018 16:39:34 Nicki Zepeda MD / [facility] Interpreting Provider: Nicki Zepeda MD Active Medications Acetaminophen (Tylenol) 650 mg PO Q6HR PRN PRN Reason: Mild Pain/Fever Stop: 01/18/19 19:33 Hydrocodone Bitart/Acetaminophen ([place] 5-325 Mg) 1 tab PO Q6HR PRN PRN Reason: Moderate Pain Stop: 01/18/19 19:33 Cyanocobalamin (Vitamin B12) 1,000 mcg PO DAILY [facility] Stop: 01/19/19 09:01 Last Admin: 07/20/18 09:29 Dose: 1,000 mcg Documented by: Dextrose/Water (Dextrose 50% (Syg)) 25 ml IVP AD PRN PRN Reason: Hypoglycemia Stop: 01/18/19 19:47 Escitalopram Oxalate (Lexapro) 10 mg PO HS [facility] Stop: 01/18/19 21:41 Last Admin: 07/19/18 23:10 Dose: 10 mg Documented by: Furosemide (Lasix) 20 mg PO BID [facility] Stop: 01/18/19 21:01 Last Admin: 07/20/18 09:29 Dose: 20 mg Documented by: Glucagon (Glucagen) 1 mg IM ONCE PRN PRN Reason: Hypoglycemia Stop: 01/18/19 19:47 Glucose (Gluctose) 15 gm PO ONCE PRN PRN Reason: Hypoglycemia Stop: 01/18/19 19:47 Glucose (Gluctose) 30 gm PO ONCE PRN PRN Reason: Hypoglycemia Stop: 01/18/19 19:47 Dextrose (Dextrose 5%) 1,000 mls @ 100 mls/hr IVC .Q10H PRN PRN Reason: HYPOGLYCEMIA Stop: 01/18/19 19:47 Insulin Human Lispro (Humalog) 0 units SQ TIDAC [facility]; Protocol Stop: 01/19/19 07:31 Last Admin: 07/20/18 07:40 Dose: Not Given Documented by: Insulin Human Lispro (Humalog) 0 units SQ [facility]; Protocol Stop: 01/18/19 21:01 Last Admin: 07/19/18 23:11 Dose: Not Given Documented by: Levalbuterol HCl (Xopenex) 2 puff IH Q4H PRN PRN Reason: Wheezing Stop: 01/18/19 19:35 Naloxone HCl (Narcan) 0.4 mg IVP Q2MPRN PRN PRN Reason: SEE COMMENTS Stop: 01/18/19 19:33 Ondansetron HCl (Zofran) 4 mg IVP Q8HR PRN PRN Reason: Nausea And Vomiting Stop: 01/18/19 19:33 Oxycodone HCl (Roxicodone) 10 mg PO Q6HR PRN PRN Reason: Severe Pain Stop: 01/18/19 19:33 Pharmacy Profile Note (Patient Taking Own Medication) 1 each PO DAILY [facility] Stop: 01/19/19 09:01 Last Admin: 07/20/18 09:29 Dose: Not Given Documented by: Ropinirole HCl (Requip) 0.25 mg PO HS [facility] Stop: 01/18/19 21:01 Last Admin: 07/19/18 23:10 Dose: 0.25 mg Documented by: Sotalol HCl (Betapace) 120 mg PO Q12HR [facility] Stop: 01/18/19 23:31 Last Admin: 07/20/18 06:55 Dose: 120 mg Documented by: Vitamin D (Vitamin D) 1,000 unit PO DAILY [facility] Stop: 01/19/19 09:01 Last Admin: 07/20/18 09:29 Dose: 1,000 unit Documented by: Warfarin Sodium (Coumadin Perpt) 1 each PO DAILY@1800 PRN PRN Reason: SEE COMMENTS Stop: 01/19/19 18:01 Warfarin Sodium (Coumadin) 3 mg PO SuTh@1800 [facility] Stop: 01/20/19 18:01 Warfarin Sodium (Coumadin) 6 mg PO MoTuWeFrSa [facility] Stop: 01/19/19 18:01 - Imaging and Cardiology Echo: report reviewed Holter: report reviewed - EKG Interpretation EKG results cardiology: personally reviewed, other (12 hr tele AVG HR 58, now SR, lowest HR 42 sinus) Consult Discharge Plan - Plan Referrals: Tisha Celeste MD [Primary Care Provider] - <Mady Herrera - Last Filed: 07/20/18 16:31> Date of Encounter: 07/20/18 - Attending Attestation Patient was seen and evaluated independently by me. Findings, assessment and plan were discussed at length with patient, questions answered. Agree with nurse practitioner's/resident's documentation. Addition as follows, 78yoCF ho PAF on sotalol, warfarin, COPD, HTN. P/w palpitation several days after recent worsening cough and dyspnea. Found in AFLT RVR, converted to SR on dilt drip with S govind. QTc wnl, no CESAR, INR 2.3 HD stable, RR, scattered rhonchi, no LE edema. TTE EF 70% A: PAF, ALFT RVR, now back to SR COPD exacerbation P: limited echo for EF c/w sotalol and warfarin Mady Herrera MD, PhD Assessment and Plan Discussion w patient/family: The assessment and plan as outlined above was discussed with the patient and/or family members who expressed understanding and agreement. All questions were answered. Thank you for involving us in the care of your patient. Please call with any questions. History of Present Illness History of present illness: Ms. Frye is a 78 year old female All Systems Review: The remainder of the systems were reviewed and are negative Results 07/20/18 02:47 07/20/18 02:47 Lab Results 07/19/18 07/19/18 07/19/18 16:28 16:28 16:28 WBC 9.0 Hgb 14.2 Hct 46.7 H Plt Count 219 INR 2.5 APTT 51.8 H Sodium 139 Potassium 3.8 Chloride 99 Carbon Dioxide 32 H BUN 12 Creatinine 0.48 L Glucose 162 H Calcium 8.7 Magnesium 1.8 Troponin I < 0.03 TSH 2.808 07/20/18 07/20/18 07/20/18 02:47 02:47 02:47 WBC 10.4 Hgb 13.4 Hct 43.5 Plt Count 189 INR 2.3 APTT Sodium 139 Potassium 3.7 Chloride 99 Carbon Dioxide 32 H BUN 17 Creatinine 0.83 Glucose 164 H Calcium 8.5 L Magnesium 1.8 Troponin I TSH
[2018-07-20] MEDS ORDERED: (Vitamin A 10,000 UNIT) PO SCH (09:00)
[2018-07-20] MEDS: Cholecalciferol (D-3) 1,000 UNIT TABLET PO SCH (09:29)
[2018-07-20] MEDS: Cyanocobalamin (B-12) 1,000 MCG TABLET PO SCH (09:29)
[2018-07-20] MEDS: Furosemide 20 MG TABLET PO SCH ×2 (09:29→19:01)
[2018-07-20] MEDS ORDERED: Ipratropium/Albuterol Neb 3 ML IH SCH (12:00)
--- NOTE | 2018-07-20 13:47 | Internal Med Progress Note ---
Hospitalist Progress Note - Encounter Date of Encounter: 07/20/18 Time of Encounter: 13:46 - Subjective Interval History: Evaluated patient earlier today. She is lying down in bed. Feels weak and complains of shortness of breath. Denies any fevers or chills overnight. She converted to sinus rhythm overnight and has been bradycardic this morning. De nies any dizziness or lightheadedness. No chest pain. - Exam Vitals: Temp Pulse Resp BP Pulse Ox 98.2 F 99 18 152/66 94 07/20/18 11:44 07/20/18 11:44 07/20/18 11:44 07/20/18 11:44 07/20/18 11:44 Exam: General: Patient is alert, mild distress, oriented x 3 ENT: Mucous membranes moist Respiratory: Decreased air entry at both bases. Mild end expiratory wheezing. Cardiovascular: Regular rate and rhythm. Bradycardia. s1 and s2 normal No clicks, rubs, gallops, or murmurs. No pedal edema Abdomen: Abdomen is soft, nontender. Bowel sounds are present Musculoskeletal: Spontaneously moving all extremities Skin: warm, dry, intact. Neuro: Alert oriented x 3 normal cranial nerves, no focal deficits - Assessment and Plan (1) Atrial fibrillation with rapid ventricular response Current Visit: Yes Status: Acute (2) DVT prophylaxis Current Visit: Yes Status: Acute (3) COPD (chronic obstructive pulmonary disease) Current Visit: Yes Status: Chronic (4) Chronic hypoxemic respiratory failure Current Visit: Yes Status: Chronic (5) Type 2 diabetes mellitus without complications Current Visit: Yes Status: Acute DVT Prophylaxis: On Coumadin - Summary of Assessment and Plan Summary of Assessment and Plan: Paroxysmal atrial fibrillation: Patient had presented with A. fib/A flutter and has converted to sinus rhythm overnight. Cardizem stopped around 2 AM this morning. Heart rate ranging between 40 and 60. Continue sotalol per cardiology recommendations. EKG shows QTc of 410. Continue to monitor with telemetry. Anticipate that the heart rate will improve. If patient is heart rate does not improve when it she remains bradycardic, she may be a candidate for pacemaker pl acement. On anticoagulation with Coumadin. INR is therapeutic COPD: Patient complaining of shortness of breath. Has mild wheezing. Will place her on bronchodilators. Type 2 diabetes mellitus: Not previously diagnosed. A1c 7 per most recent lab test. Continue sliding scale insulin. Diabetic diet. Chronic hypoxic respiratory failure: Continue O2 supplementation. Moderate risk for complications. - Time Spent with Patient Total time spent is greater than 50% in coordination of care (as documented) at patient's floor/unit and/or counseling patient: Internal Medicine: Result - Labs CBC & Chem 7: 07/20/18 02:47 07/20/18 02:47 Labs: Short CBC 07/19/18 07/20/18 Range/Units 16:28 02:47 WBC 9.0 10.4 (4.3-11.1) K/mcL Hgb 14.2 13.4 (11.5-15.4) g/dL Hct 46.7 H 43.5 (35.3-44.9) % Plt Count 219 189 (140-400) K/mcL Neutrophils # 5.3 6.4 (1.6-8.9) K/mcL BMP 07/19/18 07/20/18 16:28 02:47 Sodium 139 139 Potassium 3.8 3.7 Chloride 99 99 Carbon Dioxide 32 H 32 H BUN 12 17 Creatinine 0.48 L 0.83 Glucose 162 H 164 H Calcium 8.7 8.5 L Cardiac Enzymes 07/19/18 Range/Units 16:28 Troponin I < 0.03 (< 0.04) ng/mL Urine 07/19/18 Range/Units 16:28 Urine Color Yellow (Yellow) Urine Clarity Clear (Clear) Urine pH 6.0 (5.0-8.0) pH Units Ur Specific [place] 1.014 (1.010-1.025) Urine Protein 30 H (Neg-Trace) mg/dL Urine Glucose (UA) Normal (Normal) mg/dL - ABG Interpretation ABG results: PT/INR, D-dimer PT 26.3 Seconds (9.4-12.1) H 07/20/18 02:47 - Impressions Impressions Chest X-Ray 07/19/18 15:47 IMPRESSION: Mild pulmonary vascular congestion without evidence of overt edema. D/ / 07/19/2018 16:39:34 Nicki Zepeda MD / [facility] Interpreting Provider: Nicki Zepeda MD Consult Discharge Plan - Plan Referrals: Tisha Celeste MD [Primary Care Provider] - (3) COPD (chronic obstructive pulmonary disease) Qualifiers: COPD type: unspecified COPD Qualified Code(s): J44.9 - Chronic obstructive pulmonary disease, unspecified (5) Type 2 diabetes mellitus without complications Qualifiers: Diabetes mellitus manager long term care insulin use: without assisted use Qualified Code(s): E11.9 - Type 2 diabetes mellitus without complications
[2018-07-20] MEDS: Levalbuterol Neb 1.25 MG/3 ML IH SCH ×2 (15:34→22:00)
[2018-07-20] MEDS ORDERED: *HR* Warfarin 3 MG TABLET PO SCH (18:00)
[2018-07-20] MEDS ORDERED: Warfarin perPT PO PRN (18:00)
[2018-07-20] MEDS: rOPINIRole 0.25 MG TABLET PO SCH (22:19)
[2018-07-21 03:09] LABS: INR 2.6; Prothrombin Time 29.2 Seconds (9.4-12.1)
[2018-07-21] MEDS: Levalbuterol Neb 1.25 MG/3 ML IH SCH ×4 (04:08→22:31)
[2018-07-21] MEDS ORDERED: Perflutren Lipid Microsphere 1.3 ML in 0.9 % Sodium Chloride 8.7 ML IVP ONE (08:10)
[2018-07-21] MEDS: Insulin LISPRO 300 UNITS/3 ML VIAL SQ SCH ×4 (08:48→20:46)
[2018-07-21] MEDS: Cholecalciferol (D-3) 1,000 UNIT TABLET PO SCH (08:59)
[2018-07-21] MEDS: Cyanocobalamin (B-12) 1,000 MCG TABLET PO SCH (08:59)
[2018-07-21] MEDS: Furosemide 20 MG TABLET PO SCH ×2 (08:59→20:45)
--- NOTE | 2018-07-21 09:31 | Cardiology Progress Note ---
Date of Encounter: 07/21/18 Time of Encounter: 09:29 Assessment and Plan (1) PAF (paroxysmal atrial fibrillation) Current Visit: Yes Status: Chronic Known PAF on Sotalol 120mg BID and anticoagulated on Coumadin, INR 2.6. Presented A-Flutte RVR 07/19 and was started on cardizem gtt. Coverted to SR, then became bradycardic HR 40s and cardizem was stopped. HR continues to improve as Cardizem washes out. 12 hr tele AVG HR 56, maintaining SR. Lowest HR 49 during nocturnal hours. Continue Sotalol 120mg BID given normal renal function and normal QTc on ECG. Pt reported increased dyspnea, now improved. TTE 10/21/17: LVEF 70%. No significant valvular dysfunction. Repeat limited TTE is pending. If EF remains preserved, will sign off with outpt follow-up. Discussion w patient/family: The assessment and plan as outlined above was discussed with the patient and/or family members who expressed understanding and agreement. All questions were answered. Thank you for involving us in the care of your patient. Please call with any questions. I will discuss all the above with Dr. Herrera and make changes as necessary. Subjective Principal diagnosis: Dyspnea Interval history: Dyspnea has improved. Pt reports feeling much better this AM. Objective Vital Signs, Last 4 Hours Temp Pulse Resp BP Pulse Ox 07/21/18 07:16 97.2 F L 53 18 135/64 95 Vital Signs Temp Pulse Resp BP Pulse Ox 07/21/18 07:16 97.2 F L 53 18 135/64 95 07/21/18 04:10 16 92 07/21/18 03:28 98.6 F 55 19 146/72 92 07/20/18 23:23 98.4 F 60 19 132/68 95 07/20/18 22:03 18 92 07/20/18 19:20 98 F 56 19 126/69 96 07/20/18 16:45 98.3 F 65 18 133/74 97 07/20/18 11:44 98.2 F 99 18 152/66 94 07/20/18 11:35 97.7 F 48 18 133/74 95 07/20/18 11:25 16 93 Intake and Output 07/20/18 07/21/18 07/21/18 23:59 07:59 15:59 Other: # Voids 1 Weight 86.6 kg Blood Glucose* 119 124 General: Conversant, No Apparent Distress HEENT: Atraumatic, Normocephaly, Mucus Membranes Moist Neck: No JVD, Normal carotid pulses Cardiac: Reg Rate and Rhythm, Normal S1 and S2, No Murmur Lungs: Normal Breath Sounds, No Wheeze, Rales, Rhonchi Neuro: Alert and responsive, No focal deficits noted Abdomen: Soft, Non-Tender Skin: No rashes noted on visualized skin Musculoskeletal: No Chest Wall Tenderness Extremities: No Clubbing, No Cyanosis, No Edema, Normal Pulses Results 07/20/18 02:47 07/20/18 02:47 Lab Results 07/21/18 02:12 INR 2.6 Active Medications Acetaminophen (Tylenol) 650 mg PO Q6HR PRN PRN Reason: Mild Pain/Fever Stop: 01/18/19 19:33 Hydrocodone Bitart/Acetaminophen ([place] 5-325 Mg) 1 tab PO Q6HR PRN PRN Reason: Moderate Pain Stop: 01/18/19 19:33 Cyanocobalamin (Vitamin B12) 1,000 mcg PO DAILY [facility] Stop: 01/19/19 09:01 Last Admin: 07/21/18 08:59 Dose: 1,000 mcg Documented by: Dextrose/Water (Dextrose 50% (Syg)) 25 ml IVP AD PRN PRN Reason: Hypoglycemia Stop: 01/18/19 19:47 Escitalopram Oxalate (Lexapro) 10 mg PO HS [facility] Stop: 01/18/19 21:41 Last Admin: 07/20/18 22:19 Dose: 10 mg Documented by: Furosemide (Lasix) 20 mg PO BID [facility] Stop: 01/18/19 21:01 Last Admin: 07/21/18 08:59 Dose: 20 mg Documented by: Glucagon (Glucagen) 1 mg IM ONCE PRN PRN Reason: Hypoglycemia Stop: 01/18/19 19:47 Glucose (Gluctose) 15 gm PO ONCE PRN PRN Reason: Hypoglycemia Stop: 01/18/19 19:47 Glucose (Gluctose) 30 gm PO ONCE PRN PRN Reason: Hypoglycemia Stop: 01/18/19 19:47 Guaifenesin (Mucinex) 600 mg PO BID PRN PRN Reason: Congestion Stop: 01/19/19 21:39 Last Admin: 07/20/18 22:20 Dose: 600 mg Documented by: Dextrose (Dextrose 5%) 1,000 mls @ 100 mls/hr IVC .Q10H PRN PRN Reason: HYPOGLYCEMIA Stop: 01/18/19 19:47 Insulin Human Lispro (Humalog) 0 units SQ TIDAC [facility]; Protocol Stop: 01/19/19 07:31 Last Admin: 07/21/18 08:48 Dose: Not Given Documented by: Insulin Human Lispro (Humalog) 0 units SQ HS [facility]; Protocol Stop: 01/18/19 21:01 Last Admin: 07/20/18 22:20 Dose: Not Given Documented by: Levalbuterol HCl (Xopenex) 2 puff IH Q4H PRN PRN Reason: Wheezing Stop: 01/18/19 19:35 Levalbuterol HCl (Xopenex) 1.25 mg IH [id number] [facility] Stop: 01/19/19 16:01 Last Admin: 07/21/18 04:08 Dose: 1.25 mg Documented by: Naloxone HCl (Narcan) 0.4 mg IVP Q2MPRN PRN PRN Reason: SEE COMMENTS Stop: 01/18/19 19:33 Ondansetron HCl (Zofran) 4 mg IVP Q8HR PRN PRN Reason: Nausea And Vomiting Stop: 01/18/19 19:33 Oxycodone HCl (Roxicodone) 10 mg PO Q6HR PRN PRN Reason: Severe Pain Stop: 01/18/19 19:33 Ropinirole HCl (Requip) 0.25 mg PO [facility] Stop: 01/18/19 21:01 Last Admin: 07/20/18 22:19 Dose: 0.25 mg Documented by: Sotalol HCl (Betapace) 120 mg PO Q12HR [facility] Stop: 01/18/19 23:31 Last Admin: 07/21/18 06:28 Dose: 120 mg Documented by: Vitamin D (Vitamin D) 1,000 unit PO DAILY [facility] Stop: 01/19/19 09:01 Last Admin: 07/21/18 08:59 Dose: 1,000 unit Documented by: Warfarin Sodium (Coumadin Perpt) 1 each PO DAILY@1800 PRN PRN Reason: SEE COMMENTS Stop: 01/19/19 18:01 Warfarin Sodium (Coumadin) 3 mg PO SuTh@1800 [facility] Stop: 01/20/19 18:01 Warfarin Sodium (Coumadin) 6 mg PO MoTuWeFrSa [facility] Stop: 01/19/19 18:01 Last Admin: 07/20/18 18:59 Dose: 6 mg Documented by: - Imaging and Cardiology Echo: pending - EKG Interpretation EKG results cardiology: other (12 hr tele AVG HR 56, SR, lowest HR 49) Consult Discharge Plan - Plan Referrals: Tisha Celeste MD [Primary Care Provider] -
--- NOTE | 2018-07-21 11:12 | Event Note ---
Date of Encounter: 07/21/18 Time of Encounter: 11:11 - Cardiology Event Note Limited TTE EF 60-65%. Final report pending. Cardiology signing off. Reconsult PRN. Pt has follow-up scheduled with Dr. Carlos Alberto Diaz in upcoming weeks.
[2018-07-21] MEDS ORDERED: Furosemide 40 MG/4 ML VIAL IVP ONE (14:11)
--- NOTE | 2018-07-21 14:11 | Internal Med Progress Note ---
Hospitalist Progress Note - Encounter Date of Encounter: 07/21/18 Time of Encounter: 10:30 - Subjective Interval History: Patient complains of worsening shortness of breath this morning. Wearing CPAP when I evaluated her. No nausea or vomiting. No fevers or chills overnight. No palpitations. No dizziness or lightheadedness. No chest pain. - Exam Vitals: Temp Pulse Resp BP Pulse Ox 97.3 F L 54 17 135/59 95 07/21/18 11:49 07/21/18 11:49 07/21/18 11:49 07/21/18 11:49 07/21/18 11:49 Exam: General: Patient is alert, mild distress, oriented x 3 Respiratory: Bilateral rhonchi and basal crackles Cardiovascular: Regular rate and rhythm. s1 and s2 normal No clicks, rubs, gallops, or murmurs. No pedal edema Abdomen: Abdomen is soft, nontender. Bowel sounds are present Musculoskeletal: Spontaneously moving all extremities Skin: warm, dry, intact. Neuro: Alert oriented x 3 normal cranial nerves, no focal deficits - Assessment and Plan (1) Atrial fibrillation with rapid ventricular response Current Visit: Yes Status: Acute (2) DVT prophylaxis Current Visit: Yes Status: Acute (3) COPD (chronic obstructive pulmonary disease) Current Visit: Yes Status: Chronic (4) Chronic hypoxemic respiratory failure Current Visit: Yes Status: Chronic (5) Type 2 diabetes mellitus without complications Current Visit: Yes Status: Acute - Summary of Assessment and Plan Summary of Assessment and Plan: Paroxysmal atrial fibrillation: In sinus rhythm currently. No new episodes of RVR. Heart rate maintaining in the 50s. Continue sotalol. Cardiology consult appreciated. COPD: Continue CPAP use when lying down. Continue bronchodilators. No signs of acute COPD exacerbation at this time Type 2 diabetes mellitus: Continue sliding scale insulin. Blood sugars are fairly controlled Chronic hypoxic respiratory failure: Continue O2 supplementation. Chronic diastolic congestive heart failure: Chest x-ray done initially showed some pulmonary congestion. Will repeat chest x-ray today. If condition remains, will give a dose of IV Lasix. Otherwise continue oral Lasix. Moderate risk for complications. - Time Spent with Patient Total time spent is greater than 50% in coordination of care (as documented) at patient's floor/unit and/or counseling patient: Internal Medicine: Result - Labs CBC & Chem 7: 07/20/18 02:47 07/20/18 02:47 - ABG Interpretation ABG results: PT/INR, D-dimer PT 29.2 Seconds (9.4-12.1) H 07/21/18 02:12 - Impressions Impressions Echocardiogram Limited Views 07/21/18 10:07 Impressions: LVEF 60-65%. Left Ventricular Wall Motion: Rest Echo Findings All wall segments showed normal motion. Findings: Study Quality * Technically adequate exam. ECG Findings * Sinus bradycardia. Left Ventricle * LVEF 60-65%. * Normal LV chamber size, wall thickness and systolic function. Right Ventricle * RV not well seen. 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
[2018-07-21] MEDS ORDERED: *HR* Metoprolol 5 MG/5 ML VIAL IVP ONE ×2 (16:01→16:05)
[2018-07-21] MEDS: *HR* Metoprolol 5 MG/5 ML VIAL IVP PRN ×2 (16:30→16:40)
[2018-07-21] MEDS ORDERED: *HR* Warfarin 3 MG TABLET PO SCH (18:00)
[2018-07-21] MEDS: rOPINIRole 0.25 MG TABLET PO SCH (20:45)
[2018-07-22] MEDS: *HR* Metoprolol 5 MG/5 ML VIAL IVP PRN ×4 (00:18→04:37)
[2018-07-22] MEDS: Levalbuterol Neb 1.25 MG/3 ML IH SCH ×4 (04:28→22:33)
[2018-07-22 05:11] LABS: INR 2.8
[2018-07-22] MEDS: Insulin LISPRO 300 UNITS/3 ML VIAL SQ SCH ×4 (07:42→21:00)
[2018-07-22] MEDS: Cyanocobalamin (B-12) 1,000 MCG TABLET PO SCH (07:47)
[2018-07-22] MEDS: Furosemide 20 MG TABLET PO SCH ×2 (07:47→16:29)
[2018-07-22] MEDS: Cholecalciferol (D-3) 1,000 UNIT TABLET PO SCH (07:47)
[2018-07-22] MEDS: predniSONE 20 MG TABLET PO SCH (12:04)
--- NOTE | 2018-07-22 12:39 | Cardiology Progress Note ---
Date of Encounter: 07/22/18 Time of Encounter: 12:35 Assessment and Plan (1) PAF (paroxysmal atrial fibrillation) Current Visit: Yes Status: Chronic Per Cardiology: Presented A-Flutter RVR 07/19 and was started on cardizem gtt. Converted to SR, then became bradycardic HR 40s and cardizem was stopped. Known PAF. On Sotalol 120mg BID (6 doses this stay). Limited echo EF 60-65%, NSWMA. No significant valvular dysfunction from 10/2017. ECG showed A. fib with RVR in the 140s yesterday, currently sinus bradycardia in the 50s on telemetry. Will discuss and review with Dr. Koenig. Anticoagulated on Coumadin, INR 2.8. H&H stable. Discussion w patient/family: The assessment and plan as outlined above was discussed with the patient and/or family members who expressed understanding and agreement. All questions were answered. Thank you for involving us in the care of your patient. Please call with any questions. Subjective Principal diagnosis: afib RVR Interval history: Seen with family at bedside. Reports symptoms have now resolved. Reports yesterday evening and during the night she felt palpitations with rapid heart rates and shortness of breath. She reports she continues to experience dyspnea on exertion, however has COPD and smokes at home. She does utilize oxygen at home. Denies any edema. Objective Vital Signs, Last 4 Hours Temp Pulse Resp BP Pulse Ox 07/22/18 11:27 97.7 F 51 20 127/58 95 07/22/18 10:25 21 91 General: Conversant, No Apparent Distress HEENT: Atraumatic, Normocephaly, Mucus Membranes Moist Neck: No JVD, Normal carotid pulses Cardiac: Reg Rate and Rhythm, Normal S1 and S2, No Murmur Lungs: No Wheeze, Rales, Rhonchi, Other (Diminished breath sounds throughout, few scattered rhonchi) Neuro: Alert and responsive, No focal deficits noted Abdomen: Soft, Non-Tender Skin: No rashes noted on visualized skin Musculoskeletal: No Chest Wall Tenderness Extremities: No Clubbing, No Cyanosis, No Edema, Normal Pulses Results 07/20/18 02:47 07/20/18 02:47 Lab Results Laboratory Tests 07/19/18 07/19/18 07/20/18 16:28 16:28 02:47 Hgb 13.4 Hct 43.5 INR Creatinine Est GFR (Non-Af Amer) Magnesium Troponin I < 0.03 TSH 2.808 Ur Leukocyte Esterase Small H Ur Culture Indicated? YES A 07/20/18 07/22/18 02:47 04:34 Hgb Hct INR 2.8 Creatinine 0.83 Est GFR (Non-Af Amer) > 60 Magnesium 1.8 Troponin I TSH Ur Leukocyte Esterase Ur Culture Indicated? ITS Impressions Chest X-Ray 07/19/18 15:47 IMPRESSION: Mild pulmonary vascular congestion without evidence of overt edema. D/ / 07/19/2018 16:39:34 Nicki Zepeda MD / earnold Interpreting Provider: Nicki Zepeda MD Echocardiogram Limited Views 07/21/18 10:07 Impressions: LVEF 60-65%. Left Ventricular Wall Motion: Rest Echo Findings All wall segments showed normal motion. Findings: Study Quality * Technically adequate exam. ECG Findings * Sinus bradycardia. Left Ventricle * LVEF 60-65%. * Normal LV chamber size, wall thickness and systolic function. Right Ventricle * RV not well seen. Chest X-Ray 07/21/18 13:28 IMPRESSION: No acute cardiopulmonary disease. D/ / Howie Robbins MD / Howie Robbins MD Interpreting Provider: Howie Robbins MD Active Medications Acetaminophen (Tylenol) 650 mg PO Q6HR PRN PRN Reason: Mild Pain/Fever Stop: 01/18/19 19:33 Hydrocodone Bitart/Acetaminophen ([place] 5-325 Mg) 1 tab PO Q6HR PRN PRN Reason: Moderate Pain Stop: 01/18/19 19:33 Cyanocobalamin (Vitamin B12) 1,000 mcg PO DAILY DARREN Stop: 01/19/19 09:01 Last Admin: 07/22/18 07:47 Dose: 1,000 mcg Documented by: Dextrose/Water (Dextrose 50% (Syg)) 25 ml IVP AD PRN PRN Reason: Hypoglycemia Stop: 01/18/19 19:47 Escitalopram Oxalate (Lexapro) 10 mg PO HS [facility] Stop: 01/18/19 21:41 Last Admin: 07/21/18 20:45 Dose: 10 mg Documented by: Furosemide (Lasix) 20 mg PO BIDDIURETIC [facility] Stop: 01/21/19 17:01 Glucagon (Glucagen) 1 mg IM ONCE PRN PRN Reason: Hypoglycemia Stop: 01/18/19 19:47 Glucose (Gluctose) 15 gm PO ONCE PRN PRN Reason: Hypoglycemia Stop: 01/18/19 19:47 Glucose (Gluctose) 30 gm PO ONCE PRN PRN Reason: Hypoglycemia Stop: 01/18/19 19:47 Guaifenesin (Mucinex) 600 mg PO BID PRN PRN Reason: Congestion Stop: 01/19/19 21:39 Last Admin: 07/22/18 05:36 Dose: 600 mg Documented by: Dextrose (Dextrose 5%) 1,000 mls @ 100 mls/hr IVC .Q10H PRN PRN Reason: HYPOGLYCEMIA Stop: 01/18/19 19:47 Insulin Human Lis[facility] ([facility]) [facility]; Protocol Stop: 01/19/19 07:31 Last Admin: 07/22/18 11:54 Dose: Not Given Documented by: Insulin Human Lispro (Humalog) 0 units SQ [facility]; Protocol Stop: 01/18/19 21:01 Last Admin: 07/21/18 20:46 Dose: Not Given Documented by: Levalbuterol HCl (Xopenex) 2 puff IH Q4H PRN PRN Reason: Wheezing Stop: 01/18/19 19:35 Levalbuterol HCl (Xopenex) 1.25 mg IH [id number] [facility] Stop: 01/19/19 16:01 Last Admin: 07/22/18 10:25 Dose: 1.25 mg Documented by: Metoprolol Tartrate (Lopressor) 5 mg IVP Q5MIN PRN PRN Reason: Heart Rate- High Stop: 01/20/19 16:16 Last Admin: 07/22/18 04:37 Dose: 5 mg Documented by: Naloxone HCl (Narcan) 0.4 mg IVP Q2MPRN PRN PRN Reason: SEE COMMENTS Stop: 01/18/19 19:33 Ondansetron HCl (Zofran) 4 mg IVP Q8HR PRN PRN Reason: Nausea And Vomiting Stop: 01/18/19 19:33 Oxycodone HCl (Roxicodone) 10 mg PO Q6HR PRN PRN Reason: Severe Pain Stop: 01/18/19 19:33 Prednisone (Prednisone) 40 mg PO DAILY DARREN Stop: 01/21/19 11:46 Last Admin: 07/22/18 12:04 Dose: 40 mg Documented by: Ropinirole HCl (Requip) 0.25 mg PO HS DARREN Stop: 01/18/19 21:01 Last Admin: 07/21/18 20:45 Dose: 0.25 mg Documented by: Sotalol HCl (Betapace) 120 mg PO Q12HR DARREN Stop: 01/18/19 23:31 Last Admin: 07/22/18 05:17 Dose: 120 mg Documented by: Vitamin D (Vitamin D) 1,000 unit PO DAILY DARREN Stop: 01/19/19 09:01 Last Admin: 07/22/18 07:47 Dose: 1,000 unit Documented by: Warfarin Sodium (Coumadin Perpt) 1 each PO DAILY@1800 PRN PRN Reason: SEE COMMENTS Stop: 01/19/19 18:01 Warfarin Sodium (Coumadin) 3 mg PO ONCE ONE Stop: 07/22/18 18:01 - Imaging and Cardiology Echo: report reviewed - EKG Interpretation EKG results cardiology: personally reviewed (A. fib with RVR in the 140s), other (Average heart rate is 12 hours 67, currently sinus bradycardic in the 50s) Consult Discharge Plan - Plan Referrals: Tisha Celeste MD [Primary Care Provider] -
--- NOTE | 2018-07-22 13:51 | Electrophysiology Consult Note ---
<Judi Del Angel - Last Filed: 07/22/18 14:49> Date of Encounter: 07/22/18 Time of Encounter: 14:30 Assessment and Plan (1) PAF (paroxysmal atrial fibrillation) Current Visit: Yes Status: Chronic Per Cardiology: Presented A-Flutter RVR 07/19 and was started on cardizem gtt. Converted to SR, then became bradycardic HR 40s and cardizem was stopped. Known PAF, failed Rythmol in the past; sotalol recently increased to 120 mg q12h in April 2018. Limited echo EF 60-65%, NSWMA. No significant valvular dysfunction from 10/2017. Patient reports dyspnea today--EF normal on TTE, CXR stable. Reports compliance with CPAP. Discussed with Dr. Carlos Alberto Diaz; will increase sotalol to 160 mg q12h; daily ECGs. Will need inpatient monitoring for atleast 5 doses. Will continue to follow. Anticoagulated on Coumadin, INR 2.8. H&H stable. Discussion w patient/family: The assessment and plan as outlined above was discussed with the patient and/or family members who expressed understanding and agreement. All questions were answered. Thank you for involving us in the care of your patient. Please call with any questions. The patient will be discussed and reviewed with Dr. Carlos Alberto Diaz; changes to be made accordingly. History of Present Illness Consult date: 07/22/18 Requesting physician: Hiren Matt Consult reason: PAF Chief complaint: Recurrent afib History of present illness: Ms. Frye is a 78 year old female with PMH of PAF on Sotalol and Coumadin, COPD that presents with palpitations. Patient states that over the last week she has felt generally lousy and has complained of palpitations and shortness of breath. She states she feels like her heart is racing, feels similar to her previous episodes of A. fib with elevated heart rate. Reports chest tightness. [place] arrival to ED, patient was found to be in afib/flutter with RVR, no missed doses of medications reported. She was started on cardizem gtt in the ED, converted to NSR in the 50's, gtt then d/c'ed. EP consulted today for recurrent Afib with RVR overnight, she is back in NSR upon exam today. Admitted in April 2018--sotalol was increased to 120 mg Q12H. Failed rythmol in 2017. Prior CV testing: TTE 10/21/17: LVEF 70%. Normal LV chamber size, wall thickness and function. Normal right ventricular structure and function. No significant valvular dysfunction. Unable to estimate pulmonary artery pressure due to lack of TR jet. Holter 03/30/17: 1. Baseline rhythm normal sinus. 2. Occasional PVCs. 3. Frequent PACs. 4. Two short runs PAT. 5. Symptoms correlate with sinus rhythm. Past Med Surg Social Fam HX - Past Medical History Attestation: Yes The following information was validated with the patient. Source: patient Medical history: arthritis, atrial fibrillation, CHF, COPD, hypertension Additional medical history: Claustrophobia Psychiatric history: no psych history - Past Surgical History Surgical History: appendectomy, cataract, cholecystectomy, orthopedic, other, other Additional surgical history: Carpal tunnel, Right shoulder repair, Vein strip ping - Social History Smoking Status: Current every day smoker Smokeless Tobacco Status: No Alcohol use: none Drug use: none - Family History Mother Living Status: Age at : 50 Hx Family Cardiac Disorders: Yes Hx Family Endocrine Disorder: Yes Father Living Status: Hx Family Cardiac Disorders: No Hx Family Respiratory Disorders: No Medications and Allergies Warfarin [Coumadin] 3 mg PO SUTH 11/12/16 [History] Warfarin [Coumadin] 6 mg PO MOWETHFRSA 11/12/16 [History] Potassium 99 mg PO DAILY 02/21/17 [History] Furosemide [Lasix] 20 mg PO BID 30 Days #60 tablet 03/03/17 [Rx] Losartan [Cozaar] 25 mg PO DAILY #30 tablet 03/30/17 [Rx] Cholecalciferol (D-3) [Vitamin D] 1,000 unit PO DAILY 10/21/17 [History] Cyanocobalamin (Vitamin B-12) [Vitamin B12] 1,000 mcg PO DAILY 10/21/17 [History] rOPINIRole [Requip] 0.25 mg PO HS 10/23/17 [History] Escitalopram [Lexapro] 10 mg PO QPM 03/26/18 [History] Sotalol [Betapace] 120 mg PO Q12HR #180 tablet 03/28/18 [Rx] Vitamin A 10,000 unit PO DAILY 05/21/18 [History] Levalbuterol Tartrate [Xopenex Hfa] 15 gm IH Q4-6H PRN #1 hfa.[email or web address].[email or web address] 07/17/18 [Rx] Allergy/AdvReac Type Severity Reaction Status Date / Time albuterol AdvReac See Verified 07/20/18 12:53 Comments codeine AdvReac "Shakiness Verified 07/20/18 12:53 on the inside" gabapentin AdvReac "weird Verified 07/20/18 12:53 dreams/ on edge" All Systems Review: The remainder of the systems were reviewed and are negative - Cardiovascular Cardiovascular: as per HPI Physical Examination Vital Signs, Last 4 Hours Temp Pulse Resp BP Pulse Ox 07/22/18 11:27 97.7 F 51 20 127/58 95 07/22/18 10:25 21 91 General: Conversant, No Apparent Distress HEENT: Atraumatic, Normocephaly, Mucus Membranes Moist Cardiac: Reg Rate and Rhythm (bradycardiac), Normal S1 and S2 Lungs: Other (coarse, wheezing) Neuro: Alert and responsive Abdomen: Soft Skin: No rashes noted on visualized skin Musculoskeletal: No Chest Wall Tenderness Extremities: No Edema, Normal Pulses Results 07/20/18 02:47 07/20/18 02:47 Lab Results 07/22/18 04:34 INR 2.8 Active Medications Acetaminophen (Tylenol) 650 mg PO Q6HR PRN PRN Reason: Mild Pain/Fever Stop: 01/18/19 19:33 Hydrocodone Bitart/Acetaminophen ([place] 5-325 Mg) 1 tab PO Q6HR PRN PRN Reason: Moderate Pain Stop: 01/18/19 19:33 Cyanocobalamin (Vitamin B12) 1,000 mcg PO DAILY DARREN Stop: 01/19/19 09:01 Last Admin: 07/22/18 07:47 Dose: 1,000 mcg Documented by: Dextrose/Water (Dextrose 50% (Syg)) 25 ml IVP AD PRN PRN Reason: Hypoglycemia Stop: 01/18/19 19:47 Escitalopram Oxalate (Lexapro) 10 mg PO HS DARREN Stop: 01/18/19 21:41 Last Admin: 07/21/18 20:45 Dose: 10 mg Documented by: Furosemide (Lasix) 20 mg PO BIDDIURETIC DARREN Stop: 01/21/19 17:01 Glucagon (Glucagen) 1 mg IM ONCE PRN PRN Reason: Hypoglycemia Stop: 01/18/19 19:47 Glucose (Gluctose) 15 gm PO ONCE PRN PRN Reason: Hypoglycemia Stop: 01/18/19 19:47 Glucose (Gluctose) 30 gm PO ONCE PRN PRN Reason: Hypoglycemia Stop: 01/18/19 19:47 Guaifenesin (Mucinex) 600 mg PO BID PRN PRN Reason: Congestion Stop: 01/19/19 21:39 Last Admin: 07/22/18 05:36 Dose: 600 mg Documented by: Dextrose (Dextrose 5%) 1,000 mls @ 100 mls/hr IVC .Q10H PRN PRN Reason: HYPOGLYCEMIA Stop: 01/18/19 19:47 Insulin Human Lispro (Humalog) 0 units SQ [facility]; Protocol Stop: 01/19/19 07:31 Last Admin: 07/22/18 11:54 Dose: Not Given Documented by: Insulin Human Lispro (Humalog) 0 units SQ [facility]; Protocol Stop: 01/18/19 21:01 Last Admin: 07/21/18 20:46 Dose: Not Given Documented by: Levalbuterol HCl (Xopenex) 2 puff IH Q4H PRN PRN Reason: Wheezing Stop: 01/18/19 19:35 Levalbuterol HCl (Xopenex) 1.25 mg IH [id number] SCH Stop: 01/19/19 16:01 Last Admin: 07/22/18 10:25 Dose: 1.25 mg Documented by: Metoprolol Tartrate (Lopressor) 5 mg IVP Q5MIN PRN PRN Reason: Heart Rate- High Stop: 01/20/19 16:16 Last Admin: 07/22/18 04:37 Dose: 5 mg Documented by: Naloxone HCl (Narcan) 0.4 mg IVP Q2MPRN PRN PRN Reason: SEE COMMENTS Stop: 01/18/19 19:33 Ondansetron HCl (Zofran) 4 mg IVP Q8HR PRN PRN Reason: Nausea And Vomiting Stop: 01/18/19 19:33 Oxycodone HCl (Roxicodone) 10 mg PO Q6HR PRN PRN Reason: Severe Pain Stop: 01/18/19 19:33 Prednisone (Prednisone) 40 mg PO DAILY [facility] Stop: 01/21/19 11:46 Last Admin: 07/22/18 12:04 Dose: 40 mg Documented by: Ropinirole HCl (Requip) 0.25 mg PO HS DARREN Stop: 01/18/19 21:01 Last Admin: 07/21/18 20:45 Dose: 0.25 mg Documented by: Sotalol HCl (Betapace) 160 mg PO Q12HR DARREN Stop: 01/21/19 18:01 Vitamin D (Vitamin D) 1,000 unit PO DAILY DARREN Stop: 01/19/19 09:01 Last Admin: 07/22/18 07:47 Dose: 1,000 unit Documented by: Warfarin Sodium (Coumadin Perpt) 1 each PO DAILY@1800 PRN PRN Reason: SEE COMMENTS Stop: 01/19/19 18:01 Warfarin Sodium (Coumadin) 3 mg PO ONCE ONE Stop: 07/22/18 18:01 - Imaging and Cardiology Echo: report reviewed - EKG Interpretation EKG results cardiology: personally reviewed Consult Discharge Plan - Plan Referrals: Tisha Celeste MD [Primary Care Provider] - <Carlos Alberto Diaz - Last Filed: 07/24/18 13:56> Date of Encounter: 07/24/18 - Attending Attestation I have personally performed a face to face evaluation on this patient. I have reviewed and agree with the care plan. History and Exam by me shows: Recurrent AF/ FL. Will titrate sotalol. Assessment and Plan Discussion w patient/family: The assessment and plan as outlined above was discussed with the patient and/or family members who expressed understanding and agreement. All questions were answered. Thank you for involving us in the care of your patient. Please call with any questions. History of Present Illness History of present illness: Ms. Frye is a 78 year old female All Systems Review: The remainder of the systems were reviewed and are negative Physical Examination Vital Signs, Last 4 Hours Temp Pulse Resp BP Pulse Ox 07/24/18 11:03 97.6 F 90 24 103/71 95 07/24/18 10:55 23 92 Results 07/24/18 04:54 07/24/18 04:54 Lab Results 07/24/18 07/24/18 07/24/18 04:54 04:54 04:54 WBC 10.8 Hgb 12.5 Hct 40.9 Plt Count 199 INR 1.9 Sodium 140 Potassium 3.8 Chloride 100 Carbon Dioxide 33 H BUN 18 Creatinine 0.57 L Glucose 109 H Calcium 8.8
--- NOTE | 2018-07-22 15:09 | Internal Med Progress Note ---
Hospitalist Progress Note - Encounter Date of Encounter: 07/22/18 Time of Encounter: 10:45 - Subjective Interval History: Patient continues to have shortness of breath especially with activity. Currently on CPAP. Denies any chest pain or palpitations. She has had multiple episodes of A. fib with RVR overnight and has received intravenous doses of Lop ressor. She converted to sinus rhythm again this morning and was given sotalol. She has been having sinus bradycardia since then with heart rate between 40 and 55. She states that the bronchodilator treatments are helping with her breathing. - Exam Vitals: Temp Pulse Resp BP Pulse Ox 97.7 F 51 20 127/58 95 07/22/18 11:27 07/22/18 11:27 07/22/18 11:27 07/22/18 11:27 07/22/18 11:27 Exam: General: Patient is alert, no acute distress, oriented x 3 Respiratory: Bilateral rhonchi. Cardiovascular: Regular rate and rhythm. Bradycardia. s1 and s2 normal No clicks, rubs, gallops, or murmurs. No pedal edema Abdomen: Abdomen is soft, nontender. Bowel sounds are present Musculoskeletal: Spontaneously moving all extremities Skin: warm, dry, intact. Neuro: Alert oriented x 3 normal cranial nerves, no focal deficits - Assessment and Plan (1) Atrial fibrillation with rapid ventricular response Current Visit: Yes Status: Acute (2) COPD (chronic obstructive pulmonary disease) Current Visit: Yes Status: Chronic (3) Chronic hypoxemic respiratory failure Current Visit: Yes Status: Chronic (4) Type 2 diabetes mellitus without complications Current Visit: Yes Status: Acute (5) DVT prophylaxis Current Visit: Yes Status: Acute DVT Prophylaxis: On Coumadin. - Summary of Assessment and Plan Summary of Assessment and Plan: Paroxysmal atrial fibrillation: Intermittent episodes of rapid ventricular response. Discussed with cardiology. Consult to DP. We will follow the recomm endations. Continue to monitor with telemetry. COPD: Patient may be having mild exacerbation of COPD. We will start prednisone in addition to bronchodilators. Type 2 diabetes mellitus: Fairly controlled. Continue current insulin regimen. Chronic hypoxic respiratory failure: Continue O2 supplementation. Chronic diastolic congestive heart failure: Patient received IV Lasix yesterday. She reports good diuresis with that. No lower extremity swelling. Continue oral Lasix. Echocardiogram shows EF of 60-65%. Moderate risk for complications. - Time Spent with Patient Total time spent is greater than 50% in coordination of care (as documented) at patient's floor/unit and/or counseling patient: Internal Medicine: Result - Labs CBC & Chem 7: 07/20/18 02:47 07/20/18 02:47 - ABG Interpretation ABG results: PT/INR, D-dimer PT 32.0 Seconds (9.4-12.1) H 07/22/18 04:34 - Impressions Impressions Chest X-Ray 07/19/18 15:47 IMPRESSION: Mild pulmonary vascular congestion without evidence of overt edema. D/ / 07/19/2018 16:39:34 Nicki Zepeda MD / earnold Interpreting Provider: Nicki Zepeda MD Consult Discharge Plan - Plan Referrals: Tisha Celeste MD [Primary Care Provider] - (2) COPD (chronic obstructive pulmonary disease) Qualifiers: COPD type: unspecified COPD Qualified Code(s): J44.9 - Chronic obstructive pulmonary disease, unspecified (4) Type 2 diabetes mellitus without complications Qualifiers: Diabetes mellitus intermediate card tender insulin use: without skilled nursing use Qualified Code(s): E11.9 - Type 2 diabetes mellitus without complications
--- NOTE | 2018-07-22 17:38 | Electrocardiograph Report ---
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
[2018-07-22] MEDS ORDERED: *HR* Warfarin 3 MG TABLET PO ONE (18:00)
[2018-07-22 20:32] LABS: BUN/Creatinine Ratio 21 (6-26); Blood Urea Nitrogen 16 mg/dL (8-23); Calcium 8.6 mg/dL (8.6-10.3); Carbon Dioxide 33 mEq/L (23-29); Chloride 98 mEq/L (98-107); Glucose 237 mg/dL (70-105); Magnesium 1.8 mg/dL (1.6-2.6); Osmolality,Calculated 287 (280-300); Potassium 5.1 mEq/L (3.5-5.1); Sodium 134 mEq/L (136-145); eGFR For African Americans > 60 (> 60); eGFR For Non-African Americans > 60 (> 60)
[2018-07-22] MEDS: rOPINIRole 0.25 MG TABLET PO SCH (20:59)
[2018-07-23] MEDS: Levalbuterol Neb 1.25 MG/3 ML IH SCH ×4 (04:14→23:13)
[2018-07-23 05:54] LABS: INR 2.2; Prothrombin Time 24.8 Seconds (9.4-12.1)
[2018-07-23] MEDS: Cholecalciferol (D-3) 1,000 UNIT TABLET PO SCH (08:27)
[2018-07-23] MEDS: Insulin LISPRO 300 UNITS/3 ML VIAL SQ SCH ×4 (08:27→21:02)
[2018-07-23] MEDS: predniSONE 20 MG TABLET PO SCH (08:27)
[2018-07-23] MEDS: Furosemide 20 MG TABLET PO SCH ×2 (08:27→17:15)
[2018-07-23] MEDS: Cyanocobalamin (B-12) 1,000 MCG TABLET PO SCH (08:27)
--- NOTE | 2018-07-23 09:02 | Cardiology Progress Note ---
Date of Encounter: 07/23/18 Time of Encounter: 08:59 Assessment and Plan (1) PAF (paroxysmal atrial fibrillation) Current Visit: Yes Status: Chronic Per Cardiology: Presented A-Flutter RVR 07/19 and was started on cardizem gtt. Converted to SR, then became bradycardic HR 40s and cardizem was stopped. Known PAF, failed Rythmol in the past; sotalol recently increased to 120 mg q12h in April 2018. Limited echo EF 60-65%, NSWMA. No significant valvular dysfunction from 10/2017. Patient reports dyspnea today--EF normal on TTE, CXR stable. Reports compliance with CPAP. Increased sotalol to 160 mg q12h 07/22--s/p 2 doses; daily ECGs. QTc remains stab le--453ms. Will need inpatient monitoring for at least 5 doses. 12 hr tele AVG HR 61--SR. Occasional, brief PAF episodes noted, longest ~4 minutes. Lowest HR 52. Will continue to follow. Will discuss and review with Dr. Carlos Alberto Diaz. Anticoagulated on Coumadin, INR 2.2. H&H stable. Discussion w patient/family: The assessment and plan as outlined above was discussed with the patient and/or family members who expressed understanding and agreement. All questions were answered. Thank you for involving us in the care of your patient. Please call with any questions. I will discuss all the above with Dr. Carlos Alberto Diaz and make changes as necessary. Subjective Principal diagnosis: afib RVR Interval history: Reports fatigue and continued dyspnea. Objective Vital Signs, Last 4 Hours Temp Pulse Resp BP Pulse Ox 07/23/18 07:18 97.6 F 55 20 145/59 92 Vital Signs Temp Pulse Resp BP Pulse Ox 07/23/18 07:18 97.6 F 55 20 145/59 92 07/23/18 04:53 97.5 F L 55 16 135/54 92 07/23/18 04:14 21 93 07/23/18 00:33 97.7 F 125 18 126/79 91 07/22/18 22:34 18 94 07/22/18 19:46 98.1 F 61 17 144/60 92 07/22/18 16:23 97.6 F 55 22 148/70 90 07/22/18 15:39 29 90 07/22/18 11:27 97.7 F 51 20 127/58 95 07/22/18 10:25 21 91 Intake and Output 07/22/18 07/23/18 07/23/18 23:59 07:59 15:59 Intake Total 240 / 720 Balance 240 / 720 Intake: Oral 240 / 720 Other: Meal Dinner Percent of Meal Consumed 90% Blood Glucose* 233 123 General: Conversant, No Apparent Distress HEENT: Atraumatic, Normocephaly, Mucus Membranes Moist Neck: No JVD, Normal carotid pulses Cardiac: Reg Rate and Rhythm, Normal S1 and S2, No Murmur Lungs: Other (mild wheezes) Neuro: Alert and responsive, No focal deficits noted Abdomen: Soft, Non-Tender Skin: No rashes noted on visualized skin Musculoskeletal: No Chest Wall Tenderness Extremities: No Clubbing, No Cyanosis, No Edema, Normal Pulses Results 07/20/18 02:47 07/22/18 20:02 Lab Results 07/22/18 07/23/18 20:02 04:36 INR 2.2 Sodium 134 L Potassium 5.1 Chloride 98 Carbon Dioxide 33 H BUN 16 Creatinine 0.78 Glucose 237 H Calcium 8.6 Magnesium 1.8 BMP 07/22/18 Range/Units 20:02 Sodium 134 L (136-145) mEq/L Potassium 5.1 (3.5-5.1) mEq/L Chloride 98 (98-107) mEq/L Carbon Dioxide 33 H (23-29) mEq/L BUN 16 (8-23) mg/dL Creatinine 0.78 (0.60-1.20) mg/dL Glucose 237 H (70-105) mg/dL Calcium 8.6 (8.6-10.3) mg/dL Active Medications Acetaminophen (Tylenol) 650 mg PO Q6HR PRN PRN Reason: Mild Pain/Fever Stop: 01/18/19 19:33 Hydrocodone Bitart/Acetaminophen ([place] 5-325 Mg) 1 tab PO Q6HR PRN PRN Reason: Moderate Pain Stop: 01/18/19 19:33 Cyanocobalamin (Vitamin B12) 1,000 mcg PO DAILY DARREN Stop: 01/19/19 09:01 Last Admin: 07/23/18 08:27 Dose: 1,000 mcg Documented by: Dextrose/Water (Dextrose 50% (Syg)) 25 ml IVP AD PRN PRN Reason: Hypoglycemia Stop: 01/18/19 19:47 Escitalopram Oxalate (Lexapro) 10 mg PO HS DARREN Stop: 01/18/19 21:41 Last Admin: 07/22/18 20:59 Dose: 10 mg Documented by: Furosemide (Lasix) 20 mg PO BIDDIURETIC DARREN Stop: 01/21/19 17:01 Last Admin: 07/23/18 08:27 Dose: 20 mg Documented by: Glucagon (Glucagen) 1 mg IM ONCE PRN PRN Reason: Hypoglycemia Stop: 01/18/19 19:47 Glucose (Gluctose) 15 gm PO ONCE PRN PRN Reason: Hypoglycemia Stop: 01/18/19 19:47 Glucose (Gluctose) 30 gm PO ONCE PRN PRN Reason: Hypoglycemia Stop: 01/18/19 19:47 Guaifenesin (Mucinex) 600 mg PO BID PRN PRN Reason: Congestion Stop: 01/19/19 21:39 Last Admin: 07/23/18 08:27 Dose: 600 mg Documented by: Dextrose (Dextrose 5%) 1,000 mls @ 100 mls/hr IVC .Q10H PRN PRN Reason: HYPOGLYCEMIA Stop: 01/18/19 19:47 Insulin Human Lispro (Humalog) 0 units SQ TIDAC DARREN; Protocol Stop: 01/19/19 07:31 Last Admin: 07/23/18 08:27 Dose: Not Given Documented by: Insulin Human Lispro (Humalog) 0 units SQ HS DARREN; Protocol Stop: 01/18/19 21:01 Last Admin: 07/22/18 21:00 Dose: Not Given Documented by: Levalbuterol HCl (Xopenex) 2 puff IH Q4H PRN PRN Reason: Wheezing Stop: 01/18/19 19:35 Levalbuterol HCl (Xopenex) 1.25 mg IH [id number] DARREN Stop: 01/19/19 16:01 Last Admin: 07/23/18 04:14 Dose: 1.25 mg Documented by: Metoprolol Tartrate (Lopressor) 5 mg IVP Q5MIN PRN PRN Reason: Heart Rate- High Stop: 01/20/19 16:16 Last Admin: 07/22/18 04:37 Dose: 5 mg Documented by: Naloxone HCl (Narcan) 0.4 mg IVP Q2MPRN PRN PRN Reason: SEE COMMENTS Stop: 01/18/19 19:33 Ondansetron HCl (Zofran) 4 mg IVP Q8HR PRN PRN Reason: Nausea And Vomiting Stop: 01/18/19 19:33 Oxycodone HCl (Roxicodone) 10 mg PO Q6HR PRN PRN Reason: Severe Pain Stop: 01/18/19 19:33 Prednisone (Prednisone) 40 mg PO DAILY DARREN Stop: 01/21/19 11:46 Last Admin: 07/23/18 08:27 Dose: 40 mg Documented by: Ropinirole HCl (Requip) 0.25 mg PO HS DARREN Stop: 01/18/19 21:01 Last Admin: 07/22/18 20:59 Dose: 0.25 mg Documented by: Sotalol HCl (Betapace) 160 mg PO Q12HR DARREN Stop: 01/21/19 18:01 Last Admin: 07/23/18 05:18 Dose: 160 mg Documented by: Vitamin D (Vitamin D) 1,000 unit PO DAILY DARREN Stop: 01/19/19 09:01 Last Admin: 07/23/18 08:27 Dose: 1,000 unit Documented by: Warfarin Sodium (Coumadin Perpt) 1 each PO DAILY@1800 PRN PRN Reason: SEE COMMENTS Stop: 01/19/19 18:01 - Imaging and Cardiology Echo: report reviewed - EKG Interpretation EKG results cardiology: other (12 hr tele AVG HR 61, SR, episode of PAF overnight that lasted ~4 minutes) Consult Discharge Plan - Plan Referrals: Tisha Celeste MD [Primary Care Provider] -
--- NOTE | 2018-07-23 10:28 | Electrocardiograph Report ---
[address] [address] Test Date: 2018-07-23 Pat Name: Cathleen Frye Department: 112 Room: 2A47 Gender: F Resident Program Specialist: : 1940 Requested By: Judi Del Angel Order Number: [id number] Reading MD: Olivia Koenig Measurements Intervals [place] Rate: 54 P: 68 OR: 156 QRS: -7 QRSD: 80 T: 15 QT: 467 QTc: 453 Interpretive Statements SINUS BRADYCARDIA LOW QRS VOLTAGE IN PRECORDIAL LEADS Electronically Signed On 07-23-2018 10:27:09 EDT by Olivia Koenig
--- NOTE | 2018-07-23 10:33 | Electrocardiograph Report ---
[place] [id number] Test Date: 2018-07-22 Pat Name: Cathleen Frye Department: 112 Room: 2A47 Gender: F International Travel Consultant: : 1940 Requested By: Papito Chavez Order Number: [id number] Reading MD: Olivia Koenig Measurements Intervals [place] Rate: 53 P: 69 MD: 148 QRS: -13 QRSD: 81 T: 2 QT: 448 QTc: 430 Interpretive Statements SINUS BRADYCARDIA LOW QRS VOLTAGE IN PRECORDIAL LEADS Electronically Signed On 07-23-2018 10:32:05 EDT by Olivia Koenig
--- NOTE | 2018-07-23 12:17 | Event Note ---
Date of Encounter: 07/23/18 Time of Encounter: 12:15 - Cardiology Event Note Paged by RN d/t sinus govind, HR 48 with worsening fatigue and dyspnea. Discussed with Dr. Carlos Alberto Diaz and pt. Symptoms likely medication side effects from Sotalol increase. Pt wants to stop Sotalol. Will stop and recommend rate control strategy for now. Will start Lopressor 25mg BID starting tonight. Continue Coumadin for AC. Will continue to follow and evaluate pt in AM.
--- NOTE | 2018-07-23 12:39 | Electrocardiograph Report ---
[place] [address] Test Date: 2018-07-19 Pat Name: Cathleen Frye Department: 104 Room: 2A47 Gender: F Hand Box Coverer: [place] : 1940 Requested By: Gustavo Gamez Order Number: [id number] Reading MD: Olivia Koenig Measurements Intervals [place] Rate: 143 P: [place]: 0 QRS: 202 QRSD: 76 T: 126 QT: 287 QTc: 370 Interpretive Statements ATRIAL FLUTTER/TACHYCARDIA WITH RAPID VENTRICULAR RESPONSE MODERATE ST DEPRESSION MAY BE RATE RELATED Electronically Signed On 07-23-2018 12:38:00 EDT by Olivia Koenig
--- NOTE | 2018-07-23 14:13 | Internal Med Progress Note ---
Hospitalist Progress Note - Encounter Date of Encounter: 07/23/18 Time of Encounter: 14:33 - Subjective Interval History: Evaluated patient earlier today. Patient has become very lethargic since her sotalol dosage was increased yesterday evening. Patient does not wish to continue sotalol at this time. She does have shortness of breath but it stable. Tolerating CPAP well. Denies any chest pain. No nausea or vomiting. No fevers or chills reported overnight - Exam Vitals: Temp Pulse Resp BP Pulse Ox 97.6 F 51 22 115/69 92 07/23/18 11:01 07/23/18 11:01 07/23/18 11:01 07/23/18 11:01 07/23/18 11:01 Exam: General: Patient is alert, mild distress, oriented x 3 Respiratory: Diminished breath sounds bilaterally. Minimal wheezing Cardiovascular: Regular rate and rhythm. s1 and s2 normal No clicks, rubs, gallops, or murmurs. No pedal edema Abdomen: Abdomen is soft, nontender. Bowel sounds are present Musculoskeletal: Spontaneously moving all extremities Skin: warm, dry, intact. Neuro: Alert oriented x 3 normal cranial nerves, no focal deficits - Assessment and Plan (1) Atrial fibrillation with rapid ventricular response Current Visit: Yes Status: Acute (2) COPD (chronic obstructive pulmonary disease) Current Visit: Yes Status: Chronic (3) Chronic hypoxemic respiratory failure Current Visit: Yes Status: Chronic (4) Type 2 diabetes mellitus without complications Current Visit: Yes Status: Acute (5) DVT prophylaxis Current Visit: Yes Status: Acute DVT Prophylaxis: On Coumadin. - Summary of Assessment and Plan Summary of Assessment and Plan: Paroxysmal atrial fibrillation: Patient not tolerating increased dose of sotalol. EP following. Recommend to stop sotalol and place patient on Lopressor for rate control. On anticoagulation with Coumadin. Sinus bradycardia: Patient in sinus bradycardia when A. fib converts. Will monitor with telemetry. COPD: Continue prednisone and bronchodilators. Treating patient for mild exacerbation. Type 2 diabetes mellitus: Continue to monitor blood sugars. Expect rise in sugars with steroid use. Will adjust insulin regimen accordingly. Diabetic diet. Chronic hypoxic respiratory failure: Continue O2 supplementation. Chronic diastolic congestive heart failure: No signs of acute heart failure at this time. Continue oral Lasix. Moderate risk for complications. - Time Spent with Patient Total time spent is greater than 50% in coordination of care (as documented) at patient's floor/unit and/or counseling patient: Internal Medicine: Result - Labs CBC & Chem 7: 07/20/18 02:47 07/22/18 20:02 Labs: BMP 07/22/18 20:02 Sodium 134 L Potassium 5.1 Chloride 98 Carbon Dioxide 33 H BUN 16 Creatinine 0.78 Glucose 237 H Calcium 8.6 - ABG Interpretation ABG results: PT/INR, D-dimer PT 24.8 Seconds (9.4-12.1) H 07/23/18 04:36 Consult Discharge Plan - Plan Referrals: Tisha Celeste MD [Primary Care Provider] - (2) COPD (chronic obstructive pulmonary disease) Qualifiers: COPD type: unspecified COPD Qualified Code(s): J44.9 - Chronic obstructive pulmonary disease, unspecified (4) Type 2 diabetes mellitus without complications Qualifiers: Diabetes mellitus 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
--- NOTE | 2018-07-23 17:03 | Electrocardiograph Report ---
[place] [id number] Test Date: 2018-07-22 Pat Name: Cathleen Frye Department: 112 Room: 2A Gender: F Labor Law Professor: : 1940 Requested By: Hiren Matt Order Number: [id number] Reading MD: Caprice Diaz Measurements Intervals [place] Rate: 53 P: 75 MO: 149 QRS: -7 QRSD: 77 T: 30 QT: 445 QTc: 429 Interpretive Statements SINUS BRADYCARDIA LOW QRS VOLTAGE IN PRECORDIAL LEADS Electronically Signed On 07-23-2018 17:01:20 EDT by Caprice Diaz
--- NOTE | 2018-07-23 17:45 | Electrocardiograph Report ---
[place] [id number] Test Date: 2018-07-20 Pat Name: Cathleen Frye Department: 112 Room: 2A47 Gender: F Physician Practice Consultant: : 1940 Requested By: Ana Catalan Order Number: [id number] Reading MD: Caprice Diaz Measurements Intervals [place] Rate: 42 P: 77 MT: 148 QRS: -5 QRSD: 80 T: 40 QT: 467 QTc: 410 Interpretive Statements SINUS BRADYCARDIA LOW QRS VOLTAGE IN PRECORDIAL LEADS NONSPECIFIC T-WAVE ABNORMALITY Electronically Signed On 07-23-2018 17:43:54 EDT by Caprice Diaz
[2018-07-23] MEDS ORDERED: *HR* Warfarin 3 MG TABLET PO ONE (18:00)
[2018-07-23] MEDS: rOPINIRole 0.25 MG TABLET PO SCH (21:02)
[2018-07-23] MEDS ORDERED: 0.9 % Sodium Chloride 500 ML ONE (21:53)
[2018-07-24] MEDS: Levalbuterol Neb 1.25 MG/3 ML IH SCH ×4 (03:39→22:56)
[2018-07-24 05:35] LABS: Basophils % 0.2 %; Eosinophils % 0.4 %; Hematocrit 40.9 % (35.3-44.9); Hemoglobin 12.5 g/dL (11.5-15.4); Immature Granulocytes % 0.6 % (0-4); Lymphocytes % 31.9 %; Mean Corpuscular HGB Conc 30.6 g/dL (31.6-35.5); Monocytes # 0.9 K/mcL (0.0-1.3); Monocytes % 8.1 %; Platelet Count 199 K/mcL (140-400); Red Blood Count 4.81 M/mcL (3.82-4.97); Red Cell Distribution Width 24.9 % (11.5-14.5); Segmented Neutrophils % 58.8 %; White Blood Count 10.8 K/mcL (4.3-11.1)
[2018-07-24 05:42] LABS: Lymphocytes # 3.5 K/mcL (0.6-4.6); Neutrophils # 6.4 K/mcL (1.6-8.9)
[2018-07-24 05:43] LABS: INR 1.9; Prothrombin Time 21.9 Seconds (9.4-12.1)
[2018-07-24 06:01] LABS: BUN/Creatinine Ratio 32 (6-26); Blood Urea Nitrogen 18 mg/dL (8-23); Calcium 8.8 mg/dL (8.6-10.3); Carbon Dioxide 33 mEq/L (23-29); Chloride 100 mEq/L (98-107); Glucose 109 mg/dL (70-105); Osmolality,Calculated 292 (280-300); Potassium 3.8 mEq/L (3.5-5.1); Sodium 140 mEq/L (136-145); eGFR For African Americans > 60 (> 60); eGFR For Non-African Americans > 60 (> 60)
[2018-07-24 06:20] LABS: Anisocytosis 1+ (Not Present); Hypochromasia Present (Not Present); Platelet Estimate Normal (Normal)
[2018-07-24] MEDS: predniSONE 20 MG TABLET PO SCH (08:24)
[2018-07-24] MEDS: Cholecalciferol (D-3) 1,000 UNIT TABLET PO SCH (08:24)
[2018-07-24] MEDS: Insulin LISPRO 300 UNITS/3 ML VIAL SQ SCH ×4 (08:24→21:11)
[2018-07-24] MEDS: Cyanocobalamin (B-12) 1,000 MCG TABLET PO SCH (08:24)
[2018-07-24] MEDS: Furosemide 20 MG TABLET PO SCH ×2 (08:24→17:13)
[2018-07-24] MEDS: *HR* Metoprolol 5 MG/5 ML VIAL IVP PRN ×3 (09:39→18:49)
--- NOTE | 2018-07-24 10:40 | Internal Med Progress Note ---
Hospitalist Progress Note - Encounter Date of Encounter: 07/24/18 Time of Encounter: 10:38 - Subjective Interval History: Patient still very shortness of breath with exertion, she has scattered wheezing bilateral, on 4 L nasal cannula, she has dry cough, unable to cough up any mucus. Her heart rate has been running 130 to 150 overnight, Cardizem drip st arted currently on 10 mg per hour. I will add the doxycycline for COPD exacerbation she has been on prednisone started 2 days ago and is scheduled to Xopenex and Mucinex - Exam Vitals: Temp Pulse Resp BP Pulse Ox 97.7 F 85 25 113/68 93 07/24/18 06:52 07/24/18 06:52 07/24/18 06:52 07/24/18 06:52 07/24/18 06:52 Exam: General: Patient is alert, mild distress, oriented x 3 Respiratory: Diminished breath sounds bilaterally. scant wheezing Cardiovascular: Regular rate and rhythm. s1 and s2 normal No clicks, rubs, gallops, or murmurs. No pedal edema Abdomen: Abdomen is soft, nontender. Bowel sounds are present Musculoskeletal: Spontaneously moving all extremities Skin: warm, dry, intact. Neuro: Alert oriented x 3 normal cranial nerves, no focal deficits DVT Prophylaxis: On Coumadin. - Summary of Assessment and Plan Summary of Assessment and Plan: Ms. Frye is a 78 year old female with history of atrial fibrillation, COPD pr esents with palpitations. Patient states that over the last week she has felt generally lousy and has complained of palpitations and shortness of breath. She states she feels like her heart is racing. She states this feels similar to her previous episodes of A. fib with elevated heart rate. She states this is making her feel worn out and tired. She states it is worse with activity and better with rest. She states she has been previously admitted for her A. fib. She denies any chest pain, fever, chills, abdominal pain, nausea, vomiting. Discussed with patient who wishes to be full code. patient was admitted on 07/19 (1) paroxysmal Atrial fibrillation with rapid ventricular response, on coumadin Current Visit: Yes Status: Acute Assessment and plan: Presented A-Flutter RVR 07/19 and was started on cardizem gtt. Converted to SR, then became bradycardic HR 40s and cardizem was stopped. Known PAF, failed Rythmol in the past; unable to tolerate sotalol due to side effect. restarted cardiazem drip last night, now on 10 mg per hour, and metoprolol 50 mg BID Limited echo EF 60-65%, NSWMA. CXR stable. Reports compliance with CPAP. (2) COPD (chronic obstructive pulmonary disease) with mild exacerbation, she is on prednisone 40 mg daily, scheduled xopenex, will add doxycline Current Visit: No Status: Chronic Assessment and plan: No evidence of acute exacerbation. Continue supplemental oxygen at home dose and when necessary bronchodilators. Qualifiers: COPD type: unspecified COPD Qualified Code(s): J44.9 - Chronic obstructive pulmonary disease, unspecified (3) Chronic hypoxemic respiratory failure from COPD on 2 L NC at home Current Visit: No Status: Chronic (4) Type 2 diabetes mellitus without complications Current Visit: No Status: Acute Assessment and plan: Blood sugar mildly elevated on presentation. Most recent hemoglobin A1c noted to be 7.1. Start Accu-Cheks before meals and at bedtime with low-dose sliding so coverage. Continue to monitor blood sugars and adjust insulin regimen as necessary. Qualifiers: Diabetes mellitus usp insulin use: without usp use Qualified Code(s): E11.9 - Type 2 diabetes mellitus without complications (5) DVT prophylaxis on coumadin Current Visit: No Status: Acute Assessment and plan: (6)Chronic diastolic congestive heart failure: No signs of acute heart failure at this time. Continue oral Lasix. (7) obesity with BMI 35 - Time Spent with Patient Total time spent is greater than 50% in coordination of care (as documented) at patient's floor/unit and/or counseling patient: 25 - 35 minutes Internal Medicine: Result - Labs CBC & Chem 7: 07/24/18 04:54 07/24/18 04:54 Labs: Short CBC 07/24/18 Range/Units 04:54 WBC 10.8 (4.3-11.1) K/mcL Hgb 12.5 (11.5-15.4) g/dL Hct 40.9 (35.3-44.9) % Plt Count 199 (140-400) K/mcL Neutrophils # 6.4 (1.6-8.9) K/mcL BMP 07/24/18 04:54 Sodium 140 Potassium 3.8 Chloride 100 Carbon Dioxide 33 H BUN 18 Creatinine 0.57 L Glucose 109 H Calcium 8.8 - ABG Interpretation ABG results: PT/INR, D-dimer PT 21.9 Seconds (9.4-12.1) H 07/24/18 04:54 Consult Discharge Plan - Plan Referrals: Tisha Celeste MD [Primary Care Provider] -
--- NOTE | 2018-07-24 13:02 | Electrophysiology ProgressNote ---
Date of Encounter: 07/24/18 Time of Encounter: 12:59 Assessment and Plan (1) PAF (paroxysmal atrial fibrillation) Current Visit: Yes Status: Chronic Per Cardiology: Presented A-Flutter RVR 07/19 Known PAF, failed Rythmol in the past; Increased sotalol to 160 mg q12h 07/22--stopped after AM dose 07/23 d/t pt not being able to tolerate. Reported symptoms of significant dyspnea and fatigue. Discussed with Dr. Carlos Alberto Diaz. Recommend rate control strategy for now and AC. Currently A-Fib RVR. Was started on Cardizem gtt currently at 7.5mg/hr. On PO Lopressor increased to 50mg BID. During brief episodes of SR HR 50s. Continue Cardizem gtt and uptitrate to keep HR <100. If rate controlled tomorrow, will transition to PO. Limited echo EF 60-65%, NSWMA. No significant valvular dysfunction from 10/2017. Patient reports continued dyspnea, wheezes on exam. Hospitalist now treating for COPD exacerbation, likely contributing to RVR. Anticoagulated on Coumadin, INR 1.9. H&H stable. Continue to follow. Discussion w patient/family: The assessment and plan as outlined above was discussed with the patient and/or family members who expressed understanding and agreement. All questions were answered. Thank you for involving us in the care of your patient. Please call with any questions. I will discuss all the above with Dr. Carlos Alberto Diaz and make changes as necessary. Subjective Principal diagnosis: afib RVR Interval history: Reports continued fatigue and continued dyspnea. Objective Vital Signs, Last 4 Hours Temp Pulse Resp BP Pulse Ox 07/24/18 11:03 97.6 F 90 24 103/71 95 07/24/18 10:55 23 92 Vital Signs Temp Pulse Resp BP Pulse Ox 07/24/18 11:03 97.6 F 90 24 103/71 95 07/24/18 10:55 23 92 07/24/18 06:52 97.7 F 85 25 113/68 93 07/24/18 04:11 98.1 F 51 18 125/71 92 07/24/18 03:41 22 95 07/24/18 00:20 97.4 F L 55 21 127/58 96 07/23/18 23:13 17 90 07/23/18 20:06 97.6 F 60 17 157/83 94 07/23/18 15:49 97.8 F 55 20 138/77 92 07/23/18 15:17 20 94 Intake and Output 07/23/18 07/24/18 07/24/18 23:59 07:59 15:59 Intake Total 5.7 / 485.7 70.0 / 560.3 490.3 / 560.3 Balance 5.7 / 485.7 70.0 / 560.3 490.3 / 560.3 Intake: IV Fluids 5.7 / 5.7 70.0 / 80.3 10.3 / 80.3 0.9 % Sodium Chloride 500 ML @ 61 / 61 0 mls/hr .ROUTE .[facility] Rx #:[id number] Cardizem 50 MG In 0.9 % Sodium 5.7 / 5.7 9.0 / 19.3 10.3 / 19.3 Chloride 40 ML @ 5 MG/HR 5 mls/ hr IVC CONT DARREN Rx#:[id number] Oral 480 / 480 Other: Meal Lunch Percent of Meal Consumed 100% Blood Glucose* 193 97 185 General: Conversant, No Apparent Distress HEENT: Atraumatic, Normocephaly, Mucus Membranes Moist Neck: No JVD, Normal carotid pulses Cardiac: Other (irregularly irregular rhythm) Lungs: Other (wheezes noted) Neuro: Alert and responsive, No focal deficits noted Abdomen: Soft, Non-Tender Skin: No rashes noted on visualized skin Musculoskeletal: No Chest Wall Tenderness Extremities: No Clubbing, No Cyanosis, No Edema, Normal Pulses Results 07/24/18 04:54 07/24/18 04:54 Lab Results 07/24/18 07/24/18 07/24/18 04:54 04:54 04:54 WBC 10.8 Hgb 12.5 Hct 40.9 Plt Count 199 INR 1.9 Sodium 140 Potassium 3.8 Chloride 100 Carbon Dioxide 33 H BUN 18 Creatinine 0.57 L Glucose 109 H Calcium 8.8 Short CBC 07/24/18 Range/Units 04:54 WBC 10.8 (4.3-11.1) K/mcL Hgb 12.5 (11.5-15.4) g/dL Hct 40.9 (35.3-44.9) % Plt Count 199 (140-400) K/mcL Neutrophils # 6.4 (1.6-8.9) K/mcL BMP 07/24/18 Range/Units 04:54 Sodium 140 (136-145) mEq/L Potassium 3.8 (3.5-5.1) mEq/L Chloride 100 (98-107) mEq/L Carbon Dioxide 33 H (23-29) mEq/L BUN 18 (8-23) mg/dL Creatinine 0.57 L (0.60-1.20) mg/dL Glucose 109 H (70-105) mg/dL Calcium 8.8 (8.6-10.3) mg/dL Active Medications Acetaminophen (Tylenol) 650 mg PO Q6HR PRN PRN Reason: Mild Pain/Fever Stop: 01/18/19 19:33 Hydrocodone Bitart/Acetaminophen ([place] 5-325 Mg) 1 tab PO Q6HR PRN PRN Reason: Moderate Pain Stop: 01/18/19 19:33 Cyanocobalamin (Vitamin B12) 1,000 mcg PO DAILY [facility] Stop: 01/19/19 09:01 Last Admin: 07/24/18 08:24 Dose: 1,000 mcg Documented by: Dextrose/Water (Dextrose 50% (Syg)) 25 ml IVP AD PRN PRN Reason: Hypoglycemia Stop: 01/18/19 19:47 Doxycycline Hyclate (Doxycycline) 100 mg PO BID [facility] Stop: 01/23/19 10:46 Escitalopram Oxalate (Lexapro) 10 mg PO HS [facility] Stop: 01/18/19 21:41 Last Admin: 07/23/18 21:02 Dose: 10 mg Documented by: Furosemide (Lasix) 20 mg PO BIDDIURETIC [facility] Stop: 01/21/19 17:01 Last Admin: 07/24/18 08:24 Dose: 20 mg Documented by: Glucagon (Glucagen) 1 mg IM ONCE PRN PRN Reason: Hypoglycemia Stop: 01/18/19 19:47 Glucose (Gluctose) 15 gm PO ONCE PRN PRN Reason: Hypoglycemia Stop: 01/18/19 19:47 Glucose (Gluctose) 30 gm PO ONCE PRN PRN Reason: Hypoglycemia Stop: 01/18/19 19:47 Guaifenesin (Mucinex) 600 mg PO BID [facility] Stop: 01/23/19 10:46 Dextrose (Dextrose 5%) 1,000 mls @ 100 mls/hr IVC .Q10H PRN PRN Reason: HYPOGLYCEMIA Stop: 01/18/19 19:47 Diltiazem HCl 50 mg/ Sodium (Chloride) 50 mls @ 5 mls/hr IVC CONT [facility]; Protocol Stop: 01/22/19 21:31 Last Infusion: 07/24/18 11:59 Dose: 75 mg/hr, 75 mls/hr Documented by: Insulin Human Lispro (Humalog) 0 units SQ TIDAC [facility]; Protocol Stop: 01/19/19 07:31 Last Admin: 07/24/18 08:24 Dose: Not Given Documented by: Insulin Human Lispro (Humalog) 0 units SQ HS [facility]; Protocol Stop: 01/18/19 21:01 Last Admin: 07/23/18 21:02 Dose: Not Given Documented by: Levalbuterol HCl (Xopenex) 2 puff IH Q4H PRN PRN Reason: Wheezing Stop: 01/18/19 19:35 Levalbuterol HCl (Xopenex) 1.25 mg IH [id number] [facility] Stop: 01/19/19 16:01 Last Admin: 07/24/18 10:55 Dose: 1.25 mg Documented by: Metoprolol Tartrate (Lopressor) 5 mg IVP Q5MIN PRN PRN Reason: Heart Rate- High Stop: 01/20/19 16:16 Last Admin: 07/24/18 10:01 Dose: 5 mg Documented by: Metoprolol Tartrate (Lopressor) 50 mg PO BID [facility] Stop: 01/23/19 09:01 Last Admin: 07/24/18 08:23 Dose: 50 mg Documented by: Naloxone HCl (Narcan) 0.4 mg IVP Q2MPRN PRN PRN Reason: SEE COMMENTS Stop: 01/18/19 19:33 Ondansetron HCl (Zofran) 4 mg IVP Q8HR PRN PRN Reason: Nausea And Vomiting Stop: 01/18/19 19:33 Oxycodone HCl (Roxicodone) 10 mg PO Q6HR PRN PRN Reason: Severe Pain Stop: 01/18/19 19:33 Prednisone (Prednisone) 40 mg PO DAILY [facility] Stop: 01/21/19 11:46 Last Admin: 07/24/18 08:24 Dose: 40 mg Documented by: Ropinirole HCl (Requip) 0.25 mg PO HS [facility] Stop: 01/18/19 21:01 Last Admin: 07/23/18 21:02 Dose: 0.25 mg Documented by: Vitamin D (Vitamin D) 1,000 unit PO DAILY [facility] Stop: 01/19/19 09:01 Last Admin: 07/24/18 08:24 Dose: 1,000 unit Documented by: Warfarin Sodium (Coumadin Perpt) 1 each PO DAILY@1800 PRN PRN Reason: SEE COMMENTS Stop: 01/19/19 18:01 Warfarin Sodium (Coumadin) 6 mg PO ONCE ONE Stop: 07/24/18 18:01 - Imaging and Cardiology Echo: report reviewed - EKG Interpretation EKG results cardiology: other (12 hr tele AVG HR 96, PAF/PAFl) Consult Discharge Plan - Plan Referrals: Tisha Celeste MD [Primary Care Provider] -
[2018-07-24] MEDS: Doxycycline 100 MG CAPSULE PO SCH ×2 (13:03→22:42)
[2018-07-24] MEDS ORDERED: *HR* Warfarin 3 MG TABLET PO ONE (18:00)
--- NOTE | 2018-07-24 18:54 | Electrocardiograph Report ---
[address] [address] Test Date: 2018-07-23 Pat Name: Cathleen Frye Department: 112 Room: 2A47 Gender: F Meeting/Event Planner: : 1940 Requested By: Areli Ricci Order Number: [id number] Reading MD: Mady Herrera Measurements Intervals [place] Rate: 142 P: AR: 0 QRS: -7 QRSD: 74 T: 53 QT: 298 QTc: 380 Interpretive Statements ATRIAL FIBRILLATION WITH RAPID VENTRICULAR RESPONSE LOW QRS VOLTAGE IN PRECORDIAL LEADS MODERATE ST DEPRESSION Electronically Signed On 07-24-2018 18:53:30 EDT by Mady Herrera
[2018-07-24] MEDS ORDERED: Amiodarone 150 MG in D5% in Water 100 ML IVPB ONE (19:48)
[2018-07-24] MEDS ORDERED: Amiodarone Premix 360 MG/200 ML BAG IVC ONE (19:56)
[2018-07-24] MEDS ORDERED: Amiodarone Premix 150 MG/100 ML BAG IVPB ONE (20:30)
[2018-07-24] MEDS: rOPINIRole 0.25 MG TABLET PO SCH (22:42)
[2018-07-25] MEDS: Levalbuterol Neb 1.25 MG/3 ML IH SCH ×4 (03:39→22:54)
[2018-07-25] MEDS ORDERED: Amiodarone Premix 360 MG/200 ML BAG IVC ONE (04:41)
[2018-07-25] MEDS ORDERED: Amiodarone Premix 360 MG/200 ML BAG IVC SCH (04:45)
--- NOTE | 2018-07-25 05:58 | Event Note ---
Date of Encounter: 07/24/18 Time of Encounter: 19:00 Alerted by pts. nurse at the time I was making initial rounds that the pts. HR was sustaining at 150s and had been doing so for more than an hour. Pts. Cardizem gtt was as the maximum 15 rate and the pt. had received doses of IVP metoprolol which were not helping. Nurse instructed to call Cardiology immediately for an amiodarone gtt. No 2N or ICU beds available, so pt. will remain on 2A w/amiodarone gtt running and close monitoring by a dedicated nurse. Checked with the pts. nurse during the night for updates. Pts. HR was in low 100s. Pt. continued to be asymptomatic. Rechecked with pts. nurse MAGGI Centeno at 05:57 that pts. HR is now 60s to 90s in Atrial flutter. Nurse instructed to continue monitoring this pt. very closely and alert me immediately of any new or adverse changes.
[2018-07-25 06:42] LABS: Prothrombin Time 22.2 Seconds (9.4-12.1)
[2018-07-25] MEDS: Insulin LISPRO 300 UNITS/3 ML VIAL SQ SCH ×4 (09:18→20:56)
[2018-07-25] MEDS: predniSONE 20 MG TABLET PO SCH (09:35)
[2018-07-25] MEDS: Doxycycline 100 MG CAPSULE PO SCH ×2 (09:36→20:56)
[2018-07-25] MEDS: Furosemide 20 MG TABLET PO SCH ×2 (09:36→17:44)
[2018-07-25] MEDS: Cholecalciferol (D-3) 1,000 UNIT TABLET PO SCH (09:36)
[2018-07-25] MEDS: Cyanocobalamin (B-12) 1,000 MCG TABLET PO SCH (09:37)
--- NOTE | 2018-07-25 10:45 | Electrophysiology ProgressNote ---
Date of Encounter: 07/25/18 Time of Encounter: 10:15 Assessment and Plan (1) PAF (paroxysmal atrial fibrillation) Current Visit: Yes Status: Chronic Per Cardiology: Presented A-Flutter RVR 07/19 Known PAF, failed Rythmol in the past; Increased sotalol to 160 mg q12h 07/22--stopped after AM dose 07/23 d/t pt not being able to tolerate. Reported symptoms of significant dyspnea and fatigue. Discussed with Dr. Carlos Alberto Diaz. Recommend rate control strategy for now and AC. Episode of afib with RVR overnight; was started on amiodarone gtt--now off due to HR 50's. NSR upon exam, HR 50's. Ideally rate control with BB and/or CCB. Add cardizem if PAF recurs--po short acting. If needed, consider starting oral amiodarone, however will need to wait for sotalol wash out. Obtain ECG now to evaluate QT/QTc. Limited echo EF 60-65%, NSWMA. No significant valvular dysfunction from 10/2017. Patient reports continued dyspnea, wheezes on exam. Hospitalist now treating for COPD exacerbation, likely contributing to RVR. Suspect poor respiratory status likely driving PAF. Anticoagulated on Coumadin, INR 1.9. H&H stable. Continue to follow. Discussion w patient/family: The assessment and plan as outlined above was discussed with the patient and/or family members who expressed understanding and agreement. All questions were a nswered. Thank you for involving us in the care of your patient. Please call with any questions. The patient will be discussed and reviewed with Dr. Carlos Alberto Diaz; changes to be made accordingly. Subjective Principal diagnosis: afib RVR Interval history: Seen and examined. No complaints overnight, reports did feel "quiver" in chest. Reports dyspnea improved. Objective Vital Signs, Last 4 Hours Temp Pulse Resp BP Pulse Ox 07/25/18 10:38 97.3 F L 55 17 134/64 98 07/25/18 10:36 18 93 07/25/18 06:57 97.9 F 43 16 117/54 90 General: Conversant, No Apparent Distress HEENT: Atraumatic, Normocephaly, Mucus Membranes Moist Cardiac: Reg Rate and Rhythm (bradycardia), Normal S1 and S2 Lungs: Other (Decreased breath sounds throughout) Neuro: Alert and responsive Abdomen: Soft Skin: No rashes noted on visualized skin Musculoskeletal: No Chest Wall Tenderness Extremities: No Edema, Normal Pulses Results 07/24/18 04:54 07/24/18 04:54 Lab Results 07/25/18 06:07 INR 2.0 Active Medications Acetaminophen (Tylenol) 650 mg PO Q6HR PRN PRN Reason: Mild Pain/Fever Stop: 01/18/19 19:33 Hydrocodone Bitart/Acetaminophen ([place] 5-325 Mg) 1 tab PO Q6HR PRN PRN Reason: Moderate Pain Stop: 01/18/19 19:33 Cyanocobalamin (Vitamin B12) 1,000 mcg PO DAILY [facility] Stop: 01/19/19 09:01 Last Admin: 07/25/18 09:37 Dose: 1,000 mcg Documented by: Dextrose/Water (Dextrose 50% (Syg)) 25 ml IVP AD PRN PRN Reason: Hypoglycemia Stop: 01/18/19 19:47 Doxycycline Hyclate (Doxycycline) 100 mg PO BID [facility] Stop: 01/23/19 10:46 Last Admin: 07/25/18 09:36 Dose: 100 mg Documented by: Escitalopram Oxalate (Lexapro) 10 mg PO HS [facility] Stop: 01/18/19 21:41 Last Admin: 07/24/18 22:42 Dose: 10 mg Documented by: Furosemide (Lasix) 20 mg PO BIDDIURETIC [facility] Stop: 01/21/19 17:01 Last Admin: 07/25/18 09:36 Dose: 20 mg Documented by: Glucagon (Glucagen) 1 mg IM ONCE PRN PRN Reason: Hypoglycemia Stop: 01/18/19 19:47 Glucose (Gluctose) 15 gm PO ONCE PRN PRN Reason: Hypoglycemia Stop: 01/18/19 19:47 Glucose (Gluctose) 30 gm PO ONCE PRN PRN Reason: Hypoglycemia Stop: 01/18/19 19:47 Guaifenesin (Mucinex) 600 mg PO BID [facility] Stop: 01/23/19 10:46 Last Admin: 07/25/18 09:36 Dose: 600 mg Documented by: Dextrose (Dextrose 5%) 1,000 mls @ 100 mls/hr IVC .Q10H PRN PRN Reason: HYPOGLYCEMIA Stop: 01/18/19 19:47 Insulin Human Lispro (Humalog) 0 units SQ TIDAC [facility]; Protocol Stop: 01/19/19 07:31 Last Admin: 07/25/18 09:18 Dose: Not Given Documented by: Insulin Human Lispro (Humalog) 0 units SQ HS [facility]; Protocol Stop: 01/18/19 21:01 Last Admin: 07/24/18 21:11 Dose: Not Given Documented by: Levalbuterol HCl (Xopenex) 2 puff IH Q4H PRN PRN Reason: Wheezing Stop: 01/18/19 19:35 Levalbuterol HCl (Xopenex) 1.25 mg IH [id number] [facility] Stop: 01/19/19 16:01 Last Admin: 07/25/18 10:33 Dose: 1.25 mg Documented by: Metoprolol Tartrate (Lopressor) 5 mg IVP Q5MIN PRN PRN Reason: Heart Rate- High Stop: 01/20/19 16:16 Last Admin: 07/24/18 18:49 Dose: 5 mg Documented by: Metoprolol Tartrate (Lopressor) 50 mg PO BID [facility] Stop: 01/23/19 09:01 Last Admin: 07/25/18 09:44 Dose: 50 mg Documented by: Naloxone HCl (Narcan) 0.4 mg IVP Q2MPRN PRN PRN Reason: SEE COMMENTS Stop: 01/18/19 19:33 Ondansetron HCl (Zofran) 4 mg IVP Q8HR PRN PRN Reason: Nausea And Vomiting Stop: 01/18/19 19:33 Oxycodone HCl (Roxicodone) 10 mg PO Q6HR PRN PRN Reason: Severe Pain Stop: 01/18/19 19:33 Prednisone (Prednisone) 40 mg PO DAILY [facility] Stop: 01/21/19 11:46 Last Admin: 07/25/18 09:35 Dose: 40 mg Documented by: Ropinirole HCl (Requip) 0.25 mg PO HS [facility] Stop: 01/18/19 21:01 Last Admin: 07/24/18 22:42 Dose: 0.25 mg Documented by: Vitamin D (Vitamin D) 1,000 unit PO DAILY [facility] Stop: 01/19/19 09:01 Last Admin: 07/25/18 09:36 Dose: 1,000 unit Documented by: Warfarin Sodium (Coumadin Perpt) 1 each PO DAILY@1800 PRN PRN Reason: SEE COMMENTS Stop: 01/19/19 18:01 - Imaging and Cardiology Echo: report reviewed - EKG Interpretation EKG results cardiology: personally reviewed Consult Discharge Plan - Plan Referrals: Tisha Celeste MD [Primary Care Provider] -
--- NOTE | 2018-07-25 15:11 | Internal Med Progress Note ---
Hospitalist Progress Note - Encounter Date of Encounter: 07/25/18 Time of Encounter: 15:07 - Subjective Interval History: patient had persistent a-fib with RVR last night, NF started on amiodarone, HR come done, but stopped due to Q-T prolongation. - Exam Vitals: Temp Pulse Resp BP Pulse Ox 97.3 F L 55 17 134/64 98 07/25/18 10:38 07/25/18 10:38 07/25/18 10:38 07/25/18 10:38 07/25/18 10:38 Exam: General: Patient is alert, mild distress, oriented x 3 Respiratory: Diminished breath sounds bilaterally. scant wheezing Cardiovascular: irRegular rate and rhythm. s1 and s2 normal No clicks, rubs, gallops, or murmurs. No pedal edema Abdomen: Abdomen is soft, nontender. Bowel sounds are present Musculoskeletal: Spontaneously moving all extremities Skin: warm, dry, intact. Neuro: Alert oriented x 3 normal cranial nerves, no focal deficits DVT Prophylaxis: On Coumadin. - Summary of Assessment and Plan Summary of Assessment and Plan: Ms. Frye is a 78 year old female with history of atrial fibrillation, COPD presents with palpitations. Patient states that over the last week she has felt generally lousy and has complained of palpitations and shortness of breath. She states she feels like her heart is racing. She states this feels similar to her previous episodes of A. fib with elevated heart rate. She states this is making her feel worn out and tired. She states it is worse with activity and better with rest. She states she has been previously admitted for her A. fib. She denies any chest pain, fever, chills, abdominal pain, nausea, vomiting. Discussed with patient who wishes to be full code. patient was admitted on 07/19 (1) paroxysmal Atrial fibrillation with rapid ventricular response, on coumadin Current Visit: Yes Status: Acute Assessment and plan: Presented A-Flutter RVR 07/19 and was started on cardizem gtt. Converted to SR, then became bradycardic HR 40s and cardizem was stopped. Known PAF, failed Rythmol in the past; unable to tolerate sotalol due to side effect. restarted cardiazem drip on 07/24, but still kunalb eot control the HR, then changed to amiodarone last night, HR dropped to 50, amiodarone stopped this morning. cardiology saw the patient this monring, metoprolol 50 mg BID await for satolol wash out to satrt amiodarone Limited echo EF 60-65%, NSWMA. CXR stable. Reports compliance with CPAP. (2) COPD (chronic obstructive pulmonary disease) with mild exacerbation, she is on prednisone 40 mg daily, scheduled xopenex, will add doxycline Current Visit: No Status: Chronic Assessment and plan: No evidence of acute exacerbation. Continue supplemental oxygen at home dose and when necessary bronchodilators. Qualifiers: COPD type: unspecified COPD Qualified Code(s): J44.9 - Chronic obstructive pulmonary disease, unspecified (3) Chronic hypoxemic respiratory failure from COPD on 2 L NC at home Current Visit: No Status: Chronic (4) Type 2 diabetes mellitus without complications Current Visit: No Status: Acute Assessment and plan: Blood sugar mildly elevated on presentation. Most recent hemoglobin A1c noted to be 7.1. Start Accu-Cheks before meals and at bedtime with low-dose sliding so coverage. Continue to monitor blood sugars and adjust insulin regimen as necessary. Qualifiers: Diabetes mellitus assisted insulin use: without terminal worker use Qualified Code(s): E11.9 - Type 2 diabetes mellitus without complications (5) DVT prophylaxis on coumadin Current Visit: No Status: Acute Assessment and plan: (6)Chronic diastolic congestive heart failure: No signs of acute heart failure at this time. Continue oral Lasix. (7) obesity with BMI 35 - Time Spent with Patient Total time spent is greater than 50% in coordination of care (as documented) at patient's floor/unit and/or counseling patient: 25 - 35 minutes Plan of Care Discussed with: patient Internal Medicine: Result - Labs CBC & Chem 7: 07/24/18 04:54 07/24/18 04:54 - ABG Interpretation ABG results: PT/INR, D-dimer PT 22.2 Seconds (9.4-12.1) H 07/25/18 06:07 Consult Discharge Plan - Plan Referrals: Tisha Celeste MD [Primary Care Provider] -
[2018-07-25] MEDS ORDERED: *HR* Warfarin 3 MG TABLET PO ONE (18:00)
[2018-07-25] MEDS: rOPINIRole 0.25 MG TABLET PO SCH (20:56)
[2018-07-26] MEDS: Levalbuterol Neb 1.25 MG/3 ML IH SCH ×2 (03:31→11:06)
[2018-07-26 03:52] LABS: INR 1.9; Prothrombin Time 21.8 Seconds (9.4-12.1)
[2018-07-26] MEDS: Insulin LISPRO 300 UNITS/3 ML VIAL SQ SCH ×2 (07:26→11:11)
--- NOTE | 2018-07-26 09:27 | Electrophysiology ProgressNote ---
Date of Encounter: 07/26/18 Time of Encounter: 10:30 Assessment and Plan (1) PAF (paroxysmal atrial fibrillation) Current Visit: Yes Status: Chronic Per Cardiology: Presented A-Flutter RVR 07/19 Known PAF, failed Rythmol in the past; Increased sotalol to 160 mg q12h 07/22--stopped after AM dose 07/23 d/t pt not being able to tolerate. Reported symptoms of significant dyspnea and fatigue. Discussed with Dr. Carlos Alberto Diaz. Recommend rate control strategy for now and AC. No recurrent PAF overnight. NSR upon exam, HR 60's. Continue BB; consider starting amiodarone in the outpatient setting if needed--will coordinate outpatient follow-up with EP. QT/QTc today 432/435 ms Limited echo EF 60-65%, NSWMA. No significant valvular dysfunction from 10/2017. Patient reports continued dyspnea, wheezes on exam. Hospitalist now treating for COPD exacerbation, likely contributing to RVR. Suspect poor respiratory status likely driving PAF. Anticoagulated on Coumadin, INR 1.9. H&H stable. No further inpt recommendations, will sign-off. Discussion w patient/family: The assessment and plan as outlined above was discussed with the patient and/or family members who expressed understanding and agreement. All questions were a nswered. Thank you for involving us in the care of your patient. Please call with any questions. The patient will be discussed and reviewed with Dr. Carlos Alberto Diaz; changes to be made accordingly. Subjective Principal diagnosis: afib RVR Interval history: Seen and examined. No new complaints upon exam today. On Bipap. Family at bedside. Objective Vital Signs, Last 4 Hours Temp Pulse Resp BP Pulse Ox 07/26/18 07:15 97.8 F 58 16 150/70 93 General: Conversant, No Apparent Distress HEENT: Atraumatic, Normocephaly, Mucus Membranes Moist Cardiac: Reg Rate and Rhythm, Normal S1 and S2 Lungs: Other (decreased breath sounds) Neuro: Alert and responsive Abdomen: Soft Skin: No rashes noted on visualized skin Musculoskeletal: No Chest Wall Tenderness Extremities: No Edema, Normal Pulses Results 07/24/18 04:54 07/24/18 04:54 Lab Results 07/26/18 03:21 INR 1.9 Active Medications Acetaminophen (Tylenol) 650 mg PO Q6HR PRN PRN Reason: Mild Pain/Fever Stop: 01/18/19 19:33 Hydrocodone Bitart/Acetaminophen ([place] 5-325 Mg) 1 tab PO Q6HR PRN PRN Reason: Moderate Pain Stop: 01/18/19 19:33 Cyanocobalamin (Vitamin B12) 1,000 mcg PO DAILY [facility] Stop: 01/19/19 09:01 Last Admin: 07/26/18 09:34 Dose: 1,000 mcg Documented by: Dextrose/Water (Dextrose 50% (Syg)) 25 ml IVP AD PRN PRN Reason: Hypoglycemia Stop: 01/18/19 19:47 Doxycycline Hyclate (Doxycycline) 100 mg PO BID [facility] Stop: 01/23/19 10:46 Last Admin: 07/26/18 09:34 Dose: 100 mg Documented by: Escitalopram Oxalate (Lexapro) 10 mg PO HS [facility] Stop: 01/18/19 21:41 Last Admin: 07/25/18 20:56 Dose: 10 mg Documented by: Furosemide (Lasix) 20 mg PO BIDDIURETIC [facility] Stop: 01/21/19 17:01 Last Admin: 07/25/18 17:44 Dose: 20 mg Documented by: Glucagon (Glucagen) 1 mg IM ONCE PRN PRN Reason: Hypoglycemia Stop: 01/18/19 19:47 Glucose (Gluctose) 15 gm PO ONCE PRN PRN Reason: Hypoglycemia Stop: 01/18/19 19:47 Glucose (Gluctose) 30 gm PO ONCE PRN PRN Reason: Hypoglycemia Stop: 01/18/19 19:47 Guaifenesin (Mucinex) 1,200 mg PO BID [facility] Stop: 01/25/19 09:01 Last Admin: 07/26/18 09:34 Dose: 1,200 mg Documented by: Dextrose (Dextrose 5%) 1,000 mls @ 100 mls/hr IVC .Q10H PRN PRN Reason: HYPOGLYCEMIA Stop: 01/18/19 19:47 Insulin Human Lispro (Humalog) 0 units SQ TIDAC [facility]; Protocol Stop: 01/19/19 07:31 Last Admin: 07/26/18 07:26 Dose: Not Given Documented by: Insulin Human Lispro (Humalog) 0 units SQ HS [facility]; Protocol Stop: 01/18/19 21:01 Last Admin: 07/25/18 20:56 Dose: 3 units Documented by: Levalbuterol HCl (Xopenex) 2 puff IH Q4H PRN PRN Reason: Wheezing Stop: 01/18/19 19:35 Levalbuterol HCl (Xopenex) 1.25 mg IH [id number] [facility] Stop: 01/19/19 16:01 Last Admin: 07/26/18 03:31 Dose: 1.25 mg Documented by: Metoprolol Tartrate (Lopressor) 5 mg IVP Q5MIN PRN PRN Reason: Heart Rate- High Stop: 01/20/19 16:16 Last Admin: 07/24/18 18:49 Dose: 5 mg Documented by: Metoprolol Tartrate (Lopressor) 50 mg PO BID [facility] Stop: 01/23/19 09:01 Last Admin: 07/26/18 09:34 Dose: 50 mg Documented by: Naloxone HCl (Narcan) 0.4 mg IVP Q2MPRN PRN PRN Reason: SEE COMMENTS Stop: 01/18/19 19:33 Ondansetron HCl (Zofran) 4 mg IVP Q8HR PRN PRN Reason: Nausea And Vomiting Stop: 01/18/19 19:33 Oxycodone HCl (Roxicodone) 10 mg PO Q6HR PRN PRN Reason: Severe Pain Stop: 01/18/19 19:33 Prednisone (Prednisone) 40 mg PO DAILY [facility] Stop: 01/21/19 11:46 Last Admin: 07/26/18 09:34 Dose: 40 mg Documented by: Ropinirole HCl (Requip) 0.25 mg PO HS [facility] Stop: 01/18/19 21:01 Last Admin: 07/25/18 20:56 Dose: 0.25 mg Documented by: Vitamin D (Vitamin D) 1,000 unit PO DAILY [facility] Stop: 01/19/19 09:01 Last Admin: 07/26/18 09:34 Dose: 1,000 unit Documented by: Warfarin Sodium (Coumadin Perpt) 1 each PO DAILY@1800 PRN PRN Reason: SEE COMMENTS Stop: 01/19/19 18:01 - Imaging and Cardiology Echo: report reviewed - EKG Interpretation EKG results cardiology: personally reviewed Consult Discharge Plan - Plan Referrals: Tisha Celeste MD [Primary Care Provider] -
[2018-07-26] MEDS: Cyanocobalamin (B-12) 1,000 MCG TABLET PO SCH (09:34)
[2018-07-26] MEDS: predniSONE 20 MG TABLET PO SCH (09:34)
[2018-07-26] MEDS: Cholecalciferol (D-3) 1,000 UNIT TABLET PO SCH (09:34)
[2018-07-26] MEDS: Doxycycline 100 MG CAPSULE PO SCH (09:34)
--- NOTE | 2018-07-26 09:41 | Electrocardiograph Report ---
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
[2018-07-26 11:04] VITALS: BP 156/83
[2018-07-26] MEDS: Furosemide 20 MG TABLET PO SCH (11:11)
--- NOTE | 2018-07-26 11:29 | Discharge Summary ---
Orders not resulted at time of discharge: Pending orders 07/24/18 06:00 ECG 12 lead ECG [ECG] [place] [address]/25/18 06:00 ECG 12 lead ECG [ECG] AM 00 07/27/18 04:00 PT/INR [Prothrombin Time INR] [COAG] AM 0400 Date of Encounter: 07/26/18 Time of Encounter: 11:22 Hospital course: Ms. Frye is a 78 year old female with history of atrial fibrillation, COPD presents with palpitations. Patient states that over the last week she has felt generally lousy and has complained of palpitations and shortness of breath. She states she feels like her heart is racing. She states this feels similar to her previous episodes of A. fib with elevated heart rate. She states this is making her feel worn out and tired. She states it is worse with activity and better with rest. She states she has been previously admitted for her A. fib. She denies any chest pain, fever, chills, abdominal pain, nausea, vomiting. Discussed with patient who wishes to be full code. patient was admitted on 07/19 (1) paroxysmal Atrial fibrillation with rapid ventricular response, on coumadin Current Visit: Yes Status: Acute Assessment and plan: Presented A-Flutter RVR 07/19 and was started on cardizem gtt. Converted to SR, then became bradycardic HR 40s and cardizem was stopped. Limited echo EF 60-65%, NSWMA. CXR stable. Reports compliance with CPAP. Known PAF, failed Rythmol in the past; unable to tolerate sotalol due to side effect. restarted cardiazem drip on 07/24, but still was unable to control the HR, then changed to amiodarone on 07/25, HR dropped to 50, amiodarone stopped, .patient HR has been in SR, on metoprolol 50 mg BID for over last 24 hours. Cardiology is ok to discharge on BB, and they will folow up and to start amiodarone as OP (2) COPD (chronic obstructive pulmonary disease) with mild exacerbation, she is on prednisone 40 mg daily, scheduled xopenex, improved, and discharged on taper prednisone and doxycycline Current Visit: No Status: Chronic Assessment and plan: No evidence of acute exacerbation. Continue supplemental oxygen at home dose and when necessary bronchodilators. Qualifiers: COPD type: unspecified COPD Qualified Code(s): J44.9 - Chronic obstructive pulmonary disease, unspecified (3) Chronic hypoxemic respiratory failure from COPD on 2 L NC at home Current Visit: No Status: Chronic (4) Type 2 diabetes mellitus without complications Current Visit: No Status: Acute Assessment and plan: Blood sugar mildly elevated on presentation. Most recent hemoglobin A1c noted to be 7.1. Start Accu-Cheks before meals and at bedtime with low-dose sliding so coverage. Continue to monitor blood sugars and adjust insulin regimen as necessary. Qualifiers: Diabetes mellitus halfway insulin use: without terminologist use Qualified Code(s): E11.9 - Type 2 diabetes mellitus without complications (5) DVT prophylaxis on coumadin Current Visit: No Status: Acute Assessment and plan: (6)Chronic diastolic congestive heart failure: No signs of acute heart failure at this time. Continue oral Lasix. (7) obesity with BMI 35 Patient is discharged on stable condition - Time Spent with Patient Total time spent providing and/or coordinating discharge services: Time spent: Greater than 30 minutes - Discharge Medications Prescriptions: New Doxycycline 100 mg PO BID #7 capsule Metoprolol [Lopressor] 50 mg PO BID #60 tablet predniSONE [PredniSONE] See Taper PO DAILY 7 Days #30 tablet Continued Warfarin [Coumadin] 3 mg PO SUTH Warfarin [Coumadin] 6 mg PO MOWETHFRSA Potassium 99 mg PO DAILY Furosemide [Lasix] 20 mg PO BID 30 Days #60 tablet Losartan [Cozaar] 25 mg PO DAILY #30 tablet Cholecalciferol (D-3) [Vitamin D] 1,000 unit PO DAILY Cyanocobalamin (Vitamin B-12) [Vitamin B12] 1,000 mcg PO DAILY rOPINIRole [Requip] 0.25 mg PO HS Escitalopram [Lexapro] 10 mg PO QPM Vitamin A 10,000 unit PO DAILY Levalbuterol Tartrate [Xopenex Hfa] 15 gm IH Q4-6H PRN #1 hfa.aer.ad PRN Reason: Wheezing Discontinued Sotalol [Betapace] 120 mg PO Q12HR #180 tablet Home Medications: Warfarin [Coumadin] 3 mg PO SUTH 11/12/16 [History] Warfarin [Coumadin] 6 mg PO MOWETHFRSA 11/12/16 [History] Potassium 99 mg PO DAILY 02/21/17 [History] Furosemide [Lasix] 20 mg PO BID 30 Days #60 tablet 03/03/17 [Rx] Losartan [Cozaar] 25 mg PO DAILY #30 tablet 03/30/17 [Rx] Cholecalciferol (D-3) [Vitamin D] 1,000 unit PO DAILY 10/21/17 [History] Cyanocobalamin (Vitamin B-12) [Vitamin B12] 1,000 mcg PO DAILY 10/21/17 [History] rOPINIRole [Requip] 0.25 mg PO HS 10/23/17 [History] Escitalopram [Lexapro] 10 mg PO QPM 03/26/18 [History] Vitamin A 10,000 unit PO DAILY 05/21/18 [History] Levalbuterol Tartrate [Xopenex Hfa] 15 gm IH Q4-6H PRN #1 hfa.aer.ad 07/17/18 [Rx] Doxycycline 100 mg PO BID #7 capsule 07/26/18 [Rx] Metoprolol [Lopressor] 50 mg PO BID #60 tablet 07/26/18 [Rx] predniSONE [PredniSONE] See Taper PO DAILY 7 Days #30 tablet 07/26/18 [Rx] Allergies/Adverse Reactions: Allergy/AdvReac Type Severity Reaction Status Date / Time albuterol AdvReac See Verified 07/20/18 12:53 Comments codeine AdvReac "Shakiness Verified 07/20/18 12:53 on the inside" gabapentin AdvReac "weird Verified 07/20/18 12:53 dreams/ on edge" Date of admission: 07/22/18 14:29 Primary care physician: Tisha Celeste Consults: 07/19/18 19:36 Consult to Cardiology [CONS] Routine Comment: Consulting Provider: Card[facility] Reason for Consult: A fib with RVR, on Sotolol Call Completed: No 07/22/18 11:32 Consult to Cardiology [CONS] Routine Comment: Consulting Provider: Card[facility] Reason for Consult: Afib with RVR - recurrent while on sotalol Time Notified: 11:32 Call Completed: Yes 07/22/18 14:30 Consult to Electrophysiology (EP) [CONS] Routine Consulting Provider: Electrophysiology [facility] Reason for Consult: afib despite sotalol Call Completed: Yes - Constitutional Vitals: Temp Pulse Resp BP Pulse Ox 97.5 F L 55 16 156/83 96 07/26/18 11:03 07/26/18 11:03 07/26/18 11:03 07/26/18 11:03 07/26/18 11:03 General appearance: Present: A&O X 3, pleasant, no acute distress Exam: General: Patient is alert, mild distress, oriented x 3 Respiratory: Diminished breath sounds bilaterally. no wheezing Cardiovascular: Regular rate and rhythm. s1 and s2 normal No clicks, rubs, gallops, or murmurs. No pedal edema Abdomen: Abdomen is soft, nontender. Bowel sounds are present Musculoskeletal: Spontaneously moving all extremities Skin: warm, dry, intact. Neuro: Alert oriented x 3 normal cranial nerves, no focal deficits - Patient Status Disposition: Home, Self-Care Condition: Good Functional capacity at discharge: independent ambulation Overall status at discharge: patient is back to baseline - Discharge Instructions Follow Up With: Tisha Celeste MD [Primary Care Provider] - - Diet and Activity Diet: low fat, low cholesterol
--- NOTE | 2018-07-26 13:53 | Electrocardiograph Report ---
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
[2018-07-26] MEDS ORDERED: *HR* Warfarin 3 MG TABLET PO ONE (18:00)
== END 2018-07-26 14:17 | disposition home or self-care (01) | DRG 309 ==
LOC: 2ANU 15:39 → EMEROOARM 15:39 → 2ANU 21:04 → SUATTDRO 07-22 14:29 → 2ANU 07-24 23:02
PROVIDERS: ADMIT Internal Medicine; ATTEND Hospitalist

== ENCOUNTER 2019-02-03 05:12 | Inpatient (IN) ==
[2019-02-03] MEDS ORDERED: 0.9 % Sodium Chloride 1,000 ML IVC ONE ×3 (05:38→21:33)
[2019-02-03] MEDS ORDERED: Ipratropium/Albuterol Neb 3 ML IH ONE (05:39)
[2019-02-03] MEDS ORDERED: Levalbuterol Neb 1.25 MG/3 ML IH STA (05:49)
[2019-02-03 06:07] LABS: Basophils % 0.2 %; Eosinophils % 0.2 %; Hematocrit 52.2 % (35.3-44.9); Hemoglobin 17.8 g/dL (11.5-15.4); Immature Granulocytes % 0.6 % (0-4); Lymphocytes % 7.1 %; Mean Corpuscular HGB Conc 34.1 g/dL (31.6-35.5); Mean Corpuscular Hemoglobin 30.7 pg (28.0-33.3); Mean Corpuscular Volume 90.2 fL (83.0-100.0); Mean Platelet Volume 10.6 fL (9.4-12.4); Monocytes # 0.7 K/mcL (0.0-1.3); Monocytes % 5.3 %; Platelet Count 201 K/mcL (140-400); Red Blood Count 5.79 M/mcL (3.82-4.97); Red Cell Distribution Width 13.1 % (11.5-14.5); Segmented Neutrophils % 86.6 %; White Blood Count 13.9 K/mcL (4.3-11.1)
[2019-02-03 06:12] LABS: INR 1.8; Prothrombin Time 19.9 Seconds (9.4-12.1)
[2019-02-03 06:15] LABS: Activated Partial Thrombo Time 37.4 Seconds (26.0-36.0)
[2019-02-03 06:27] LABS: Bilirubin,Urine Negative (Negative); Blood,Urine Large (Negative); Clarity,Urine Cloudy (Clear); Color,Urine Dark Yellow (Yellow); Glucose,Urine (UA) Normal (Normal); Ketones,Urine Negative (Negative); Leukocyte Esterase,Urine Small (Negative); Nitrite,Urine Negative (Negative); Protein,Urine 100 mg/dL (Neg-Trace); Urobilinogen,Urine Normal (Normal)
[2019-02-03 06:31] LABS: Bacteria,Urine None Seen per hpf (None-Few); Squamous Epithelial Cell,Urine Many per lpf (None-Few)
[2019-02-03 06:35] LABS: Alanine Aminotransferase 35 Units/L (7-52); Albumin 4.2 g/dL (3.5-5.7); Albumin/Globulin Ratio 1.3 (1.1-2.2); Alkaline Phosphatase 74 Units/L (34-104); Aspartate Amino Transferase 23 Units/L (13-39); BUN/Creatinine Ratio 26 (6-26); Bilirubin,Direct 0.2 mg/dL (0.0-0.2); Bilirubin,Indirect 0.9 mg/dL (0.0-1.0); Bilirubin,Total 1.1 mg/dL (0.3-1.0); Blood Urea Nitrogen 18 mg/dL (8-23); Calcium 9.3 mg/dL (8.6-10.3); Carbon Dioxide 24 mEq/L (23-29); Chloride 97 mEq/L (98-107); Globulin 3.3 g/dL (2.4-3.5); Glucose 176 mg/dL (70-105); Osmolality,Calculated 288 (280-300); Potassium 4.1 mEq/L (3.5-5.1); Sodium 136 mEq/L (136-145); Total Protein 7.5 g/dL (6.4-8.9); Troponin I 0.11 ng/mL (< 0.04); eGFR For African Americans > 60 (> 60); eGFR For Non-African Americans > 60 (> 60)
[2019-02-03 06:36] LABS: RBC,Urine 15-30 per hpf (0-3); WBC,Urine 0-3 per hpf (0-3)
[2019-02-03] MEDS ORDERED: Aspirin 81 MG TAB.CHEW PO STA (07:06)
[2019-02-03] MEDS ORDERED: Azithromycin 500 MG in 0.9 % Sodium Chloride 250 ML IVPB ONE (07:12)
[2019-02-03] MEDS ORDERED: cefTRIAXone 1,000 MG in 0.9 % Sodium Chloride Mini Bag 100 ML IVPB ONE (07:12)
[2019-02-03] MEDS ORDERED: *HR* Rocuronium Bromide 100 MG/10 ML VIAL IVC ONE (08:03)
[2019-02-03] MEDS ORDERED: Ibuprofen 600 MG TABLET PO ONE (08:10)
[2019-02-03] MEDS ORDERED: *HR* Heparin 5,000 UNIT/ML VIAL IVP PRN ×4 (10:47→16:48)
[2019-02-03] MEDS ORDERED: *HR* Heparin 5,000 UNIT/ML VIAL IVP ONE (10:47)
[2019-02-03] MEDS ORDERED: Heparin 25,000 UNIT/250 ML D5W 25,000 UNIT/250 ML IV.SOLN IVC SCH (11:00)
[2019-02-03] MEDS ORDERED: 0.9 % Sodium Chloride 1,000 ML ONE (12:22)
[2019-02-03] MEDS ORDERED: Aminoglycoside Consult 1 EACH MC ONE (13:56)
[2019-02-03 14:52] LABS: ABG Base Excess -4 mEq/L (-2 to 3); ABG HCO3 24 mEq/L (21-27); ABG Oxygen Saturation 95 % (95-98); ABG PCO2 53 mmHg (35-45); ABG PH 7.26 pH Units (7.32-7.45); ABG PO2 85 mmHg (85-104); ABG TCO2 25 mEq/L (20-26)
[2019-02-03] MEDS ORDERED: Naloxone 0.4 MG/ML INJ IVP PRN (15:11)
[2019-02-03] MEDS ORDERED: methylPREDNISolone 125 MG/2 ML VIAL IVP ONE (15:19)
[2019-02-03] MEDS ORDERED: Acetaminophen 325 MG TABLET PO PRN (15:22)
[2019-02-03] MEDS ORDERED: 0.9 % Sodium Chloride 250 ML ONE ×2 (15:31→15:36)
[2019-02-03] MEDS ORDERED: *HR* Norepinephrine 4 MG/4 ML VIAL IVC ONE (15:31)
[2019-02-03] MEDS ORDERED: *HR* Phenylephrine 10 MG/ML VIAL ONE ×2 (15:36→15:50)
[2019-02-03] MEDS ORDERED: Ketamine *HR* 500 MG/10 ML MDV ONE (15:39)
[2019-02-03 15:41] LABS: ABG Base Excess -2 mEq/L (-2 to 3); ABG HCO3 25 mEq/L (21-27); ABG Oxygen Saturation 92 % (95-98); ABG PCO2 53 mmHg (35-45); ABG PH 7.29 pH Units (7.32-7.45); ABG PO2 71 mmHg (85-104); ABG TCO2 27 mEq/L (20-26)
[2019-02-03] MEDS ORDERED: Dexmedetomidine HCl 400 MCG/100 ML MLS IVC ONE (16:01)
[2019-02-03] MEDS ORDERED: *HR* Rocuronium Bromide 50 MG/5 ML VIAL IVP ONE (16:10)
[2019-02-03] MEDS ORDERED: Ketamine *HR* 500 MG/10 ML MDV IVP ONE (16:11)
[2019-02-03] MEDS: FentaNYL (PF) 1,000 MCG in 0.9 % Sodium Chloride 80 ML IVC SCH (16:54)
[2019-02-03] MEDS ORDERED: Artificial Tears SOLN 15 ML BOTTLE BOTH EYES PRN (16:56)
[2019-02-03] MEDS ORDERED: 0.9 % Sodium Chloride 1,000 ML IVC SCH (17:15)
[2019-02-03] MEDS: Levalbuterol Neb 1.25 MG/3 ML IH SCH ×2 (17:29→21:25)
[2019-02-03] MEDS: Heparin 25,000 UNIT/250 ML D5W 25,000 UNIT/250 ML IV.SOLN IVC SCH ×2 (17:40→20:05)
[2019-02-03] MEDS: Dexmedetomidine HCl 400 MCG/100 ML MLS IVC SCH ×2 (17:42→23:17)
[2019-02-03] MEDS: Phenylephrine 10 MG in 0.9 % Sodium Chloride 250 ML IVC SCH ×2 (17:42→21:20)
[2019-02-03 17:59] LABS: Troponin I 0.05 ng/mL (< 0.04)
[2019-02-03 18:54] LABS: ABG Base Excess -3 mEq/L (-2 to 3); ABG HCO3 23 mEq/L (21-27); ABG Oxygen Saturation 100 % (95-98); ABG PCO2 46 mmHg (35-45); ABG PH 7.31 pH Units (7.32-7.45); ABG PO2 288 mmHg (85-104); ABG TCO2 25 mEq/L (20-26); Blood Gas Modality ASSIST CONTROL; Blood Gas VT 480 cc
[2019-02-03 19:43] LABS: Hematocrit 48.2 % (35.3-44.9); Mean Corpuscular HGB Conc 32.6 g/dL (31.6-35.5); Mean Corpuscular Volume 95.3 fL (83.0-100.0); Mean Platelet Volume 10.6 fL (9.4-12.4); Platelet Count 167 K/mcL (140-400); Red Blood Count 5.06 M/mcL (3.82-4.97); Red Cell Distribution Width 13.3 % (11.5-14.5); White Blood Count 13.1 K/mcL (4.3-11.1)
[2019-02-03 19:50] LABS: Hemoglobin 15.7 g/dL (11.5-15.4); INR 1.7; Prothrombin Time 19.7 Seconds (9.4-12.1)
[2019-02-03 20:04] LABS: BUN/Creatinine Ratio 24 (6-26); Blood Urea Nitrogen 23 mg/dL (8-23); Calcium 7.7 mg/dL (8.6-10.3); Carbon Dioxide 21 mEq/L (23-29); Chloride 105 mEq/L (98-107); Glucose 180 mg/dL (70-105); Osmolality,Calculated 290 (280-300); Potassium 4.4 mEq/L (3.5-5.1); Sodium 136 mEq/L (136-145); eGFR For African Americans > 60 (> 60); eGFR For Non-African Americans 56 (> 60)
[2019-02-03] MEDS: methylPREDNISolone 125 MG/2 ML VIAL IVP SCH ×2 (20:04→23:19)
[2019-02-03] MEDS: Artificial Tears SOLN 15 ML BOTTLE BOTH EYES SCH ×2 (20:04→23:19)
[2019-02-03] MEDS: Chlorhexidine Rinse 15 ML MOUTHWASH MM SCH (20:04)
[2019-02-03] MEDS ORDERED: Amiodarone Premix 150 MG/100 ML BAG IVPB ONE (21:10)
[2019-02-03] MEDS: Ipratropium Neb 0.5 MG NEBULIZER IH SCH (21:25)
[2019-02-03] MEDS ORDERED: Amiodarone Premix 360 MG/200 ML BAG IVC ONE (21:30)
[2019-02-04] MEDS: Phenylephrine 10 MG in 0.9 % Sodium Chloride 250 ML IVC SCH ×6 (00:51→21:44)
[2019-02-04] MEDS: FentaNYL (PF) 1,000 MCG in 0.9 % Sodium Chloride 80 ML IVC SCH (02:22)
[2019-02-04] MEDS: Ipratropium Neb 0.5 MG NEBULIZER IH SCH ×4 (03:29→20:55)
[2019-02-04] MEDS: Levalbuterol Neb 1.25 MG/3 ML IH SCH ×4 (03:29→20:55)
[2019-02-04] MEDS: Amiodarone Premix 360 MG/200 ML BAG IVC SCH ×2 (03:38→16:47)
[2019-02-04 04:08] LABS: Hematocrit 46.4 % (35.3-44.9); Hemoglobin 14.7 g/dL (11.5-15.4); Mean Corpuscular HGB Conc 31.7 g/dL (31.6-35.5); Mean Corpuscular Hemoglobin 30.4 pg (28.0-33.3); Mean Corpuscular Volume 96.1 fL (83.0-100.0); Platelet Count 190 K/mcL (140-400); Red Blood Count 4.83 M/mcL (3.82-4.97); Red Cell Distribution Width 13.4 % (11.5-14.5); White Blood Count 15.3 K/mcL (4.3-11.1)
[2019-02-04 04:09] LABS: INR 2.2; Prothrombin Time 25.4 Seconds (9.4-12.1)
[2019-02-04 04:25] LABS: Alanine Aminotransferase 38 Units/L (7-52); Albumin 3.4 g/dL (3.5-5.7); Albumin/Globulin Ratio 1.3 (1.1-2.2); Alkaline Phosphatase 58 Units/L (34-104); Aspartate Amino Transferase 28 Units/L (13-39); BUN/Creatinine Ratio 25 (6-26); Bilirubin,Total 1.1 mg/dL (0.3-1.0); Blood Urea Nitrogen 23 mg/dL (8-23); Calcium 7.7 mg/dL (8.6-10.3); Carbon Dioxide 22 mEq/L (23-29); Chloride 106 mEq/L (98-107); Globulin 2.6 g/dL (2.4-3.5); Glucose 185 mg/dL (70-105); Magnesium 1.6 mg/dL (1.6-2.6); Osmolality,Calculated 290 (280-300); Phosphorous 3.6 mg/dL (2.7-4.5); Potassium 4.2 mEq/L (3.5-5.1); Sodium 136 mEq/L (136-145); eGFR For African Americans > 60 (> 60); eGFR For Non-African Americans 58 (> 60)
[2019-02-04] MEDS: Artificial Tears SOLN 15 ML BOTTLE BOTH EYES SCH ×5 (04:26→19:45)
[2019-02-04 04:35] LABS: Lymphocytes # 1.2 K/mcL (0.6-4.6); Monocytes # 0.3 K/mcL (0.0-1.3); Neutrophils # 13.8 K/mcL (1.6-8.9); Platelet Estimate Normal (Normal)
[2019-02-04 05:39] LABS: ABG Base Excess -4 mEq/L (-2 to 3); ABG HCO3 22 mEq/L (21-27); ABG Oxygen Saturation 95 % (95-98); ABG PCO2 42 mmHg (35-45); ABG PH 7.33 pH Units (7.32-7.45); ABG PO2 84 mmHg (85-104); ABG TCO2 23 mEq/L (20-26); Blood Gas Modality AF; Blood Gas VT 480 cc
[2019-02-04] MEDS ORDERED: Calcium Gluconate 1gm/50mL 1 GM/50 ML BAG IVPB ONE (06:41)
[2019-02-04] MEDS: Dexmedetomidine HCl 400 MCG/100 ML MLS IVC SCH ×2 (07:38→11:25)
[2019-02-04] MEDS: Chlorhexidine Rinse 15 ML MOUTHWASH MM SCH ×2 (07:48→21:10)
[2019-02-04] MEDS: cefTRIAXone 1,000 MG in Water for inj. (sterile) 10 ML IVP SCH (07:48)
[2019-02-04] MEDS: methylPREDNISolone 125 MG/2 ML VIAL IVP SCH ×2 (07:48→15:46)
[2019-02-04] MEDS: Pantoprazole 40 MG VIAL IVP SCH (07:48)
[2019-02-04 09:04] LABS: Magnesium 1.7 mg/dL (1.6-2.6); Phosphorous 5.3 mg/dL (2.7-4.5)
[2019-02-04 09:35] LABS: Adenovirus Not Detected (Not Detect); Bordetella Pertussis Not Detected (Not Detect); Chlamydophila pneumoniae Not Detected (Not Detect); Coronavirus 229E Not Detected (Not Detect); Coronavirus HKU1 Not Detected (Not Detect); Coronavirus NL63 Not Detected (Not Detect); Coronavirus OC43 Not Detected (Not Detect); Human Metapneumovirus Not Detected (Not Detect); Human Rhinovirus/Enterovirus Not Detected (Not Detect); Influenza A Subtype 2009 H1 Not Detected (Not Detect); Influenza B Not Detected (Not Detect); Mycoplasma pneumoniae Not Detected (Not Detect); Parainfluenza Virus 1 Not Detected (Not Detect); Parainfluenza Virus 2 Not Detected (Not Detect); Parainfluenza Virus 3 Not Detected (Not Detect); Parainfluenza Virus 4 Not Detected (Not Detect); Respiratory Syncytial Virus Not Detected (Not Detect)
[2019-02-04] MEDS ORDERED: Perflutren Lipid Microsphere 1.3 ML in 0.9 % Sodium Chloride 8.7 ML IVP ONE (15:40)
[2019-02-04] MEDS ORDERED: Azithromycin 500 MG in 0.9 % Sodium Chloride 250 ML IVPB SCH (16:00)
[2019-02-04] MEDS ORDERED: *HR* Warfarin 3 MG TABLET PO ONE (18:00)
[2019-02-04] MEDS ORDERED: Warfarin perPT PO PRN (18:00)
[2019-02-05] MEDS: methylPREDNISolone 125 MG/2 ML VIAL IVP SCH (00:19)
[2019-02-05] MEDS: Levalbuterol Neb 1.25 MG/3 ML IH SCH ×4 (03:29→22:08)
[2019-02-05] MEDS: Ipratropium Neb 0.5 MG NEBULIZER IH SCH ×4 (03:29→22:08)
[2019-02-05] MEDS: Amiodarone Premix 360 MG/200 ML BAG IVC SCH (04:07)
[2019-02-05] MEDS: Artificial Tears SOLN 15 ML BOTTLE BOTH EYES SCH ×3 (04:08→08:19)
[2019-02-05 04:48] LABS: Basophils % 0.1 %; Hemoglobin 12.9 g/dL (11.5-15.4); Lymphocytes # 0.8 K/mcL (0.6-4.6); Lymphocytes % 7.2 %; Mean Corpuscular HGB Conc 33.1 g/dL (31.6-35.5); Mean Corpuscular Hemoglobin 30.9 pg (28.0-33.3); Mean Corpuscular Volume 93.5 fL (83.0-100.0); Mean Platelet Volume 10.4 fL (9.4-12.4); Monocytes # 0.4 K/mcL (0.0-1.3); Monocytes % 3.2 %; Neutrophils # 9.8 K/mcL (1.6-8.9); Platelet Count 166 K/mcL (140-400); Red Blood Count 4.17 M/mcL (3.82-4.97); Segmented Neutrophils % 88.5 %
[2019-02-05 04:49] LABS: INR 2.1; Prothrombin Time 24.3 Seconds (9.4-12.1)
[2019-02-05 05:04] LABS: BUN/Creatinine Ratio 36 (6-26); Blood Urea Nitrogen 25 mg/dL (8-23); Calcium 8.6 mg/dL (8.6-10.3); Carbon Dioxide 22 mEq/L (23-29); Chloride 106 mEq/L (98-107); Glucose 165 mg/dL (70-105); Magnesium 2.2 mg/dL (1.6-2.6); Osmolality,Calculated 296 (280-300); Potassium 4.1 mEq/L (3.5-5.1); Sodium 139 mEq/L (136-145); eGFR For African Americans > 60 (> 60); eGFR For Non-African Americans > 60 (> 60)
[2019-02-05] MEDS: Dexmedetomidine HCl 400 MCG/100 ML MLS IVC SCH ×4 (06:19→20:01)
[2019-02-05] MEDS ORDERED: *HR* Metoprolol 5 MG/5 ML VIAL IVP ONE ×2 (08:06→08:07)
[2019-02-05] MEDS: Pantoprazole 40 MG VIAL IVP SCH (08:09)
[2019-02-05] MEDS: cefTRIAXone 1,000 MG in Water for inj. (sterile) 10 ML IVP SCH (08:09)
[2019-02-05] MEDS: predniSONE 20 MG TABLET PO SCH (08:09)
[2019-02-05] MEDS: Chlorhexidine Rinse 15 ML MOUTHWASH MM SCH (08:19)
[2019-02-05] MEDS ORDERED: Furosemide 20 MG/2 ML VIAL IVP ONE (10:44)
[2019-02-05] MEDS ORDERED: *HR* Dextrose 50 % in Water (Syg) 50 ML SYRINGE IVP PRN (12:52)
[2019-02-05] MEDS ORDERED: Dextrose Gel 15 GM/37.5 ML TUBE PO PRN ×2 (12:52)
[2019-02-05] MEDS ORDERED: D5% in Water 1,000 ML IVC PRN (12:52)
[2019-02-05] MEDS ORDERED: Insulin LISPRO 300 UNITS/3 ML VIAL SQ SCH ×3 (16:30→21:00)
[2019-02-05] MEDS: Insulin LISPRO 300 UNITS/3 ML VIAL SQ SCH ×2 (17:55→19:29)
[2019-02-05] MEDS ORDERED: *HR* Warfarin 3 MG TABLET PO ONE (18:00)
[2019-02-06] MEDS: Ipratropium Neb 0.5 MG NEBULIZER IH SCH ×4 (03:26→21:25)
[2019-02-06] MEDS: Levalbuterol Neb 1.25 MG/3 ML IH SCH ×4 (03:26→21:25)
[2019-02-06] MEDS: Dexmedetomidine HCl 400 MCG/100 ML MLS IVC SCH (03:46)
[2019-02-06 03:49] LABS: Basophils % 0.3 %; Hematocrit 39.6 % (35.3-44.9); Immature Granulocytes % 1.4 % (0-4); Lymphocytes # 1.3 K/mcL (0.6-4.6); Lymphocytes % 11.2 %; Mean Corpuscular HGB Conc 32.8 g/dL (31.6-35.5); Mean Corpuscular Hemoglobin 30.7 pg (28.0-33.3); Mean Corpuscular Volume 93.4 fL (83.0-100.0); Mean Platelet Volume 10.3 fL (9.4-12.4); Monocytes # 0.5 K/mcL (0.0-1.3); Monocytes % 4.2 %; Neutrophils # 9.8 K/mcL (1.6-8.9); Nucleated Red Blood Cells 0.3 /100 WBC (0); Platelet Count 163 K/mcL (140-400); Red Blood Count 4.24 M/mcL (3.82-4.97); Red Cell Distribution Width 14.1 % (11.5-14.5); Segmented Neutrophils % 82.9 %; White Blood Count 11.8 K/mcL (4.3-11.1)
[2019-02-06 04:06] LABS: BUN/Creatinine Ratio 40 (6-26); Blood Urea Nitrogen 29 mg/dL (8-23); Calcium 8.8 mg/dL (8.6-10.3); Carbon Dioxide 24 mEq/L (23-29); Chloride 106 mEq/L (98-107); Glucose 134 mg/dL (70-105); Magnesium 2.1 mg/dL (1.6-2.6); Osmolality,Calculated 292 (280-300); Phosphorous 2.7 mg/dL (2.7-4.5); Sodium 137 mEq/L (136-145); eGFR For African Americans > 60 (> 60); eGFR For Non-African Americans > 60 (> 60)
[2019-02-06 07:12] LABS: INR 2.4; Prothrombin Time 27.6 Seconds (9.4-12.1)
[2019-02-06] MEDS: Insulin LISPRO 300 UNITS/3 ML VIAL SQ SCH ×4 (07:43→19:37)
[2019-02-06] MEDS: predniSONE 20 MG TABLET PO SCH (08:35)
[2019-02-06] MEDS: Pantoprazole 40 MG VIAL IVP SCH ×2 (08:35→08:37)
[2019-02-06] MEDS ORDERED: Water for inj. (sterile) 20 ML IV ONE (08:39)
[2019-02-06] MEDS: cefTRIAXone 1,000 MG in Water for inj. (sterile) 10 ML IVP SCH (08:41)
[2019-02-06] MEDS ORDERED: Furosemide 40 MG/4 ML VIAL IVP SCH ×2 (09:00→17:00)
[2019-02-06] MEDS ORDERED: Furosemide 20 MG TABLET PO SCH (09:00)
[2019-02-06] MEDS ORDERED: Dextrose Gel 15 GM/37.5 ML TUBE PO PRN ×2 (11:59)
[2019-02-06] MEDS ORDERED: Naloxone 0.4 MG/ML INJ IVP PRN (11:59)
[2019-02-06] MEDS ORDERED: Warfarin perPT PO PRN (11:59)
[2019-02-06] MEDS ORDERED: Acetaminophen 325 MG TABLET PO PRN (11:59)
[2019-02-06] MEDS ORDERED: *HR* Dextrose 50 % in Water (Syg) 50 ML SYRINGE IVP PRN (11:59)
[2019-02-06] MEDS ORDERED: D5% in Water 1,000 ML IVC PRN (11:59)
[2019-02-06] MEDS ORDERED: *HR* Warfarin 3 MG TABLET PO ONE (18:00)
[2019-02-06] MEDS: rOPINIRole 0.25 MG TABLET PO SCH (19:37)
[2019-02-07] MEDS: Ipratropium Neb 0.5 MG NEBULIZER IH SCH ×4 (03:45→22:27)
[2019-02-07] MEDS: Levalbuterol Neb 1.25 MG/3 ML IH SCH ×4 (03:45→22:28)
[2019-02-07 04:26] LABS: Basophils # 0.1 K/mcL (0.0-0.2); Basophils % 0.5 %; Hematocrit 41.2 % (35.3-44.9); Hemoglobin 13.5 g/dL (11.5-15.4); Immature Granulocytes % 2.8 % (0-4); Lymphocytes # 2.1 K/mcL (0.6-4.6); Lymphocytes % 16.2 %; Mean Corpuscular HGB Conc 32.8 g/dL (31.6-35.5); Mean Corpuscular Hemoglobin 30.8 pg (28.0-33.3); Mean Corpuscular Volume 93.8 fL (83.0-100.0); Mean Platelet Volume 10.8 fL (9.4-12.4); Monocytes # 0.6 K/mcL (0.0-1.3); Monocytes % 4.8 %; Neutrophils # 9.9 K/mcL (1.6-8.9); Nucleated Red Blood Cells 0.2 /100 WBC (0); Platelet Count 182 K/mcL (140-400); Red Blood Count 4.39 M/mcL (3.82-4.97); Red Cell Distribution Width 13.9 % (11.5-14.5); Segmented Neutrophils % 75.7 %; White Blood Count 13.1 K/mcL (4.3-11.1)
[2019-02-07 04:28] LABS: INR 2.3; Prothrombin Time 25.9 Seconds (9.4-12.1)
[2019-02-07 04:46] LABS: BUN/Creatinine Ratio 39 (6-26); Blood Urea Nitrogen 31 mg/dL (8-23); Carbon Dioxide 28 mEq/L (23-29); Chloride 102 mEq/L (98-107); Glucose 144 mg/dL (70-105); Osmolality,Calculated 303 (280-300); Potassium 3.7 mEq/L (3.5-5.1); Sodium 142 mEq/L (136-145); eGFR For African Americans > 60 (> 60); eGFR For Non-African Americans > 60 (> 60)
[2019-02-07] MEDS: predniSONE 20 MG TABLET PO SCH (08:47)
[2019-02-07] MEDS: Insulin LISPRO 300 UNITS/3 ML VIAL SQ SCH ×4 (08:48→20:20)
[2019-02-07] MEDS ORDERED: cefTRIAXone 1,000 MG in Water for inj. (sterile) 10 ML IVP SCH (09:00)
[2019-02-07] MEDS ORDERED: Pantoprazole 40 MG VIAL IVP SCH (09:00)
[2019-02-07] MEDS: Furosemide 20 MG TABLET PO SCH (10:12)
[2019-02-07] MEDS ORDERED: *HR* Warfarin 5 MG TABLET PO ONE (18:00)
[2019-02-07] MEDS: Potassium Chloride Elixir 20 MEQ/15 ML UDC PO SCH (18:02)
[2019-02-07] MEDS: rOPINIRole 0.25 MG TABLET PO SCH (20:18)
[2019-02-08 03:26] LABS: INR 1.9; Prothrombin Time 22.1 Seconds (9.4-12.1)
[2019-02-08 03:42] LABS: Alanine Aminotransferase 64 Units/L (7-52); Albumin 3.4 g/dL (3.5-5.7); Albumin/Globulin Ratio 1.1 (1.1-2.2); Alkaline Phosphatase 68 Units/L (34-104); Aspartate Amino Transferase 36 Units/L (13-39); BUN/Creatinine Ratio 42 (6-26); Bilirubin,Total 0.7 mg/dL (0.3-1.0); Blood Urea Nitrogen 30 mg/dL (8-23); Calcium 8.9 mg/dL (8.6-10.3); Carbon Dioxide 29 mEq/L (23-29); Chloride 102 mEq/L (98-107); Glucose 149 mg/dL (70-105); Magnesium 2.1 mg/dL (1.6-2.6); Osmolality,Calculated 295 (280-300); Phosphorous 3.4 mg/dL (2.7-4.5); Potassium 4.6 mEq/L (3.5-5.1); Sodium 138 mEq/L (136-145); Total Protein 6.4 g/dL (6.4-8.9); eGFR For African Americans > 60 (> 60); eGFR For Non-African Americans > 60 (> 60)
[2019-02-08] MEDS: Ipratropium Neb 0.5 MG NEBULIZER IH SCH ×4 (04:27→22:44)
[2019-02-08] MEDS: Levalbuterol Neb 1.25 MG/3 ML IH SCH ×4 (04:28→22:44)
[2019-02-08] MEDS: Insulin LISPRO 300 UNITS/3 ML VIAL SQ SCH ×2 (09:12→21:55)
[2019-02-08] MEDS: Potassium Chloride Elixir 20 MEQ/15 ML UDC PO SCH ×2 (09:13→17:13)
[2019-02-08] MEDS: predniSONE 20 MG TABLET PO SCH (09:14)
[2019-02-08] MEDS: cefTRIAXone 1,000 MG in 0.9 % Sodium Chloride Mini Bag 100 ML IVPB SCH (09:14)
[2019-02-08] MEDS: Furosemide 20 MG TABLET PO SCH (09:14)
[2019-02-08] MEDS ORDERED: *HR* Warfarin 5 MG TABLET PO ONE (18:00)
[2019-02-08] MEDS ORDERED: Potassium Chloride Elixir 20 MEQ/15 ML UDC PO SCH (21:00)
[2019-02-08] MEDS: rOPINIRole 0.25 MG TABLET PO SCH (21:54)
[2019-02-09] MEDS: Ipratropium Neb 0.5 MG NEBULIZER IH SCH ×2 (03:31→09:59)
[2019-02-09] MEDS: Levalbuterol Neb 1.25 MG/3 ML IH SCH ×2 (03:31→09:59)
[2019-02-09 05:30] LABS: Basophils # 0.1 K/mcL (0.0-0.2); Basophils % 0.6 %; Eosinophils % 0.2 %; Hematocrit 42.8 % (35.3-44.9); Lymphocytes # 2.4 K/mcL (0.6-4.6); Lymphocytes % 17.2 %; Mean Corpuscular HGB Conc 32.7 g/dL (31.6-35.5); Mean Corpuscular Hemoglobin 31.3 pg (28.0-33.3); Mean Corpuscular Volume 95.7 fL (83.0-100.0); Mean Platelet Volume 10.8 fL (9.4-12.4); Monocytes # 0.7 K/mcL (0.0-1.3); Monocytes % 5.3 %; Neutrophils # 9.9 K/mcL (1.6-8.9); Nucleated Red Blood Cells 0.1 /100 WBC (0); Platelet Count 192 K/mcL (140-400); Red Blood Count 4.47 M/mcL (3.82-4.97); Red Cell Distribution Width 13.4 % (11.5-14.5); Segmented Neutrophils % 71.7 %; White Blood Count 13.9 K/mcL (4.3-11.1)
[2019-02-09 05:41] LABS: INR 2.1; Prothrombin Time 23.5 Seconds (9.4-12.1)
[2019-02-09 05:48] LABS: BUN/Creatinine Ratio 39 (6-26); Blood Urea Nitrogen 24 mg/dL (8-23); Calcium 8.9 mg/dL (8.6-10.3); Carbon Dioxide 31 mEq/L (23-29); Chloride 98 mEq/L (98-107); Glucose 129 mg/dL (70-105); Osmolality,Calculated 292 (280-300); Potassium 4.5 mEq/L (3.5-5.1); Sodium 138 mEq/L (136-145); eGFR For African Americans > 60 (> 60); eGFR For Non-African Americans > 60 (> 60)
[2019-02-09] MEDS: Potassium Chloride Elixir 20 MEQ/15 ML UDC PO SCH (08:56)
[2019-02-09] MEDS: predniSONE 20 MG TABLET PO SCH (08:56)
[2019-02-09] MEDS: cefTRIAXone 1,000 MG in 0.9 % Sodium Chloride Mini Bag 100 ML IVPB SCH (08:57)
[2019-02-09] MEDS: Furosemide 20 MG TABLET PO SCH (08:57)
[2019-02-09] MEDS ORDERED: Diltiazem CD (24hr) 120 MG CAPSULE PO SCH (09:00)
[2019-02-09 13:11] VITALS: BP 130/88
== END 2019-02-09 13:57 | disposition home or self-care (01) | DRG 871 ==
LOC: CDU 05:12 → EMEROOARM 05:12 → SUATTDRO 15:11 → ICNU 17:02 → 2ANU 02-07 11:37
PROVIDERS: ADMIT Internal Medicine; ATTEND Family Medicine